=== PATIENT | female | born 2000 | race Caucasian/White ===

== ENCOUNTER 2021-09-18 10:30 | Outpatient (RCR) | payer OTHER, SELFPAY ==
--- NOTE | 2021-08-15 11:05 | HP.OTEVAL_ITS ---
Patient's Visit Information ROHAN MILLARD is a 21 year old F, referred to Occupational Therapy by ROBERT Cramer, with a diagnosis of left tendonitis ECRB. Date of Evaluation: 08/15/21 Occupational Therapist: Myrna Jimenes, JACOB/Ethan, CHT - Subjective This 21 year old female was seen for OT with dx of left wrist tendonitis (ECRB). 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 pt is right handed. pt would like to decrease pain and use left UE without limitations. - Objective pt demo with rolled shoulder posture - ROM Elbow: right +5/135 left +15/ 135 Forearm: right/left WNL Wrist: right 65/75 left 65/65 ROM Comments: right RD 10* UD 30*. left RD 20* UD 30* - Strength Customer Service And Sales Consultant: right 70# left 40# Lateral Pinch: right 8# left 4# Tripod Pinch: right 4# left 2# - Sensation Sensation Comments: denies - Goals Goal:: pt will demo a increase in left price clerk strength by 15# to increase pts ind. with ADls and IADls by d.c. pt will demo a incrase in left lateral and tripod pinch by 4# to increase pts ind. with ADls and IADLs by d/c Goal:: pt will demo a increase in left wrist flex/ext ROM by 10* to increase pts ind.with ADLs and IADls by d.c Goal:: pt will self report pain no greater than 1/10 with use of left hand with ADLS and IADLs by d.c Goal:: pt will demo understanding wrist ergo to limit stress on tendons by dc. pt will demo increase in seated posture to good to limit stress on muscle/ ligament structures due to poor posture by d/c - Rehabilitation General Assessment: pt demo with left forearm pain and left price clerk/pinch weakness limiting pt with IADLs. Pt demo fair posture . Pt would benefit from skilled OT services 2-3x week for 6 weeks to return pt to PLOF. Today therapist ed. pt on dx. and posture how this can affect use of left UE- Therapist ed. pt on erg. with use of left hand with ADls. pt dmeo understanding of POC and agrees. Rehabilitation Potential: Good - Anticipated Interventions A/AAROM/PROM, Strengthening, Scar Care, Triggerpoint Release, Modalities, Joint Protection/Energy Conservation, Education re Diagnosis - Visit Plan Frequency: 2-3x /Week Duration: 6 Weeks General Plan: will work with tendonitis of ECRB. posture. and strength pt TEXT: Thank you for the opportunity to evaluate your patient. For Medicare and Medicare HMO plans, please review the plan of care and approve it. It will need to be FAXED BACK to us at [phone] for Medicare purposes. Please let me know if there are questions or concerns regarding this plan of care. Physician Signature: Date:
--- NOTE | 2021-08-15 11:06 | HP.OTEVAL_ITS ---
Patient's Visit Information ROHAN MILLARD is a 21 year old F, referred to Occupational Therapy by ROBERT Cramer, with a diagnosis of left tendonitis ECRB. Date of Evaluation: 08/15/21 Occupational Therapist: Myrna Jimenes, JACOB/Ethan, CHT - Subjective This 21 year old female was seen for OT with dx of left wrist tendonitis (ECRB). 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 pt is right handed. pt would like to decrease pain and use left UE without limitations. - Objective pt demo with rolled shoulder posture - ROM Elbow: right +5/135 left +15/ 135 Forearm: right/left WNL Wrist: right 65/75 left 65/65 ROM Comments: right RD 10* UD 30*. left RD 20* UD 30* - Strength Machine Striper: right 70# left 40# Lateral Pinch: right 8# left 4# Tripod Pinch: right 4# left 2# - Sensation Sensation Comments: denies - Quick DASH-Disab of Arm,Shoulder& Hand Quick DASH Score: 25.0000 - Goals Goal:: pt will demo a increase in left locomotive repairer diesel strength by 15# to increase pts ind. with ADls and IADls by d.c. pt will demo a incrase in left lateral and tripod pinch by 4# to increase pts ind. with ADls and IADLs by d/c Goal:: pt will demo a increase in left wrist flex/ext ROM by 10* to increase pts ind.with ADLs and IADls by d.c Goal:: pt will self report pain no greater than 1/10 with use of left hand with ADLS and IADLs by d.c Goal:: pt will demo understanding wrist ergo to limit stress on tendons by dc. pt will demo increase in seated posture to good to limit stress on muscle/ligament structures due to poor posture by d/c - Rehabilitation General Assessment: pt demo with left forearm pain and left locomotive repairer diesel/pinch weakness limiting pt with IADLs. Pt demo fair posture . Pt would benefit from skilled OT services 2-3x week for 6 weeks to return pt to PLOF. Today therapist ed. pt on dx. and posture how this can affect use of left UE- Therapist ed. pt on erg. with use of left hand with ADls. pt dmeo understanding of POC and agrees. Rehabilitation Potential: Good - Anticipated Interventions A/AAROM/PROM, Strengthening, Scar Care, Triggerpoint Release, Modalities, Joint Protection/Energy Conservation, Education re Diagnosis - Visit Plan Frequency: 2-3x /Week Duration: 6 Weeks General Plan: will work with tendonitis of ECRB. posture. and strength pt TEXT: Thank you for the opportunity to evaluate your patient. For Medicare and Medicare HMO plans, please review the plan of care and approve it. It will need to be FAXED BACK to us at [phone] for Medicare purposes. Please let me know if there are questions or concerns regarding this plan of care. Physician Signature: Date:
--- NOTE | 2021-09-18 10:46 | HP.OTDCSUM ---
It has been my pleasure to treat ROHAN MILLARD under orders from ROBERT Cramer, for the diagnosis of left tendonitis ECRB for a total of 10 visit(s). Please see the following information for a summary of their discharge status. % Improvement: 70 Objective/Function: left wrist ROM 70/75 this is increase from 65/65. left lean process deployment consultant strength 70# increase from 40#. left lateral pinch 14# increase from 4#. left tripod pinch 10# increase from 2# Patient Goals: Decrease Pain, Use Hand/Wrist/Arm Normally Again Goal:: pt will demo a increase in left lean process deployment consultant strength by 15# to increase pts ind. with ADls and IADls by d.c. pt will demo a incrase in left lateral and tripod pinch by 4# to increase pts ind. with ADls and IADLs by d/c Goal:: pt will demo a increase in left wrist flex/ext ROM by 10* to increase pts ind.with ADLs and IADls by d.c Goal:: pt will self report pain no greater than 1/10 with use of left hand with ADLS and IADLs by d.c Goal:: pt will demo understanding wrist ergo to limit stress on tendons by dc. pt will demo increase in seated posture to good to limit stress on muscle/ligament structures due to poor posture by d/c Plan: D/C Discharge Comments: Pt was seen for 10 OT visits due to pain /strain ECRB- pt has made great gains in therapy and have met OT goals. pt to cont. to watch her daily movements to ensure proper wrist/elbow ergonomics. pt agree with d/c. If there are questions or concerns regarding this patient's occupational therapy, please fell free to call me at [phone]. Thank you for the referral of this patient. Sincerely, Myrna Jimenes, OTR/L, CHT
== END 2021-09-18 12:32 | disposition home or self-care (01) ==
LOC: OT 10:30
PROVIDERS: PCP Pediatrics; Referring Provider Physician Assistant; Visit Provider Physician Assistant
DX: M77.8 Other enthesopathies, not elsewhere classified (principal)
CPT/HCPCS: 97035; 97110; 97140; 97166; 97530

== ENCOUNTER → 2022-03-13 | Outpatient (CLI) | payer OTHER, SELFPAY ==
--- NOTE | 2022-03-13 07:29 | MRI_ITS ---
STUDY: MRI RIGHT WRIST WITHOUT CONTRAST REASON FOR EXAM: Palpable abnormality at the skin marker at the palmar aspect of the wrist for 5 months, evaluate for ganglion cyst. TECHNIQUE: Standardized fat and water weighted pulse sequences were obtained in all 3 orthogonal planes. COMPARISON: Radiographs 02/25/2022. FINDINGS: Normal visualized distal radius and ulna. Normal distal radioulnar articulation (DRUJ). Normal triangular fibrocartilaginous complex (TFCC). Normal carpal bones. Normal radiocarpal, intercarpal and midcarpal articulations. Normal pisotriquetral articulation. Normal visualized interosseous scapholunate ligament. Normal extensor tendons. Normal flexor tendons. Normal carpal tunnel with a normal median nerve. Normal carpometacarpal articulation of the thumb. Normal second through fifth carpometacarpal articulations. Normal visualized metacarpal bones. There is no demonstrated soft tissue abnormality. There specifically is no ganglion cyst or discrete soft tissue mass corresponding to the palmar skin marker (inversion recovery axial images 15-20). MRI/Upper Ext Joint Only(Routine) IMPRESSION: Unremarkable MRI of the right wrist without demonstrated ganglion cyst or soft tissue mass corresponding to the palmar skin marker. Electronically Signed: Drew Gonsalez MD at 9:19 EDT ,
== END | disposition home or self-care (01) ==
PROVIDERS: PCP Pediatrics; Referring Provider Physician Assistant; Visit Provider Physician Assistant
DX: M67.431 Ganglion, right wrist (principal)
CPT/HCPCS: 73221

== ENCOUNTER → 2022-11-06 | Outpatient (CLI) | payer OTHER, SELFPAY ==
[2022-11-06 12:19] LABS: Erythrocyte Sedimentation Rate 13 mm/hr (0-30)
[2022-11-06 12:23] LABS: Absolute Lymphocyte Count 2.76 X10^3/uL (0.83-4.51); Basophil# 0.05 X10^3/uL; Basophil% 0.6 % (0-1); Eosinophil# 0.15 X10^3/uL; Eosinophils% 1.8 % (0-5); Hematocrit 38.9 % (37-47); Lymphocyte # 2.76 X10^3/ul (0.83-4.51); Lymphocyte % 32.2 % (19-41); Mean Corp Hgb Conc 30.8 g/dL (32-36); Mean Corpuscular Hgb 25.4 pg (27.0-32.0); Mean Corpuscular Volume 82.4 fL (81-99); Mean Platelet Vol. 9.3 fl (6.2-12.0); Monocyte# 0.56 X10^3/uL; Monocyte% 6.5 % (0-10); NRBC Flagged by Analyzer 0 % (0-5); Neutrophil # 5.01 X10^3/uL (2.7-7.7); Neutrophil % 58.5 % (47-70); Platelet Count 469 K/mm3 (150-450); RBC Distribution Width CV 14.6 % (11.6-14.6); RBC Distribution Width SD 43.5 fl (35.1-43.9); Red Blood Count 4.72 M/mm3 (4.2-5.4); White Blood Count 8.6 K/mm3 (4.4-11.0)
[2022-11-06 13:13] LABS: AST(SGOT) 15 U/L (15-37); Alanine Aminotransfer ALT/SGPT 23 U/L (13-56); Albumin, Serum 3.8 g/dL (3.2-5.0); Alkaline Phosphatase 79 U/L (45-117); Anion Gap 5 (5-15); BUN 19 mg/dL (7-18); BUN/Creat Ratio 26.5 RATIO (10-20); Calcium,Total 9.2 mg/dL (8.5-10.1); Chloride 105 mmol/L (98-107); Creatinine, Serum 0.72 mg/dL (0.55-1.02); EST Glomerular Filtration Rate 107 mL/min (>60); Est Glom Filt Rate - Afr Amer 129 mL/min (>60); Globulin 3.7 g/dL (2.2-4.2); Glucose 96 mg/dL (74-106); Protein, Total 7.5 g/dL (6.4-8.2); Rheumatoid Factor < 10.0 IU/mL (<15); Sodium Level 135 mmol/L (136-145); Thyroid Stim Hormone (TSH) 5.09 uIU/mL (0.358-3.74)
[2022-11-07 15:25] LABS: CCP IgG Antibodies 6 units (0-19)
[2022-11-07 15:25] LABS: ANTINUCLEAR ANTIBODIES DIRECT Negative (Negative)
== END | disposition home or self-care (01) ==
LOC: MTLAB 10:07
PROVIDERS: PCP Family Medicine; Referring Provider Family Medicine; Visit Provider Family Medicine
DX: M25.50 Pain in unspecified joint (principal)
CPT/HCPCS: 36415; 80053; 84443; 85025; 85652; 86038; 86140; 86200; 86431

== ENCOUNTER → 2022-11-10 | Outpatient (CLI) | payer OTHER, SELFPAY ==
[2022-11-10 17:42] LABS: Free T3 2.4 pg/mL (2.18-3.98); T4 Free Direct 0.96 ng/dL (0.76-1.46); Thyroid Stim Hormone (TSH) 4.17 uIU/mL (0.358-3.74)
[2022-11-12 15:08] LABS: Thyroglobulin Antibody < 1.0 IU/mL (0.0-0.9); Thyroid Peroxidase AB 105 IU/mL (0-34)
== END | disposition home or self-care (01) ==
LOC: BIMLAB 12:17
PROVIDERS: PCP Family Medicine; Visit Provider Family Medicine
DX: R79.89 Other specified abnormal findings of blood chemistry (principal)
CPT/HCPCS: 36415; 84439; 84443; 84481; 86376; 86800

== ENCOUNTER → 2022-12-03 | Outpatient (CLI) | payer OTHER, SELFPAY ==
[2022-12-03 18:32] LABS: Thyroid Stim Hormone (TSH) 1.93 uIU/mL (0.358-3.74)
== END | disposition home or self-care (01) ==
LOC: MFPLAB 15:17
PROVIDERS: PCP Family Medicine; Visit Provider Family Medicine
DX: R79.89 Other specified abnormal findings of blood chemistry (principal)
CPT/HCPCS: 36415; 84443

== ENCOUNTER → 2022-12-06 | Outpatient (CLI) | payer OTHER, SELFPAY ==
--- NOTE | 2022-12-06 11:22 | US_ITS ---
INDICATION: new diagnosis hypothyroidism EXAMINATION: Ultrasound US Thyroid (eg thyroid, parathyroid, parotid) TECHNIQUE: Rodriges scale and color doppler imaging was performed of the thyroid gland. COMPARISON: None. FINDINGS: RIGHT THYROID LOBE: 4.5 x 1.8 x 1.0 cm. Heterogeneous echotexture with normal vascularity. [There is a lower pole solid relatively isoechoic 6 x 7 x 5 mm nodule. LEFT THYROID LOBE: 3.9 x 1.5 x 1.3 cm. Heterogeneous echotexture with normal vascularity. [There is a heterogeneous mixed mid thyroid nodule measuring 7 x 5 x 4 mm. ISTHMUS: 2.6 mm. No thyroid nodules are present. There is a 1.1 x 2.8 x 2.7 cm right-sided node. A 7 x 7 x 6 mm nodule adjacent to the right thyroid lobe inferiorly possibly representing the parathyroid gland. US/Thyroid IMPRESSION: Heterogeneity of the thyroid lobes with nodules as noted. Follow-up is recommended to determine stability. Slightly prominent right parathyroid gland. Electronically Signed: Garrett Torres DO at 18:25 EDT ,
== END | disposition home or self-care (01) ==
PROVIDERS: PCP Family Medicine; Referring Provider Family Medicine; Visit Provider Family Medicine
DX: E03.9 Hypothyroidism, unspecified (principal)
CPT/HCPCS: 76536

== ENCOUNTER → 2022-12-17 | Outpatient (CLI) | payer OTHER, SELFPAY ==
[2022-12-17 18:03] LABS: Vitamin D,25 Hydroxy 14.4 ng/mL
[2022-12-17 18:08] LABS: Thyroid Stim Hormone (TSH) 2.79 uIU/mL (0.358-3.74)
[2022-12-18 08:55] LABS: PTHIN 30.1 pg/mL (18.4-80.1)
== END | disposition home or self-care (01) ==
LOC: MFPLAB 14:42
PROVIDERS: PCP Family Medicine; Visit Provider Family Medicine
DX: E21.5 Disorder of parathyroid gland, unspecified (principal); E03.9 Hypothyroidism, unspecified
CPT/HCPCS: 36415; 82306; 82330; 83970; 84439; 84443

== ENCOUNTER → 2022-12-24 | Outpatient (CLI) | payer OTHER, SELFPAY ==
[2022-12-24 15:21] LABS: Vitamin B12 392 pg/mL (211-911)
== END | disposition home or self-care (01) ==
LOC: BIMLAB 11:52
PROVIDERS: PCP Family Medicine; Visit Provider Family Medicine
DX: R53.83 Other fatigue (principal)
CPT/HCPCS: 36415; 82607

== ENCOUNTER → 2023-02-02 | Outpatient (CLI) | payer OTHER, SELFPAY ==
[2023-02-02 17:59] LABS: Thyroid Stim Hormone (TSH) 1.89 uIU/mL (0.358-3.74)
[2023-02-02 18:45] LABS: Vitamin B12 488 pg/mL (211-911)
[2023-02-03 11:38] LABS: ALB/GLOB Ratio 1.1 RATIO (0.9-2.4); AST(SGOT) 17 U/L (15-37); Alanine Aminotransfer ALT/SGPT 22 U/L (13-56); Alkaline Phosphatase 72 U/L (45-117); Anion Gap 6 (5-15); BUN 13 mg/dL (7-18); BUN/Creat Ratio 16.2 RATIO (10-20); Calcium,Total 9.5 mg/dL (8.5-10.1); Chloride 111 mmol/L (98-107); EST Glomerular Filtration Rate 94 mL/min (>60); Est Glom Filt Rate - Afr Amer 113 mL/min (>60); Ferritin 7 ng/mL (8-252); Globulin 3.8 g/dL (2.2-4.2); Glucose 93 mg/dL (74-106); Potassium 3.9 mmol/L (3.5-5.1); Protein, Total 7.8 g/dL (6.4-8.2); Sodium Level 139 mmol/L (136-145)
[2023-02-03 11:54] LABS: Absolute Lymphocyte Count 2.07 X10^3/uL (0.83-4.51); Absolute Neutrophil Count 5.1 X10^3/uL (2.0-7.7); Basophil# 0.07 X10^3/uL; Basophil% 0.9 % (0-1); Eosinophil# 0.09 X10^3/uL; Eosinophils% 1.2 % (0-5); Hematocrit 38.5 % (37-47); Hemoglobin 11.8 g/dL (12.0-15.0); Lymphocyte # 2.07 X10^3/ul (0.83-4.51); Lymphocyte % 26.6 % (19-41); Mean Corp Hgb Conc 30.6 g/dL (32-36); Mean Corpuscular Hgb 25.2 pg (27.0-32.0); Mean Corpuscular Volume 82.3 fL (81-99); Mean Platelet Vol. 10.1 fl (6.2-12.0); Monocyte# 0.41 X10^3/uL; Monocyte% 5.3 % (0-10); NRBC Flagged by Analyzer 0 % (0-5); Neutrophil % 65.6 % (47-70); Platelet Count 436 K/mm3 (150-450); RBC Distribution Width CV 14.4 % (11.6-14.6); RBC Distribution Width SD 42.3 fl (35.1-43.9); Red Blood Count 4.68 M/mm3 (4.2-5.4); White Blood Count 7.8 K/mm3 (4.4-11.0)
== END | disposition home or self-care (01) ==
LOC: BIMLAB 15:58
PROVIDERS: Family Medicine; PCP Family Medicine; Referring Provider Family Medicine; Visit Provider Family Medicine
DX: R53.83 Other fatigue (principal); R79.89 Other specified abnormal findings of blood chemistry
CPT/HCPCS: 36415; 80053; 82607; 82728; 84443; 85025

== ENCOUNTER → 2023-03-09 | Outpatient (CLI) | payer OTHER, SELFPAY ==
[2023-03-09 15:00] LABS: Absolute Lymphocyte Count 2.47 X10^3/uL (0.83-4.51); Absolute Neutrophil Count 2.9 X10^3/uL (2.0-7.7); Basophil# 0.05 X10^3/uL; Basophil% 0.8 % (0-1); Eosinophil# 0.15 X10^3/uL; Eosinophils% 2.5 % (0-5); Hematocrit 37.1 % (37-47); Hemoglobin 11.9 g/dL (12.0-15.0); Lymphocyte # 2.47 X10^3/ul (0.83-4.51); Mean Corp Hgb Conc 32.1 g/dL (32-36); Mean Corpuscular Hgb 26.6 pg (27.0-32.0); Mean Corpuscular Volume 82.8 fL (81-99); Mean Platelet Vol. 9.6 fl (6.2-12.0); Monocyte# 0.51 X10^3/uL; Monocyte% 8.5 % (0-10); NRBC Flagged by Analyzer 0 % (0-5); Neutrophil # 2.85 X10^3/uL (2.7-7.7); Neutrophil % 47.2 % (47-70); Platelet Count 377 K/mm3 (150-450); RBC Distribution Width CV 15.8 % (11.6-14.6); RBC Distribution Width SD 47.4 fl (35.1-43.9); Red Blood Count 4.48 M/mm3 (4.2-5.4)
[2023-03-09 16:38] LABS: ALB/GLOB Ratio 1.1 RATIO (0.9-2.4); AST(SGOT) 15 U/L (15-37); Alanine Aminotransfer ALT/SGPT 19 U/L (13-56); Albumin, Serum 3.7 g/dL (3.2-5.0); Alkaline Phosphatase 63 U/L (45-117); Anion Gap 4 (5-15); BUN 12 mg/dL (7-18); BUN/Creat Ratio 16.5 RATIO (10-20); Calcium,Total 8.8 mg/dL (8.5-10.1); Chloride 111 mmol/L (98-107); Creatinine, Serum 0.73 mg/dL (0.55-1.02); EST Glomerular Filtration Rate 105 mL/min (>60); Est Glom Filt Rate - Afr Amer 127 mL/min (>60); Ferritin 8 ng/mL (8-252); Globulin 3.4 g/dL (2.2-4.2); Glucose 98 mg/dL (74-106); Potassium 3.9 mmol/L (3.5-5.1); Protein, Total 7.1 g/dL (6.4-8.2); Sodium Level 140 mmol/L (136-145); T4 Free Direct 1.16 ng/dL (0.76-1.46)
[2023-03-09 17:29] LABS: Vitamin B12 1868 pg/mL (211-911); Vitamin D,25 Hydroxy 60.2 ng/mL
== END | disposition home or self-care (01) ==
LOC: MFPLAB 13:36
PROVIDERS: PCP Family Medicine; Visit Provider Family Medicine
DX: R53.83 Other fatigue (principal); E03.9 Hypothyroidism, unspecified; E55.9 Vitamin D deficiency, unspecified
CPT/HCPCS: 36415; 80053; 82306; 82607; 82728; 84439; 84443; 85025

== ENCOUNTER 2023-04-02 11:30 | Outpatient (RCR) | payer OTHER, SELFPAY ==
--- NOTE | 2023-03-05 16:38 | HP.PTEVAL ---
Patient's Visit Information Visit Information Visit Information: ROHAN MILLARD is a 22 year old F referred to Physical Therapy by LIANNA DRISCOLL with a diagnosis of Achilles Tendonitis. Date of Evaluation: 03/05/23 Physical Therapist: Lily Santana DPT Visit Plan Frequency: 2x /Week Duration: 4 Weeks Plan: Hold 4 weeks- will do below HEP and get good shoes- encouraged to call if issues arise prior to the 4 week follow up HEP Given IE: Stretching, Shoes, Arch Supports, HR/TR, SLS Subjective Subjective: She has been having right Achilles issues for 3 moths- PCP for 3 months- stretches- saw ortho- night splint and PT- saw ortho on the - she has been averaging 3-4 nights in the night splint. She is wearing the night splint more in the beginning of the night more than the end of the night. Pain is located in the back of the Achilles in the mid calf- the pain is there all the time. They did an x-ray- no bone spurs. She does not wear arch supports and wears HOKA's- and she wears Avias on her shorter days. Worst: 8/10 Agg: going up/down the stairs, moving quick fast, sharp turns. Eases: heat Best: 5/10. Describes the pain as sharp and achy- stabbing. Aurora like the achilles was displaced. She was doing the step stretch, counter stretch, towel pull back- doing them 2-3x a day holding 20 sec. 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 When she is not working she likes to craft so she is sitting for the majority of that. Worse when she gets up in the morning. Sleep: side sleeper. PMHx: thyroid Meds: synthroid, leothyrain, vivance, lexipro Objective Objective: Posture: FH, RS- can correct with verbal cues but does not maintain Gait: no deviation noted but does report pain- pes planus bilaterally Observation: pes planus bilateral HR/TR: able but does require UE A SLS: 2-3 sec then LOB- increased sway- and increased muscle activation Palpation: tender along Achilles and into the gastroc ROM: DF: 15 degrees with OP, PF: 60 degrees, Inver: 30 deg, Ever: 30 deg, Strength: 5/5 throughout Flex: Gastroc: mod, Soleus: mod Balance/Special Test Scores Lower Extremity Functional Score: 65 Goals Goal 1:: Patient will be I with HEP and progression Goal Time Frame: 4-6 Weeks Goal 2:: Patient will SLS for 15 sec without LOB Goal Time Frame: 4-6 Weeks Goal 3:: Patient will report 80% improvement Goal Time Frame: 4-6 Weeks Rehabilitation Potential Physical Therapy Diagnosis: Patient presents with hypomobility- she has decreased proprioception, flex and muscular endurance with pes planus and increased pain with ADL's. Rehabilitation Potential: Good Anticipated Interventions Patient/Client Instruction: Educate patient on: Benefits of Fitness Program Therapeutic Exercise to Include: Strength training, Endurance training, Balance training, Coordination, Agility training, Body mechanics, Postural training, Flexibilty training, Gait and locomotor training, Neuromotor development, Dynamic Lumbar Stabilization and Scapular Strength/Stabilization For the Purpose of:: To improve muscle performance and motor function TENS: Yes Cryotherapy (ice pack, ice massage): Yes Thermo therapy (hot pack): Yes Ultrasound (thermal/non thermal): Yes Text: Thank you for the opportunity to evaluate your patient. For Medicare and Medicare HMO plans, please review the plan of care and approve it. It will need to be FAXED BACK to us at [phone] for Medicare purposes. For Medicare only, by signing this I certify the plan of care. Please let me know if there are questions or concerns regarding this plan of care. Physician Signature: Date:
--- NOTE | 2023-04-02 11:48 | HP.PTDCSUM ---
Discharge Summary D/C summary: It has been my pleasure to treat ROHAN MILLARD referred by LIANNA DRISCOLL, with the diagnosis of Achilles Tendonitis for a total of 2 visit(s). Discharge Date: Please see the following information for a summary of their discharge status. Subjective Subjective: She tried a pair of [employer] Ghost- she had more heel pain with them- the calf pain has subsided but the achilles pain has more localized. There is too much pain with all the exercises. She feels that she can do shorter amounts of the exercises. She is now in [employer] Glycerine and she likes them much better. The heel pain starts at about 3 hours standing at work. She is not wearing the inserts at work. Last couple of days heel pain has been a 4/10. She has been doing some cupping to the back of her leg and that has been helping. Overall Improvement % Improvement: 60 Objective Objective/Function: Posture: FH, RS- can correct with verbal cues but does not maintain Gait: no deviation noted no pain Observation: no pes planus noted in shoes - [employer] Glycerine HR/TR: able but does require UE A SLS: 15 seconds sec Palpation: tender along Achilles- no pain along gastroc ROM: DF: 15 degrees, PF: 60 degrees, Inver: 30 deg, Ever: 30 deg, Strength: 5/5 throughout Flex: Gastroc: mod, Soleus: mod Goals Goal 1:: Patient will be I with HEP and progression Goal Progress: Goal Met Goal 2:: Patient will SLS for 15 sec without LOB Goal Progress: Goal Met Goal 3:: Patient will report 80% improvement Goal Progress: Progressing Plan Plan: 04/02/23: Discharge to I HEP Hold 4 weeks- will do below HEP and get good shoes- encouraged to call if issues arise prior to the 4 week follow up HEP Given IE: Stretching, Shoes, Arch Supports, HR/TR, SLS D/C Information d/c sentence: If there are questions or concerns regarding this patient's physical therapy, please feel free to call me at [phone]. Thank you for the referral of this patient. Sincerely, Lily Santana, DPT Balance/Gait/Functional tests Balance/Special Test Scores Lower Extremity Functional Score: 69 Improvement % Improvement: 60
== END 2023-04-02 19:00 | disposition home or self-care (01) ==
LOC: PT 11:30
PROVIDERS: PCP Family Medicine
DX: M24.571 Contracture, right ankle (principal); M76.61 Achilles tendinitis, right leg
CPT/HCPCS: 97110; 97162; 97164

== ENCOUNTER → 2023-04-02 | Outpatient (CLI) | payer OTHER, SELFPAY ==
--- NOTE | 2023-04-02 14:14 | US_ITS ---
EXAM: US SOFT TISSUES HEAD AND NECK, THYROID CLINICAL INDICATION: thyroid nodules TECHNIQUE: Greyscale and color doppler imaging was performed of the thyroid gland. COMPARISON: 12/06/2022. FINDINGS: LEFT THYROID LOBE: The left lobe of the thyroid measures 4.1 x 1.6 x 1.7 cm. The left lobe of the thyroid is diffusely heterogeneous without discrete nodule. Homogeneous echotexture with normal vascularity. RIGHT THYROID LOBE: The right lobe of the thyroid measures 4.9 x 1.4 x 1.4 cm. The right lobe is diffusely heterogeneous without discrete nodule. There is a hypoechoic nodule measuring 8 x 6 x 7 mm posterior to the right lobe of the thyroid unchanged since previous exam. ISTHMUS: Thyroid isthmus measures 3 mm. No thyroid nodules are present. US/Thyroid IMPRESSION: 1. Diffusely heterogeneous right and left lobes of the thyroid without discrete nodules. 2. There is a hypoechoic nodule measuring 8 x 6 x 7 mm posterior to the right lobe of the thyroid unchanged since previous exam. This may be a prominent parathyroid gland or a lymph node. No change since previous exam. Electronically Signed: Gio Tolbert MD at 23:42 EDT ,
== END | disposition home or self-care (01) ==
LOC: US 14:10
PROVIDERS: PCP Family Medicine; Referring Provider Family Medicine; Visit Provider Family Medicine
DX: E04.1 Nontoxic single thyroid nodule (principal)
CPT/HCPCS: 76536

== ENCOUNTER → 2023-04-28 | Outpatient (CLI) | payer OTHER, SELFPAY ==
[2023-04-28 15:54] LABS: T4 Free Direct 0.83 ng/dL (0.76-1.46)
== END | disposition home or self-care (01) ==
LOC: MFPLAB 11:53
PROVIDERS: PCP Family Medicine; Visit Provider Family Medicine
DX: E03.9 Hypothyroidism, unspecified (principal)
CPT/HCPCS: 36415; 84439; 84443

== ENCOUNTER → 2023-05-21 | Outpatient (CLI) | payer OTHER, SELFPAY ==
[2023-05-21 18:19] LABS: T4 Free Direct 0.91 ng/dL (0.76-1.46); Thyroid Stim Hormone (TSH) 4.54 uIU/mL (0.358-3.74)
== END | disposition home or self-care (01) ==
LOC: MFPLAB 14:47
PROVIDERS: PCP Family Medicine; Visit Provider Family Medicine
DX: E03.9 Hypothyroidism, unspecified (principal)
CPT/HCPCS: 36415; 84439; 84443

== ENCOUNTER → 2023-07-14 | Outpatient (CLI) | payer OTHER, SELFPAY ==
[2023-07-14 15:55] LABS: T4 Free Direct 1.19 ng/dL (0.76-1.46); Thyroid Stim Hormone (TSH) 3.59 uIU/mL (0.358-3.74)
== END | disposition home or self-care (01) ==
LOC: MFPLAB 11:23
PROVIDERS: PCP Family Medicine; Visit Provider Family Medicine
DX: E03.9 Hypothyroidism, unspecified (principal)
CPT/HCPCS: 36415; 84439; 84443

== ENCOUNTER → 2023-08-26 | Outpatient (CLI) | payer OTHER, SELFPAY ==
[2023-08-26 17:39] LABS: Absolute Lymphocyte Count 2.96 X10^3/uL (0.83-4.51); Basophil# 0.06 X10^3/uL; Basophil% 0.6 % (0-1); Eosinophil# 0.04 X10^3/uL; Eosinophils% 0.4 % (0-5); Hematocrit 39.6 % (37-47); Hemoglobin 12.2 g/dL (12.0-15.0); Lymphocyte # 2.96 X10^3/ul (0.83-4.51); Lymphocyte % 30.7 % (19-41); Mean Corp Hgb Conc 30.8 g/dL (32-36); Mean Corpuscular Hgb 26.8 pg (27.0-32.0); Mean Corpuscular Volume 86.8 fL (81-99); Mean Platelet Vol. 9.7 fl (6.2-12.0); Monocyte# 0.54 X10^3/uL; Monocyte% 5.6 % (0-10); NRBC Flagged by Analyzer 0 % (0-5); Neutrophil % 62.4 % (47-70); Platelet Count 451 K/mm3 (150-450); RBC Distribution Width CV 13.6 % (11.6-14.6); RBC Distribution Width SD 42.6 fl (35.1-43.9); Red Blood Count 4.56 M/mm3 (4.2-5.4); White Blood Count 9.6 K/mm3 (4.4-11.0)
[2023-08-26 18:09] LABS: ALB/GLOB Ratio 1.1 RATIO (0.9-2.4); AST(SGOT) 15 U/L (15-37); Alanine Aminotransfer ALT/SGPT 26 U/L (13-56); Albumin, Serum 4.1 g/dL (3.2-5.0); Alkaline Phosphatase 74 U/L (45-117); Anion Gap 5 (5-15); BUN 14 mg/dL (7-18); Calcium,Total 9.5 mg/dL (8.5-10.1); Chloride 110 mmol/L (98-107); Creatinine, Serum 0.87 mg/dL (0.55-1.02); EST Glomerular Filtration Rate 85 mL/min (>60); Est Glom Filt Rate - Afr Amer 102 mL/min (>60); Ferritin 8 ng/mL (8-252); Globulin 3.7 g/dL (2.2-4.2); Glucose 103 mg/dL (74-106); Potassium 3.8 mmol/L (3.5-5.1); Protein, Total 7.8 g/dL (6.4-8.2); Sodium Level 138 mmol/L (136-145); T4 Free Direct 1.28 ng/dL (0.76-1.46); Thyroid Stim Hormone (TSH) 3.11 uIU/mL (0.358-3.74)
== END | disposition home or self-care (01) ==
LOC: MFPLAB 15:40
PROVIDERS: PCP Family Medicine; Visit Provider Family Medicine
DX: E03.9 Hypothyroidism, unspecified (principal); F32.A Depression, unspecified
CPT/HCPCS: 36415; 80053; 82728; 84439; 84443; 85025

== ENCOUNTER → 2023-11-03 | Outpatient (CLI) | payer OTHER, SELFPAY ==
[2023-11-03 16:35] LABS: T4 Free Direct 1.35 ng/dL (0.76-1.46); Thyroid Stim Hormone (TSH) 2.15 uIU/mL (0.358-3.74)
== END | disposition home or self-care (01) ==
LOC: MFPLAB 12:28
PROVIDERS: PCP Family Medicine; Visit Provider Family Medicine
DX: E03.9 Hypothyroidism, unspecified (principal)
CPT/HCPCS: 36415; 84439; 84443

== ENCOUNTER → 2024-02-02 | Outpatient (CLI) | payer OTHER, SELFPAY ==
[2024-02-02 16:06] LABS: T4 Free Direct 1.11 ng/dL (0.76-1.46); Thyroid Stim Hormone (TSH) 2.14 uIU/mL (0.358-3.74)
== END | disposition home or self-care (01) ==
LOC: MFPLAB 11:52
PROVIDERS: PCP Family Medicine; Visit Provider Family Medicine
DX: E03.9 Hypothyroidism, unspecified (principal)
CPT/HCPCS: 36415; 84439; 84443

== ENCOUNTER → 2024-02-15 | Outpatient (CLI) | payer OTHER, SELFPAY ==
--- NOTE | 2024-02-15 12:24 | US_ITS ---
INDICATION: HYPOTHYROIDISM EXAMINATION: Ultrasound US Thyroid (eg thyroid, parathyroid, parotid) TECHNIQUE: Rodriges scale and color doppler imaging was performed of the thyroid gland. COMPARISON: December 06 and April 02, 2023 FINDINGS: RIGHT THYROID LOBE: 1.2 x 4.2 x 1.0 cm. The gland is mildly heterogenous with normal vascularity. [No thyroid nodules are present. LEFT THYROID LOBE: 1.3 x 3.3 x 1.3 cm.. There is heterogenous echotexture with normal vascularity. [No thyroid nodules are present. ISTHMUS: 0.4 cm. No thyroid nodules are present. There is a within normal limits appearing lymph node with a short axis of 0.5 cm lateral to the right lobe of the gland. US/Thyroid IMPRESSION: Heterogenous thyroid gland which may be secondary to a history of thyroiditis. No discrete thyroid nodules. Electronically Signed: Faye London MD at 8:40 EDT ,
== END | disposition home or self-care (01) ==
LOC: US 12:22
PROVIDERS: PCP Family Medicine; Referring Provider Family Medicine; Visit Provider Family Medicine
DX: E03.9 Hypothyroidism, unspecified (principal)
CPT/HCPCS: 76536

== ENCOUNTER → 2024-08-04 | Outpatient (CLI) | payer OTHER, SELFPAY | END | disposition home or self-care (01) | LOC: MFPLAB 09:39 | PROVIDERS: PCP Family Medicine; Referring Provider Family Medicine; Visit Provider Family Medicine | DX: E03.9 Hypothyroidism, unspecified (principal) | CPT/HCPCS: 36415; 84443 ==

== ENCOUNTER → 2025-03-16 | Outpatient (CLI) | payer OTHER, SELFPAY ==
[2025-03-16 10:06] LABS: Hematocrit 35.1 % (37-47); Hemoglobin 11.1 g/dL (12.0-15.0); Immature Granulocytes Count 0.030 X10^3/uL (0.0-0.0); Mean Corp Hgb Conc 31.6 g/dL (32-36); Mean Corpuscular Volume 81.4 fL (81-99); Mean Platelet Vol. 9.4 fl (6.2-12.0); NRBC Flagged by Analyzer 0 % (0-5); Platelet Count 449 K/mm3 (150-450); RBC Distribution Width CV 15.2 % (11.6-14.6); RBC Distribution Width SD 44.9 fl (35.1-43.9); Red Blood Count 4.31 M/mm3 (4.2-5.4); White Blood Count 8.7 K/mm3 (4.4-11.0)
[2025-03-16 10:44] LABS: PTHIN 31 pg/mL (11-61)
[2025-03-16 11:05] LABS: AST(SGOT) 19 U/L (<=31); Alanine Aminotransfer ALT/SGPT 19 U/L (<=34); Albumin, Serum 4.1 g/dL (3.5-5.0); Alkaline Phosphatase 71 U/L (35-104); Anion Gap 13 (5-15); BUN 14 mg/dL (4-19); BUN/Creat Ratio 17.4 RATIO (10-20); Calcium,Total 9.1 mg/dL (7.6-11.0); Carbon Dioxide 19.7 mmol/L (21.0-32.0); Chloride 106 mmol/L (98-108); Cholesterol 136 mg/dL (<=200); Globulin 2.8 g/dL (2.2-4.2); Glucose 97 mg/dL (70-99); Low Density Lipoprotein Calc. 76 mg/dL; Potassium 4.1 mmol/L (3.3-5.1); Triglycerides 71 mg/dL; Very Low Density Lipoprotein 14 mg/dL (5-40); Vitamin D,25 Hydroxy 27.7 ng/mL (30-100); cholesterol:hdl ratio screen 2.96
== END | disposition home or self-care (01) ==
LOC: MFPLAB 08:12
PROVIDERS: PCP Family Medicine; Referring Provider Family Medicine; Visit Provider Family Medicine
DX: E21.5 Disorder of parathyroid gland, unspecified (principal); F90.9 Attention-deficit hyperactivity disorder, unspecified type; G43.909 Migraine, unspecified, not intractable, without status migrainosus
CPT/HCPCS: 36415; 80053; 80061; 82306; 83970; 84443; 85025

== ENCOUNTER 2025-04-15 16:15 | Emergency (ER) | payer OTHER, SELFPAY ==
[2025-04-15 16:16] VITALS: BP 166/112; PULSE 113; RESP 20; TEMP 36.9; O2SAT 99
--- NOTE | 2025-04-15 16:25 | RAD_ITS ---
PROCEDURE: KNEE 3 VIEWS 04/15/2025 REASON FOR EXAM: PAIN TECHNIQUE: Procedure Code: RADPAT Modality: DX Procedure: KNEE 3 VIEWS Laterality: Left COMPARISON: None FINDINGS: Osseous: Femorotibial spacing and alignment is maintained. Proximal tibiofibular congruency is preserved. Patellar height is within normal range. Patellofemoral joint spacing and alignment can not be assessed on the views obtained. If there are symptoms consider sunrise view. No acute displaced fracture is seen. Trace amount of fluid noted within the suprapatellar bursa. Soft tissue: Soft tissue injury can not be assessed by this technique. RAD/Knee 3 Views IMPRESSION: No radiographic evidence of an acute osseous abnormality at the left knee. - Other findings discussed above. Reading Location: [id number]
--- NOTE | 2025-04-15 16:49 | EX.ED.GENINJ ---
HPI History of Present Illness Chief Complaint: Lower Extremity Injury Detail of Chief Complaint: Left knee injury due to blunt trauma secondary to fall Informant: patient Onset/Context/Timing Onset: Hours Mechanism/Context: Blunt Injury and Fall Location of pain/injuries: Left knee Location: Left knee Current Severity: Mild Maximum Severity: Severe Worsened by: Weightbearing and movement Relieved by: Nothing Associated Symptoms Associated Symptoms: Positive for Inability to ambulate and Amnesia; Negative for Parasthesias, Weakness, Loss of function or Loss of consciousness Narrative Narrative: Patient was using her knee scooter. The front wheels of the scooter fell off. She fell onto her left knee. Minor knee pain. When she attempted to stand up to bear weight she states her knee crumbled and had a valgus deformity. She denied head trauma. She denies neck pain. She denies paresthesia, anesthesia motors. She is presently in a walking boot for a stress fracture of metatarsal right foot. She is seen at [facility]. Prior similar symptoms: No Recent Illness/Hospitalization: [facility] Medical History Stress reaction of bone Right foot pain Migraine Home Medications ?Medication ?Instructions ?Recorded ?Last Taken ?Type bupropion HCl 300 mg 24 hr tablet, 300 mg PO DAILY Depression 10/05/24 Unknown History extended release (Wellbutrin XL) ipratropium bromide 42 mcg (0.06 2 spray intranasal TID PRN 10/05/24 Unknown History %) nasal spray levothyroxine 88 mcg tablet 88 mcg PO DAILY Hypothyroidism 10/05/24 Unknown History (Synthroid) liothyronine 5 mcg tablet 5 mcg PO DAILY Hypothyroidism 10/05/24 Unknown History ropinirole 1 mg tablet 1 mg PO DAILY Restless leg syndrome 10/05/24 Unknown History dextroamphetamine-amphetamine ER 1 cap PO QAM 02/01/25 Unknown History 10 mg 24hr capsule,extend release rizatriptan 5 mg tablet 5 mg PO BID PRN migraine headache 02/01/25 Unknown Rx #4 tabs naproxen 500 mg tablet 500 mg PO BID #14 tabs 04/15/25 Unknown Rx Allergy/AdvReac Type Severity Reaction Status Date / Time amoxicillin Allergy hives Verified 04/15/25 16:17 Penicillins Allergy Rash Verified 04/15/25 16:17 Surgical History [place] teeth extracted H/O removal of cyst H/O wrist surgery Social History household members: family Smoking Status: Never smoker alcohol intake: never ROS ROS ED Constitutional Constitutional ED: Denies chills or fever(s) Cardiovascular Cardiovascular: Denies chest pain or palpitations Respiratory/Chest Respiratory/Chest: Denies dyspnea Gastrointestinal Gastrointestinal: Denies nausea or vomiting Musculoskeletal Musculoskeletal: Reports other Details: Left knee pain otherwise negative Neurologic Neurologic: Denies paresthesias or weakness Hematologic/Lymphatic Hematologic/Lymphatic: Denies easy bleeding or easy bruising EXAM Physical Exam Const Vital Signs: 04/15/25 16:16 Temperature 98.4 F Temperature Source Oral Pulse Rate 113 H Respiratory Rate 20 H Blood Pressure 166/112 H Blood Pressure Mean 130 Pulse Ox 99 Oxygen Delivery Method Room Air Positive well nourished and well developed General Appearance ED: well developed HEENT atraumatic Eyes PERRL and EOMs intact bilaterally Resp normal respiratory effort Cardio regular rhythm Rate: regular rate Extremity Negative for normal to inspection or full ROM Extremity Narrative: Patient has swelling to left knee. There is bogginess over the patella bursa. There are some slight redness. The patella is not ballotable. There is no obvious effusion. She has minimal joint line tenderness medially. Dara's test was negative. Difficult to perform modified Dejah's test because she complained of pain. With varus and valgus stress testing she is noted to have laxity MCL on the left and this is not noted on the right. DP PT pulse are palpable. Patient able to extend 280 degrees. She is able to flex to about 110 degrees. There is no fullness or mass noted in the popliteal fossa. Neuro CN's II-XII intact bilaterally and moves all extremities Sensorium / Orientation: alert Psych mental status grossly normal and thought process normal Skin no rashes or lesions noted, no wounds, skin turgor normal and no jaundice MDM MDM MDM Narrative Medical decision making narrative: X-ray was obtained. On x-ray there is no Insa fracture, subluxation dislocation. There is soft tissue swelling noted. There is no effusion noted. Radiography Diagnostic Testing: Clinical Impression(s) from Imaging Studies Knee X-Ray 04/15/25 16:25 IMPRESSION: No radiographic evidence of an acute osseous abnormality at the left knee. - Other findings discussed above. Reading Location: [facility] Suspect patient may have a traumatic bursitis based on the description of the x-ray by radiologist. Will treat with NSAIDs and knee immobilizer. Discharge Plan Triage Chief Complaint: Lower Extremity Injury ED Provider: Ismael Ruano Dx/Rx/DC Orders Clinical Impression: Grade 2 sprain of medial collateral ligament of left knee, Suprapatellar bursitis of left knee, Injury due to fall Instructions: ED Bursitis, ED Knee Sprain Ligaments Prescriptions: New naproxen 500 mg tablet 500 mg PO BID Qty: 14 0RF No Action levothyroxine [Synthroid] 88 mcg tablet 88 mcg PO DAILY bupropion HCl [Wellbutrin XL] 300 mg tablet extended release 24 hr 300 mg PO DAILY liothyronine 5 mcg tablet 5 mcg PO DAILY ropinirole 1 mg tablet 1 mg PO DAILY ipratropium bromide 42 mcg (0.06 %) spray,non-aerosol 2 spray intranasal TID PRN dextroamphetamine-amphetamine 10 mg capsule,extended release 24hr 1 cap PO QAM rizatriptan 5 mg tablet 5 mg PO BID PRN (Reason: migraine headache) Qty: 4 0RF Primary Care Provider: Francine Rodriguez Referrals: Francine Rodriguez MD [Primary Care Provider, Family Practice] David Holt DO [Med Staff - Active Staff, Orthopedics] - 5-7 Days Activity Restrictions/Additional Instructions: 1. Apply ice to your left knee 6-8 times a day. 2. Take medication as prescribed 3. Weight-bear as tolerated Print Language: Estonian Disposition Disposition: Home, Self Care
--- OUTSIDE RECORDS SUMMARY | 2025-04-15 17:11 | XMS RPT_ITS | CCD ---
Author Organization [facility]iniSynm Care Team Providers Care Financial Systems Analyst Name Role Phone Kenia Noble Unavailable Unavailable Ladan Mcdonald Unavailable Unavailab le Ana Rosa Unavailable Unavailabl Ana Espinoza E Unavailable [phone] Unavailable Unavailable Unavailable Unavailable Dr. Ana Rosa Primary Care Provider Dr. Ana Rosa Referring Provider ROBERT Jensen Attending Provider Dr. Shemar Mcconnell Attending Provider Moe, Dr. Ana Mckenzie Primary Care Unavailable Kenia Noble Attending UnavailKenia Stearns Referring UnavailDr. Ana Matthews Primary Care Unavailable Kenia Noble Attending UnavailKenia Stearns Referring UnavailKenia Stearns Attending UnavailKenia Stearns Referring Unavailtaylor Rosa, Dr. Ana Mckenzie Primary Care Unavailable DO Rosa García Primary Care Provider DO Rosa García Referring Provider [phone] ROBERT Mccall Attending Provider Ana Chavez Primary Care Provider [phone] Ana Chavez Primary Care Provider Francine Rodriguez MD Primary Care Provider Francine Rodriguez MD Referring Provider Sae Panda Attending Provider Michael AYALA, Francine Primary Care Provider Michael AYALA, Francine Referring Provider [phone] Sae Panda Attending Provider Francine Rodriguez MD Attending Provider EMMETT LUCIANO Referring Unavailable MORALESANA GILBERT Primary Care UnavailEMMETT Medina Attending Unavailable MORALES WANG, ANA E Primary Care UnavailHussain Pollard MD Attending Provider Enedina AYALA, Dr. Staton Attending Provider Michael, Chalon Primary Care Unavailable Michael, Chalon Attending Unavailable Michael, Chalon Referring Unavailable Michael, Chalon Primary Care Unavailable Sae Panda Attending Unavailable Michael, Chalsteve Referring Unavailable Sae Panda Attending Unavailable Michael, Chalon Referring Unavailable Michael, Chalon Primary Care Unavailable Michael, Chalon Primary Care Unavailable Shemar Mcconnell Attending Unavailable Michael, Chalon Primary Care Unavailable Hussain Duval Attending Unavailable Michael, Chalon Referring Unavailable Michael, Chalon Primary Care Unavailable Michael, Chalon Attending Unavailable Michael, Chalon Referring Unavailable Allergies Allergy Classification Reported Allergen(s) Allergy Type Date of Onset Reaction(s) Facility Penicillins (antibiotic) (3 sources) Penicillins; Translations: [Penicillins] Drug Allergy 09-13-2015 [facility] Work Phone: (13 sources) Penicillins; Translations: [Penicillins] drug [facility]: (16 sources) Other allergy to substance [id number] Work Phone: (20 sources) Amoxicillin; Translations: [AMOXICILLIN] Drug Allergy 08-07-2016 [facility] (12 sources) Penicillins Allergy to substance 01-10-2023 [facility] (1 source) Amoxicillin Drug Allergy 04-11-2025 [facility] (1 source) Penicillins Drug allergy (disorder) 04-11-2025 [facility] Repository Medications Current Medications Medication Drug Class(es) Dates Sig (Normalized) Sig (Original) [id number] 200 actuat albuterol 0.09 mg/actuat metered dose inhaler (5 sources) beta2-Adrenergic Agonist Start: 3 take 1-2 puff(s) by inhalation every four hours as needed for cough albuterol HFA (PROVENTIL HFA, VENTOLIN HFA) 90 mcg/actuation inhaler Inhale 1-2 Puffs as instructed every 4 hours. As needed for wheezing/cough. 04/17/2023 Active Comment on above: Inhale 1-2 Puffs as instructed every 4 hours. As needed for wheezing/cough. 24 hr amphetamine aspartate 2.5 mg / amphetamine sulfate 2.5 mg / dextroamphetamine saccharate 2.5 mg / dextroamphetamine sulfate 2.5 mg extended release oral capsule (2 sources) Central Nervous System Stimulant Start: 5 take 1 capsule by mouth once daily amphetamine-dextro amphetamine XR (ADDERALL XR) 10 mg capsule Take 1 capsule by mouth once daily. 03/10/2025 Active benzonatate 100 mg oral capsule (1 source) Non-narcotic Antitussive Start: 3 End: 3 take 2 capsules by mouth three times daily as needed benzonatate (TESSALON PERLE) 100 mg capsule Indications: Viral bronchitis Take 2 capsules by mouth three times daily as needed for up to 10 days. 60 capsule 0 04/11/2023 04/21/2023 Active Comment on above: Take 2 capsules by m outh three times daily as needed for up to 10 days. 24 hr buPROPion hydrochloride 300 mg extended release oral tablet (4 sources) Aminoketone Start: 5 take 1 tablet by mouth once daily Bupropion Hcl (Wellbutrin Xl) 300 mg tablet extended release 24 hr Active 300 mg PO DAILY October 05, 2024 12:00am Depression Dextroamphetamine-Amph etamine 10 mg capsule,extended release 24hr (4 sources) Start: 5 Dextroamphetamine- Amphetamine 10 mg capsule,extended release 24hr Active 1 NMA PO EVERY MORNING 0 February 01, 2025 12:00am ergocalciferol 1.25 mg oral capsule (2 sources) Provitamin D2 Compound Start: take 1 capsule by mouth every week ergocalciferol 50,000 unit capsule (VITAMIN D2, DRISDOL) Take 1 capsule by mouth one time a week. 03/23/2025 Active 60 actuat fluticasone propionate 0.25 mg/actuat / salmeterol 0.05 mg/actuat dry powder inhaler (2 sources) Corticosteroid, beta2-Adrenergic Agonist Start: take 1 puff(s) by mouth every twelve hours WIXELA INHUB 250-50 mcg/dose inhaler inhale 1 puff by mouth every 12 hours 03/02/2025 Active ipratropium bromide 0.042 mg/actuat metered dose nasal spray (4 sources) Anticholinergic Start: Ipratropium [place] 42 mcg (0.06 %) spray,non-aerosol Active 2 NMA INTRANASAL THREE TIMES A DAY as needed October 05, 2024 12:00am levothyroxine sodium 0.088 mg oral tablet (20 sources) l-Thyroxine Start: take 1 tablet by mouth once daily Levothyroxine (Synthroid) 88 mcg tablet Active 88 ug PO DAILY October 05, 2024 12:00am Hypothyroidism Start: 03-17-2023 take 1 tablet by mouth once SY NTHROID 50 mcg tablet Take 1 tablet by mouth every afternoon. 03/17/2023 Active Start: 01-10-2023 End: 10-05-2024 take 1 tablet by mouth once daily Levothyroxine (Synthroid) 75 mcg tablet Discontinued 75 ug PO DAILY January 10, 2023 12:00am October 05, 2024 1:57pm Comment on above: Take 1 tablet by elizabeth th every afternoon. liothyronine sodium 0.005 mg oral tablet (10 sources) l-Triiodothyronine Start: 02-04-20 take 1 tablet by mouth once daily Liothyronine 5 mcg tablet Active 5 ug PO DAILY October 05, 2024 12:00am Hypothyroidism Comment on above: Take 1 tablet by elizabeth th every afternoon. polymyxin [id number] unt/ml / trimethoprim 1 mg/ml ophthalmic solution (1 source) Dihydrofolate Reductase Inhibitor Antibacterial, Polymyxin-class Antibacterial Start: 11-21-19 End: 11-28-19 take 1 drop(s) into the eye(s) every four hours trimethoprim-polymyxi n (POLYTRIM) 10,000 unit- 1 mg/mL ophthalmic solution Indications: [place] eye disease of both eyes Use 1 Drop in both eyes every 4 hours for 7 days. 10 mL 0 11/21/2023 11/28/2023 Active predniSONE 20 mg oral tablet (13 sources) Start: 04-11-20 End: 04-15-20 take 2 tablets by mouth once daily at mealtime predniSONE (DELTASONE) 20 mg tablet Indications: Viral bronchitis Take 2 tablets by mouth once daily for 4 days. Take daily with food. 8 tablet 0 04/11/2023 04/15/2023 Active Start: 01-10-2023 End: 10-05-2024 Prednisone 10 mg tablet Disc ontinued 10 mg PO As Directed January 10, 2023 12:00am October 05, 2024 1:57pm Contact dermatitis due to poison rosita Allergic contact dermatitis due to plants, except food see taper instructions 40 mg x 3 days 20 mg x 3 days 10 mg x 3 days Start: 01-10-2023 Prednisone Act loretta 10 MG PO As Directed January 10, 2023 12:00am see taper instructions 40 mg x 3 days 20 mg x 3 days 10 mg x 3 days Comment on above: Take 2 tablets by mo uth once daily for 4 days. Take daily with food. rizatriptan 5 mg oral tablet (10 sources) Serotonin-1b and Serotonin-1d Receptor Agonist Start: 5 End: 5 take 1 tablet by mouth twice daily as needed for headache Rizatriptan 5 mg tablet Active 5 mg PO TWICE A DAY as needed for migraine headache 4 0 February 01, 2025 3:39pm rOPINIRole 1 mg oral tablet (6 sources) Nonergot Dopamine Agonist Start: 5 take 1 tablet by mouth once daily Ropinirole 1 mg tablet Active 1 mg PO DAILY October 05, 2024 12:00am Restless leg syndrome sertraline 50 mg oral tablet (2 sources) Serotonin Reuptake Inhibitor Start: 5 take 1 tablet by mouth once daily sertraline (ZOLOFT) 50 mg tablet Take 1 tablet by mouth once daily. 03/23/2025 Active Completed/Discontinued Medications Medication Drug Class(es) Dates Sig (Normalized) Sig (Original) azithromycin 250 mg oral tablet (4 sources) Macrolide Antimicrobial Start: 10-05-2024 End: 02-01-2025 Azithromycin 250 mg tablet Discontinued 250 mg PO .COMPLEX 12 0 October 05, 2024 12:00am February 01, 2025 3:24pm 2 tablets (500 mg) on day 1, then 1 tablet daily on days 2 through 11 cephalexin 500 mg oral capsule (18 sources) Cephalosporin Antibacterial Start: 12-26-2021 End: 03-03-2022 take 1 capsule by mouth every eight hours Cephalexin 500 mg capsule Discontinued 500 mg PO Q8H 15 0 December 26, 2021 12:00am March 03, 2022 10:56am Start: 12-18-2021 End: 12-28-2021 take 1 tablet by mouth twice daily Cephalexin 500 MG Oral Tablet Take one tablet twice daily till gone Quantity: 20 Refills: 0 Ordered: 18-Dec-2021 Kenia Jamil Start : 18-Dec-2021 End : 28-Dec-2021 Active cholecalciferol 0.125 mg oral capsule (4 sources) Vitamin D End: 04-03-2025 take 1 capsule by mouth once daily Cholecalciferol, Vitamin D3, 125 mcg (5,000 unit) cap Take 1 capsule by mouth once daily. 04/03/2025 Discontinued Comment on above: Take 1 capsule by [facility] once daily. doxycycline hyclate 100 mg oral capsule (17 sources) Tetracycline- class Drug Start: 12-27-2021 Doxycycline Hyclate 100 MG Oral Capsule Quantity: 14 Refills: 0 Ordered: 27-Dec-2021 DO Start : 27-Dec-2021 Complete Start: 12-26-2021 End: 03-03-2022 take 1 capsule by mouth twice daily Doxycycline Hyclate 100 mg capsule Discontinued 100 mg PO TWICE A DAY 14 December 26, 2021 12:00am March 03, 2022 10:56am escitalopram 20 mg oral tablet (20 sources) Serotonin Reuptake Inhibitor Start: 08-14-2021 End: 01-10-2023 Escitalopram Oxalate 20 mg tablet Discontinued NMA PO August 14, 2021 1:00am January 10, 2023 8:29am Start: 05-30-2021 End: 04-03-2025 take 1 tablet by mouth once daily Escitalopram Oxalate (Lexapro) 20 mg tablet Discontinued 20 mg PO DAILY January 10, 2023 12:00am October 05, 2024 1:57pm Start: 06-08-2019 End: 04-25-2023 take 1 tablet by mouth once daily escitalopram oxalate (LEXAPRO) 10 mg tablet Take 10 mg by mouth once daily. 0 05/08/2020 04/25/2023 Discontinued Start: 05-18-2019 Escitalopram O xalate 5 MG Oral Tablet Take 1/2 tablet for one week then increase to full tab Quantity: 30 Refills: 0 Kenia Jamil Start : 18-May-2019 Active Comment on above: Take 10 mg by mouth once daily. Take 1 tablet by elizabeth th every afternoon. hydrOXYzine hydrochloride 25 mg oral tablet (1 source) Antihistamine Start: take 1 tablet by mouth once daily as needed for anxiety hydrOXYzine HCl - 25 MG Oral Tablet Take one tablet daily as needed for anxiety Quantity: 6 Refills: 0 Kenia Jamil Start : 27-Apr-2018 Active lisdexamfetamine dimesylate 50 mg oral capsule (20 sources) Central Nervous System Stimulant Start: End: Lisdexamfetamine (Vyvanse) 50 mg capsule Discontinued NMA PO 0 August 14, 2021 1:00am February 01, 2025 3:24pm Comment on above: Take 50 mg by mouth once daily. loratadine 10 mg oral tablet (16 sources) take 1 tablet by mouth at bedtime Claritin 10 MG Oral Tablet TAKE 1 TABLET AT BEDTIME. Quantity: 30 Refills: 11 Ordered: 12-Sep-2015 Ladan Orozco Active meloxicam 15 mg oral tablet (20 sources) Nonsteroidal Anti-inflammatory Drug Start: 022 End: take 1 tablet by mouth once daily Meloxicam 15 mg tablet Discontinued 15 mg PO DAILY 30 0 August 14, 2021 1:00am March 03, 2022 10:56am Start: 04-02-2021 Meloxicam 15 M G Oral Tablet Quantity: 30 Refills: 0 Ordered: 01-May-2021 DO Start : 02-Apr-2021 Active Comment on above: TAKE 1 TABLET BY ELIZABETH TH EVERY DAY triamcinolone acetonide 0.001 mg/mg topical ointment (12 sources) Corticosteroid Start: 01-10-2023 End: 10-05-2024 Triamcinolone Acetonide 0.1 % ointment Discontinued 1 NMA TOPICAL TWICE A DAY 30 0 January 10, 2023 12:00am October 05, 2024 1:57pm Contact dermatitis due to poison rosita Allergic contact dermatitis due to plants, except food stop application to face after five days avoid eyes Problems Active Problems Problem Classification Problem Date Documented Date Episodic/Chronic Acute bronchitis (1 source) Viral bronchitis; Translations: [Acute bronchitis due to other specified organisms] 04-11-2023 Episodic Allergic reactions (20 sources) Allergic contact dermatitis due to drug in contact with skin; Translations: [Contact dermatitis] 01-10-2023 Episodic Anxiety disorders (20 sources) Anxiety; Translations: [Other anxiety states] Chronic Attention-deficit conduct and disruptive behavior disorders (16 sources) Attention deficit hyperactivity disorder; Translations: [Attention deficit disorder with hyperactivity] Chronic Attention-deficit conduct and disruptive behavior disorders (16 sources) Attention deficit hyperactivity disorder, combined type; Translations: [Attention deficit disorder with hyperactivity] Chronic Fracture of lower limb (1 source) Closed fracture of fifth metatarsal bone; Translations: [Displaced fracture of fifth metatarsal bone, right foot, initial encounter for closed fracture] 04-25-2023 Episodic Headache; including migraine (9 sources) Migraine; Translations: [Migraine, unspecified, not intractable, without status migrainosus] Onset: 02-01-2025 02-01-2025 Chronic Immunizations and screening for infectious disease (10 sources) Patient encounter status; Translations: [Other specified vaccination] Episodic Inflammation; infection of eye (except that caused by tuberculosis or sexually transmitteddisease) (1 source) Conjunctivitis; Translations: [Other mucopurulent conjunctivitis, bilateral] 11-21-2023 Episodic Open wounds of extremities (20 sources) Dog bite of finger; Translations: [Open wound of finger(s), without mention of complication] Episodic Other aftercare (15 sources) Drug therapy finding; Translations: [Long-term (current) use of other medications] Episodic Other complications of (16 sources) Twin ; Translations: [Outcome of delivery, unspecified outcome of delivery] Episodic Other connective tissue disease (16 sources) Lateral epicondylitis; Translations: [Lateral epicondylitis, unspecified elbow] 09-25-2021 Episodic Other connective tissue disease (12 sources) Ganglion of wrist; Translations: [Ganglion, right wrist] 03-03-2022 Episodic Other connective tissue disease (11 sources) Tendinitis of wrist; Translations: [Other enthesopathies, not elsewhere classified] 08-15-2021 Episodic Other connective tissue disease (2 sources) Ganglion, right wrist; Translations: [Ganglion of joint] Episodic Other connective tissue disease (2 sources) Pain in right foot; Translations: [Pain in right foot] 04-25-2023 Episodic Other connective tissue disease (5 sources) Tendonitis of left wrist; Translations: [Other enthesopathies, not elsewhere classified] 08-15-2021 Episodic Other connective tissue disease (4 sources) Ganglion cyst of the right volar wrist; Translations: [Ganglion, right wrist] 03-03-2022 Episodic Other connective tissue disease (4 sources) Foot pain; Translations: [Pain in right foot] 04-11-2025 Episodic Other connective tissue disease (1 source) Pain in right foot; Translations: [Pain in right foot] Onset: 04-11-2025 Episodic Other endocrine disorders (1 source) Disorder of parathyroid gland, unspecified; Translations: [Disorder of parathyroid gland, unspecified] Onset: 03-23-2025 Chronic Other fractures (2 sources) Disorder of bone; Translations: [Stress fracture, unspecified site, initial encounter for fracture] 04-11-2025 Episodic Other fractures (1 source) Stress fracture, unspecified site, initial encounter for fracture; Translations: [Stress fracture, unspecified site, initial encounter for fracture] Onset: 04-11-2025 Episodic Other infections; including parasitic (16 sources) H/O: chickenpox; Translations: [Personal history of other infectious and parasitic diseases] Episodic Other infections; including parasitic (16 sources) H/O: viral illness; Translations: [Personal history of other infectious and parasitic diseases] Episodic Other injuries and conditions due to external causes (9 sources) Injury of finger; Translations: [Unspecified injury of left wrist, hand and finger(s), initial encounter] 12-26-2021 Episodic Other injuries and conditions due to external causes (2 sources) Unspecified injury of left wrist, hand and finger(s), initial encounter; Translations: [Finger injury] Episodic Other injuries and conditions due to external causes (7 sources) Injury of finger of left hand; Translations: [Unspecified injury of left wrist, hand and finger(s), initial encounter] 12-26-2021 Episodic Other non-traumatic joint disorders (4 sources) Arthralgia of the ankle and/or foot; Translations: [Pain in right ankle and joints of right foot] 04-03-2025 Episodic Other non-traumatic joint disorders (1 source) Pain in right ankle and joints of right foot; Translations: [Pain in joint involving right ankle and foot] Onset: 04-03-2025 Episodic Other nutritional; endocrine; and metabolic disorders (16 sources) Body mass index 30+ - obesity; Translations: [Body Mass Index 36.0-36.9, adult] Chronic Other nutritional; endocrine; and metabolic disorders (1 source) Childhood obesity; Translations: [BMI (body mass index), pediatric, greater than or equal to 95% for age] Chronic Other nutritional; endocrine; and metabolic disorders (20 sources) Body mass index 40+ - severely obese; Translations: [Body Mass Index 40.0-44.9, adult] 05-23-2020 Chronic Other nutritional; endocrine; and metabolic disorders (15 sources) Childhood obesity; Translations: [Body Mass Index, pediatric, greater than or equal to 95th percentile for age] Episodic Other upper respiratory disease (16 sources) Seasonal allergic rhinitis; Translations: [Allergic rhinitis, cause unspecified] Chronic Other upper respiratory infections (3 sources) Acute bacterial sinusitis; Translations: [Acute pharyngitis] Resolved: 06-07-2022 04-11-2023 Episodic Residual codes; unclassified (4 sources) Other specified postprocedural states; Translations: [Other postprocedural status] 01-10-2023 Episodic Thyroid disorders (1 source) Hypothyroidism, unspecified; Translations: [Hypothyroidism, unspecified] Onset: 08-26-2024 Chronic Past or Other Problems Problem Classification Problem Date Documented Date Episodic/Chronic Other connective tissue disease (16 sources) H/O: musculoskeletal disease; Translations: [Personal history of other musculoskeletal disorders] Resolved: 04-07-2017 Episodic Other lower respiratory disease (15 sources) H/O: respiratory disease; Translations: [Personal history of other diseases of respiratory system] Resolved: 01-11-2020 Episodic Otitis media and related conditions (16 sources) Acute suppurative otitis media without spontaneous rupture of ear drum; Translations: [Acute suppurative otitis media without spontaneous rupture of eardrum] Resolved: 01-10-2016 Episodic Residual codes; unclassified (15 sources) History of clinical finding in subject; Translations: [Personal history of other specified diseases] Resolved: 01-11-2020 Episodic Unclassified (3 sources) Patient encounter status; Translations: [Encounter for routine child health examination without abnormal findings] NEGATED: Highlighted row has not occurred!Residual codes; unclassified (5 sources) Disease Episodic Results Test Name Value Interpretation Reference Range Facility Ankle min 3 Viewson 04-11-20 25 Ankle min 3 Views [facility] [address], [place] [address] Ankle min 3 Views MR#: [id number] Acct: [id number] Name: TORRES MILLARD Rep #: [id number] : 2000 F 24 From: Yumiko Jimenez MD PCP: Dr. Francine Rodriguez MD Status: DEP AMB Study: Ankle min 3 Views Date of Exam: 04/11/25 Exam# [id number] Ordering Dr: Hussain Duval MD PROCEDURE: FOOT MIN 3 VIEWS; ANKLE MIN 3 VIEWS 04/11/2025 REASON FOR EXAM: PAIN, SWELLING, HX OF FX A FEW YEARS AGO TECHNIQUE: Procedure Code: RADFO; RADANK Modality: DX Procedure: FOOT MIN 3 VIEWS; ANKLE MIN 3 VIEWS Laterality: Right COMPARISON: None. FINDINGS: BONES: No acute fracture or focal osseous lesion. JOINTS: No dislocation. The joint spaces are normal. SOFT TISSUES: The soft tissues are unremarkable. RAD/Ankle min 3 Views IMPRESSION: NEGATIVE ANKLE AND FOOT SERIES. Reading Location: [facility] CC: Dr. Francine Rodriguez MD; Dr. Hussain Duval MD Housekeeping/Laundry: Signed Normal [facility] Foot min 3 Viewson Foot min 3 Views [facility] [address] [place], [place] [id number] Foot min 3 Views MR#: [id number] Acct: [id number] Name: TORRES MILLARD Rep #: [id number] : 2000 F 24 From: Yumiko Jimenez MD PCP: Dr. Francine Rodriguez MD Status: DEP AMB Study: Foot min 3 Views Date of Exam: 04/11/25 Exam# [id number] Ordering Dr: Hussain Duval MD PROCEDURE: FOOT MIN 3 VIEWS; ANKLE MIN 3 VIEWS 04/11/2025 REASON FOR EXAM: PAIN, SWELLING, HX OF FX A FEW YEARS AGO TECHNIQUE: Procedure Code: RADFO; RADANK Modality: DX Procedure: FOOT MIN 3 VIEWS; ANKLE MIN 3 VIEWS Laterality: Right COMPARISON: None. FINDINGS: BONES: No acute fracture or focal osseous lesion. JOINTS: No dislocation. The joint spaces are normal. SOFT TISSUES: The soft tissues are unremarkable. RAD/Foot min 3 Views IMPRESSION: NEGATIVE ANKLE AND FOOT SERIES. Reading Location: [facility] CC: Dr. Francine Rodriguez MD; Dr. Hussain Duval MD Housekeeping/Laundry: Signed Normal [facility] Orthopedic Visit Reporton Orthopedic Visit Report [facility] [address] [place] [address] [address] [place], [place] [address] OFFICE VISIT Date of Service: 04/11/25 MR#: [id number] Acct: [id number] Name: TORRES MILLARD Rep #: [id number] : 2000 Provider: Dr. Hussain wilson MD Age/Sex: 24/F [place] [facility] [place] Status: Signed Intake Vital Signs 10/05/24 14:01 04/11/25 08:41 Height 5 ft 2 in 5 ft 2 in Weight: 248 lb BMI 45.3 Intake Visit Reasons: RIGHT FOOT Chief Complaint: Right foot pain Accompanied by: Self Is patient in pain?: Yes Pain scale (1-10): 7 Allergies amoxicillin Allergy (Verified 04/11/25 08:43) hives Penicillins Allergy (Verified 04/11/25 08:43) Rash Medications ???Medication ???Instructions ???Recorded ???Confirmed ???Type bupropion HCl 300 mg 24 hr tablet, 300 mg PO DAILY Depression 10/0504/11/25 History extended release (Wellbutrin XL) ipratropium bromide 42 mcg (0.06 2 spray intranasal TID PRN 5 04/11/25 History %) nasal spray levothyroxine 88 mcg tablet 88 mcg PO DAILY Hypothyroidism 07/2004/11/25 History (Synthroid) liothyronine 5 mcg tablet 5 mcg PO DAILY Hypothyroidism 09/2404/11/25 History ropinirole 1 mg tablet 1 mg PO DAILY Restless leg syndrom e 10/05/24 04/11/25 History dextroamphetamine-ampheta mine ER 1 cap PO QAM 02/01/25 04/11/25 His tory 10 mg 24hr capsule,extend release rizatriptan 5 mg tablet 5 mg PO BID PRN migraine headache 02/01/25 04/11/25 Rx #4 tabs Have you fallen in the past year?: No PFSH Medical History (Updated 04/11/25 @ 09:07 by Hussain Duval MD) Stress reaction of bone Right foot pain Migraine Surgical History [place] teeth extracted H/O removal of cyst H/O wrist surgery Social History household members: family Smoking Status: Never smoker alcohol intake: never HPI RIGHT FOOT Details: This documentation accurately reflects the service provided and the decisions made by me, Dr. Hussain Duval MD 04/11/25 0841. Part of today???s visit was documented by [ ], acting as scribe. TORRES MILLARD is a 24 year old F here today for right foot pain. Been going on about 2 weeks. It is in the dorsal middle aspect of the forefoot. Patient had a prior fifth metatarsal fracture 2 years ago that was treated nonoperatively. No pain or problems until this most recent time. The original injury was just going down 1 step. It feels like the toes are pulling apart. 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 Ortho Exam General General: Yes no acute distress Neurologic: Yes alert and Yes oriented x3 Psychologic: Yes reasonable and appropriate Right Foot/Ankle Skin/Wound: Yes CDI; No Ecchymosis, Soft Tissue Swelling or Erythema Exam: present eversion normal and inversion normal; absent TTP Lateral Malleolus, TTP ATFL, TTP Medial Malleolus, TTP Deltoid Ligament, TTP Lisfranc Joint, TTP distal 5th metatarsal, tender to palpate calcaneofibular ligament, TTP Retrocalcaneal bursa, TTP Peroneal or peroneal snapping Dorsiflexion 0-20: 20 degrees Plantar Flexion 0-40: 40 degrees Compartments: Compartments: soft ROM: none pain with range of motion and none crepitus with range of motion Tests: Elder Test: 1 and Squeeze Test: 1 Anterior Drawer: 0 Motor: Ankle Dorsiflextion: 5, Ankle Plantar Flexion: 5, Ankle Eversion: 5, Ankle Inversion: 5 and EHL: 5 Sensation: Deep Peroneal Nerve: I, Superficial Peroneal Nerve: I, Tibial Nerve: I, Sural Nerve: I and Saphenous Nerve: I Pulses: Dorsalis Pedis: 2 and Posterior Tibial: 2 ANKLE: mild pain at the 1st and 2nd MT, no pain at the interspace, no click there, no obvious goodwin neuroma, though does have sometimes numbness there for 30 mins. Supplemental Info xr 3 view foot / ankle R side - cortical thickening / stress reaction likely 2nd MT Coding Level of Care Code Off vis,new,level 4 Diagnoses Right foot pain M79.671 Stress reaction of bone M84.30XA Assessment and Plan Assessment and Plan (1) Right foot pain: Status: Acute Plan: 24-year-old female with likely a stress reaction second metatarsal or even a developing stress fracture there. 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 I would recommend a period of orthosis boot crutches strict nonweightbearing for at least 2 weeks and even up to 4 to 6 weeks depending on the patient's response and pain levels. I would like the patient to follow-up in 4 weeks time to reassess if this is no better at that time the next I would be ordering an MRI to confirm the diagnosis and rule out an actual fracture there. Still should be getting around to minimiz (more content not included)... [facility] Office Visit ([facility]) ----- TORRES MILLARD ([id number]) 2000 F Date Time Provider Department 04/03/25 10:30 AM EMMETT LUCIANO During your visit today, we recorded the following information about you: Temperature Pulse Respiration Blood pressure 98.8 degrees 100/minute 18/minute 126/80 Weight 114.7 kg Emmett Luciano APRN.FAGOTER 04/03/2025 11:21 AM Signed URGENT CARE [facility] Torres Gomezrosana Millard is a 24 year old female. Patient presents with: Minor Injuries (Sprains, Strains, Minor Joint Pain): Right foot - Entered by patient Pain (foot): right x 4 days, denies injury but previous fracture HPI Nontoxic-appearing 24-year-old female presents urgent care chief complaint right foot pain. Duration of symptoms 4 days. Associated symptoms foot pain and swelling after walking extended distance. Risk factors previous fracture of base of fifth metatarsal. OTC medications none. Has been using a walking boot this has helped some. Following up with orthopedics beginning of next week. Denies any fevers. No numbness no tingling. No injury. Past medical history prescription medications allergies reviewed Review of Systems Constitutional: Negative for activity change, diaphoresis, fatigue and fever. Musculoskeletal: Positive for joint swelling. Negative for arthralgias, back pain, gait problem, myalgias, neck pain and neck stiffness. Skin: Negative for pallor, rash and wound. Neurological: Negative for dizziness, seizures, syncope, weakness, light-headedness, numbness and headaches. Psychiatric/Behavioral: Negative for confusion. Objective BP 126/80 Pulse 100 Temp 37.1 ?C (98.8 ?F) Resp 18 Wt 114.7 kg (252 lb 13.9 oz) LMP 03/14/2023 (Approximate) SpO2 98% BMI 46.25 kg/m? Physical Exam Constitutional: Appearance: Normal appearance. She is normal weight. HENT: Head: Normocephalic. Eyes: Conjunctiva/sclera: Conjunctivae normal. Cardiovascular: Rate and Rhythm: Normal rate. Pulmonary: Effort: Pulmonary effort is normal. Musculoskeletal: Cervical back: Normal range of motion. Feet: Feet: Comments: Mild discomfort with palpation highlighted area. No erythema edema. Neurovascular intact. No significant tenderness to palpation over Achilles. No pain with palpation over ankle. Skin: Findings: No rash. Neurological: General: No focal deficit present. Mental Status: She is alert and oriented to person, place, and time. Mental status is at baseline. {ASSESSMENT/PLAN: 1. Pain in joint involving right ankle and foot - ICD9: 719.47, ICD10: M25.571 - XR FOOT GENERAL 3V AP/LAT/OBL RIGHT IMPRESSION: No radiographic evidence of acute osseous injury No acute fractures. Tendinitis versus stress fracture. Referred to orthopedics. Patient was educated on supportive therapies. Patient will follow up with primary care provider as needed. Patient was instructed to immediately proceed to emergency room for any new, worsening, or symptoms lasting longer than anticipated. The patient's clinical presentation is otherwise unremarkable at this time. Based on exam and clinical finding, the patient is stable for discharge. Plan of care was discussed with patient. Patient verbalizes understanding and agrees to plan of care. This note was generated using [employer] software. It may contain errors in wording, punctuation, or spelling. Emmett Luciano APRN.FAGOTER History and Record Review Clinical information obtained from an independent historian. History obtained from or confirmed by: parent. External record(s) reviewed: prior outpatient record. Disposition The patient was discharged. OTC Medications were advised: Procedures Allergies As of Date: 04/03/2025 Noted Allergy Reaction AMOXICILLIN 08/07/2016 2 - Rash Date Reviewed: 04/03/2025 Reviewed by: Shayy Rogel MA - Fully Assessed Reason for Visit: Minor Injuries (Sprains, Strains, Minor Joint Pain) [4230] Cmt: Right foot - Entered by patient Pain (foot) [760] Cmt: right x 4 days, denies injury but previous fracture Primary Visit Diagnosis:Pain in joint involving right ankle and foot [M25.571] Order(s):XR FOOT GENERAL 3V AP/LAT/OBL RIGHT [[id number]] Order #: [id number] FUTURE Prescriptions as of 04/03/2025 - amphetamine-dextroampheta mine XR (ADDERALL XR) 10 mg capsule Take 1 capsule by mouth once daily. - ergocalciferol 50,000 unit capsule (VITAMIN D2, DRISDOL) Take 1 capsule by mouth one time a week. - WIXELA INHUB 250-50 mcg/dose inhaler inhale 1 puff by mouth every 12 hours - rOPINIRole (REQUIP) 1 mg tablet Take 1 mg by mouth daily at bedtime. - rizatriptan (MAXALT) 5 mg tablet take 1 tablet by mouth twice daily as needed for migraine headaches - sertraline (ZOLOFT) 50 mg tablet Take 1 tablet by mouth once daily. - albuterol HFA (PROVENTIL HFA, VENTOLIN HFA) 90 mcg/actu (more content not included)... Normal [facility] XR FOOT 3V AP/LAT/OBL RTon 0 04-03-2025 XR FOOT 3V AP/LAT/OBL RT * * *Final Repo rt* * * DATE OF EXAM: Apr 03 2025 10:49AM WOX 5337 - XR FOOT 3V AP/LAT/OBL RT / PROCEDURE REASON: Pain in joint involving right ankle and foot * * * * Physician Interpretation * * * * TITLE: XR FOOT 3V AP/LAT/OBL RT CLINICAL INDICATION: Pain TECHNIQUE: 3 view radiographic study of the right foot COMPARISON: Radiograph dated 04/25/2023 FINDINGS: No acute fracture or dislocation identified. Interval healing of previously noted fracture at the base of the fifth metatarsal. IMPRESSION: No radiographic evidence of acute osseous injury Housekeeping/Laundry: VICKY Transcribe Date/Time: Apr 03 2025 10:53A Dictated by : PAMELA PURCELL MD This examination was interpreted and the report reviewed and electronically signed by: PAMELA PURCELL MD on Apr 03 2025 11:02AM EST [id number] Normal [facility] XR Foot - right AP and Later al and obliqueon 04-03-2025 IMPRESSION: No radiographic evidence of acute osseous injury Housekeeping/Laundry: [facility] Transcribe Date/Time: Apr 03 2025 10:53A Dictated by : PAMELA PURCELL MD This examination was interpreted and the report reviewed and electronically signed by: PAMELA PURCELL MD on Apr 03 2025 11:02AM EST DIVISION OF RADIOLOGY * * *Final Report* * * DATE OF EXAM: Apr 03 2025 10:49AM WOX 5337 - XR FOOT 3V AP/LAT/OBL RT / PROCEDURE REASON: Pain in joint involving right ankle and foot * * * * Physician Interpretation * * * * TITLE: XR FOOT 3V AP/LAT/OBL RT CLINICAL INDICATION: Pain TECHNIQUE: 3 view radiographic study of the right foot COMPARISON: Radiograph dated 04/25/2023 FINDINGS: No acute fracture or dislocation identified. Interval healing of previously noted fracture at the base of the fifth metatarsal. DIVISION OF RADIOLOGY Provider, [facility] - 04/03/2025 * * *Final Report* * * DATE OF EXAM: Apr 03 2025 10:49AM WOX 5337 - XR FOOT 3V AP/LAT/OBL RT / PROCEDURE REASON: Pain in joint involving right ankle and foot * * * * Physician Interpretation * * * * TITLE: XR FOOT 3V AP/LAT/OBL RT CLINICAL INDICATION: Pain TECHNIQUE: 3 view radiographic study of the right foot COMPARISON: Radiograph dated 04/25/2023 FINDINGS: No acute fracture or dislocation identified. Interval healing of previously noted fracture at the base of the fifth metatarsal. IMPRESSION IMPRESSION: No radiographic evidence of acute osseous injury Housekeeping/Laundry: [facility] Transcribe Date/Time: Apr 03 2025 10:53A Dictated by : PAMELA PURCELL MD This examination was interpreted and the report reviewed and electronically signed by: PAMELA PURCELL MD on Apr 03 2025 11:02AM EST [facility] Radiology Study observation (narrative) [facility] XR Foot - right AP and Later al and obliqueOrdered By: [facility] Provider on 04-03-2025 [facility] Absolute lymphocyte countOrd ered By: Francine Michael on 03-16-2025 Lymphocytes Auto (Unsp spec) [#/Vol] 3.52 10*3/uL 0.83-4.51 [facility] Absolute neutrophil countOrd ered By: Francine Hollandke on 03-16-2025 Neutrophils (Bld) [#/Vol] 4.0 10*3/uL 2.0-7.7 [facility] Anion gap in Serum or Plasma Ordered By: Linosteve Michael on 03-16-2025 Anion gap [Moles/Vol] 13 mmol/L 5- [facility] Automated lymphocyte count a s percentage of total leukocytesOrdered By: Linosteve Michael on 03-16-2025 Lymphocytes/100 WBC Auto (Unsp spec) 40.5 % [facility] BUN/creatinine ratioOrdered By: Francine Rodriguez on 03-16-2025 Urea nitrogen/Creatinine [Mass ratio] 17.4 mg/mg - [facility] Basophil percentageOrdered B y: Francine Rodriguez on 03-16-2025 Basophils/100 WBC (Bld) 0.6 % 0- [facility] Bilirubin, totalOrdered By: Francine Michael on 03-16-2025 Bilirubin [Mass/Vol] 0.29 mg/dL 0.00-1.[address] [facility] CBC W/Diff, Automatedon 02-25 Absolute Lymph 3.52 X10 3/uL Normal 0.83-4.51 [facility] Comment on above: Order Comment: Order Date: 11/22/24 Order Info: 0184-1 - CBCD Performed By: #### L 100.0100, L509.1000, L500.4050, L500.4100, L501.9520 #### [facility], [address] Absolute Neut 4.0 X10 3/uL Normal 2.0-7.7 [facility] Comment on above: Order Comment: Order Date: 11/22/24 Order Info: 0184-1 - CBCD Performed By: #### L 100.0100, L509.1000, L500.4050, L500.4100, L501.9520 #### [facility] [address] [place], [address] Basophils/100 WBC (Bld) 0.6 % Normal 0-1 [facility] Comment on above: Order Comment: Order Date: 11/22/24 Order Info: 0184-1 - CBCD Performed By: #### L 100.0100, L509.1000, L500.4050, L500.4100, L501.9520 #### [facility] [address] [place], [address] Eosinophils/100 WBC (Bld) 4.0 % Normal 0-5 [facility] Comment on above: Order Comment: Order Date: 11/22/24 Order Info: 0184- - CBCD Performed By: #### L 100.0100, L509.1000, L500.4050, L500.4100, L501.9520 #### [facility] [address] [place], [address] Erythrocyte distribution width (RBC) [Ratio] 15.2 % High 11.6-14.6 [facility] Comment on above: Order Comment: Order Date: 11/22/24 Order Info: 0184- - CBCD Performed By: #### L 100.0100, L509.1000, L500.4050, L500.4100, L501.9520 #### [facility] [address] [place], [address] Hematocrit (Bld) [Volume fraction] 35.1 % Low 37-47 [facility] Comment on above: Order Comment: Order Date: 11/22/24 Order Info: 0184- - CBCD Performed By: #### L 100.0100, L509.1000, L500.4050, L500.4100, L501.9520 #### [facility] [address] [place], [address] Hemoglobin (Bld) [Mass/Vol] 11.1 g/dL Low 12.0-15.0 [facility] Comment on above: Order Comment: Order Date: 11/22/24 Order Info: 0184- - CBCD Performed By: #### L 100.0100, L509.1000, L500.4050, L500.4100, L501.9520 #### [facility] [address] [place], [address] IG% 0.300 Normal 0.0-0.9 [facility] Comment on above: Order Comment: Order Date: 11/22/24 Order Info: [id number] - CBCD Result Comment: IG% - Immature Granulocytes (promyelocytes, myelocytes and metamyelocytes) > 1% indicates that a LEFT SHIFT is Present. Performed By: #### L 100.0100, L509.1000, L500.4050, L500.4100, L501.9520 #### [facility] [address] [place], [address] Lymphocytes/100 WBC (Bld) 40.5 % Normal 19-41 [facility] Comment on above: Order Comment: Order Date: 11/22/24 Order Info: 0184- - CBCD Performed By: #### L 100.0100, L509.1000, L500.4050, L500.4100, L501.9520 #### [facility] [address] [place], [address] MCH (RBC) [Entitic mass] 25.8 pg Low 27.0-32.0 [facility] Comment on above: Order Comment: Order Date: 11/22/24 Order Info: 0184- - CBCD Performed By: #### L 100.0100, L509.1000, L500.4050, L500.4100, L501.9520 #### [facility] [address] [place], [address] MCHC (RBC) [Mass/Vol] 31.6 g/dL Low 32-36 [facility] Comment on above: Order Comment: Order Date: 11/22/24 Order Info: 0184-1 - CBCD Performed By: #### L 100.0100, L509.1000, L500.4050, L500.4100, L501.9520 #### [facility] [address] [place], [address] MCV (RBC) [Entitic vol] 81.4 fL Normal 81-99 [facility] Comment on above: Order Comment: Order Date: 11/22/24 Order Info: 0184-1 - CBCD Performed By: #### L 100.0100, L509.1000, L500.4050, L500.4100, L501.9520 #### [facility] [address] [place], [address] Monocytes/100 WBC (Bld) 8.7 % Normal 0-10 [facility] Comment on above: Order Comment: Order Date: 11/22/24 Order Info: 0184-1 - CBCD Performed By: #### L 100.0100, L509.1000, L500.4050, L500.4100, L501.9520 #### [facility] [address] [place], [address] Neutrophils/100 WBC (Bld) 45.9 % Low 47-70 [facility] Comment on above: Order Comment: Order Date: 11/22/24 Order Info: 0184-1 - CBCD Performed By: #### L 100.0100, L509.1000, L500.4050, L500.4100, L501.9520 #### [facility] [address] [place], [address] Nucleated RBC (Bld) [#/Vol] 0 10*3/uL Normal 0-5 [facility] Comment on above: Order Comment: Order Date: 11/22/24 Order Info: 0184-1 - CBCD Performed By: #### L 100.0100, L509.1000, L500.4050, L500.4100, L501.9520 #### [facility] [address] [place], [address] Platelet mean volume (Bld) [Entitic vol] 9.4 fL Normal 6.2-12.0 [facility] Comment on above: Order Comment: Order Date: 11/22/24 Order Info: 0184- - CBCD Performed By: #### L 100.0100, L509.1000, L500.4050, L500.4100, L501.9520 #### [facility] [address] [place], [address] Platelets (Bld) [#/Vol] 449 10*3/uL Normal 150-450 [facility] Comment on above: Order Comment: Order Date: 11/22/24 Order Info: 0184- - CBCD Performed By: #### L 100.0100, L509.1000, L500.4050, L500.4100, L501.9520 #### [facility] [address] [place], [address] RBC (Bld) [#/Vol] 4.31 10*6/uL Normal 4.2-5.4 [facility] Comment on above: Order Comment: Order Date: 11/22/24 Order Info: 0184- - CBCD Performed By: #### L 100.0100, L509.1000, L500.4050, L500.4100, L501.9520 #### [facility] [address] [place], [address] RDW SD 44.9 fl High 35.1-43.9 [facility] Comment on above: Order Comment: Order Date: 11/22/24 Order Info: 0184- - CBCD Performed By: #### L 100.0100, L509.1000, L500.4050, L500.4100, L501.9520 #### [facility] [address] [place], [address] WBC (Bld) [#/Vol] 8.7 10*3/uL Normal 4.4-11.0 [facility] Comment on above: Order Comment: Order Date: 11/22/24 Order Info: 0184-1 - CBCD Performed By: #### L 100.0100, L509.1000, L500.4050, L500.4100, L501.9520 #### [facility] [address] [place], [place], [address] Calculated very low density lipoprotein (VLDL) cholesterol measurementOrdered By: Francine Rodriguez on 03-16-2025 Calculated very low density lipoprotein (VLDL) cholesterol measurement 14 mg/dL 5-40 [facility] Carbon dioxide, total [Moles /volume] in Central venous bloodOrdered By: Francine Rodriguez on 03-16-2025 CO2 [Moles/Vol] 19.7 mmol/L Low 21.0-32.0 [facility] Chloride assayOrdered By: Brant Rodriguez on 03-16-2025 Chloride [Moles/Vol] 106 mmol/L 98-[address] [facility] Comprehensive Metabolic Prof ilon 03-16-2025 Albumin [Mass/Vol] 4.1 g/dL Normal 3.5-5.0 [facility] Comment on above: Order Comment: Order Date: 11/22/24 Order Info: 0786-1 - CMP Order Info: [id number] - LIPID Order Info: 3016-3 - TSH Performed By: #### L 100.0100, L509.1000, L500.4050, L500.4100, L501.9520 #### [facility] [address] [place], [place], [address] Albumin/Globulin [Mass ratio] 1.5 {ratio} Normal 0.9-2.4 [facility] Comment on above: Order Comment: Order Date: 11/22/24 Order Info: 0786-1 - CMP Order Info: [id number] - LIPID Order Info: 3016-3 - TSH Performed By: #### L 100.0100, L509.1000, L500.4050, L500.4100, L501.9520 #### [facility] [address] [place], [address] ALK PHOS 71 U/L Normal 35-104 [facility] Comment on above: Order Comment: Order Date: 11/22/24 Order Info: 07- - CMP Order Info: - LIPID Order Info: 3 - TSH Performed By: #### L 100.0100, L509.1000, L500.4050, L500.4100, L501.9520 #### [facility] [address] [place], [address] ALT [Catalytic activity/Vol] 19 U/L Normal <=34 [facility] Comment on above: Order Comment: Order Date: 11/22/24 Order Info: [id number] - CMP Order Info: - LIPID Order Info: [id number] - TSH Performed By: #### L 100.0100, L509.1000, L500.4050, L500.4100, L501.9520 #### [facility] [address] [place], [address] AST [Catalytic activity/Vol] 19 U/L Normal <=31 [facility] Comment on above: Order Comment: Order Date: 11/22/24 Order Info: 0786 - CMP Order Info: [id number] - LIPID Order Info: 3013 - TSH Performed By: #### L 100.0100, L509.1000, L500.4050, L500.4100, L501.9520 #### [facility] [address] [place], [address] Bilirubin [Mass/Vol] 0.29 mg/dL Normal 0.00-1.[address] [facility] Comment on above: Order Comment: Order Date: 11/22/24 Order Info: 0786-1 - CMP Order Info: [id number] - LIPID Order Info: 3016 - TSH Performed By: #### L 100.0100, L509.1000, L500.4050, L500.4100, L501.9520 #### [facility] [address] [place], [address] BUN/CRE 17.4 RATIO Normal 10-20 [facility] Comment on above: Order Comment: Order Date: 11/22/24 Order Info: 0786-1 - CMP Order Info: [id number] - LIPID Order Info: 3016-3 - TSH Performed By: #### L 100.0100, L509.1000, L500.4050, L500.4100, L501.9520 #### [facility] [address] [place], [address] Calcium [Mass/Vol] 9.1 mg/dL Normal 7.6-11.0 [facility] Comment on above: Order Comment: Order Date: 11/22/24 Order Info: 0786- - CMP Order Info: [id number] - LIPID Order Info: [id number] - TSH Performed By: #### L 100.0100, L509.1000, L500.4050, L500.4100, L501.9520 #### [facility] [address] [place], [address] Chloride [Moles/Vol] 106 mmol/L Normal 98-[address] [facility] Comment on above: Order Comment: Order Date: 11/22/24 Order Info: 0786- - CMP Order Info: [id number] - LIPID Order Info: 3016-3 - TSH Performed By: #### L 100.0100, L509.1000, L500.4050, L500.4100, L501.9520 #### [facility] [address] [place], [address] CO2 [Moles/Vol] 19.7 mmol/L Low 21.0-32.0 [facility] Comment on above: Order Comment: Order Date: 11/22/24 Order Info: 0786-1 - CMP Order Info: [id number] - LIPID Order Info: [id number] - TSH Performed By: #### L 100.0100, L509.1000, L500.4050, L500.4100, L501.9520 #### [facility] [address] [place], [address] Creatinine [Mass/Vol] 0.78 mg/dL Normal 0.70-1.20 [facility] Comment on above: Order Comment: Order Date: 11/22/24 Order Info: 07 - CMP Order Info: - LIPID Order Info: [id number] - TSH Performed By: #### L 100.0100, L509.1000, L500.4050, L500.4100, L501.9520 #### [facility] [address] [place], [address] GAP 13 Normal 5-15 [facility] Comment on above: Order Comment: Order Date: 11/22/24 Order Info: 0786 - CMP Order Info: - LIPID Order Info: [id number] - TSH Performed By: #### L 100.0100, L509.1000, L500.4050, L500.4100, L501.9520 #### [facility] [address] [place], [address] GFR/1.73 sq M.predicted among non-blacks MDRD (S/P/Bld) [Vol rate/Area] 108 mL/min/{1.73_m2} Normal >60 [facility] Comment on above: Order Comment: Order Date: 11/22/24 Order Info: 0786 - CMP Order Info: - LIPID Order Info: [id number] - TSH Result Comment: mL/m in/1.73m2 CKD-EPI Creatinine Equation (2020) Performed By: #### L 100.0100, L509.1000, L500.4050, L500.4100, L501.9520 #### [facility] [address] [place], [address] Globulin (S) [Mass/Vol] 2.8 g/dL Normal 2.2-4.2 [facility] Comment on above: Order Comment: Order Date: 11/22/24 Order Info: 07- - CMP Order Info: - LIPID Order Info: [id number] - TSH Performed By: #### L 100.0100, L509.1000, L500.4050, L500.4100, L501.9520 #### [facility] [address] [place], [address] Glucose [Mass/Vol] 97 mg/dL Normal 70-99 [facility] Comment on above: Order Comment: Order Date: 11/22/24 Order Info: [id number] - CMP Order Info: - LIPID Order Info: [id number] - TSH Performed By: #### L 100.0100, L509.1000, L500.4050, L500.4100, L501.9520 #### [facility] [address] [place], [address] Potassium [Moles/Vol] 4.1 mmol/L Normal 3.3-5.1 [facility] Comment on above: Order Comment: Order Date: 11/22/24 Order Info: 07 - CMP Order Info: - LIPID Order Info: [id number] - TSH Performed By: #### L 100.0100, L509.1000, L500.4050, L500.4100, L501.9520 #### [facility] [address] [place], [address] Sodium [Moles/Vol] 138 mmol/L Normal 133-145 [facility] Comment on above: Order Comment: Order Date: 11/22/24 Order Info: 07 - CMP Order Info: - LIPID Order Info: [id number] - TSH Performed By: #### L 100.0100, L509.1000, L500.4050, L500.4100, L501.9520 #### [facility] [address] [place], [address] T PROT 6.9 g/dL Normal 5.9-8.4 [facility] Comment on above: Order Comment: Order Date: 11/22/24 Order Info: [id number] - CMP Order Info: [id number] - LIPID Order Info: [id number] - TSH Performed By: #### L 100.0100, L509.1000, L500.4050, L500.4100, L501.9520 #### [facility] [address] [place], [address] Urea nitrogen [Mass/Vol] 14 mg/dL Normal 4-19 [facility] Comment on above: Order Comment: Order Date: 11/22/24 Order Info: [id number] - CMP Order Info: [id number] - LIPID Order Info: [id number] - TSH Performed By: #### L 100.0100, L509.1000, L500.4050, L500.4100, L501.9520 #### [facility] [address] [place], [place], [id number] Eosinophil percentageOrdered By: Francine Rodriguez on 03-16-2025 Eosinophils/100 WBC (Bld) 4.0 % 0-5 [facility] Erythrocyte distribution wid th ratioOrdered By: Francine Rodriguez on 03-16-2025 Erythrocyte distribution width (RBC) [Ratio] 15.2 % High 11.6-14.6 [facility] Erythrocyte distribution wid th standard deviationOrdered By: Francine Rodriguez on 03-16-2025 Erythrocyte distribution width (RBC) [Ratio] 44.9 fl High 35.1-43.9 [facility] Glomerular filtration rate ( GFR) estimation/1.73 sq m using serum, plasma, or whole bOrdered By: Francine Rodriguez on 03-16-2025 GFR/1.73 sq M.predicted among non-blacks MDRD (S/P/Bld) [Vol rate/Area] 108 mL/min/{1.73_m2} >60 [facility] Comment on above: mL/min/1.73m2 CKD-EP I Creatinine Equation (2020) Hematocrit Auto (Bld) [Volum e fraction]Ordered By: Francine Rodriguez on 03-16-2025 Hematocrit (Bld) [Volume fraction] 35.1 % Low 37-47 [facility] Hemoglobin measurementOrdere d By: Francine Rodriguez on 03-16-2025 Hemoglobin (Bld) [Mass/Vol] 11.1 g/dL Low 12.0-15.0 [facility] Immature granulocytes/100 WB C Auto (Bld)Ordered By: Francine Rodriguez on 03-16-2025 Immature granulocytes/100 WBC (Bld) 0.300 % 0.0-0.9 [facility] Comment on above: IG% - Immature Granu locytes (promyelocytes, myelocytes and metamyelocytes) > 1% indicates that a LEFT SHIFT is Present. LDL calc ser/plasOrdered By: Francine Rodriguez on 03-16-2025 Cholesterol in LDL [Mass/Vol] 76 mg/dL [facility] Comment on above: Fxsktppmqy=745-054 m g/dL & Higher Hzcb=780 mg/dL or greaterFriedwald Equation for LDL-C Laboratory - Chemistry and C hemistry - challengeOrdered By: Francine Rodriguez on 03-16-2025 AST [Catalytic activity/Vol] 19 U/L <32 [facility] Lipid Profileon 03-16-2025 CHOL:HDL 2.96 Normal [facility] Comment on above: Order Comment: Order Date: 11/22/24 Order Info: [id number] - CMP Order Info: [id number] - LIPID Order Info: [id number] - TSH Performed By: #### L 100.0100, L509.1000, L500.4050, L500.4100, L501.9520 #### [facility] [address] [place], [place], [id number] Cholesterol [Mass/Vol] 136 mg/dL Normal <=200 [facility] Comment on above: Order Comment: Order Date: 11/22/24 Order Info: [id number] - CMP Order Info: [id number] - LIPID Order Info: [id number] - TSH Result Comment: Chol esterol level, Desirable <200 mg/dL Borderline high cholesterol 200-239 mg/dL High cholesterol >=240 mg/dL Recommendations of the NCEP Adult Treatment Panel for the following risk-cutoff thresholds for the [place] population. Performed By: #### L 100.0100, L509.1000, L500.4050, L500.4100, L501.9520 #### [facility] [address] [place], [address] Cholesterol in HDL [Mass/Vol] 46 mg/dL Normal [facility] Comment on above: Order Comment: Order Date: 11/22/24 Order Info: [id number] - CMP Order Info: [id number] - LIPID Order Info: [id number] - TSH Result Comment: Shellie onal Cholesterol Education Program (NCEP) guidelines: <40 mg/dL: Low HDL-cholesterol (major risk factor for CHD) >= 60 mg/dL: High HDL-cholesterol (negative risk factor for CHD) HDL-cholesterol is affected by a number of factors, e.g. smoking, exercise, hormones, sex and age. Performed By: #### L 100.0100, L509.1000, L500.4050, L500.4100, L501.9520 #### [facility] [address] [place], [address] Cholesterol in LDL [Mass/Vol] 76 mg/dL Normal [facility] Comment on above: Order Comment: Order Date: 11/22/24 Order Info: [id number] - CMP Order Info: [id number] - LIPID Order Info: [id number] - TSH Result Comment: Bord bdfbif=543-815 mg/dL Higher Fcde=350 mg/dL or greater Friedwald Equation for LDL-C Performed By: #### L 100.0100, L509.1000, L500.4050, L500.4100, L501.9520 #### [facility] [address] [place], [address] Cholesterol in VLDL [Mass/Vol] 14 mg/dL Normal 5-40 [facility] Comment on above: Order Comment: Order Date: 11/22/24 Order Info: [id number] - CMP Order Info: [id number] - LIPID Order Info: [id number] - TSH Performed By: #### L 100.0100, L509.1000, L500.4050, L500.4100, L501.9520 #### [facility] [address] [place], [place], [address] Triglyceride [Mass/Vol] 71 mg/dL Normal [facility] Comment on above: Order Comment: Order Date: 11/22/24 Order Info: [id number] - CMP Order Info: [id number] - LIPID Order Info: [id number] - TSH Result Comment: The drugs N-Acetylcysteine and Metamizole may falsely depress this assay. Normal range: <150 mg/dL Borderline High: 150-199 mg/dL High: 200-499 mg/dL Very High: >500 mg/dL Performed By: #### L 100.0100, L509.1000, L500.4050, L500.4100, L501.9520 #### [facility] [address] [place], [place], [id number] MCV (mean corpuscular volume ) determinationOrdered By: Francine Rodriguez on 03-16-2025 MCV (RBC) [Entitic vol] 81.4 fL 81-99 [facility] Mean corpuscular hemoglobin (MCH) determinationOrdered By: Francine Rodriguez on 03-16-2025 MCH (RBC) [Entitic mass] 25.8 pg Low 27.0-32.0 [facility] Mean corpuscular hemoglobin concentration (MCHC) determinationOrdered By: Francine Rodriguez on 03-16-2025 MCHC (RBC) [Mass/Vol] 31.6 g/dL Low 32-36 [facility] Mean platelet volume determi nationOrdered By: Francine Rodriguez on 03-16-2025 Platelet mean volume (Bld) [Entitic vol] 9.4 fL 6.2-12.0 [facility] Monocyte percentageOrdered B y: Francine Rodriguez on 03-16-2025 Monocytes/100 WBC (Bld) 8.7 % 0-10 [facility] Neutrophil percentageOrdered By: Francine Rodriguez on 03-16-2025 Neutrophils/100 WBC (Bld) 45.9 % Low 47-70 [facility] Nucleated red blood cell per centageOrdered By: Francine Rodriguez on 03-16-2025 Nucleated RBC/100 WBC (Bld) [Ratio] 0 % 0-5 [facility] PTHINon 03-16-2025 PTH 31 pg/mL Normal 11-61 [facility] Comment on above: Order Comment: Order Date: 11/22/24 Order Info: [id number] - PTHIN Performed By: #### L 100.0100, L509.1000, L500.4050, L500.4100, L501.9520 #### [facility] [address] [place], [address] Platelet countOrdered By: Brant Rodriguez on 03-16-2025 Platelets (Bld) [#/Vol] 449 10*3/uL 150-450 [facility] Potassium measurement (mass/ volume)Ordered By: Francine Rodriguez on 03-16-2025 Potassium (Unsp spec) [Mass/Vol] 4.1 mmol/L 3.3-5.1 [facility] RBC Auto (Bld) [#/Vol]Ordere d By: Francine Rodriguez on 03-16-2025 RBC (Bld) [#/Vol] 4.31 10*6/uL 4.2-5.4 [facility] Screening total cholesterol/ high density lipoprotein (HDL) cholesterol ratioOrdered By: Francine Rodriguez on 03-16-2025 Cholesterol.total/Choles terol in HDL [Mass ratio] 2.96 {ratio} [facility] Serum creatinine measurement (mass/volume)Ordered By: Francine Rodriguez on 03-16-2025 Creatinine [Mass/Vol] 0.78 mg/dL 0.70-1.20 [facility] Serum globulin measurementOr dered By: Francine Rodriguez on 03-16-2025 Globulin (S) [Mass/Vol] 2.8 g/dL 2.2-4.2 [facility] Serum glucose measurement (m ass/volume)Ordered By: Francine Rodriguez on 03-16-2025 Glucose [Mass/Vol] 97 mg/dL 70-99 [facility] Serum or plasma alanine mathew otransferase (ALT) measurementOrdered By: Francine Rodriguez on 03-16-2025 ALT [Catalytic activity/Vol] 19 U/L <35 [facility] Serum or plasma albumin julio césar urement (mass/volume)Ordered By: Francine Rodriguez on 03-16-2025 Albumin [Mass/Vol] 4.1 g/dL 3.5-5.0 [facility] Serum or plasma albumin/glob ulin mass ratioOrdered By: Francine Michael on 03-16-2025 Albumin/Globulin [Mass ratio] 1.5 {ratio} 0.9-2.4 [facility] Serum or plasma alkaline malcolm sphatase measurementOrdered By: Francine Rodriguez on 03-16-2025 ALP [Catalytic activity/Vol] 71 U/L 35-104 [facility] Serum or plasma calcium julio césar urement (mass/volume)Ordered By: Francine Rodriguez on 03-16-2025 Calcium [Mass/Vol] 9.1 mg/dL 7.6-11.0 [facility] Serum or plasma cholesterol in HDL measurement (mass/volume)Ordered By: Francine Rodriguez on 03-16-2025 Cholesterol in HDL [Mass/Vol] 46 mg/dL >40 [facility] Comment on above: National Cholesterol Education Program (NCEP) guidelines:<40 mg/dL: Low HDL-cholesterol (major risk factor for CHD)>= 60 mg/dL: High HDL-cholesterol (negative risk factor for CHD)HDL-cholesterol is affected by a number of factors, e.g. smoking, exercise, hormones, sex and age. Serum or plasma cholesterol measurement (mass/volume)Ordered By: Francine Rodriguez on 03-16-2025 Cholesterol [Mass/Vol] 136 mg/dL <201 [facility] Comment on above: Cholesterol level, D esirable <200 mg/dLBorderline high cholesterol 200-239 mg/dLHigh cholesterol >=240 mg/dLRecommendations of the NCEP Adult Treatment Panel for the following risk-cutoff thresholds for the [place] population. Serum or plasma urea nitroge n measurement (mass/volume)Ordered By: Francine Rodriguez on 03-16-2025 Urea nitrogen [Mass/Vol] 14 mg/dL 4-19 [facility] Sodium levelOrdered By: Lino Rodriguez on 03-16-2025 Sodium [Moles/Vol] 138 mmol/L 133-145 [facility] TSH DL <= 0.005 mIU/L QnOrde red By: Francine Hollandke on 03-16-2025 TSH Qn 3.970 uIU/mL 0.300-4.20 0 [facility] Thyroid Stim Hormone (TSH)on 03-16-2025 TSH 3.970 uIU/mL Normal 0.300-4.20 0 [facility] Comment on above: Order Comment: Order Date: 11/22/24 Order Info: [id number] - CMP Order Info: [id number] - LIPID Order Info: [id number] - TSH Performed By: #### L 100.0100, L509.1000, L500.4050, L500.4100, L501.9520 #### [facility] [address] [place], [place] [address] [place], [address] Total proteinOrdered By: Nancy Rodriguez on 03-16-2025 Protein [Mass/Vol] 6.9 g/dL 5.9-8.4 [facility] Triglycerides measurementOrd ered By: Francine Rodriguez on 03-16-2025 Triglyceride [Mass/Vol] 71 mg/dL <199 [facility] Comment on above: The drugs N-Acetylcy steine and Metamizole may falsely depress this assay. Normal range: <150 mg/dLBorderline High: 150-199 mg/dLHigh: 200-499 mg/dLVery High: >500 mg/dL Vitamin D,25 Hydroxyon 03-16 Vitamin D 25-OH 27.7 ng/mL Low 30-100 [facility] Comment on above: Order Comment: Order Date: 11/22/24Order Info: [id number] - CMPOrder Info: [id number] - LIPIDOrder Info: [id number] - TSH Result Comment: Maria C min D Status Deficiency: <20 ng/mL (50nmol/L) Insufficiency: 20-30 ng/mL (50-75 nmol/L) Sufficiency: 30-100 ng/mL (75-250 nmol/L) Toxicity: >100 ng/mL (>250 nmol/L) Performed By: #### L 506.1001 ####[facility] [id number] [place], [address] White blood cell (WBC) count Ordered By: Francine Rodriguez on 03-16-2025 WBC (Bld) [#/Vol] 8.7 10*3/uL 4.4-11.0 [facility] Urgent Care Visit Reporton 0 02-01-2025 Urgent Care Visit Report [facility] [address], [address] [place], [place] [address] OFFICE VISIT Date of Service: 02/01/25 MR#: [id number] Acct: [id number] Name: TORRES MILLARD Rep #: [id number] : 2000 Provider: ROBERT Hooper Age/Sex: 24/F [place] [facility] [place] Status: Signed Intake Vital Signs 10/05/24 14:01 02/01/25 15:27 Height 5 ft 2 in Weight: 249 lb 2 oz BMI 45.6 BP 120/80 120/80 Position Sitting Respiration 18 Pulse 98 101 H Temp 97.8 F 98.3 F Temp Source Oral Oral Pulse Oximetry (%) 98 98 Oxygen Delivery Method room air room air Oxygen Flow Rate (L/min) 0 Intake Visit Reasons: Chief Complaint: Migraine Accompanied by: Self Allergies amoxicillin Allergy (Verified 02/01/25 15:24) hives Penicillins Allergy (Verified 02/01/25 15:24) Rash Medications ???Medication ???Instructions ???Recorded ???Confirmed ???Type bupropion HCl 300 mg 24 hr tablet, 300 mg PO DAILY Depression 10/0510/05/24 History extended release (Wellbutrin XL) ipratropium bromide 42 mcg (0.06 2 spray intranasal TID PRN 5 10/05/24 History %) nasal spray levothyroxine 88 mcg tablet 88 mcg PO DAILY Hypothyroidism 07/2010/05/24 History (Synthroid) liothyronine 5 mcg tablet 5 mcg PO DAILY Hypothyroidism 09/2410/05/24 History ropinirole 1 mg tablet 1 mg PO DAILY Restless leg syndrom e 10/05/24 10/05/24 History dextroamphetamine-ampheta mine ER 1 cap PO QAM 02/01/25 02/01/25 His tory 10 mg 24hr capsule,extend release rizatriptan 5 mg tablet 5 mg PO BID PRN migraine headache 02/01/25 02/01/25 Rx #4 tabs Nurse's Note: Patient has a migraine that has been going on for 1 week. Patient has migraine medication that she gets from her PCP and they haven't refilled it. Patient has gone 2 days with out her antidepressant. Patient has tried caffeine and excedrin. Patient has been under some stress. [facility] Medical History (Updated 02/01/25 @ 15:41 by Sae JONES, PA) Migraine Surgical History [place] teeth extracted H/O removal of cyst H/O wrist surgery Social History household members: family Smoking Status: Never smoker alcohol intake: never HPI HPI Chief Complaint: Migraine Details: TORRES MILLARD, is a 24 F who presents to the office today for approximately 1 week history of migraine exacerbation of the left side of her head described as moderate aching and having run out of her rizatriptan prescription. She states she has tried to contact her PCPs office several time though Dr. Rodriguez is not available and therefore is here for evaluation hoping to get her rizatriptan refilled today. She otherwise notes no other complaints at this time. ROS Const Constitutional: No other (As above) Exam Const General: cooperative, healthy appearing and no acute distress Orientation: alert and awake [facility] Head: normal to inspection Ears: hearing grossly normal bilaterally, external ears normal, TM's normal bilaterally and EAC's normal Nose: external nose normal, nares normal, septum normal and no nasal discharge Face and sinus: normal facial exam, sinuses nontender and face symmetric Mouth: oral mucosae normal, lip normal, tongue normal, oropharynx normal and moist mucous membranes Throat: posterior oropharynx normal, tonsils normal, uvula midline and no postnasal drainage Eyes General: appearance normal, both eyes and all related structures Neck Neck: normal visual inspection, full ROM, no lymphadenopathy, no meningeal signs and supple Neck mass: No Thyroid: thyroid normal Lymphatic: no lymphadenopathy noted Chest Chest palpation inspection: normal inspection of the chest Resp Effort Inspection: normal respiratory effort and able to speak in complete sentences Auscultation: Bilateral: Clear to Auscultation Cardio Palpation: normal PMI Rate: tachycardic Rhythm: regular rhythm Heart Sounds: S1 normal, S2 normal, no gallops, no murmurs and no rubs Pulses: radial pulses present Skin General: no rashes or lesions noted Neuro General: patient alert, patient awake and patient oriented x3 Cognition: normal cognition Speech: speech normal Psych Appearance: grossly normal Mental Status: mental status grossly normal Mood: congruent mood Affect: normal affect Speech and Movement: speech and movement normal Attitude: cooperative Coding Level of Care Code Off vis,est,level 3 Diagnoses Migraine G43.909 Assessment and Plan Assessment and Plan (1) Migraine: Status: Acute Plan: Rizatriptan as refilled today. Supportive measures as instructed today. Follow-up with PCP in 2 to 3 days should symptoms not improve, ED sooner s (more content not included)... Normal [facility] Urgent Care Visit Reporton 0 10-05-2024 Urgent Care Visit Report [facility] [address], [address] [place] [address] OFFICE VISIT Date of Service: 10/05/24 MR#: [id number] Acct: [id number] Name: TORRES MILLARD Rep #: [id number] : 2000 Provider: ROBERT Hooper Age/Sex: 24/F Location[place] [facility] [place] Status: Signed Intake Vital Signs 08/14/21 11:06 10/05/24 14:01 Height 5 ft 2 in 5 ft 2 in Weight: 249 lb 2 oz BMI 45.6 BP 120/80 Pulse 98 Temp 97.8 F Temp Source Oral Pulse Oximetry (%) 98 Oxygen Delivery Method room air Oxygen Flow Rate (L/min) 0 Intake Visit Reasons: R EAR PAIN Accompanied by: Self Allergies amoxicillin Allergy (Verified 01/10/23 08:28) hives Penicillins Allergy (Verified 01/10/23 08:28) Rash Medications ???Medication ???Instructions ???Recorded ???Confirmed ???Type lisdexamfetamine 50 mg capsule ea PO 08/14/21 10/05/24 History azithromycin 250 mg tablet 250 mg PO .COMPLEX #12 tabs 10/05/24 Rx bupropion HCl 300 mg 24 hr tablet, 300 mg PO DAILY Depression 10/0510/05/24 History extended release (Wellbutrin XL) ipratropium bromide 42 mcg (0.06 2 spray intranasal TID PRN 5 10/05/24 History %) nasal spray levothyroxine 88 mcg tablet 88 mcg PO DAILY Hypothyroidism 07/2010/05/24 History (Synthroid) liothyronine 5 mcg tablet 5 mcg PO DAILY Hypothyroidism 09/2410/05/24 History ropinirole 1 mg tablet 1 mg PO DAILY Restless leg syndrom e 10/05/24 10/05/24 History Nurse's Note: Patient has Right ear pain and dizziness. Patient state the dizziness started last night. Patient saw here PCP in Aug for a ear infection. Patient is having the pain go into the middle of her jaw. Patient had tubes in her ears as a child. [facility] Surgical History H/O removal of cyst H/O wrist surgery [place] teeth extracted Social History household members: family Smoking Status: Never smoker alcohol intake: never HPI HPI Details: TORRES MILLARD, is a 24 F who presents to the office today [facility] for approximately 2-week history of progressively worsening RAD pain w/ R facial pressure/congestion with purulent postnasal drip/cough. History of chronic recurring otitis media bilateral as a child with T-tube placements then. No complaints of fever, chills, myalgias, fatigue, runny nose, or nausea/vomiting/diarrhea. No complaints of chest pain/shortness of breath/dyspnea on exertion. No close contacts with similar complaints. No other associated symptoms and no other alleviating/aggravating factors. ROS Const Constitutional: No other (as above) Exam Const General: cooperative, healthy appearing and no acute distress Nutritional Appearance: average body habitus Orientation: alert, awake and oriented x3 [facility] Head: normal to inspection Ears: hearing grossly normal bilaterally, external ears normal, TM's normal bilaterally and EAC's normal Nose: external nose normal, nares normal, septum normal and no nasal discharge Face and sinus: normal facial exam, right maxillary sinus palpable tender (with right maxillary fullness to palpation) and face symmetric Mouth: oral mucosae normal, lip normal, tongue normal and oropharynx normal Throat: posterior oropharynx normal, tonsils normal, uvula midline and postnasal drainage (scant amount purulent) Eyes General: appearance normal, both eyes and all related structures Neck Neck: normal visual inspection, full ROM, no meningeal signs, supple and lymphadenopathy (Bilateral anterior cervical lymph node swelling/tender to palpation) Neck mass: No Thyroid: thyroid normal Chest Chest palpation inspection: normal inspection of the chest Resp Effort Inspection: normal respiratory effort and able to speak in complete sentences Auscultation: Bilateral: Clear to Auscultation Cardio Palpation: normal PMI Rate: regular rate Rhythm: regular rhythm Heart Sounds: S1 normal, S2 normal, no gallops, no murmurs and no rubs Pulses: radial pulses present GI Inspection: normal to inspection Skin General: no rashes or lesions noted Neuro General: patient alert, patient awake and patient oriented x3 Cognition: normal cognition Speech: speech normal Psych Appearance: grossly normal Mental Status: mental status grossly normal Mood: congruent mood Affect: normal affect Speech and Movement: speech and movement normal Attitude: cooperative Diagnoses Acute maxillary sinusitis, unspecified J01.00 Assessment and Plan Assessment and Plan (1) Acute maxillary sinusitis, unspecified: Status: Acute Plan: 11-day course of azithromycin as prescribed today. Supportive measures as instructed today. Fo (more content not included)... Normal [facility] Thyroid Stim Hormone (TSH)on 08-04-2024 TSH 2.590 uIU/mL Normal 0.358-3.74 0 [facility] Comment on above: Order Comment: Order Date: 05/09/24Order Info: [id number] - TSH Performed By: #### L 501.9520 ####[facility] [id number] [place], [address] Serum or plasma thyroid stim ulating hormone (TSH) measurement (units/volume)Ordered By: Rosa García on 11-03-2023 TSH Qn 2.15 uIU/mL 0.358-3.74 [facility] Thin prep Papanicolaou smear with manual screeningOrdered By: Rosasidney Hendricksnger on 11-03-2023 Thin prep Papanicolaou smear with manual screening 1.35 ng/dL 0.76-1.46 [facility] Absolute lymphocyte countOrd ered By: Rosa Hendricksnger on 08-26-2023 Lymphocytes Auto (Unsp spec) [#/Vol] 2.96 10*3/uL 0.83-4.51 [facility] Automated lymphocyte count a s percentage of total leukocytesOrdered By: Rosasidney Hendricksnger on 08-26-2023 Lymphocytes/100 WBC Auto (Unsp spec) 30.7 % 19-41 [facility] Basophil percentageOrdered B y: Rosa Hendricksnger on 08-26-2023 Basophils/100 WBC (Bld) 0.6 % 0-1 [facility] Bilirubin [Mass/Vol] 0.30 mg/dL 0.20-1.[address] [facility] Comment on above: For patients on eltr ombopag therapy, use of Dimension Aquilla TBIL is not recommended. Chloride [Moles/Vol] 110 mmol/L 98-[address] [facility] Eosinophils/100 WBC (Bld) 0.4 % 0-5 [facility] Glucose [Mass/Vol] 103 mg/dL 74-106 [facility] Comment on above: Fasting Glucose resu lt from 100 to 125 mg/dL suggests IMPAIRED HOMEOSTASIS per A.D.A. criteria. Hemoglobin (Bld) [Mass/Vol] 12.2 g/dL 12.0-15.0 [facility] Monocytes/100 WBC (Bld) 5.6 % 0-10 [facility] Neutrophils (Bld) [#/Vol] 6.0 10*3/uL 2.0-7.7 [facility] Neutrophils/100 WBC (Bld) 62.4 % 47-70 [facility] Potassium [Moles/Vol] 3.8 mmol/L 3.5-5.1 [facility] Protein [Mass/Vol] 7.8 g/dL 6.4-8.2 [facility] Sodium [Moles/Vol] 138 mmol/L 136-145 [facility] WBC (Bld) [#/Vol] 9.6 10*3/uL 4.4-11.0 [facility] Determination of erythrocyte mean corpuscular volume (MCV)Ordered By: Rosa García on 08-26-2023 MCV (RBC) [Entitic vol] 86.8 fL 81-99 [facility] Erythrocyte distribution wid th ratioOrdered By: Rosasidney García on 08-26-2023 Erythrocyte distribution width (RBC) [Ratio] 13.6 % 11.6-14.6 [facility] Erythrocyte distribution wid th standard deviationOrdered By: Rosa García on 08-26-2023 Erythrocyte distribution width (RBC) [Entitic vol] 42.6 fL 35.1-43.9 [facility] Hematocrit Auto (Bld) [Volum e fraction]Ordered By: Rosa García on 08-26-2023 Hematocrit (Bld) [Volume fraction] 39.6 % 37-47 [facility] Immature granulocytes/100 WB C Auto (Bld)Ordered By: Rosa García on 08-26-2023 Immature granulocytes/100 WBC (Bld) 0.300 % 0.0-0.9 [facility] Comment on above: IG% - Immature Granu locytes (promyelocytes, myelocytes and metamyelocytes) > 1% indicates that a LEFT SHIFT is Present. Laboratory - Chemistry and C hemistry - challengeOrdered By: Rosa García on 08-26-2023 Albumin/Globulin [Mass ratio] 1.1 {ratio} 0.9-2.4 [facility] ALP [Catalytic activity/Vol] 74 U/L 45-117 [facility] ALT [Catalytic activity/Vol] 26 U/L 13-56 [facility] CO2 [Moles/Vol] 23.0 mmol/L 21.0-32.0 [facility] Ferritin [Mass/Vol] 8 ng/mL 8-252 [facility] Globulin (S) [Mass/Vol] 3.7 g/dL 2.2-4.2 [facility] Urea nitrogen/Creatinine [Mass ratio] 16.0 mg/mg 10-20 [facility] Laboratory - Hematology and Cell countsOrdered By: Rosa García on 08-26-2023 MCH (RBC) [Entitic mass] 26.8 pg 27.0-32.0 [facility] MCHC (RBC) [Mass/Vol] 30.8 g/dL 32-36 [facility] Nucleated RBC/100 WBC (Bld) [Ratio] 0 % 0-5 [facility] Platelets (Bld) [#/Vol] 451 10*3/uL 150-450 [facility] No Panel InformationOrdered By: Rosa García on 08-26-2023 Estimated GFR (MDRD) Amer 102 mL/min >60 [facility] Comment on above: GFR Calc Estimated GFR (MDRD) Non-Af Amer 85 mL/min >60 [facility] Comment on above: Non- GFR Calc Platelet mean volume Marcelo-Ec ker (Bld) [Entitic vol]Ordered By: Rosa García on 08-26-2023 Platelet mean volume (Bld) [Entitic vol] 9.7 fL 6.2-12.0 [facility] RBC Auto (Bld) [#/Vol]Ordere d By: Rosa García on 08-26-2023 RBC (Bld) [#/Vol] 4.56 10*6/uL 4.2-5.4 [facility] Serum or plasma calcium julio césar urement (mass/volume)Ordered By: Rosa García on 08-26-2023 Calcium [Mass/Vol] 9.5 mg/dL 8.5-10.1 [facility] Serum or plasma creatinine m easurement (mass/volume)Ordered By: Rosa García on 08-26-2023 Creatinine [Mass/Vol] 0.87 mg/dL 0.55-1.02 [facility] Comment on above: The validity of the calculated GFR & GFRAA in patients over 70 years has not been determined. Clinical correlation is essential. Serum or plasma thyroid stim ulating hormone (TSH) measurement (units/volume)Ordered By: Rosa García on 08-26-2023 TSH Qn 3.11 uIU/mL 0.358-3.74 [facility] Serum or plasma urea nitroge n measurement (mass/volume)Ordered By: Rosa García on 08-26-2023 Urea nitrogen [Mass/Vol] 14 mg/dL 7-18 [facility] Thin prep Papanicolaou smear with manual screeningOrdered By: Rosa García on 08-26-2023 Thin prep Papanicolaou smear with manual screening 4.1 g/dL 3.2-5.0 [facility] Thin prep Papanicolaou smear with manual screening 15 U/L 15-37 [facility] Thin prep Papanicolaou smear with manual screening 5 5-15 [facility] Thin prep Papanicolaou smear with manual screening 1.28 ng/dL 0.76-1.46 [facility] Laboratory - Chemistry and C hemistry - challengeOrdered By: Rosa García on 07-14-2023 Free T4 [Mass/Vol] 1.19 ng/dL 0.76-1.46 [facility] No Panel InformationOrdered By: Rosa García on 07-14-2023 Thyroid Stimulating Hormone (TSH) 3.59 uIU/mL 0.358-3.74 [facility] Laboratory - Chemistry and C hemistry - challengeOrdered By: Rosa García on 05-21-2023 Free T4 [Mass/Vol] 0.91 ng/dL 0.76-1.46 [facility] No Panel InformationOrdered By: Rosa García on 05-21-2023 Thyroid Stimulating Hormone (TSH) 4.54 uIU/mL 0.358-3.74 [facility] Laboratory - Chemistry and C hemistry - challengeOrdered By: Rosa García on 04-28-2023 Free T4 [Mass/Vol] 0.83 ng/dL 0.76-1.46 [facility] No Panel InformationOrdered By: Rosa García on 04-28-2023 Thyroid Stimulating Hormone (TSH) 15.20 uIU/mL 0.358-3.74 [facility] XR FOOT GENERAL 3V AP/LAT/OB L RIGHTon 04-25-2023 [facility] XR Foot - right AP and Later al and obliqueon 04-25-2023 IMPRESSION: Fracture base of fifth metatarsal. Housekeeping/Laundry: VICKY Transcribe Date/Time: Apr 25 2023 10:37A Dictated by : MIREYA DAVIES MD This examination was interpreted and the report reviewed and electronically signed by: MIREYA DAVIES MD on Apr 25 2023 10:41AM [facility] DIVISION OF RADIOLOGY * * *Final Report* * * DATE OF EXAM: Apr 25 2023 9:44AM WOX [id number] - XR FOOT 3V AP/LAT/OBL RT / PROCEDURE REASON: Foot pain, right * * * * Physician Interpretation * * * * Right foot HISTORY: 22 years old Clinical information: Foot pain, right Pt. states she fell off step last night. Pain lateral aspect of Rt foot. TECHNIQUE: Images: XR FOOT 3V AP/LAT/OBL RT Comparison: None. RESULT: Findings: Slightly distracted intra-articular oblique fracture base of fifth metatarsal RIGHT foot. No subluxation. DIVISION OF RADIOLOGY Provider, [facility] - 04/25/2023 * * *Final Report* * * DATE OF EXAM: Apr 25 2023 9:44AM WOX [id number] - XR FOOT 3V AP/LAT/OBL RT / PROCEDURE REASON: Foot pain, right * * * * Physician Interpretation * * * * Right foot HISTORY: 22 years old Clinical information: Foot pain, right Pt. states she fell off step last night. Pain lateral aspect of Rt foot. TECHNIQUE: Images: XR FOOT 3V AP/LAT/OBL RT Comparison: None. RESULT: Findings: Slightly distracted intra-articular oblique fracture base of fifth metatarsal RIGHT foot. No subluxation. IMPRESSION IMPRESSION: Fracture base of fifth metatarsal. Housekeeping/Laundry: PSCB Transcribe Date/Time: Apr 25 2023 10:37A Dictated by : MIREYA DAVIES MD This examination was interpreted and the report reviewed and electronically signed by: MIREYA DAVIES MD on Apr 25 2023 10:41AM EST [facility] Radiology Study observation (narrative) Claudio valenzuela [facility] XR Foot - right AP and Later al and obliqueOrdered By: [facility] Provider on 04-25-2023 [facility] STREP A MOLECULAR (POC)on Procedural Control Valid [facility] Strep A (POCT) Negative Negative [facility] Absolute lymphocyte countOrd ered By: Rosa García on 03-09-2023 Lymphocytes Auto (Unsp spec) [#/Vol] 2.47 10*3/uL 0.83-4.51 [facility] Basophil percentageOrdered B y: Rosa García on 03-09-2023 Basophils/100 WBC (Bld) 0.8 % 0-1 [facility] Bilirubin [Mass/Vol] 0.30 mg/dL 0.20-1.[address] [facility] Comment on above: For patients on eltr ombopag therapy, use of Dimension Aquilla TBIL is not recommended. Chloride [Moles/Vol] 111 mmol/L 98-[address] [facility] Eosinophils/100 WBC (Bld) 2.5 % 0-5 [facility] Glucose [Mass/Vol] 98 mg/dL 74-106 [facility] Neutrophils (Bld) [#/Vol] 2.9 10*3/uL 2.0-7.7 [facility] Neutrophils/100 WBC (Bld) 47.2 % 47-70 [facility] Potassium [Moles/Vol] 3.9 mmol/L 3.5-5.1 [facility] Protein [Mass/Vol] 7.1 g/dL 6.4-8.2 [facility] Sodium [Moles/Vol] 140 mmol/L 136-145 [facility] WBC (Bld) [#/Vol] 6.0 10*3/uL 4.4-11.0 [facility] Blood erythrocytes count (nu mber/volume)Ordered By: Rosa García on 03-09-2023 RBC (Bld) [#/Vol] 4.48 10*6/uL 4.2-5.4 [facility] Blood hemoglobin measurement (mass/volume)Ordered By: Rosa García on 03-09-2023 Hemoglobin (Bld) [Mass/Vol] 11.9 g/dL 12.0-15.0 [facility] Blood lymphocytes/100 leukoc ytesOrdered By: Rosa García on 03-09-2023 Lymphocytes/100 WBC (Bld) 41.0 % 19-41 [facility] Blood monocytes/100 leukocyt esOrdered By: Rosa García on 03-09-2023 Monocytes/100 WBC (Bld) 8.5 % 0-10 [facility] Blood platelet mean volumeOr dered By: Rosa García on 03-09-2023 Platelet mean volume (Bld) [Entitic vol] 9.6 fL 6.2-12.0 [facility] Determination of erythrocyte mean corpuscular volume (MCV)Ordered By: Rosa García on 03-09-2023 MCV (RBC) [Entitic vol] 82.8 fL 81-99 [facility] Hematocrit Auto (Bld) [Volum e fraction]Ordered By: Rosa García on 03-09-2023 Hematocrit (Bld) [Volume fraction] 37.1 % 37-47 [facility] Laboratory - Chemistry and C hemistry - challengeOrdered By: Rosa García on 03-09-2023 ALP [Catalytic activity/Vol] 63 U/L 45-117 [facility] ALT [Catalytic activity/Vol] 19 U/L 13-56 [facility] CO2 [Moles/Vol] 25.0 mmol/L 21.0-32.0 [facility] Cobalamin (Vitamin B12) [Mass/Vol] 1868 pg/mL 211-911 [facility] Free T4 [Mass/Vol] 1.16 ng/dL 0.76-1.46 [facility] Globulin (S) [Mass/Vol] 3.4 g/dL 2.2-4.2 [facility] Urea nitrogen/Creatinine [Mass ratio] 16.5 mg/mg 10-20 [facility] Laboratory - Hematology and Cell countsOrdered By: Rosa García on 03-09-2023 Erythrocyte distribution width (RBC) [Entitic vol] 47.4 fL 35.1-43.9 [facility] Erythrocyte distribution width (RBC) [Ratio] 15.8 % 11.6-14.6 [facility] Immature granulocytes/100 WBC (Bld) 0.000 % 0.0-0.9 [facility] Comment on above: IG% - Immature Granu locytes (promyelocytes, myelocytes and metamyelocytes) > 1% indicates that a LEFT SHIFT is Present. MCH (RBC) [Entitic mass] 26.6 pg 27.0-32.0 [facility] Nucleated RBC/100 W[facility] (Bld) [Ratio] 0 % 0-5 [facility] [Mass/Vol]Or dered By: Rosa García on 03-09-2023 MCHC (RBC) [Mass/Vol] 32.1 g/dL 32-36 [facility] No Panel InformationOrdered By: Rosa García on 03-09-2023 Estimated GFR (MDRD) Amer 127 mL/min >60 [facility] Comment on above: GFR Calc Estimated GFR (MDRD) Non-Af Amer 105 mL/min >60 [facility] Comment on above: Non- GFR Calc Thyroid Stimulating Hormone (TSH) 0.30 uIU/mL 0.358-3.74 [facility] Vitamin D 25-Hydroxy 60.2 ng/mL [facility] Comment on above: Vitamin D 25(OH) Sta tus Range Deficiency <20 ng/mL (50nmol/L) Insufficiency 20 - 30 ng/mL (50 - 75 nmol/L) Sufficiency 30 - 100 ng/mL (75 - 250 nmol/L) Toxicity >100 ng/mL (>250 nmol/L) Platelets bldOrdered By: Nuria García on 03-09-2023 Platelets (Bld) [#/Vol] 377 10*3/uL 150-450 [facility] Serum or plasma albumin julio césar urement (mass/volume)Ordered By: Rosa García on 03-09-2023 Albumin [Mass/Vol] 3.7 g/dL 3.2-5.0 [facility] Serum or plasma albumin/glob ulin mass ratioOrdered By: Rosa García on 03-09-2023 Albumin/Globulin [Mass ratio] 1.1 {ratio} 0.9-2.4 [facility] Serum or plasma calcium julio césar urement (mass/volume)Ordered By: Rosa García on 03-09-2023 Calcium [Mass/Vol] 8.8 mg/dL 8.5-10.1 [facility] Serum or plasma creatinine m easurement (mass/volume)Ordered By: Rosa García on 03-09-2023 Creatinine [Mass/Vol] 0.73 mg/dL 0.55-1.02 [facility] Comment on above: The validity of the calculated GFR & GFRAA in patients over 70 years has not been determined. Clinical correlation is essential. Serum or plasma ferritin samaria surement (mass/volume)Ordered By: Rosa García on 03-09-2023 Ferritin [Mass/Vol] 8 ng/mL 8-252 [facility] Serum or plasma urea nitroge n measurement (mass/volume)Ordered By: Rosa García on 03-09-2023 Urea nitrogen [Mass/Vol] 12 mg/dL 7-18 [facility] Thin prep Papanicolaou smear with manual screeningOrdered By: Rosa García on 03-09-2023 Thin prep Papanicolaou smear with manual screening 15 U/L 15-37 [facility] Thin prep Papanicolaou smear with manual screening 4 5-15 [facility] Absolute lymphocyte countOrd ered By: Rosa García on 02-03-2023 Lymphocytes Auto (Unsp spec) [#/Vol] 2.07 10*3/uL 0.83-4.51 [facility] Basophil percentageOrdered B y: Rosa García on 02-03-2023 Basophils/100 WBC (Bld) 0.9 % 0-1 [facility] Eosinophils/100 WBC (Bld) 1.2 % 0-5 [facility] Neutrophils (Bld) [#/Vol] 5.1 10*3/uL 2.0-7.7 [facility] Neutrophils/100 WBC (Bld) 65.6 % 47-70 [facility] WBC (Bld) [#/Vol] 7.8 10*3/uL 4.4-11.0 [facility] Blood erythrocytes count (nu mber/volume)Ordered By: Rosa García on 02-03-2023 RBC (Bld) [#/Vol] 4.68 10*6/uL 4.2-5.4 [facility] Blood hemoglobin measurement (mass/volume)Ordered By: Rosa García on 02-03-2023 Hemoglobin (Bld) [Mass/Vol] 11.8 g/dL 12.0-15.0 [facility] Blood lymphocytes/100 leukoc ytesOrdered By: Rosa García on 02-03-2023 Lymphocytes/100 WBC (Bld) 26.6 % 19-41 [facility] Blood monocytes/100 leukocyt esOrdered By: Rosa García on 02-03-2023 Monocytes/100 WBC (Bld) 5.3 % 0-10 [facility] Blood platelet mean volumeOr dered By: Rosa García on 02-03-2023 Platelet mean volume (Bld) [Entitic vol] 10.1 fL 6.2-12.0 [facility] Determination of erythrocyte mean corpuscular volume (MCV)Ordered By: Rosa García on 02-03-2023 MCV (RBC) [Entitic vol] 82.3 fL 81-99 [facility] Hematocrit Auto (Bld) [Volum e fraction]Ordered By: Rosa García on 02-03-2023 Hematocrit (Bld) [Volume fraction] 38.5 % 37-47 [facility] Laboratory - Hematology and Cell countsOrdered By: Rosa García on 02-03-2023 Erythrocyte distribution width (RBC) [Entitic vol] 42.3 fL 35.1-43.9 [facility] Erythrocyte distribution width (RBC) [Ratio] 14.4 % 11.6-14.6 [facility] Immature granulocytes/100 WBC (Bld) 0.400 % 0.0-0.9 [facility] Comment on above: IG% - Immature Granu locytes (promyelocytes, myelocytes and metamyelocytes) > 1% indicates that a LEFT SHIFT is Present. MCH (RBC) [Entitic mass] 25.2 pg 27.0-32.0 [facility] Nucleated RBC/100 WBC (Bld) [Ratio] 0 % 0-5 [facility] MCHC Auto (RBC) [Mass/Vol]Or dered By: Rosa García on 02-03-2023 MCHC (RBC) [Mass/Vol] 30.6 g/dL 32-36 [facility] Platelets bldOrdered By: Nuria García on 02-03-2023 Platelets (Bld) [#/Vol] 436 10*3/uL 150-450 [facility] Basophil percentageOrdered B y: Rosa García on 02-02-2023 Bilirubin [Mass/Vol] 0.30 mg/dL 0.20-1.[address] [facility] Comment on above: For patients on eltr ombopag therapy, use of Dimension Aquilla TBIL is not recommended. Chloride [Moles/Vol] 111 mmol/L 98-[address] [facility] Glucose [Mass/Vol] 93 mg/dL 74-106 [facility] Potassium [Moles/Vol] 3.9 mmol/L 3.5-5.1 [facility] Protein [Mass/Vol] 7.8 g/dL 6.4-8.2 [facility] Sodium [Moles/Vol] 139 mmol/L 136-145 [facility] Laboratory - Chemistry and C hemistry - challengeOrdered By: Rosa García on 02-02-2023 ALP [Catalytic activity/Vol] 72 U/L 45-117 [facility] ALT [Catalytic activity/Vol] 22 U/L 13-56 [facility] CO2 [Moles/Vol] 22.0 mmol/L 21.0-32.0 [facility] Cobalamin (Vitamin B12) [Mass/Vol] 488 pg/mL 211-911 [facility] Globulin (S) [Mass/Vol] 3.8 g/dL 2.2-4.2 [facility] Urea nitrogen/Creatinine [Mass ratio] 16.2 mg/mg 10-20 [facility] No Panel InformationOrdered By: Rosa García on 02-02-2023 Estimated GFR (MDRD) Amer 113 mL/min >60 [facility] Comment on above: GFR Calc Estimated GFR (MDRD) Non-Af Amer 94 mL/min >60 [facility] Comment on above: Non- GFR Calc No Panel InformationOrdered By: Tonia Farooq on 02-02-2023 Thyroid Stimulating Hormone (TSH) 1.89 uIU/mL 0.358-3.74 [facility] Serum or plasma albumin julio césar urement (mass/volume)Ordered By: Rosa García on 02-02-2023 Albumin [Mass/Vol] 4.0 g/dL 3.2-5.0 [facility] Serum or plasma albumin/glob ulin mass ratioOrdered By: Rosa García on 02-02-2023 Albumin/Globulin [Mass ratio] 1.1 {ratio} 0.9-2.4 [facility] Serum or plasma calcium julio césar urement (mass/volume)Ordered By: Rsoa García on 02-02-2023 Calcium [Mass/Vol] 9.5 mg/dL 8.5-10.1 [facility] Serum or plasma creatinine m easurement (mass/volume)Ordered By: Rosa García on 02-02-2023 Creatinine [Mass/Vol] 0.80 mg/dL 0.55-1.02 [facility] Comment on above: The validity of the calculated GFR & GFRAA in patients over 70 years has not been determined. Clinical correlation is essential. Serum or plasma ferritin samaria surement (mass/volume)Ordered By: Rosa García on 02-02-2023 Ferritin [Mass/Vol] 7 ng/mL 8-252 [facility] Serum or plasma urea nitroge n measurement (mass/volume)Ordered By: Rosa García on 02-02-2023 Urea nitrogen [Mass/Vol] 13 mg/dL 7-18 [facility] Thin prep Papanicolaou smear with manual screeningOrdered By: Rosa García on 02-02-2023 Thin prep Papanicolaou smear with manual screening 17 U/L 15-37 [facility] Thin prep Papanicolaou smear with manual screening 6 5-15 [facility] Laboratory - Chemistry and C hemistry - challengeOrdered By: Rosa García on 12-24-2022 Cobalamin (Vitamin B12) [Mass/Vol] 392 pg/mL 211-911 [facility] Laboratory - Chemistry and C hemistry - challengeOrdered By: Rosa García on 12-17-2022 Free T4 [Mass/Vol] 1.20 ng/dL 0.76-1.46 [facility] No Panel InformationOrdered By: Rosa García on 12-17-2022 Ionized Calcium 5.0 mg/dL 4.5-5.6 [facility] Comment on above: Performed at: [address] [id number] Director: Eder Lamar PhD, Phone: [phone] Parathyroid Hormone (Intact) 30.1 pg/mL 18.4-80.1 [facility] Thyroid Stimulating Hormone (TSH) 2.79 uIU/mL 0.358-3.74 [facility] Vitamin D 25-Hydroxy 14.4 ng/mL [facility] Comment on above: Vitamin D 25(OH) Sta tus Range Deficiency <20 ng/mL (50nmol/L) Insufficiency 20 - 30 ng/mL (50 - 75 nmol/L) Sufficiency 30 - 100 ng/mL (75 - 250 nmol/L) Toxicity >100 ng/mL (>250 nmol/L) No Panel InformationOrdered By: Rosa García on 12-03-2022 Thyroid Stimulating Hormone (TSH) 1.93 uIU/mL 0.358-3.74 [facility] Laboratory - Chemistry and C hemistry - challengeOrdered By: Rosa García on 11-10-2022 Free T4 [Mass/Vol] 0.96 ng/dL 0.76-1.46 [facility] No Panel InformationOrdered By: Rosa García on 11-10-2022 Free Triiodothyronine (T3) pg/dL 2.4 pg/mL 2.18-3.98 [facility] Thyroglobulin Antibody < 1.0 IU/mL 0.0-0.9 [facility] Comment on above: Thyroglobulin Antibo dy measured by Pilar CoulterMethodologyPerformed at: - [facility] [address] [id number] Director: Eder Lamar PhD, Phone: [phone] Thyroid Stimulating Hormone (TSH) 4.17 uIU/mL 0.358-3.74 [facility] Serum or plasma thyroperoxid ase antibody assay (units/volume)Ordered By: Rosa García on 11-10-2022 TPO Ab Qn 105 [IU]/mL 0-34 [facility] Absolute lymphocyte countOrd ered By: Rosa García on 11-06-2022 Lymphocytes Auto (Unsp spec) [#/Vol] 2.76 10*3/uL 0.83-4.51 [facility] Basophil percentageOrdered B y: Rosa García on 11-06-2022 Basophils/100 WBC (Bld) 0.6 % 0-1 [facility] Bilirubin [Mass/Vol] 0.50 mg/dL 0.20-1.[address] [facility] Comment on above: For patients on eltr ombopag therapy, use of Dimension Aquilla TBIL is not recommended. Chloride [Moles/Vol] 105 mmol/L 98-[address] [facility] Eosinophils/100 WBC (Bld) 1.8 % 0-5 [facility] Glucose [Mass/Vol] 96 mg/dL 74-106 [facility] Neutrophils (Bld) [#/Vol] 5.0 10*3/uL 2.0-7.7 [facility] Neutrophils/100 WBC (Bld) 58.5 % 47-70 [facility] Potassium [Moles/Vol] 4.0 mmol/L 3.5-5.1 [facility] Protein [Mass/Vol] 7.5 g/dL 6.4-8.2 [facility] Sodium [Moles/Vol] 135 mmol/L 136-145 [facility] WBC (Bld) [#/Vol] 8.6 10*3/uL 4.4-11.0 [facility] Blood erythrocytes count (nu mber/volume)Ordered By: Rosa García on 11-06-2022 RBC (Bld) [#/Vol] 4.72 10*6/uL 4.2-5.4 [facility] Blood hemoglobin measurement (mass/volume)Ordered By: Rosa García on 11-06-2022 Hemoglobin (Bld) [Mass/Vol] 12.0 g/dL 12.0-15.0 [facility] Blood lymphocytes/100 leukoc ytesOrdered By: Rosa García on 11-06-2022 Lymphocytes/100 WBC (Bld) 32.2 % 19-41 [facility] Blood monocytes/100 leukocyt esOrdered By: Rosa García on 11-06-2022 Monocytes/100 WBC (Bld) 6.5 % 0-10 [facility] Blood platelet mean volumeOr dered By: Rosa García on 11-06-2022 Platelet mean volume (Bld) [Entitic vol] 9.3 fL 6.2-12.0 [facility] Determination of erythrocyte mean corpuscular volume (MCV)Ordered By: Rosa García on 11-06-2022 MCV (RBC) [Entitic vol] 82.4 fL 81-99 [facility] Erythrocyte sedimentation ra teOrdered By: Rosa García on 11-06-2022 ESR (Bld) [Velocity] 13 mm[facility]h 0-30 [facility] Hemat[facility]rit Auto (Bld) [Volum e fraction]Ordered By: Rosa García on 11-06-2022 Hematocrit (Bld) [Volume fraction] 38.9 % 37-47 [facility] Laboratory - Chemistry and C hemistry - challengeOrdered By: Rosa García on 11-06-2022 ALP [Catalytic activity/Vol] 79 U/L 45-117 [facility] ALT [Catalytic activity/Vol] 23 U/L 13-56 [facility] CO2 [Moles/Vol] 25.0 mmol/L 21.0-32.0 [facility] Globulin (S) [Mass/Vol] 3.7 g/dL 2.2-4.2 [facility] Urea nitrogen/Creatinine [Mass ratio] 26.5 mg/mg 10-20 [facility] Laboratory - Hematology and Cell countsOrdered By: Rosa García on 11-06-2022 Erythrocyte distribution width (RBC) [Entitic vol] 43.5 fL 35.1-43.9 [facility] Erythrocyte distribution width (RBC) [Ratio] 14.6 % 11.6-14.6 [facility] Immature granulocytes/100 WBC (Bld) 0.400 % 0.0-0.9 [facility] Comment on above: IG% - Immature Granu locytes (promyelocytes, myelocytes and metamyelocytes) > 1% indicates that a LEFT SHIFT is Present. MCH (RBC) [Entitic mass] 25.4 pg 27.0-32.0 [facility] Nucleated RBC/100 WBC (Bld) [Ratio] 0 % 0-5 [facility] MCHC Auto (RBC) [Mass/Vol]Or dered By: Rosa García on 11-06-2022 MCHC (RBC) [Mass/Vol] 30.8 g/dL 32-36 [facility] No Panel InformationOrdered By: Rosa García on 11-06-2022 Anti-Nuclear Antibody Screen Negative Negative [facility] Comment on above: Performed at: [facility] - [facility] [address] [id number] Director: Eder Lamar PhD, Phone: [phone] Estimated GFR (MDRD) Amer 129 mL/min >60 [facility] Comment on above: GFR Calc Estimated GFR (MDRD) Non-Af Amer 107 mL/min >60 [facility] Comment on above: Non- GFR Calc Thyroid Stimulating Hormone (TSH) 5.09 uIU/mL 0.358-3.74 [facility] Platelets bldOrdered By: Nuria García on 11-06-2022 Platelets (Bld) [#/Vol] 469 10*3/uL 150-450 [facility] Serum cyclic citrullinated p eptide IgG antibody assay (units/volume)Ordered By: Rosa García on 11-06-2022 Cyclic citrullinated peptide IgG Qn 6 units 0-19 [facility] Comment on above: Negative <20 Weak po sitive 20 - 39 Moderate positive 40 - 59 Strong positive >59Performed at: [facility] - [facility] [id number] [address] [id number] Director: Eder Lamar PhD, Phone: [phone] Serum or plasma C reactive p rotein measurement (mass/volume)Ordered By: Rosa García on 11-06-2022 CRP [Mass/Vol] 11.20 mg/L 0.0-3.0 [facility] Comment on above: C-Reactive Protein ( CRP) provides useful information for thediagnosis, therapy and monitoring of inflammatory processesand associated diseases. For the evaluation of Relative Riskfor Cardiovascular Disease, a High Sensitivity CRP (HSCRP)should be ordered. Serum or plasma albumin julio césar urement (mass/volume)Ordered By: Rosa García on 11-06-2022 Albumin [Mass/Vol] 3.8 g/dL 3.2-5.0 [facility] Serum or plasma albumin/glob ulin mass ratioOrdered By: Rosa García on 11-06-2022 Albumin/Globulin [Mass ratio] 1.0 {ratio} 0.9-2.4 [facility] Serum or plasma calcium julio césar urement (mass/volume)Ordered By: Rosa García on 11-06-2022 Calcium [Mass/Vol] 9.2 mg/dL 8.5-10.1 [facility] Serum or plasma creatinine m easurement (mass/volume)Ordered By: Rosa García on 11-06-2022 Creatinine [Mass/Vol] 0.72 mg/dL 0.55-1.02 [facility] Comment on above: The validity of the calculated GFR & GFRAA in patients over 70 years has not been determined. Clinical correlation is essential. Serum or plasma urea nitroge n measurement (mass/volume)Ordered By: Rosa García on 11-06-2022 Urea nitrogen [Mass/Vol] 19 mg/dL 7-18 [facility] Serum rheumatoid factor dete ctionOrdered By: Rosa García on 11-06-2022 Rheumatoid factor Ql (S) < 10.0 IU/mL <15 [facility] Thin prep Papanicolaou smear with manual screeningOrdered By: Rosa García on 11-06-2022 Thin prep Papanicolaou smear with manual screening 15 U/L 15-37 [facility] Thin prep Papanicolaou smear with manual screening 5 5-15 [facility] IO Rapid Strepon 05-28-2022 S. pyogenes Ag Ql (Throat) Negative [facility] Work Phone: Pediatric Medicine 18+on Pediatric Medicine 18+ Diagnoses/Problem s Assessed Acute pharyngitis (462) (J02.9) Orders Acute pharyngitis IO Rapid Strep; Status:Resulted - Requires Verification,Retrospectiv e Authorization; Done: 28May2022 02:25PM Performed:In Office; Due:26Aug2022; Last Updated By:Radha Hayes; 05/28/2022 2:26:06 PM;Ordered; For:Acute pharyngitis; Ordered By:Kenia Noble; Attention deficit hyperactivity disorder (ADHD) Renew: Vyvanse 50 MG Oral Capsule; TAKE 1 CAPSULE DAILY IN THE MORNING Rx By: Kenia Noble; Dispense: 30 Days ; #:30 Capsule; Refill: 0;For: Attention deficit hyperactivity disorder (ADHD); YARELI = N; Verified Transmission to [id number]; Last Updated By: Luis Eduardo Harkins; 05/28/2022 2:47:18 PM Patient Discussion/Summary Rapid strep is negative You have a viral illness and treat the symptoms, - increase fluids and saline to your nose if needed. Another month of vyvanse will be sent Provider Impressions Pharyngitis Viral illness Rapid strep is negative Discussed symptomatic treatment Chief Complaint sore throat, fever, and chills History of Present Illness TORRES is here today alone. Associated Symptoms: Started 3 days ago with body aches, chills, sore throat, headaches, now feels that something is stuck in her throat Occasional cough, no runny nose, no fever that she is aware of She is taking her vyvanse and escitalopram and will need another refill of vyvanse before she switches providers in [facility] Active Problems Problems Allergic contact dermatitis due to drugs in contact with skin (692.3) (L23.3) Anxiety (300.00) (F41.9) Attention deficit hyperactivity disorder (ADHD) (314.01) (F90.9) BMI (body mass index), pediatric, greater than or equal to 95% for age (V85.54) (Z68.54) Body mass index (BMI) of 36.0 to 36.9 in adult (V85.36) (Z68.36) Body mass index (BMI) of 40.0 to 44.9 in adult (V85.41) (Z68.41) Contact dermatitis (692.9) (L25.9) Dog bite of finger, initial encounter (883.0,E906.0) (S61.259A,W54.0XXA) Encounter for immunization (V03.89) (Z23) Encounter for routine child health examination without abnormal findings (V20.2) (Z00.129) Examination, routine, over 18 years of age (V70.0) (Z00.00) On stimulant medication (V58.69) (Z79.899) Seasonal allergic rhinitis (477.9) (J30.2) Test anxiety (300.09) (F41.8) Well adolescent visit (V20.2) (Z00.129) Past Medical History Problems History of Acute suppurative otitis media of right ear without spontaneous rupture of tympanic membrane (382.00) (H66.001) Resolved Date: 10 Jan 2016 History of ADHD (attention deficit hyperactivity disorder), combined type (314.01) (F90.2) History of acute sinusitis (V12.69) (Z87.09) Resolved Date: 11 Jan 2020 History of fever (V13.89) (Z87.898) Resolved Date: 11 Jan 2020 History of RSV infection (V12.09) (Z86.19) History of scoliosis (V13.59) (Z87.39) Resolved Date: 07 Apr 2017 History of varicella (V12.09) (Z86.19) History of Twin (V27.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.9) Surgical History Problems History of Dental Surgery May 2017 - [place] teeth History of Ear Pressure Equalization Tube, Insertion, Bilaterally History of Eye Surgery x4 History of Tonsillectomy With Adenoidectomy History of Wrist surgery 06-06-2020 - left wrist ganglion wrist surgery - Dr Dontae Garnica Family History Mother Family history of anemia (V18.2) (Z83.2) Family history of asthma (V17.5) (Z82.5) Family history of hypertension (V17.49) (Z82.49) Family history of Seasonal allergies Father Family history of asthma (V17.5) (Z82.5) Family history of hypertension (V17.49) (Z82.49) Family history of Seasonal allergies Brother Family history of Autism spectrum disorder Family history of attention deficit hyperactivity disorder (V17.0) (Z81.8) Social History Problems Lives with parents () 2 brothers 3 dogs, 1 cat, 1 guinea pig Never Drank Alcohol Never smoker Allergies Medication Penicillins Allergy; Hives;; 13 Sep 2015; Recorded By: Kaci Warren; 09/13/2015 1:41:08 PM Mom recalls hive reaction to Augmentin last year. NonMedication Other Recorded By: Kenia Noble; 04/18/2014 4:24:52 PM spring Current Meds Medication NameInstruction Claritin 10 MG Oral TabletTAKE 1 TABLET AT BEDTIME. Escitalopram Oxalate 20 MG Oral TabletTAKE 1 TABLET EVERY DAY Vyvanse 50 MG Oral CapsuleTAKE 1 CAPSULE DAILY IN THE MORNING. Vyvanse 50 MG Oral CapsuleTAKE 1 CAPSULE DAILY IN THE MORNING. Vyvanse 50 MG Oral CapsuleTAKE 1 CAPSULE DAILY IN THE MORNING. Vyvanse 50 MG Oral CapsuleTAKE 1 CAPSULE DAILY IN THE MORNING. Vyvanse 50 MG Oral CapsuleTAKE 1 CAPSULE DAILY IN THE MORNING. Vitals Vital Signs Recorded: 28May2022 02:24PM Vunyljqokus76.4 F Heart Prrd631 Stttdizkagb14 Emwkcg323 lb O2 Enytczcrvy98 Physical Exam Constitutional General appearance: Alert and in no acute distress. Well developed; well nourished. Ears, Nose, Mouth, and Throat External inspe (more content not included)... Normal clypd Pediatric Medicine 18+on Pediatric Medicine 18+ Diagnoses/Problem s Assessed Attention deficit hyperactivity disorder (ADHD) (314.01) (F90.9) Dog bite of finger, initial encounter (883.0,E906.0) (S61.259A,W54.0XXA) Anxiety (300.00) (F41.9) Orders Anxiety, Attention deficit hyperactivity disorder (ADHD), Encounter for immunization Renew: Escitalopram Oxalate 20 MG Oral Tablet; TAKE 1 TABLET EVERY DAY Rx By: Kenia Noble; Dispense: 30 Days ; #:30 Tablet; Refill: 5;For: Anxiety, Attention deficit hyperactivity disorder (ADHD), Encounter for immunization; YARELI = N; Verified Transmission to [id number]; Last Updated By: [employer]; 12/18/2021 10:09:23 AM Attention deficit hyperactivity disorder (ADHD) Start: Vyvanse 50 MG Oral Capsule; TAKE 1 CAPSULE DAILY IN THE MORNING Rx By: Kenia Noble; Dispense: 30 Days ; #:30 Capsule; Refill: 0;For: Attention deficit hyperactivity disorder (ADHD); YARELI = N; Verified Transmission to [id number]; Last Updated By: [employer]; 12/18/2021 10:12:52 AM Start: Vyvanse 50 MG Oral Capsule; TAKE 1 CAPSULE DAILY IN THE MORNING Rx By: Kenia Noble; Dispense: 30 Days ; #:30 Capsule; Refill: 0;For: Attention deficit hyperactivity disorder (ADHD); YARELI = N; Verified Transmission to [id number]; Last Updated By: [employer]; 12/18/2021 10:12:52 AM Start: Vyvanse 50 MG Oral Capsule; TAKE 1 CAPSULE DAILY IN THE MORNING Rx By: Kenia Noble; Dispense: 30 Days ; #:30 Capsule; Refill: 0;For: Attention deficit hyperactivity disorder (ADHD); YARELI = N; Verified Transmission to [facility] #3[facility]; Last Updated By: [employer]; 12/18/2021 10:12:53 AM Dog bite of finger, initial encounter Start: Cephalexin 500 MG Oral Tablet (Cephalexin Monohydrate); Take one tablet twice daily till gone Rx By: Kenia Noble; Dispense: 10 Days ; #:20 Tablet; Refill: 0;For: Dog bite of finger, initial encounter; YARELI = N; Verified Transmission to [facility]; Last Updated By: [employer]; 12/18/2021 10:14:45 AM Patient Discussion/Summary Refills will be sent. You will take an antibiotic for your dog bite for 10 days Discussed transition to adult care - we will provide meds till then Provider Impressions ADHD - stable refills sent Anxiety - stable and refills sent Dog bite - initial encounter - will start cephalexin twice daily for 10 days Discussed cleaning twice daily, open to air. Splint given for when out and about If no improvement in next couple of days may need an xray Discussed next well visit needs to be transitioned to adult doctor but we will send meds until that time Chief Complaint medication F/U History of Present Illness TORRES is accompanied today by her mother. Associated Symptoms: I have personally reviewed the [place] report for TORRES MILLARD. I have considered the risks of abuse, dependence, addiction and diversion. Controlled Substance Agreement: I have printed this form and reviewed each line item with the patient and the patient has verbalized understanding. Date of the last Controlled Substance Agreement: 12-18-2021 Accompanied by mom who is also historian Here for medication follow up On vyvanse 50 mg and escitalopram 20 mg She feels focused and feels that her anxiety is under control She continues to work 25 hrs per week Mom stated she and her brother argue sometimes but overall going well. She finished up OT for her left hand from ganglion surgery Yesterday she got bit by her dog on her left index finger at second digit when she was trying to separate it from their new dog and they were fighting. It was unintentional. The dog is up to date with vaccines and Macdonald is too. They cleaned it well with hibiclens and antibiotic ointment. Still has some swelling and it is hard to move her finger Active Problems Problems Allergic contact dermatitis due to drugs in contact with skin (692.3) (L23.3) Anxiety (300.00) (F41.9) Attention deficit hyperactivity disorder (ADHD) (314.01) (F90.9) BMI (body mass index), pediatric, greater than or equal to 95% for age (V85.54) (Z68.54) Body mass index (BMI) of 36.0 to 36.9 in adult (V85.36) (Z68.36) Body mass index (BMI) of 40.0 to 44.9 in adult (V85.41) (Z68.41) Contact dermatitis (692.9) (L25.9) Encounter for immunization (V03.89) (Z23) Encounter for routine child health examination without abnormal findings (V20.2) (Z00.129) Examination, routine, over 18 years of age (V70.0) (Z00.00) On stimulant medication (V58.69) (Z79.899) Seasonal allergic rhinitis (477.9) (J30.2) Test anxiety (300.09) (F41.8) Well adolescent visit (V20.2) (Z00.129) Past Medical History Problems History of Acute suppurative otitis media of right ear without spontaneous rupture of tympanic membrane (382.00) (H66.001) Resolved Date: 10 Jan 2016 History of ADHD (attention deficit hyperactivity disorder), combined type (314.01) (F90.2) History of acute sinusitis (V12.69) (Z87.09) Resolved Date: 11 Jan 2020 His (more content not included)... Normal clypd Laboratory - Chemistry and C hemistry - challengeon 06-01-2021 Creatinine (Body fld) [Mass/Vol] 136.5 mg/dL -[facility] Work Phone: Comment on above: A urine creatinine r esult >= 20 mg/dL is considered valid without suspicion of dilution. Samples with results below this range will automatically reflex to specific gravity testing to verify specimen integrity. Laboratory - Drug toxicology on 12-25-2020 1-Hydroxymidazolam Confirm (U) [Mass/Vol] <25 Cutoff <25 -[facility] Work Phone: 2-Ybknvpldyx-6,5-Dimethy l-3,3-Diphenylpyrrolidin e (EDDP) Confirm (U) [Mass/Vol] <25 Cutoff <25 -[facility] Work Phone: Comment on above: The performance dayna acteristics of the Methadone Confirmation, Urine has been validated by the individual laboratory site where testing is performed. It has not been cleared or approved by the FDA. However the FDA has determined that such clearance or approval is not necessary. Our Laboratory is certified under the Clinical Laboratory Improvement Amendments of 1988 (CLIA) as qualified to perform high complexity clinical laboratory testing. 6-Monoacetylmorphine (6-DIANNA) Confirm (U) [Mass/Vol] <25 Cutoff <25 -[facility] Work Phone: 7-Aminoclonazepam Confirm (U) [Mass/Vol] <25 Cutoff <25 -[facility] Work Phone: Alpha hydroxyalprazolam Confirm (U) [Mass/Vol] <25 Cutoff <25 -[facility] Work Phone: ALPRAZolam Confirm (U) [Mass/Vol] <25 Cutoff <25 -[facility] Work Phone: Amphetamine (U) [Mass/Vol] 4326 ng/mL -[facility] Work Phone: Comment on above: Consistent with use of a drug containing amphetamine. May also reflect metabolism of methamphetamine, when methamphetamine is present. Amphetamine and methamphetamine exist in d- and l-isomeric forms. These forms are not distinguished by this test. Isomeric separation is available separately for an additional charge.INTERPRETIVE INFORMATION: Amphetamines, Urine, QuantitativeMethodology: Quantitative Liquid Chromatography-Tandem Mass SpectrometryPositive cutoff: 200 ng/mL unless specified below:Amphetamine 50 ng/mLFor medical purposes only; not valid for forensic use. The absence of expected drug(s) and/or drug metabolite(s) may indicate non-compliance, inappropriate timing of specimen collection relative to drug administration, poor drug absorption, diluted/adulterated urine, or limitations of testing. The concentration value must be greater than or equal to the cutoff to be reported as positive. Interpretive questions should be directed to the laboratory.This test was developed and its performance characteristics determined by [employer]. It has not been cleared or approved by the [place] Food and Drug Administration. This test was performed in a CLIA certified laboratory and is intended for clinical purposes. Amphetamines Screen Ql (U) Positive Abnormal NEGATIVE [facility] Work Phone: Comment on above: CUTOFF LEVEL: 500 NG /ML Cross-reactivity has been reported with high concentrations of the following drugs: buproprion, chloroquine, chlorpromazine, ephedrine, mephentermine, fenfluramine, phentermine, phenylpropanolamine, pseudoephedrine, and propranolol. Barbiturates Screen Ql (U) Negative NEGATIVE [facility] Work Phone: Comment on above: CUTOFF LEVEL: 200 NG /ML Benzoylecgonine Screen Ql (U) Negative NEGATIVE [facility] Work Phone: Comment on above: CUTOFF LEVEL: 150 NG /ML Cannabinoids Screen Ql (U) Negative NEGATIVE [facility] Work Phone: Comment on above: CUTOFF LEVEL: 50 NG/ ML chlordiazePOXIDE Confirm (U) [Mass/Vol] <25 Cutoff <25 [facility] Work Phone: clonazePAM Confirm (U) [Mass/Vol] <25 Cutoff <25 [facility] Work Phone: Codeine Confirm (U) [Mass/Vol] <50 Cutoff <50 [facility] Work Phone: diazePAM Confirm (U) [Mass/Vol] <25 Cutoff <25 [facility] Work Phone: fentaNYL Confirm (U) [Mass/Vol] <2.5 Cutoff<2.5 [facility] Work Phone: HYDROcodone Confirm (U) [Mass/Vol] <25 Cutoff <25 [facility] Work Phone: HYDROmorphone Confirm (U) [Mass/Vol] <25 Cutoff <25 [facility] Work Phone: LORazepam Confirm (U) [Mass/Vol] <25 Cutoff <25 [facility] Work Phone: Methadone Confirm (U) [Mass/Vol] <25 Cutoff <25 [facility] Work Phone: Methamphetamine (U) [Mass/Vol] ug/mL [facility] Work Phone: Methylenedioxyamphetamin e (U) [Mass/Vol] <200 [facility] Work Phone: Methylenedioxyethylamphe tamine (U) [Mass/Vol] <200 [facility] Work Phone: Methylenedioxymethamphet amine (U) [Mass/Vol] <200 [facility] Work Phone: Midazolam Confirm (U) [Mass/Vol] <25 Cutoff <25 [facility] Work Phone: Morphine Confirm (U) [Mass/Vol] <50 Cutoff <50 [facility] Work Phone: Nordiazepam Confirm (U) [Mass/Vol] <25 Cutoff <25 [facility] Work Phone: Norfentanyl Confirm (U) [Mass/Vol] <2.5 Cutoff<2.5 [facility] Work Phone: Comment on above: The performance dayna acteristics of the Fentanyl Confirmation, Urine has been validated by the individual laboratory site where testing is performed. It has not been cleared or approved by the FDA. However the FDA has determined that such clearance or approval is not necessary. Our Laboratory is certified under the Clinical Laboratory Improvement Amendments of 1988 (CLIA) as qualified to perform high complexity clinical laboratory testing. Norhydrocodone Confirm (U) [Mass/Vol] <25 Cutoff <25 [facility] Work Phone: Noroxycodone Confirm (U) [Mass/Vol] <25 Cutoff <25 [facility] Work Phone: Nortramadol (U) [Mass/Vol] <50 Cutoff <50 [facility] Work Phone: Comment on above: The performance dayna acteristics of the Tramadol Confirmation, Urine has been validated by the individual laboratory site where testing is performed. It has not been cleared or approved by the FDA. However the FDA has determined that such clearance or approval is not necessary. Our Laboratory is certified under the Clinical Laboratory Improvement Amendments of 1988 (CLIA) as qualified to perform high complexity clinical laboratory testing. Oxazepam Confirm (U) [Mass/Vol] <25 Cutoff <25 [facility] Work Phone: oxyCODONE Confirm (U) [Mass/Vol] <25 Cutoff <25 [facility] Work Phone: oxyMORphone Confirm (U) [Mass/Vol] <25 Cutoff <25 [facility] Work Phone: Comment on above: The performance dayna acteristics of the Opiate Confirmation, Urine has been validated by the individual laboratory site where testing is performed. It has not been cleared or approved by the FDA. However the FDA has determined that such clearance or approval is not necessary. Our Laboratory is certified under the Clinical Laboratory Improvement Amendments of 1988 (CLIA) as qualified to perform high complexity clinical laboratory testing. Phencyclidine Ql (U) Negative NEGATIVE [facility] Work Phone: Comment on above: CUTOFF LEVEL: 25 NG/ ML Cross-reactivity has been reported with dextromethorphan. Phentermine Confirm (U) [Mass/Vol] <200 [facility] Work Phone: Comment on above: Performed By: [id number] [place], [place] [id number] Director: Amelie Armando MD Temazepam Confirm (U) [Mass/Vol] <25 Cutoff <25 [facility] Work Phone: Comment on above: The performance dayna acteristics of the Benzodiazepine Confirmation, Urine has been validated by the individual laboratory site where testing is performed. It has not been cleared or approved by the FDA. However the FDA has determined that such clearance or approval is not necessary. Our Laboratory is certified under the Clinical Laboratory Improvement Amendments of 1988 (CLIA) as qualified to perform high complexity clinical laboratory testing. traMADol Confirm (U) [Mass/Vol] <50 Cutoff <50 [facility] Work Phone: Zolpidem (U) [Mass/Vol] <25 Cutoff <25 [facility] Work Phone: No Panel Informationon 12-25 <25 Cutoff <25 [facility] Work Phone: Comment on above: The performance dayna acteristics of the Zolpidem Confirmation, Urine has been validated by the individual laboratory site where testing is performed. It has not been cleared or approved by the FDA. However the FDA has determined that such clearance or approval is not necessary. Our Laboratory is certified under the Clinical Laboratory Improvement Amendments of 1988 (CLIA) as qualified to perform high complexity clinical laboratory testing. SEE BELOW -[facility] Work Phone: Comment on above: Drug screen results are presumptive and should not be used to assess compliance with prescribed medication. Definitive confirmatory drug testing has been added to this sample for any positive screen result and will be reported separately. .Toxicology screening results are reported qualitatively. The concentration must be greater than or equal to the cutoff to be reported as positive. The concentration at which the screening test can detect an individual drug or metabolite varies. The absence of expected drug(s) and/or drug metabolite(s) may indicate non-compliance, inappropriate timing of specimen collection relative to drug administration, poor drug absorption, diluted/adulterated urine, or limitations of testing. For medical purposes only; not valid for forensic use. .Interpretive questions should be directed to the laboratory medical directors. ANES POSTPROC EVALon 020 ANES POSTPROC EVAL HNO ID: [id number] Author: Nilay Medina Service: ? Author Type: Anesthesiologist Type: Anesthesia Postprocedure Evaluation Filed: 06/06/2020 2:46 PM Note Text: POST ANESTHESIA EVALUATION NOTE : 2000 Procedure Summary Date: 06/06/20 Room / Location: CT OR / CT OR Anesthesia Start: 1229 Anesthesia Stop: 1311 Procedure: EXCISION GANGLION WRIST (Left Wrist) Diagnosis: Ganglion of left wrist Surgeons: Candelario Diggs Responsible Provider: Nilay Medina Anesthesia Type: MAC ASA Status: 2 Anesthesia Type: MAC Last vitals Vitals Value Taken Time BP 162/68 06/06/20 1415 Temp 36.7 ?C (98.1 ?F) 06/06/20 1312 Pulse 83 06/06/20 1417 Resp 19 06/06/20 1417 SpO2 94 % 06/06/20 1418 Vitals shown include unvalidated device data. Post Anesthesia Patient Status Patient Evaluation: PACU. PACU/ICU Patient Condition: stable. Anticipated Disposition: phase 2 then home. Neurological Status: sleepy but arousable. Pulmonary Status: breathing comfortably on room air Airway Control: returned to baseline unsupported. Cardiovascular Status: stable. Pain Management: clinically adequate - multimodal analgesia pain management approach Postoperative Hydration: acceptable. Intraoperative Events: no significant anesthesia events Post Operative Nausea/Vomiting Status: Anesthetic Observations: no significant anesthetic observations Recommendation: continue current plan of care. SIGNATURE: Nilay Medina MD PATIENT NAME: Torres Millard DATE: June 06, 2020 TIME: 2:46 PM CSN: [id number] [facility] ANES PRE-OPon 06-06-2020 ANES PRE-OP HNO ID: [id number] Author: Nilay Medina Service: ? Author Type: Anesthesiologist Type: Anesthesia Preprocedure Evaluation Filed: 06/06/2020 12:02 PM Note Text: ANESTHESIOLOGY DAY OF SURGERY NOTE : 2000 Procedure(s) (LRB): EXCISION GANGLION WRIST (Left) Surgeon(s): Candelario Diggs Estimated body mass index is 42.07 kg/m? as calculated from the following: Height as of 05/23/20: 157.5 cm (5' 2). Weight as of 05/23/20: 104.3 kg (230 lb). Most recent hematocrit and potassium results: No results found for this basename: HCT,HEMATOCRIT,K,POTASSIU M Relevant Problems No relevant active problems I - PHYSICAL EVALUATION AIRWAY Patient intubated: No. Tracheostomy tube not present Mallampati: II. TM distance: >3 FB. Neck ROM: full ROM without neurological symptoms. Mouth opening: adequate. Additional exam findings: no II - ANESTHESIA PLAN ASA Score: 2 Anesthetic Plan: MAC NPO Status: adequate Monitoring plan: standard ASA. Postoperative analgesic plan: parenteral or oral opioids and multimodal analgesia. Anesthetic Risks, Benefits, Alternatives, Personnel Discussed. Consent obtained from: patient. Patient / Surrogate agrees to blood products: blood products not planned Significant changes in the patient condition since the History and Physical, not otherwise documented in primary service progress note: no. Vitals Value Taken Time BP 146/86 06/06/20 1134 Pulse 100 06/06/20 1134 Resp 16 06/06/20 1134 Temp 36.1 ?C (97 ?F) 06/06/20 1134 SpO2 Facility-Administered Medications as of 06/06/2020 Medication Dose Route Frequency - lidocaine 10 mg/mL (1 %) 1-2 mg injection (XYLOCAINE) 0.1-0.2 mL INTRADERMAL PRN - lactated ringers infusion 5-30 mL/hr INTRAVENOUS CONTINUOUS - clindamycin iv piggyback 600 mg in D5W 50 mL (CLEOCIN) 600 mg INTRAVENOUS Pre-Op Once Outpatient Medications as of 06/06/2020 Medication Sig - escitalopram oxalate (LEXAPRO) 10 mg tablet Take 10 mg by mouth once daily. - lisdexamfetamine (VYVANSE) 50 mg capsule Take 50 mg by mouth once daily. I have interviewed and examined the patient. I have reviewed the medical record and/or the pre-anesthesia evaluation, pertinent labs, and test results. This contains updated information obtained within 48 hours of Surgery/Procedure. SIGNATURE: Nilay Medina MD PATIENT NAME: Torres Millard DATE: June 06, 2020 TIME: 12:01 PM CSN: [id number] [facility] NURSING PROGon 06-06-2020 NURSING PROG HNO ID: [id number] Author: Autumn (Rn) RAMONA Newman Service: ? Author Type: Registered Nurse Type: Nursing Progress Note Filed: 06/06/2020 12:28 PM Note Text: Dr. Diggs at bedside. Surgery to proceed. [facility] NURSING PROG HNO ID: [id number] Author: Autumn WhittenRn) RAMONA Newman Service: ? Author Type: Registered Nurse Type: Nursing Progress Note Filed: 06/06/2020 11:47 AM Note Text: Patient with small open abrasion to left inner thumb. Call to Dr. Diggs to notify. Patient ready for OR at this time. Father at bedside. [facility] OPERATIVE NOon 06-06-2020 OPERATIVE NO HNO ID: [id number] Author: Candelario Diggs Service: Orthopaedic Surgery Author Type: Physician Type: Operative Report Filed: 06/11/2020 7:48 AM Note Text: OPERATIVE/PROCEDURE REPORT LOG ID: [id number] SURGERY/PROCEDURE DATE: 06/06/2020 INCISION/PROCEDURE START TIME: 12:40 PM INCISION CLOSE/PROCEDURE END TIME: 1:04 PM SURGEON(S)/PROCEDURALIST( S) AND OFFICE ADMINISTRATION(S): Surgeon(s) and Role: * Candelario Diggs - Primary Physician [employer]: [place] SURGERY/PROCEDURE(S): Left, dorsal wrist, ganglion excision ANESTHESIA: Monitored Anesthesia Care with local SURGERY/PROCEDURE DETAILS: This is a pleasant, 19-year-old female who had a large soft tissue mass on the dorsum of her left wrist near the thumb extensor tendon. We reviewed different treatment options in the office including the risks, benefits, alternatives and potential complications involving both operative and nonoperative care. Patient wished to pursue surgical intervention for excision. Thus on 06/06/2020, the patient was clearly identified in the preoperative area marked accordingly on the wrist by myself. She received perioperative antibiotics within 1 hour of incision or tourniquet. She was taken the operative suite and placed in a supine position with an armboard on the left. Anesthesia assumed care of the head and neck for the remainder the case and began a MAC anesthetic. All other bony landmarks were properly padded in standard fashion. A well-padded upper brachium tourniquet was applied with stockinette padding and set at 250 mmHg but not yet inflated. The upper extremity was then sterilely prepped and draped in standard fashion. An appropriate timeout was conducted and all in the room were in agreement, signed consent form was on the chart. The upper extremity was exsanguinated with an Esmarch bandage and the tourniquet was applied at 250 mmHg. Prior to this, 1% lidocaine with 1 100,000 epinephrine was provided with a total of 3 cc directly over the mass. A horizontal incision over one of the wrist creases was marked out with a pen and then 15 blade was used to come down through the dermis. Superficial bleeders were taken care of with bipolar electrocautery. The radial sensory nerve branches were easily identified and protected throughout the case. I bluntly dissected down to what was very apparent to be a ganglion cyst coming just ulnarly near the EPL tendon but emanating from the joint below. I was able to bluntly dissect down through some of the synovium surrounding the second and third compartments and found to the base of the cyst which was decompressed, excised and electrocautery was used with bipolar at its base. The mass was approximately 2 cm in circumference in all directions a slight synovectomy was performed in the second compartment as there was quite a bit there. At this time the tourniquet was taken down and hemostasis was observed. The wound was copiously irrigated. Closely approximated to the dermal layer with 3?0 Monocryl sutures and final skin closure was completed with a 4?0 in a subcuticular weave with skin glue and Steri-Strips on the tails. Xeroform gauze, sterile 4 x 4's cotton padding and a Osvaldo bandage was used for final bandage. There are no complications during the procedure. Patient was safely awoken and transferred to the postanesthetic care unit in stable condition. PRE-OP/PRE-PROCEDURE DIAGNOSIS: Left dorsal wrist ganglion cyst. POST-OP/POST-PROCEDURE DIAGNOSIS: Same as Preop ESTIMATED BLOOD LOSS: 0 ml SPECIMENS: None sent IMPLANTABLE DEVICES: None DRAINS: None COMPLICATIONS: None PARTICIPATION IN SURGERY/PROCEDURE: I/primary surgeon/proceduralist performed the procedure with assistance. No qualified resident/fellow was available. SIGNATURE: Candelario Diggs MD PATIENT NAME: Torres Millard DATE: June 11, 2020 TIME: 7:43 AM PAGER/CONTACT #: [facility] HOSPon 05-15-2020 HOSP Patient:Reed Millard MRN: Height:5' 2[patient reported[(1.575 m) Weight:230 lb (104.327 kg) Outpatient Medications as of 06/06/20: escitalopram oxalate (LEXAPRO) 10 mg tablet lisdexamfetamine (VYVANSE) 50 mg capsule Admission/Clinic Administered Medications as of 06/06/20: lidocaine 10 mg/mL (1 %) 1-2 mg injection (XYLOCAINE) lactated ringers infusion clindamycin iv piggyback 600 mg in D5W 50 mL (CLEOCIN) Problem List: BMI 40.0-44.9, adult (HCC) [Z68.41] Allergies: Amoxicillin Date Verified: 06/06/20 Lab Values No results within the last 30 days for the following basenames: K,HCT Progress Notes ([facility]): Dori Roa RN 05/14/2020 4:22 PM Signed Please schedule left wrist, excision of dorsal ganglion cyst 06-06-20 under MAC. Pt. would like COVID testing on 06-04-2020 in afternoon in [place] and post-ops in [place]. Lida Walker [facility] 05/15/2020 11:49 AM Signed Surgical request, post ops and covid test scheduled. Please place order. Emilie Frazier PA-C 05/15/2020 12:22 PM Signed COVID test ordered. Tonia Whyte Ma 05/16/2020 10:11 AM Signed Surgery has been scheduled as requested. Progress Notes ([facility]): Candelario Diggs MD 06/05/2020 4:54 PM Signed Candelario Diggs MD Department of Orthopaedics Orthopaedics [address] [facility] [address] Dept: [phone] Dept May 14, 2020 CHIEF COMPLAINT: New and Ganglion Cyst of the Left Wrist HPI Patient here today with complaints of ganglion cyst on the left wrist since August 2019. 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 ASSESSMENT: M25.532 Left wrist pain (primary encounter diagnosis) M67.432 Ganglion of left wrist PLAN: Patient appears to have a ganglion cyst. This is quite bothersome for her. We discussed the risks, benefits, alternatives and potential complications involving both operative and nonoperative treatment. She would like to pursue surgery for excision. FOLLOW UP INSTRUCTIONS: We will get her scheduled accordingly Ms. Torres Millard was advised as to contrast therapies and/or to take analgesics/anti-inflammat ories as needed and all contraindications were reviewed. OBJECTIVE: Ms. Torres Millard is a pleasant 19 year old in no apparent distress. Gen:LMP 08/06/2016 nl development, obese, no deformities ENT: Normocephalic, normal hearing, moist mucosa CV: Pulses:Radial= 2+ and symmetric, capillary refill < 2 secs, no peripheral edema/varicosities HEART: RRR, Nml S1, S2 LUNGS: CTA B/L Skin: no rash, bruising or lesions. Good turgor. Psych: cooperative and appropriate, alert and oriented x 3, good mood and affect. Musculoskeletal: Rubbery soft tissue mass that is palpable, mildly tender, mobile. Positive transillumination. Negative Tinel's over the mass. Neurovascular exams intact. IMAGING: Deferred today Supporting Subjective Information Below: Past Medical History: No past medical history on file. Past Surgical History: PAST SURGICAL HISTORY Procedure Laterality Date - PAST SURGICAL HISTORY OF 05/2017 [place] teeth extraction - REMOVAL OF TONSILS,<11 Y/O 2010 Tonsillectomy Family History: No family history on file. Social History: Social History Tobacco Use - Smoking status: Never Smoker - Smokeless tobacco: Never Used Substance Use Topics - Alcohol use: Never Frequency: Never - Drug use: Never Medications: Current Outpatient Medications Medication Sig - escitalopram oxalate (LEXAPRO) 10 mg tablet Take 10 mg by mouth once daily. - lisdexamfetamine (VYVANSE) 50 mg capsule Take 50 mg by mouth once daily. No current facility-administered medications for this visit. Allergies: Amoxicillin ROS: General (negative for fatigue, malaise, weight loss/gain) HEENT (negative for headache, earache, recent vision changes, sinus pain, sore throat) Respiratory (no recent shortness of breath, hemoptysis) CV (negative for chest tightness, palpitations) Musculoskeletal (see HPI) Psych (no depression, anxiety) REFERRING PHYSICIAN: Ms. Torres Millard was referred to me for consultation by the following physician. This consultation note will be sent to the following physician by either mail or electronic medical record. Ana Colin MD ([facility]) [address] [facility] [id number] Ana Colin MD [address] [facility] [address] This note was partially generated using [employer] voice recognition system, and there may be some incorrect words, spellings, and punctuation that were not noted in checking the note before saving. Candelario Diggs MD Previous Version Normal [facility] Vital Signs Date Time Vital Sign Value Performing Clinician Facility 04-11-2025 08:41-0400 Body height 157.48 cm Francine Rodriguez MD Work Phone: [facility] 04-11-2025 08:41-0400 Body mass index (BMI) [Ratio] 45.3 kg/m2 Francine Rodriguez MD Work Phone: [facility] 04-11-2025 08:41-0400 Body weight 112.49 kg Francine Rodriguez MD Work Phone: [facility] 04-03-2025 10:31-0400 Body mass index (BMI) [Ratio] 46.25 kg/m2 Emmett Luciano APRN.FAGOTER Work Phone: [facility] 04-03-2025 10:31-0400 Body temperature 98.8 [degF] Emmett Luciano CRIME SCENE SPECIALIST.FAGOTER Work Phone: [facility] 04-03-2025 10:31-0400 Body weight 114.7 kg Emmett Luciano CRIME SCENE SPECIALIST.FAGOTER Work Phone: [facility] 04-03-2025 10:31-0400 Diastolic blood pressure 80 mm[Hg] Emmett Luciano CRIME SCENE SPECIALIST.FAGOTER Work Phone: [facility] 04-03-2025 10:31-0400 Heart rate 100 /min Emmett Luciano CRIME SCENE SPECIALIST.FAGOTER Work Phone: [facility] 04-03-2025 10:31-0400 Respiratory rate 18 /min Emmett Luciano CRIME SCENE SPECIALIST.FAGOTER Work Phone: [facility] 04-03-2025 10:31-0400 SaO2% (BldA) [Mass fraction] 98 % Emmett Mckeondereck CRIME SCENE SPECIALIST.FAGOTER Work Phone: [facility] 04-03-2025 10:31-0400 Systolic blood pressure 126 mm[Hg] Emmett Garnervinicius CRIME SCENE SPECIALIST.FAGOTER Work Phone: [facility] 02-01-2025 15:27-0400 Body temperature 98.3 [degF] Francine Rodriguez MD Work Phone: [facility] 02-01-2025 15:27-0400 Diastolic blood pressure 80 mm[Hg] Francine Rodriguez MD Work Phone: [facility] 02-01-2025 15:27-0400 Heart rate 101 /min Francine Rodriguez MD Work Phone: [facility] 02-01-2025 15:27-0400 Respiratory rate 18 /min Francine Rodriguez MD Work Phone: [facility] 02-01-2025 15:27-0400 SaO2% (BldA) [Mass fraction] 98 % Francine Rodriguez MD Work Phone: [facility] 02-01-2025 15:27-0400 Systolic blood pressure 120 mm[Hg] Francine Rodriguez MD Work Phone: [facility] 10-05-2024 14:01-0400 Body height 157.48 cm Francine Rodriguez MD Work Phone: [facility] 10-05-2024 14:01-0400 Body mass index (BMI) [Ratio] 45.6 kg/m2 Francine Rodriguez MD Work Phone: [facility] 10-05-2024 14:01-0400 Body temperature 97.8 [degF] Francine Rodriguez MD Work Phone: [facility] 10-05-2024 14:01-0400 Body weight 113 kg Francine Rodriguez MD Work Phone: [facility] 10-05-2024 14:01-0400 Diastolic blood pressure 80 mm[Hg] Francine Rodriguez MD Work Phone: [facility] 10-05-2024 14:01-0400 Heart rate 98 /min Francine Rodriguez MD Work Phone: [facility] 10-05-2024 14:01-0400 Inhaled oxygen flow rate 0 L/min Francine Rodriguez MD Work Phone: [facility] 10-05-2024 14:01-0400 SaO2% (BldA) [Mass fraction] 98 % Francine Rodriguez MD Work Phone: [facility] 10-05-2024 14:01-0400 Systolic blood pressure 120 mm[Hg] Francine Rodriguez MD Work Phone: [facility] 11-21-2023 09:25-0400 Body mass index (BMI) [Ratio] 45.69 kg/m2 Angelica Voss APRN.FAGOTER Work Phone: [facility] 11-21-2023 09:25-0400 Body temperature 98.71 [degF] Angelica Voss APRN.FAGOTER Work Phone: [facility] 11-21-2023 09:25-0400 Body weight 113.3 kg Angelica oVss APRN.FAGOTER Work Phone: [facility] 11-21-2023 09:25-0400 Diastolic blood pressure 74 mm[Hg] Angelica Voss APRN.FAGOTER Work Phone: [facility] 11-21-2023 09:25-0400 Heart rate 66 /min Angelica Voss APRN.FAGOTER Work Phone: [facility] 11-21-2023 09:25-0400 Respiratory rate 16 /min Angelica Voss APRN.FAGOTER Work Phone: [facility] 11-21-2023 09:25-0400 SaO2% (BldA) [Mass fraction] 98 % Angelica Voss APRN.FAGOTER Work Phone: [facility] 11-21-2023 09:25-0400 Systolic blood pressure 114 mm[Hg] Angelica Voss CRIME SCENE SPECIALIST.FAGOTER Work Phone: [facility] 04-25-2023 09:00-0400 Body temperature 98.29 [degF] Alexander Olea MD Work Phone: [facility] 04-25-2023 09:00-0400 Body weight 113.67 kg Alexander Olea MD Work Phone: [facility] 04-25-2023 09:00-0400 Diastolic blood pressure 86 mm[Hg] Alexander Olea MD Work Phone: [facility] 04-25-2023 09:00-0400 Heart rate 85 /min Alexander Olea MD Work Phone: [facility] 04-25-2023 09:00-0400 Respiratory rate 16 /min Alexander Olea MD Work Phone: [facility] 04-25-2023 09:00-0400 SaO2% (BldA) [Mass fraction] 98 % Alexander Olea MD Work Phone: [facility] 04-25-2023 09:00-0400 Systolic blood pressure 124 mm[Hg] Alexander Olea MD Work Phone: [facility] 04-11-2023 13:25-0400 Body temperature 98.71 [degF] Nancy Jules CRIME SCENE SPECIALIST.FAGOTER Work Phone: [facility] 04-11-2023 13:25-0400 Body weight 112.49 kg Nancy Brennan-Hung CRIME SCENE SPECIALIST.FAGOTER Work Phone: [facility] 04-11-2023 13:25-0400 Diastolic blood pressure 80 mm[Hg] Nancy Brennan-Hung CRIME SCENE SPECIALIST.FAGOTER Work Phone: [facility] 04-11-2023 13:25-0400 Heart rate 100 /min Nancy Brennan-Hung CRIME SCENE SPECIALIST.FAGOTER Work Phone: [facility] 04-11-2023 13:25-0400 Respiratory rate 18 /min Nancy Brennan-Hung CRIME SCENE SPECIALIST.FAGOTER Work Phone: [facility] 04-11-2023 13:25-0400 SaO2% (BldA) [Mass fraction] 99 % Nancy Brennan-Hung CRIME SCENE SPECIALIST.FAGOTER Work Phone: [facility] 04-11-2023 13:25-0400 Systolic blood pressure 118 mm[Hg] Nancy Brennan-Hung CRIME SCENE SPECIALIST.FAGOTER Work Phone: [facility] 05-28-2022 14:24-0400 Body temperature 98.4 [degF] Ana Polanco Morales-Armao Work Phone: [facility] Work Phone: 05-28-2022 14:24-0400 Body weight 109.32 kg Ana Polanco Morales-Armao Work Phone: [facility] Work Phone: 05-28-2022 14:24-0400 Heart rate 104 /min Ana Polanco Morlaes-Armao Work Phone: [facility] Work Phone: 05-28-2022 14:24-0400 Respiratory rate 20 /min Ana Polanco Morales-Armao Work Phone: [facility] Work Phone: 05-28-2022 14:24-0400 SaO2% (BldA) [Mass fraction] 98 % Ana Polanco Morales-Armao Work Phone: [facility] Work Phone: 12-18-2021 09:01-0400 Body height 158.75 cm Ana Polanco Morales-Armao Work Phone: [facility] Work Phone: 12-18-2021 09:01-0400 Body mass index (BMI) [Ratio] 42.16 kg/m2 Ana Morales-Armao Work Phone: [facility] Work Phone: 12-18-2021 09:01-0400 Body surface area Derived from formula 2.06 m2 Ana Morales-Armao Work Phone: [facility] Work Phone: 12-18-2021 09:01-0400 Body weight 106.26 kg Ana Morales-Armao Work Phone: [facility] Work Phone: 12-18-2021 09:01-0400 Diastolic blood pressure 70 mm[Hg] Ana Morales-Armao Work Phone: [facility] Work Phone: 12-18-2021 09:01-0400 Heart rate 80 /min Ana Morales-Armao Work Phone: [facility] Work Phone: 12-18-2021 09:01-0400 Systolic blood pressure 118 mm[Hg] Ana Morales-Armao Work Phone: [facility] Work Phone: 05-30-2021 13:04-0400 Body height 158.75 cm Ana Morales-Armao Work Phone: [facility] Work Phone: 05-30-2021 13:04-0400 Body mass index (BMI) [Ratio] 42.12 kg/m2 Ana Morales-Armao Work Phone: [facility] Work Phone: 05-30-2021 13:04-0400 Body surface area Derived from formula 2.06 m2 Ana Morales-Armao Work Phone: [facility] Work Phone: 05-30-2021 13:04-0400 Body weight 106.14 kg Ana Morales-Armao Work Phone: [facility] Work Phone: 05-30-2021 13:04-0400 Diastolic blood pressure 70 mm[Hg] Ana Morales-Armao Work Phone: [facility] Work Phone: 05-30-2021 13:04-0400 Heart rate 82 /min Ana Morales-Armao Work Phone: [facility] Work Phone: 05-30-2021 13:04-0400 Systolic blood pressure 108 mm[Hg] Ana Morales-Armao Work Phone: [facility] Work Phone: 12-25-2020 13:06-0400 Body height 157.48 cm Ana Morales-Armao Work Phone: [facility] Work Phone: 12-25-2020 13:06-0400 Body mass index (BMI) [Ratio] 42.26 kg/m2 Ana Morales-Armao Work Phone: [facility] Work Phone: 12-25-2020 13:06-0400 Body surface area Derived from formula 2.03 m2 Ana Jamesach-Armao Work Phone: [facility] Work Phone: 12-25-2020 13:06-0400 Body temperature 98.1 [degF] Ana Jamesach-Armao Work Phone: [facility] Work Phone: 12-25-2020 13:06-0400 Body weight 104.81 kg Ana Morales-Armao Work Phone: [facility] Work Phone: 12-25-2020 13:06-0400 Diastolic blood pressure 70 mm[Hg] Ana Polanco Morales-Armao Work Phone: -[facility] Work Phone: 12-25-2020 13:06-0400 Heart rate 82 /min Ana Polanco Morales-Armao Work Phone: -[facility] Work Phone: 12-25-2020 13:06-0400 Systolic blood pressure 110 mm[Hg] Ana Polanco Morales-Armao Work Phone: -[facility] Work Phone: 05-18-2019 17:52-0400 BMI (Body Mass Index) 36.39 kg/m2 Kenia CancholaP-Ahu[place] Work Phone: 05-18-2019 17:52-0400 Body weight 91.71 kg Kenia CancholaP[facility] Work Phone: 05-18-2019 17:52-0400 BP Diastolic 70 mm[Hg] Kenia [facility]ola[facility] Work Phone: 05-18-2019 17:52-0400 BP Systolic 118 mm[Hg] Kenia [facility] Work Phone: 05-18-2019 17:52-0400 BSA (Body Surface Area) 1.93 m2 Kenia [facility]ola[facility] Work Phone: 05-18-2019 17:52-0400 Height 158.75 cm Kenia Can[facility]olaP[facility] Work Phone: 05-18-2019 17:52-0400 Pulse (Heart Rate) 82 /min Kenia Can[facility]olaP-[facility] Work Phone: 05-18-2019 17:52-0400 24 1 Kenia Can[facility]olaP-[place] Work Phone: Comment on above: 2-20 Stature Percentile 05-18-2019 17:52-0400 98 1 Kenia Noble [facility]XY-[facility] Work Phone: Comment on above: 2-20 Weight Percentile 05-18-2019 17:52-0400 97 1 Kenia Noble xFF[facility] Work Phone: Comment on above: BMI Percentile Encounters Encounter Date Encounter Type Care Provider Facility Start: 04-11-2025 End: 04-11-[address] Shemar Mcconnell MD -[facility] Start: 04-11-2025 End: 04-11-2025 ambulatory Francine Rodriguez MD Work Phone: -[facility] Start: 04-03-2025 End: 04-03-2025 Subsequent hospital visit by physician [facility] Work Phone: Radiology Comment on above: Pain in joint involv ing right ankle and foot [M25.571] Start: 04-03-2025 End: 04-03-2025 Office outpatient visit 15 minutes Emmett Luciano APRN.[facility] Work Phone: [facility] [place] Comment on above: Pain in joint involv ing right ankle and foot (Primary Dx) Start: 04-03-2025 End: 04-03-2025 ambulatory EMMETT LUCIANO Facility:[facility] Start: 03-16-2025 End: 03-16-2025 ambulatory Francine Rodriguez MD Work Phone: -[facility] Start: 03-16-2025 End: 03-16-[address] Francine Rodriguez MD -[facility] Start: 03-16-2025 End: 03-16-2025 ambulatory Francine Rodriguez Facility:[facility] Start: 02-01-2025 End: 02-01-2025 Patient encounter procedure Sae Suarez NM -[facility] Work Phone: Start: 02-01-2025 End: 02-01-2025 ambulatory Francine Rodriguez MD Work Phone: -[facility] Start: 10-05-2024 End: 10-05-2024 Patient encounter procedure Sae Suarez PA -[facility] Work Phone: Start: 10-05-2024 End: 10-05-2024 ambulatory Francine Michael [place] [place] Start: 08-04-2024 End: 08-04-2024 ambulatory [facility] Facility:[facility] Start: 11-21-2023 End: 11-21-2023 Patient encounter procedure Angelica Voss APRN.[facility] Work Phone: [facility] Comment on above: [place] eye disease of both eyes (Primary Dx) Start: 11-03-2023 End: 11-03-2023 ambulatory [facility] Work Phone: Start: 11-03-2023 End: 11-03-2023 Patient encounter procedure [facility] Start: 08-26-2023 End: 08-26-2023 ambulatory [facility] Work Phone: Start: 08-26-2023 End: 08-26-2023 Patient encounter procedure [facility] Start: 07-14-2023 End: 07-14-2023 ambulatory [facility] Work Phone: Start: 07-14-2023 End: 07-14-2023 Patient encounter procedure [facility] Start: 05-21-2023 End: 05-21-2023 ambulatory [facility] Work Phone: Start: 05-21-2023 End: 05-21-2023 Patient encounter procedure [facility] Start: 04-28-2023 End: 04-28-2023 Patient encounter procedure [facility] Start: 04-25-2023 End: 04-25-2023 Subsequent hospital visit by physician [facility] Work Phone: Radiology Comment on above: Foot pain, right [M7 9.671] Start: 04-25-2023 End: 04-25-2023 Patient encounter procedure Alexander Olea MD Work Phone: [facility] Comment on above: Closed displaced fra cture of fifth metatarsal bone of right foot, initial encounter (Primary Dx); Foot pain, right Start: 04-11-2023 End: 04-11-2023 Patient encounter procedure Nancy Jules APRN.CNP Work Phone: [place] [facility] Comment on above: Sore throat (Primary Dx); Viral bronchitis Start: 04-02-2023 End: 04-02-2023 Patient encounter procedure DO Rosa García Work Phone: [facility] [place], [facility] Work Phone: Start: 04-02-2023 End: 04-02-2023 ambulatory DO Rosa García Work Phone: [facility] Work Phone: Start: 04-02-2023 End: 04-02-2023 Discharged Recurring DO Rosa García Work Phone: [facility] Work Phone: Start: 03-09-2023 End: 03-09-2023 ambulatory DO Rosa García Work Phone: [facility] Work Phone: Start: 03-09-2023 End: 03-09-2023 Patient encounter procedure DO Rosa García Work Phone: [facility] Start: 03-05-2023 Registered Recurring DO Lorna García Work Phone: [facility] Work Phone: Start: 02-02-2023 End: 02-02-2023 ambulatory DO Rosa García Work Phone: [facility] Work Phone: Start: 02-02-2023 End: 02-02-2023 Patient encounter procedure DO Rosa García Work Phone: [facility] Start: 01-10-2023 End: 01-10-2023 Patient encounter procedure DO Rosa García Work Phone: [facility] Work Phone: Start: 12-24-2022 End: 12-24-2022 ambulatory DO Rosa García Work Phone: [facility] Work Phone: Start: 12-24-2022 End: 12-24-2022 [facility] Start: 12-17-2022 End: 12-17-2022 ambulatory [facility] Work Phone: Start: 12-17-2022 End: 12-17-2022 Patient encounter [facility] Start: 12-06-2022 End: 12-06-2022 Patient encounter procedure [facility], [facility] Start: 12-03-2022 End: 12-03-2022 ambulatory [facility] Work Phone: Start: 12-03-2022 End: 12-03-2022 [facility] Start: 11-10-2022 End: 11-10-2022 ambulatory [facility] Work Phone: Start: 11-10-2022 End: 11-10-2022 [facility] Start: 11-06-2022 End: 11-06-2022 [facility] Start: 05-28-2022 Office outpatient visit 15 minutes Ana Rosa Work Phone: [facility] Work Phone: Start: 05-28-2022 ambulatory Kenia Noble Fa cility:[id number] Start: 04-21-2022 AUDIT Ana Arreola Work Phone: [facility] Work Phone: Start: 04-07-2022 AUDIT Ana Arreola Work Phone: [facility] Work Phone: Start: 03-17-2022 End: 03-17-[address] Ana Rosa Work Phone: [facility] Start: 03-13-2022 End: 03-13-[address] Ana Rosa Work Phone: [facility] Work Phone: Start: 03-13-2022 End: 03-13-[address] Ana Rosa Work Phone: [facility] Start: 03-03-2022 End: 03-03-[address] Ana Rosa Work Phone: [facility] Start: 01-01-2022 End: 01-01-[address] Ana Rosa Work Phone: [facility] Start: 12-26-2021 End: 12-26-[address] Ana Rosa Work Phone: [facility] Start: 12-18-2021 Office outpatient visit 15 minutes Ana Rosa Work Phone: [facility] Work Phone: Start: 12-18-[address] Ana Rosa Facility:[id number] Start: 12-06-2021 AUDIT Ana Arreola Work Phone: [facility] Work Phone: Start: 10-02-2021 AUDIT Ana PortilloArmhammad Work Phone: [facility] Work Phone: Start: 09-16-2021 AUDIT Ana Polanco Morales -Armao Work Phone: [facility] Work Phone: Start: 07-30-2021 AUDIT Ana Polanco Morales -Armao Work Phone: [facility] Work Phone: Start: 05-30-2021 Patient encounter procedure Ana OsullivanArmhammad Work Phone: [facility] Work Phone: Start: 05-30-2021 Periodic preventive med est patient 18-39 yrs Ana Morales-Armhammad Work Phone: [facility] Work Phone: Start: 05-30-[address] Ana Rosa Facility:[id number] Start: 05-14-2021 AUDIT Ana PortilloArmhammad Work Phone: [facility] Work Phone: Start: 04-15-2021 AUDIT Ana Polanco Morales -Armao Work Phone: [facility] Work Phone: Start: 01-01-2021 AUDIT Ana Polanco Morales -Armao Work Phone: [facility] Work Phone: Start: 12-31-2020 AUDIT Ana Morales -Armao Work Phone: [facility] Work Phone: Start: 12-25-2020 Office outpatient visit 15 minutes Ana Rosa Work Phone: [facility] Work Phone: Start: 05-18-2019 Patient encounter procedure Kenia Fernandes-Ahuja-Geauga Work Phone: Start: 08-30-2018 Patient encounter procedure Kenia Fernandes-Ahuja-Geauga Work Phone: Start: 04-27-2018 Patient encounter procedure Kenia Fernandes-Ahuja-Geauga Work Phone: Start: 12-29-2017 Patient encounter procedure Kenia Fernandes-Ahuja-Geauga Work Phone: Start: 11-03-2017 Patient encounter procedure Kenia CancholaP-Ahuja-Geauga Work Phone: Patient encounter status Ana Polanco Moe Work Phone: [facility] Work Phone: Procedures Date Procedure Procedure Detail Performing Clinician Start: 04-03-2025 Radex foot complete minimum 3 views Emmett Luciano APRN.FAGOTER Work Phone: Start: 03-16-2025 Parathyroid hormone measurement Francine Rodriguez MD Work Phone: Start: 03-16-2025 Vitamin D, 25-hydrox y measurement Francine Rodriguez MD Work Phone: Comment on above: Vitamin D StatusDefi ciency: <20 ng/mL (50nmol/L)Insufficiency: 20-30 ng/mL (50-75 nmol/L)Sufficiency: 30-100 ng/mL (75-250 nmol/L)Toxicity: >100 ng/mL (>250 nmol/L) Start: 04-25-2023 Radex foot complete minimum 3 views Alexander Olea MD Work Phone: Start: 04-11-2023 STREP A MOLECULAR (POC) Alexander Olea MD Work Phone: Start: 04-02-2023 US scan of thyroid DO Jamshid García Work Phone: Start: 12-06-2022 US scan of thyroid Start: 03-13-2022 MRI of joint of lowe r extremity Dr. Ana Rosa Work Phone: Start: 03-03-2022 Plain x-ray of wrist Dr Cyn Rosa Work Phone: Start: 12-26-2021 Diagnostic radiograp hy of finger Dr. Ana Rosa Work Phone: H/O: surgery H/O wrist surgery Dr. Ana Rosa Work Phone: History of Dental Surgery Omkar Noble Comment on above: May 2017 - [place] [facility]; History of Ear Press ure Equalization Tube, Insertion, Bilaterally Kenia Noble History of Eye Surgery Souleymane Noble Operative procedure on wrist Ana Rosa Work Phone: Comment on above: 06-06-2020 - left wr ist ganglion wrist surgery - Dr Dontae Garnica; Tonsillectomy and adenoidectomy Kenia Noble Plan of Treatment Date Care Activity Detail Author Start: 05-30-2031 Urine microalbumin profile DTaP,Tdap,Td Vaccine (8 - Td or Tdap) [facility] Start: 04-11-2025 X-ray of ankle, three or more views Ankle min 3 Views [facility] Start: 04-11-2025 X-ray of foot, three or more views Foot min 3 Views [facility] Start: 04-11-2025 XR Ankle GE 3 Views [facility] Start: 04-11-2025 XR Foot GE 3 Views [facility] Start: 03-27-2025 Influenza vaccination Influenza Vaccine (#1) [facility] Start: 03-27-2024 Covid-19 Vaccine () Covid-19 Vaccine () [facility] Start: 03-27-2024 Influenza vaccination Influenza Vaccine (#1) [facility] Start: 07-27-2023 Behavioral Health Screening Behavioral Health Screening [facility] Start: 03-27-2023 Covid-19 Vaccine () Covid-19 Vaccine () [facility] Start: 03-27-2023 Influenza vaccination Influenza Vaccine (#1) [facility] Start: 07-27-2022 Depression Assessment Depression Assessment [facility] Start: 12-18-2021 FUV, Provider: Kenia Noble, Status: Pen, Time: 9:00 AM FUV, Provider: Kenia Noble, Status: Pen, Time: 9:00 AM [facility] Work Phone: Start: 08-22-2021 Covid-19 Vaccine (4 - Moderna series) Covid-19 Vaccine (4 - Moderna series) [facility] Start: 05-30-2021 EPVWELLCLD, Provider: Kenia Noble, Status: Pen, Time: 1:00 PM EPVWELLCLD, Provider: Kenia Nolbe, Status: Pen, Time: 1:00 PM [facility] Work Phone: Start: 05-28-2021 EPVWELLCLD, Provider: Kenia Noble, Status: Pen, Time: 1:00 PM EPVWELLCLD, Provider: Kenia Noble, Status: Pen, Time: 1:00 PM [facility] Work Phone: Start: 2020 Pap Testing Pap Testing [facility] Start: 2020 Screening for malignant neoplasm of cervix [facility] Start: 2018 Urine microalbumin profile DTaP,Tdap,Td Vaccine (1 - Tdap) [facility] Start: 2017 Anxiety Screening Anxiety Screening [facility] Start: 2017 Chlamydia Screening (18-24) Chlamydia Screening (18-24) [facility] Start: 2017 Depression Screening Depression Screening [facility] Start: 2017 GC (Gonorrhea) Screening (18-) GC (Gonorrhea) Screening (18-) [facility] Start: 2017 Hepatitis C Screening Hepatitis C Screening [facility] Start: 2017 Hepatitis C screening Hepatitis C Screening [facility] Start: 2017 HIV Screening HIV Screening [facility] Start: 2017 HIV screening HIV Screening [facility] Start: 2015 Meningococcal B Vaccine: Consider Based On Risk (1 of 2 - Patient Seeks Protection) Meningococcal B Vaccine: Consider Based On Risk (1 of 2 - Patient Seeks Protection) [facility] Start: 2013 Peds To Adult Transition Annual Assessment Peds To Adult Transition Annual Assessment [facility] Start: 2011 Peds To Adult Transition Initial Discussion Peds To Adult Transition Initial Discussion [facility] Start: 2008 HPV Vaccine (1 - 2-dose series) HPV Vaccine (1 - 2-dose series) [facility] Start: 1999 Hepatitis B Vaccine (1 of 3 - 3-dose series) Hepatitis B Vaccine (1 of 3 - 3-dose series) [facility] Patient Education Triamcinolone Topical Cream 0.1% ED Poison Rositamichael Butler [facility] Work Phone: [facility] Immunizations Immunization Date Immunization Notes Care Provider Mahin oliveira 04-24-2023 influenza virus vacc ine, unspecified formulation [facility] Work Phone: [facility] 06-27-2021 Moderna COVID-19 Vac cine 100 MCG/0.5ML Intramuscular Suspension Ana Rosa Work Phone: [facility] 05-30-2021 influenza, injectabl e, quadrivalent, preservative free; Translations: [Flulaval Quadrivalent 0.5 ML Intramuscular Suspension Prefilled Syringe] Ana Rosa Work Phone: [facility] Work Phone: Comment on above: Series: 05-30-2021 tetanus toxoid, redu yanci diphtheria toxoid, and acellular pertussis vaccine, adsorbed; Translations: [Tdap] Ana Rosa Work Phone: [facility] Work Phone: Comment on above: Series: 05-30-2021 influenza virus vacc ine, unspecified formulation Nancy Jules APRN.CNP Work Phone: [facility] 11-22-2020 Moderna COVID-19 Vac cine 100 MCG/0.5ML Intramuscular Suspension Ana Rosa Work Phone: [facility] Comment on above: Series: 10-25-2020 Moderna COVID-19 Vac cine 100 MCG/0.5ML Intramuscular Suspension Ana Rosa Work Phone: [facility] Comment on above: Series: 05-23-2020 influenza, injectabl e, quadrivalent, contains preservative; Translations: [Flulaval Quadrivalent Intramuscular Suspension] Ana Rosa Work Phone: [facility] Work Phone: Comment on above: Series: 04-08-2019 influenza virus vacc ine, unspecified formulation; Translations: [Influenza] [facility]: [facility] Work Phone: Comment on above: Series: 04-08-2019 influenza, seasonal, injectable; Translations: [Influenza] Kenia Aide tGE-Kiamc-Eaynqm Work Phone: 04-27-2018 influenza, injectabl e, quadrivalent, preservative free; Translations: [Flulaval Quadrivalent 0.5 ML Intramuscular Suspension Prefilled Syringe] Kenialindsey Vazquezer zTA-Zuiur-Qahwuu Work Phone: Comment on above: Series: 04-14-2017 influenza, injectabl e, quadrivalent, preservative free Ana Rosa Work Phone: [facility] Work Phone: 03-06-2017 meningococcal polysaccharide (groups A, C, Y and W-135) diphtheria toxoid conjugate vaccine (MCV4P) Kenia Noble xIV-Jrfke-Luvinw Work Phone: Comment on above: Series: 04-15-2016 influenza virus vacc ine, unspecified formulation Ana Rosa Work Phone: [facility] Work Phone: Comment on above: Series: 04-15-2016 influenza, seasonal, injectable Kenia Noble qKM-Enwgu-Vserzx Work Phone: 05-11-2015 influenza virus vacc ine, live, attenuated, for intranasal use Ana E Morales-Armao Work Phone: [facility] Work Phone: 04-18-2014 influenza virus vacc ine, live, attenuated, for intranasal use Ana E Morales-Armao Work Phone: [facility] Work Phone: 04-19-2013 influenza virus vacc ine, live, attenuated, for intranasal use Ana E Morales-Armao Work Phone: [facility] Work Phone: 05-28-2012 influenza virus vacc ine, live, attenuated, for intranasal use Ana E Morales-Armao Work Phone: [facility] Work Phone: 07-23-2011 hepatitis A vaccine, pediatric/adolescent dosage, 2 dose schedule Kenia Noble sTM-Lmbxv-Pgakwt Work Phone: Comment on above: Series: 07-23-2011 human papilloma viru s vaccine, quadrivalent Kenia Noble rNW-Nyspp-Sbivjv Work Phone: Comment on above: Series: 04-04-2011 human papilloma viru s vaccine, quadrivalent Ana E Morales-Armao Work Phone: [facility] Work Phone: Comment on above: Series: 04-04-2011 influenza, seasonal, injectable, preservative free Ana E Morales-Armao Work Phone: [facility] Work Phone: 03-27-2011 human papilloma viru s vaccine, quadrivalent Kenia Noble vNM-Mwkfu-Uzmpzs Work Phone: 01-21-2011 hepatitis A vaccine, unspecified formulation Kenia Noble [facility] Work Phone: Comment on above: Series: 01-21-2011 human papilloma viru s vaccine, quadrivalent Kenia Noble oKE-Oadsq-Lyfxgo Work Phone: Comment on above: Series: 01-21-2011 meningococcal polysaccharide (groups A, C, Y and W-135) diphtheria toxoid conjugate vaccine (MCV4P) Kenia Noble [facility] Work Phone: Comment on above: Series: 01-21-2011 tetanus toxoid, redu yanci diphtheria toxoid, and acellular pertussis vaccine, adsorbed Kenia Noble [facility] Work Phone: Comment on above: Series: 05-27-2010 influenza, seasonal, injectable, preservative free Formerly Named [facility] Morales-Arm Work Phone: [facility] Work Phone: 05-09-2009 influenza, seasonal, injectable Ana E Morales-Armao Work Phone: [facility] Work Phone: 05-20-2008 influenza virus vacc ine, whole virus Formerly Named [facility] Morales-Armao Work Phone: [facility] Work Phone: 06-14-2007 influenza virus vacc ine, whole virus Formerly Named [facility] Morales-Armao Work Phone: [facility] Work Phone: 08-19-2004 diphtheria, tetanus toxoids and acellular pertussis vaccine, unspecified formulation Formerly Named [facility] Morales-Armao Work Phone: [facility] Work Phone: 08-19-2004 diphtheria, tetanus toxoids and pertussis vaccine Kenia Noble [facility] Work Phone: Comment on above: Series: 08-19-2004 measles, mumps and rubella virus vaccine Kenia Noble sLE-Kozbf-Cywzxq Work Phone: Comment on above: Series: 08-19-2004 poliovirus vaccine, inactivated Kenia Noble rIJ-Hibje-Npinvk Work Phone: Comment on above: Series: 05-14-2004 influenza virus vacc ine, unspecified formulation [facility] Work [facility]: [facility] Work Phone: Comment on above: Series: 05-14-2004 influenza, seasonal, injectable Kenia Noble xPG-Cwnce-Fyjipx Work Phone: 01-25-2001 diphtheria, tetanus toxoids and acellular pertussis vaccine, unspecified formulation Ana Polanco Cswitch Work Phone: [facility] Work Phone: 01-25-2001 diphtheria, tetanus toxoids and pertussis vaccine Kenia Noble tFC-Gqmth-Wuupeq Work Phone: Comment on above: Series: 10-19-2000 haemophilus influenz ae type b vaccine, PRP-OMP conjugate Kenia Noble lVQ-Pdsau-Tnpddm Work Phone: Comment on above: Series: 10-19-2000 measles, mumps and rubella virus vaccine Kenia Noble iEJ-Aqpto-Gxqmoe Work Phone: Comment on above: Series: 10-19-2000 pneumococcal conjuga te vaccine, 7 valent Kenia Noble dKR-Piiue-Qpczjs Work Phone: Comment on above: Series: 07-23-2000 varicella virus vaccine Kenia Brooks greg uUZ-Addag-Cqtgwz Work Phone: Comment on above: Series: 04-16-2000 hepatitis B vaccine, pediatric or pediatric/adolescent dosage Kenia Noble cXG-Wnsdr-Jprpam Work Phone: Comment on above: Series: 04-16-2000 pneumococcal conjuga te vaccine, 7 valent Kenia Noble dML-Enjcq-Caybth Work Phone: Comment on above: Series: 01-13-2000 diphtheria, tetanus toxoids and acellular pertussis vaccine, unspecified formulation Ana Polanco Morales-ArmOpbeat Work Phone: [facility] Work Phone: 01-13-2000 diphtheria, tetanus toxoids and pertussis vaccine Kenia Noble gCO-Coxqp-Nfojlm Work Phone: Comment on above: Series: 01-13-2000 haemophilus influenz ae type b vaccine, PRP-OMP conjugate Kenia Noble fID-Hubuw-Mdunlb Work Phone: Comment on above: Series: 01-13-2000 pneumococcal conjuga te vaccine, 7 valent Kenia Noble vPM-Nhwpq-Cjhxrb Work Phone: Comment on above: Series: 01-13-2000 poliovirus vaccine, inactivated Kenia Noble kYD-Kngzs-Rfkcan Work Phone: Comment on above: Series: 1999 diphtheria, tetanus toxoids and acellular pertussis vaccine, unspecified formulation Ana E [facility] Work Phone: [facility] Work Phone: 1999 diphtheria, tetanus toxoids and pertussis vaccine Kenia CancholaP-Ahuja-Geauga Work Phone: Comment on above: Series: 1999 haemophilus influenz ae type b vaccine, PRP-OMP conjugate Kenia Noble lAS-Gcofq-Hqjdvx Work Phone: Comment on above: Series: 1999 pneumococcal conjuga te vaccine, 7 valent Kenia Noble hXK-Gufrq-Jxnpvh Work Phone: Comment on above: Series: 1999 poliovirus vaccine, inactivated Kenia Noble vCZ-Dqogt-Eiehia Work Phone: Comment on above: Series: 1999 diphtheria, tetanus toxoids and acellular pertussis vaccine, unspecified formulation Ana Morales-Wang [facility] Work Phone: 1999 diphtheria, tetanus toxoids and pertussis vaccine Kenia Noble nKJ-Bgwqv-Benjsm Work Phone: Comment on above: Series: 1999 haemophilus influenz ae type b vaccine, PRP-OMP conjugate Kenia Noble wYC-Eaxwa-Wjlnzs Work Phone: Comment on above: Series: 1999 poliovirus vaccine, inactivated Kenia Noble oAH-Vpdjd-Cysmwp Work Phone: Comment on above: Series: 1999 hepatitis B vaccine, pediatric or pediatric/adolescent dosage Kenia Noble tXZ-Cniof-Csrpne Work Phone: Comment on above: Series: 1999 hepatitis B vaccine, pediatric or pediatric/adolescent dosage Kenia Noble zYS-Jvjeq-Axicou Work Phone: Comment on above: Series: varicella virus vaccine Kenia garza zKO-Xmmat-Rwzlzj Work Phone: Comment on above: had disease 2003 had disease 2003 Ser ies: Payers Date Payer Category Payer Unknown [id number] 2024 Self-pay [id number] 2012 Private Health Insurance [id number] 2012 Unknown [id number] 1999 Unknown [id number] 1999 Unknown [id number] 1999 Unknown [id number] Unknown [facility] Unknown [id number] Unknown [id number] Unknown [id number] Unknown [id number] Unknown [id number] Unknown [id number] Unknown [id number] Social History Date Type Detail Facility Start: 05-23-2020 End: 07-01-2020 Never Drank Alcohol Never Drank Alcohol [facility] Work Phone: Comment on above: 2 brothers3 dogs, 1 cat, 1 guinea pig; Start: 03-17-2022 End: 01-10-2023 Tobacco smoking status [facility] Unknown if ever smoked [facility] Start: 2000 Sex Assigned At Female W [facility] Start: 01-10-2023 End: 04-11-2023 Tobacco smoking status AKIS Never smoked tobacco [facility] Start: 04-11-2023 Tobacco use and exposure Smoke less tobacco non-user [facility] Start: 04-11-2023 End: 11-21-2023 Alcohol intake Lifetime non-drinker (finding) [facility] Start: 05-23-2020 End: 07-01-2020 Alcohol Use Disorder Identification Test - Consumption [AUDIT-C] [facility] Work Phone: How often to you hav e a drink containing alcohol? Never [facility] Work Phone: Start: 06-27-2012 Average Number of Drinks Not on file [facility] Start: 05-31-2020 Gender identity Identifies as female gender (finding) [facility] NEGATED: Highlighted row - - [facility] Work Phone: Functional Status Date Assessment Result Facility 2014 Are you deaf, or do you have serious difficulty hearing No 2014 2:30 PM Meghana Smith RN No [facility] 2014 Are you blind, or do you have serious difficulty seeing, even when wearing glasses No 2014 2:30 PM Meghana mSith RN No [facility] 2014 Do you have serious difficulty walking or climbing stairs No 2014 2:30 PM Meghana Smith RN No [facility] 2014 Do you have difficul ty dressing or bathing No 2014 2:30 PM Meghana Smith RN No [facility] 2014 Because of a physica l, mental, or emotional condition, do you have difficulty doing errands alone such as visiting a physician's office or shopping No 2014 2:30 PM Meghana Smith RN No [facility] NEGATED: Highlighted row Functional performance Functional status health issues are not documented Disease lZM-Jmenb-Unettu Work Phone: Mental Status Date Assessment Result Facility 2014 Because of a physical, mental, or emotional condition, do you have serious difficulty concentrating, remembering, or making decisions No 2014 2:30 PM Meghana Smith RN No [facility] NEGATED: Highlighted row Cognitive function [Interpretation] Cognitive status health issues are not documented Disease gHR-Vapuz-Gzttuz Work Phone: Clinical Notes 12-25-2020 to 04-11-2025 Note Date & Type Note Facility 04-11-2025 Progress note [facility] 04-11-2025 Progress note Note Date/Time April 11, 2025 9:08am [facility] [address] [place] [address] [address] [place] [address] OFFICE VISIT Date of Service: 04/11/25 MR#: [id number] Acct: [id number] Name: TORRES MILLARD Rep #: [id number] : 2000 Provider: Dr. Johnson Duval MD Age/Sex: 24/F Location: [facility] Status: Signed Intake Vital Signs 10/05/24 14:01 04/11/25 08:41 Height 5 ft 2 in 5 ft 2 in Weight: 248 lb BMI 45.3 Intake Visit Reasons: RIGHT FOOT Chief Complaint: Right foot pain Accompanied by: Self Is patient in pain?: Yes Pain scale (1-10): 7 Allergies amoxicillin Allergy (Verified 04/11/25 08:43) hives Penicillins Allergy (Verified 04/11/25 08:43) Rash Medications ?Medication ?Instructions ?Recorded ?Confirmed ?Type bupropion HCl 300 mg 24 hr tablet, 300 mg PO DAILY Dep ression 10/05/24 04/11/25 History extended release (Wellbutrin XL) ipratropium bromide 42 mcg (0.06 2 spray intranasal TI D PRN 10/05/24 04/11/25 History %) nasal spray levothyroxine 88 mcg tablet 88 mcg PO DAILY Hypothyroi dism 10/05/24 04/11/25 History (Synthroid) liothyronine 5 mcg tablet 5 mcg PO DAILY Hypothyroidis m 10/05/24 04/11/25 History ropinirole 1 mg tablet 1 mg PO DAILY Restless leg s yndrome 10/05/24 04/11/25 History dextroamphetamine-amphetamine ER 1 cap PO QAM 02/01/25 04/11/25 History 10 mg 24hr capsule,extend release rizatriptan 5 mg tablet 5 mg PO BID PRN migraine hea dache 02/01/25 04/11/25 Rx #4 tabs Have you fallen in the past year?: No PFSH Medical History (Updated 04/11/25 @ 09:07 by Hussain Duval MD) Stress reaction of bone Right foot pain Migraine Surgical History [place] teeth extracted H/O removal of cyst H/O wrist surgery Social History household members: family Smoking Status: Never smoker alcohol intake: never HPI RIGHT FOOT Details: This documentation accurately reflects the service provided and the decisions made by me, Dr. Hussain Duval MD 04/11/25 1346. Part of today?s visit was documented by [ ], acting as scribe. TORRES MILLARD is a 24 year old F here today for right foot pain. Been going on about 2 weeks. It is in the dorsal middle aspect of the forefoot. Patient had a prior fifth metatarsal fracture 2 years ago that was treated nonoperatively. No pain or problems until this most recent time. The original injury was just going down 1 step. It feels like the toes are pulling apart. 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 Ortho Exam General General: Yes no acute distress Neurologic: Yes alert and Yes oriented x3 Psychologic: Yes reasonable and appropriate Right Foot/Ankle Skin/Wound: Yes CDI; No Ecchymosis, Soft Tissue Swelling or Erythema Exam: present eversion normal and inversion normal; absent TTP Lateral Malleolus, TTP ATFL, TTP Medial Malleolus, TTP Deltoid Ligament, TTP Lisfranc Joint, TTP distal 5th metatarsal, tender to palpate calcaneofibular ligament, TTP Retrocalcaneal bursa, TTP Peroneal or peroneal snapping Dorsiflexion 0-20: 20 degrees Plantar Flexion 0-40: 40 degrees Compartments: Compartments: soft ROM: none pain with range of motion and none crepitus with range of motion Tests: Elder Test: 1 and Squeeze Test: 1 Anterior Drawer: 0 Motor: Ankle Dorsiflextion: 5, Ankle Plantar Flexion: 5, Ankle Eversion: 5, Ankle Inversion: 5 and EHL: 5 Sensation: Deep Peroneal Nerve: I, Superficial Peroneal Nerve: I, Tibial Nerve: I, Sural Nerve: I and Saphenous Nerve: I Pulses: Dorsalis Pedis: 2 and Posterior Tibial: 2 ANKLE: mild pain at the 1st and 2nd MT, no pain at the interspace, no click there, no obvious goodwin neuroma, though does have sometimes numbness there for 30 mins. Supplemental Info xr 3 view foot / ankle R side - cortical thickening / stress reaction likely 2ndMT Coding Level of Care Code Off vis,new,level 4 Diagnoses Right foot pain M79.671 Stress reaction of bone M84.30XA Assessment and Plan Assessment and Plan (1) Right foot pain: Status: Acute Plan: 24-year-old female with likely a stress reaction second metatarsal or even a developing stress fracture there. 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 I would recommend a period of orthosis boot crutches strict nonweightbearing for at least 2 weeks and even up to 4 to 6 weeks depending on the patient's response and pain levels. I would like the patient to follow-up in 4 weeks time to reassess if this is no better at that time the next I would be ordering an MRI to confirm the diagnosis and rule out an actual fracture there. Still should be getting around to minimize risk of VTE though. They understood no further questions or concerns. (2) Stress reaction of bone: Status: Acute Orders: Orders Ankle min 3 Views Today M79.671 - Pain in right foot Foot min 3 Views Today M79.671 - Pain in right foot Clinical Quality Measures Falls Risk Screening/Assistive Devices Have you fallen in the past year?: No 04/11/25 0908 <Electronically signed by Hussain jackson MD> Date _ Hussain Duval MD Cosigner Signature: Date (if applicable) CC: ~ [facility] [employer] Work Phone: 1(638) 669-319109-08-2025 NoteHNO ID: [id number] Author: EMMETT LUCIANO APRN.FAGOTER Service: ? Author Type: Nurse Practitioner Type: Progress Notes Filed: 04/03/2025 11:21 Note Text: URGENT CARE NAHUN Millard is a 24 year old female. Patient presents with: Minor Injuries (Sprains, Strains, Minor Joint Pain): Right foot - Entered by patient Pain (foot): right x 4 days, denies injury but previous fracture HPI Nontoxic-appearing 24-year-old female presents urgent care chief complaint right foot pain. Duration of symptoms 4 days. Associated symptoms foot pain and swelling after walking extended distance. Risk factors previous fracture of base of fifth metatarsal. OTC medications none. Has been using a walking boot this has helped some. Following up with orthopedics beginning of next week. Denies any fevers. No numbness no tingling. No injury. Past medical history prescription medications allergies reviewed Review of Systems Constitutional: Negative for activity change, diaphoresis, fatigue and fever. Musculoskeletal: Positive for joint swelling. Negative for arthralgias, back pain, gait problem, myalgias, neck pain and neck stiffness. Skin: Negative for pallor, rash and wound. Neurological: Negative for dizziness, seizures, syncope, weakness, light-headedness, numbness and headaches. Psychiatric/Behavioral: Negative for confusion. Objective BP 126/80 Pulse 100 Temp 37.1 ?C (98.8 ?F) Resp 18 Wt 114.7 kg (252 lb 13.9 oz) LMP 03/14/2023 (Approximate) SpO2 98% BMI 46.25 kg/m? Physical Exam Constitutional: Appearance: Normal appearance. She is normal weight. HENT: Head: Normocephalic. Eyes: Conjunctiva/sclera: Conjunctivae normal. Cardiovascular: Rate and Rhythm: Normal rate. Pulmonary: Effort: Pulmonary effort is normal. Musculoskeletal: Cervical back: Normal range of motion. Feet: Feet: Comments: Mild discomfort with palpation highlighted area. No erythema edema. Neurovascular intact. No significant tenderness to palpation over Achilles. No pain with palpation over ankle. Skin: Findings: No rash. Neurological: General: No focal deficit present. Mental Status: She is alert and oriented to person, place, and time. Mental status is at baseline. {ASSESSMENT/PLAN: 1. Pain in joint involving right ankle and foot - ICD9: 719.47, ICD10: M25.571 - XR FOOT GENERAL 3V AP/LAT/OBL RIGHT IMPRESSION: No radiographic evidence of acute osseous injury No acute fractures. Tendinitis versus stress fracture. Referred to orthopedics. Patient was educated on supportive therapies. Patient will follow up with primary care provider as needed. Patient was instructed to immediately proceed to emergency room for any new, worsening, or symptoms lasting longer than anticipated. The patient's clinical presentation is otherwise unremarkable at this time. Based on exam and clinical finding, the patient is stable for discharge. Plan of care was discussed with patient. Patient verbalizes understanding and agrees to plan of care. This note was generated using Cloud[employer] software. It may contain errors in wording, punctuation, or spelling. Emmett Luciano APRN.MIRANDA History and Record Review Clinical information obtained from an independent historian. History obtained from or confirmed by: parent. External record(s) reviewed: prior outpatient record. Disposition The patient was discharged. OTC Medications were advised: [facility] History of Present illness Narrative* Emmett Luciano APRN.MIRANDA - 04/03/2025 11:16 AM EDT Images from the original note were not included. [facility] NAHUN Guzman Torres Millard is a 24 year old female. Patient presents with: Minor Injuries (Sprains, Strains, Minor Joint Pain): Right foot - Entered by patient Pain (foot): right x 4 days, denies injury but previous fracture HPI Nontoxic-appearing 24-year-old female presents urgent care chief complaint right foot pain. Duration of symptoms 4 days. Associated symptoms foot pain and swelling after walking extended distance. Risk factors previous fracture of base of fifth metatarsal. OTC medications none. Has been using a walking boot this has helped some. Following up with orthopedics beginning of next week. Denies any fevers. No numbness no tingling. No injury. Past medical history prescription medications allergies reviewed Review of Systems Constitutional: Negative for activity change, diaphoresis, fatigue and fever. Musculoskeletal: Positive for joint swelling. Negative for arthralgias, back pain, gait problem, myalgias, neck pain and neck stiffness. Skin: Negative for pallor, rash and wound. Neurological: Negative for dizziness, seizures, syncope, weakness, light- headedness, numbness and headaches. Psychiatric/Behavioral: Negative for confusion. Objective BP 126/80 Pulse 100 Temp 37.1 C (98.8 F) Resp 18 Wt 114.7 kg (252 lb 13.9 oz) LMP 03/14/2023 (Approximate) SpO2 98% BMI 46.25 kg/m Physical Exam Constitutional: Appearance: Normal appearance. She is normal weight. HENT: Head: Normocephalic. Eyes: Conjunctiva/sclera: Conjunctivae normal. Cardiovascular: Rate and Rhythm: Normal rate. Pulmonary: Effort: Pulmonary effort is normal. Musculoskeletal: Cervical back: Normal range of motion. Feet: Feet: Comments: Mild discomfort with palpation highlighted area. No erythema edema. Neurovascular intact.No significant tenderness to palpation over Achilles. No pain with palpation over ankle. Skin: Findings: No rash. Neurological: General: No focal deficit present. Mental Status: She is alert and oriented to person, place, and time. Mental status is at baseline. {ASSESSMENT/PLAN: 1. Pain in joint involving right ankle and foot - ICD9: 719.47, ICD10: M25.571 - XR FOOT GENERAL 3V AP/LAT/OBL RIGHT IMPRESSION: No radiographic evidence of acute osseous injury No acute fractures. Tendinitis versus stress fracture. Referred to orthopedics. Patient was educated on supportive therapies. Patient will follow up with primary care provider as needed. Patient was instructed to immediately proceed to emergency room for any new, worsening, or symptoms lasting longer than anticipated. The patient's clinical presentation is otherwise unremarkable at this time. Based on exam and clinical finding, the patient is stable for discharge. Plan of care was discussed with patient. Patient verbalizes understanding and agrees to plan of care. This note was generated using Cloud[employer] software. It may contain errors in wording, punctuation, or spelling. Emmett Luciano APRN.MIRANDA History and Record Review Clinical information obtained from an independent historian. History obtained from or confirmed by:parent. External record(s) reviewed: prior outpatient record. Disposition The patient was discharged. OTC Medications were advised: [facility] History of Present illness Narrative* Deborah Reddy RT(R) - 04/03/2025 10:50 AM EDT Radiology Service Progress Note PATIENT NAME: Torres Millard DATE OF SERVICE: April 03, 2025 TIME: 10:41 AM PATIENT IDENTITY VERIFICATION COMPLETED USING TWO (2) IDENTIFIERS: Name and Date of confirmedby patient verbally. FALL SCREENING: Has the patient had 2 falls in the last year or 1 fall with injury or currently using an Ambulatory Assistive Device (Walker, Cane, Wheelchair, Crutches, etc.)? No PATIENT GENDER DATA: Assigned female at . status: : No status:NO. PATIENT RELEVANT IMPLANT DATA REVIEWED: Yes PATIENT PRESENTS WITH AN IMPLANTABLE OR ATTACHED NUTRITION AIDE: No RADIOLOGY DEPARTMENT: General X-ray: Exam(s) Completed: Lower Extremity X- Ray(s): Foot, Right PERIPHERAL IV DATA: Not applicable SIGNED BY: RT Omar(R) April 03, 2025 10:41 AM documented in [facility]25 NoteHNO ID: [id number] Author: DEBORAH REDDY RT(R) Service: ? Author Type: Technologist Type: Progress Notes Filed: 04/03/2025 10:48 Note Text: Radiology Service Progress Note PATIENT NAME: Torres Millard DATE OF SERVICE: April 03, 2025 TIME: 10:41 AM PATIENT IDENTITY VERIFICATION COMPLETED USING TWO (2) IDENTIFIERS: Name and Date of confirmed by patient verbally. FALL SCREENING: Has the patient had 2 falls in the last year or 1 fall with injury or currently using an Ambulatory Assistive Device (Walker, Cane, Wheelchair, Crutches, etc.)? No PATIENT GENDER DATA: Assigned female at . status: : No status: NO. PATIENT RELEVANT IMPLANT DATA REVIEWED: Yes PATIENT PRESENTS WITH AN IMPLANTABLE OR ATTACHED NUTRITION AIDE: No RADIOLOGY DEPARTMENT: General X-ray: Exam(s) Completed: Lower Extremity X-Ray(s): Foot, Right PERIPHERAL IV DATA: Not applicable SIGNED BY: RT Omar(Leonor) April 03, 2025 10:41 [facility]07-09-2025 Evaluation note* Diagnosis Onset Date Resolution Status Admit Date Migraine acute February 01, 2025 3:21pm [facility] Work Phone: 1(444) 264-129507-09-2025 Evaluation note* Diagnosis Onset Date Resolution Status Admit Date Migraine acute February 01, 2025 3:21pm Right foot pain acute April 11, 2025 8:36am [facility] Work Phone: 1(916) 145-228607-09-2025 Evaluation note* Diagnosis Onset Date Resolution Status Admit Date Migraine acute February 01, 2025 3:21pm Right foot pain acute April 11, 2025 8:36am Stress reaction of bone acute S eptember 2024 8:36am [facility] Work Phone: 1(341) 555-547007-09-[address] [facility] [address], [address] [place] [id number] OFFICE VISIT Date of Service: 02/01/25 MR#: [id number] Acct: [id number] Name: TORRES MILLARD Rep #: [id number] : 2000 Provider: ROBERT Hooper Age/Sex: 24/F [place] [facility] [place]: Signed Intake Vital Signs 10/05/24 14:01 02/01/25 15:27 Height 5 ft 2 in Weight: 249 lb 2 oz BMI 45.6 BP 120/80 120/80 Position Sitting Respiration 18 Pulse 98 101 H Temp 97.8 F 98.3 F Temp Source Oral Oral Pulse Oximetry (%) 98 98 Oxygen Delivery Method room air room air Oxygen Flow Rate (L/min) 0 Intake Visit Reasons: ~~ Chief Complaint: Migraine Accompanied by: Self Allergies amoxicillin Allergy (Verified 02/01/25 15:24) hives Penicillins Allergy (Verified 02/01/25 15:24) Rash Medications ?Medication ?Instructions ?Recorded ?Confirmed ?Type bupropion HCl 300 mg 24 hr tablet, 300 mg PO DAILY Dep ression 10/05/24 10/05/24 History extended release (Wellbutrin XL) ipratropium bromide 42 mcg (0.06 2 spray intranasal TI D PRN 10/05/24 10/05/24 History %) nasal spray levothyroxine 88 mcg tablet 88 mcg PO DAILY Hypothyroi dism 10/05/24 10/05/24 History (Synthroid) liothyronine 5 mcg tablet 5 mcg PO DAILY Hypothyroidis m 10/05/24 10/05/24 History ropinirole 1 mg tablet 1 mg PO DAILY Restless leg s yndrome 10/05/24 10/05/24 History dextroamphetamine-amphetamine ER 1 cap PO QAM 02/01/25 02/01/25 History 10 mg 24hr capsule,extend release rizatriptan 5 mg tablet 5 mg PO BID PRN migraine hea dache 02/01/25 02/01/25 Rx #4 tabs Nurse's Note: Patient has a migraine that has been going on for 1 week. Patient has migraine medication that she gets from her PCP and they haven't refilled it. Patient hasgone 2 days with out her antidepressant. Patient has tried caffeine and excedrin. Patient has been under some stress. [facility] Medical History (Updated 02/01/25 @ 15:41 by Sae JONES, PA) Migraine Surgical History [place] teeth extracted H/O removal of cyst H/O wrist surgery Social History household members: family Smoking Status: Never smoker alcohol intake: never HPI HPI Chief Complaint: Migraine Details: TORRES MILLARD, is a 24 F who presents to the office today for approximately 1 week history of migraine exacerbation of the left side of her head described as moderate aching and having run out of her rizatriptan prescription. She states she has tried to contact her PCPs office several time thoughDr. Michael is not available and therefore is here for evaluation hoping to get her rizatriptan refilled today. She otherwise notes no other complaints at this time. ROS Const Constitutional: No other (As above) Exam Const General: cooperative, healthy appearing and no acute distress Orientation: alert and awake [facility] Head: normal to inspection Ears: hearing grossly normal bilaterally, external ears normal, TM's normal bilaterally and EAC's normal Nose: external nose normal, nares normal, septum normal and no nasal discharge Face and sinus: normal facial exam, sinuses nontender and face symmetric Mouth: oral mucosae normal, lip normal, tongue normal, oropharynx normal and moist mucous membranes Throat: posterior oropharynx normal, tonsils normal, uvula midline and no postnasal drainage Eyes General: appearance normal, both eyes and all related structures Neck Neck: normal visual inspection, full ROM, no lymphadenopathy, no meningeal signsand supple Neck mass: No Thyroid: thyroid normal Lymphatic: no lymphadenopathy noted Chest Chest palpation & inspection: normal inspection of the chest Resp Effort & Inspection: normal respiratory effort and able to speak in complete sentences Auscultation: Bilateral: Clear to Auscultation Cardio Palpation: normal PMI Rate: tachycardic Rhythm: regular rhythm Heart Sounds: S1 normal, S2 normal, no gallops, no murmurs and no rubs Pulses: radial pulses present Skin General: no rashes or lesions noted Neuro General: patient alert, patient awake and patient oriented x3 Cognition: normal cognition Speech: speech normal Psych Appearance: grossly normal Mental Status: mental status grossly normal Mood: congruent mood Affect: normal affect Speech and Movement: speech and movement normal Attitude: cooperative Coding Level of Care Code Off vis,est,level 3 Diagnoses Migraine G43.909 Assessment and Plan Assessment and Plan (1) Migraine: Status: Acute Plan: Rizatriptan as refilled today. Supportive measures as instructed today. Follow-up with PCP in 2 to 3 days should symptoms not improve, ED sooner should symptoms only worsen or any other concerns develop. Patient states acknowledging understanding all the above. This note was generated with CloudFX dictation software. It may contain incorrectwords, spelling, and punctuation that were not noted in checking the note beforesigning. Medications: New rizatriptan 5 mg PO BID PRN 4 tabs 0RF migraine headache 02/01/25 1542 s ROBERT JONES> Date _ Sae JONES Cosigner Signature: Date (if applicable) CC: ~ [facility]07-09-2025 Progress note Author Sae Suarez [facility] Note Date/Time February 01, 2025 3:42p m [facility] [address], [address] [place] [address] OFFICE VISIT Date of Service: 02/01/25 MR#: [id number] Acct: [id number] Name: TORRES MILLARD Rep #: [id number] : 2000 Provider: ROBERT Hooper Age/Sex: 24/F [place] [facility] [place] Status: Signed Intake Vital Signs 10/05/24 14:01 02/01/25 15:27 Height 5 ft 2 in Weight: 249 lb 2 oz BMI 45.6 BP 120/80 120/80 Position Sitting Respiration 18 Pulse 98 101 H Temp 97.8 F 98.3 F Temp Source Oral Oral Pulse Oximetry (%) 98 98 Oxygen Delivery Method room air room air Oxygen Flow Rate (L/min) 0 Intake Visit Reasons: ~~ Chief Complaint: Migraine Accompanied by: Self Allergies amoxicillin Allergy (Verified 02/01/25 15:24) hives Penicillins Allergy (Verified 02/01/25 15:24) Rash Medications ?Medication ?Instructions ?Recorded ?Confirmed ?Type bupropion HCl 300 mg 24 hr tablet, 300 mg PO DAILY Dep ression 10/05/24 10/05/24 History extended release (Wellbutrin XL) ipratropium bromide 42 mcg (0.06 2 spray intranasal TI D PRN 10/05/24 10/05/24 History %) nasal spray levothyroxine 88 mcg tablet 88 mcg PO DAILY Hypothyroi dism 10/05/24 10/05/24 History (Synthroid) liothyronine 5 mcg tablet 5 mcg PO DAILY Hypothyroidis m 10/05/24 10/05/24 History ropinirole 1 mg tablet 1 mg PO DAILY Restless leg s yndrome 10/05/24 10/05/24 History dextroamphetamine-amphetamine ER 1 cap PO QAM 02/01/25 02/01/25 History 10 mg 24hr capsule,extend release rizatriptan 5 mg tablet 5 mg PO BID PRN migraine hea dache 02/01/25 02/01/25 Rx #4 tabs Nurse's Note: Patient has a migraine that has been going on for 1 week. Patient has migraine medication that she gets from her PCP and they haven't refilled it. Patient hasgone 2 days with out her antidepressant. Patient has tried caffeine and excedrin. Patient has been under some stress. [facility] Medical History (Updated 02/01/25 @ 15:41 by ROBERT Dobson) Migraine Surgical History [place] teeth extracted H/O removal of cyst H/O wrist surgery Social History household members: family Smoking Status: Never smoker alcohol intake: never HPI HPI Chief Complaint: Migraine Details: TORRES MILLARD, is a 24 F who presents to the office today for approximately 1 week history of migraine exacerbation of the left side of her head described as moderate aching and having run out of her rizatriptan prescription. She states she has tried to contact her PCPs office several time though Dr. Rodriguez is not available and therefore is here for evaluation hoping to get her rizatriptan refilled today. She otherwise notes no other complaints at this time. ROS Const Constitutional: No other (As above) Exam Const General: cooperative, healthy appearing and no acute distress Orientation: alert and awake HENMT Head: normal to inspection Ears: hearing grossly normal bilaterally, external ears normal, TM's normal bilaterally and EAC's normal Nose: external nose normal, nares normal, septum normal and no nasal discharge Face and sinus: normal facial exam, sinuses nontender and face symmetric Mouth: oral mucosae normal, lip normal, tongue normal, oropharynx normal and moist mucous membranes Throat: posterior oropharynx normal, tonsils normal, uvula midline and no postnasal drainage Eyes General: appearance normal, both eyes and all related structures Neck Neck: normal visual inspection, full ROM, no lymphadenopathy, no meningeal signsand supple Neck mass: No Thyroid: thyroid normal Lymphatic: no lymphadenopathy noted Chest Chest palpation & inspection: normal inspection of the chest Resp Effort & Inspection: normal respiratory effort and able to speak in complete sentences Auscultation: Bilateral: Clear to Auscultation Cardio Palpation: normal PMI Rate: tachycardic Rhythm: regular rhythm Heart Sounds: S1 normal, S2 normal, no gallops, no murmurs and no rubs Pulses: radial pulses present Skin General: no rashes or lesions noted Neuro General: patient alert, patient awake and patient oriented x3 Cognition: normal cognition Speech: speech normal Psych Appearance: grossly normal Mental Status: mental status grossly normal Mood: congruent mood Affect: normal affect Speech and Movement: speech and movement normal Attitude: cooperative Coding Level of Care Code Off vis,est,level 3 Diagnoses Migraine G43.909 Assessment and Plan Assessment and Plan (1) Migraine: Status: Acute Plan: Rizatriptan as refilled today. Supportive measures as instructed today. Follow-up with PCP in 2 to 3 days should symptoms not improve, ED sooner should symptoms only worsen or any other concerns develop. Patient states acknowledging understanding all the above. This note was generated with [employer] software. It may contain incorrectwords, spelling, and punctuation that were not noted in checking the note beforesigning. Medications: New rizatriptan 5 mg PO BID PRN 4 tabs 0RF migraine headache 02/01/25 1542 <Electronically signed by Sae JONES> Date _ Sae JONES Cosigner Signature: Date (if applicable) CC: ~ [facility] [employer] Work Phone: 1(130) [phone] History of Present illness Narrative* Angelica Voss APRN.FAGOTER - 11/21/2023 9:35 AM EDT CC: Patient presents with: Eye Problem: GEOFFREY eyes x2 days HPI: Torres Millard is a 23 year old female who presents to the office with complaint of eye redness and drainage for the past day. Symptoms are staying the same. Associated symptoms includes crusting in the morning . Denies vision changes or eyeball pain. Treatments tried include nothing so far. with no relief of symptoms. Sick contacts: unknown. History of asthma, frequent episodes of bronchitis, chronic bronchitis, bronchiectasis or COPD: No Smoker: No Seasonal/environmental allergies: No The ROS is otherwise negative. The patient's pmh, medications, allergies, and past visits are reviewed. PHYSICAL EXAM: BP 114/74 Pulse 66 Temp 37.1 C (98.7 F) Resp 16 Wt 113.3 kg (249 lb 12.5 oz) LMP 03/14/2023 (Approximate) SpO2 98% BMI 45.69 kg/m General appearance: alert, cooperative, pleasant, in no acute distress Head: Normocephalic Eyes: EOM's intact, conjunctiva pink and moist, no icterus, sclera injected marginal eyelid debris noted Ears: Right ear: External ear/canal- Normal, TM - clear with good landmarks. Left ear: External ear/canal- Normal, TM - clear with good landmarks Oropharynx:moist without lesions, No erythema, exudates or tonsillar hypertrophy. Heart: Negative. RRR without obvious murmur, gallop, or rubs. No ectopy. Lungs: clear to auscultation, without rales or wheeze, good air exchange PAST MEDICAL HISTORY Diagnosis Date ADHD Anxiety and depression BMI 40.0-44.9, adult (HCC) Hypothyroidism PAST SURGICAL HISTORY Procedure Laterality Date EXCISION GANGLION WRIST DORSAL/VOLAR PRIMARY Left 06/06/2020 Excision ganglion cyst left wrist PAST SURGICAL HISTORY OF 05/2017 [place] teeth extraction PAST SURGICAL HISTORY OF prior to age 9 eye muscle surgeries TONSILLECTOMY PRIMARY/SECONDARY <AGE 11 2009 Tonsillectomy ALLERGIES Amoxicillin MEDICATIONS escitalopram oxalate (LEXAPRO) 20 mg tablet Take 1 tablet by mouth every afternoon. Cholecalciferol, Vitamin D3, 125 mcg (5,000 unit) cap Take 1 capsule by mouth once daily. albuterol HFA (PROVENTIL HFA, VENTOLIN HFA) 90 mcg/actuation inhaler Inhale 1-2 Puffs as instructedevery 4 hours. As needed for wheezing/cough. SYNTHROID 50 mcg tablet Take 1 tablet by mouth every afternoon. liothyronine (CYTOMEL) 5 mcg tablet Take 1 tablet by mouth every afternoon. lisdexamfetamine (VYVANSE) 50 mg capsule Take 50 mg by mouth once daily. trimethoprim-polymyxin (POLYTRIM) 10,000 unit- 1 mg/mL ophthalmic solution Use 1 Drop in both eyes every 4 hours for 7 days. FAMILY HISTORY Problem Relation Age of Onset No Known Problems Mother No Known Problems Father Social History Tobacco Use Smoking status: Never Smokeless tobacco: Never Vaping Use Vaping Use: Never used Substance Use Topics Alcohol use: Never Drug use: Never ASSESSMENT/PLAN: 1. [place] eye disease of both eyes - ICD9: 372.03, ICD10: H10.023 - POLYMYXIN B SULFATE 10,000 UNIT-TRIMETHOPRIM 1 MG/ML EYE DROPS Prescription instructions reviewed with patient as applicable. Potential red flag symptoms discussed with the patient. Reviewed appropriate action plan to take if red flag symptoms occur. Patient agreeable to treatment plan. Angelica Voss APRN.CNP [facility] History of Present illness Narrative* Everett Graves RT(R) - 04/25/2023 9:20 AM EDT Radiology Service Progress Note PATIENT NAME: Torres Millard DATE OF SERVICE: April 25, 2023 TIME: 9:35 AM PATIENT IDENTITY VERIFICATION COMPLETED USING TWO (2) IDENTIFIERS: Name and Date of confirmedby patient verbally. FALL SCREENING: Has the patient had 2 falls in the last year or 1 fall with injury or currently using an Ambulatory Assistive Device (Walker, Cane, Wheelchair, Crutches, etc.)? Yes, Patient High Riskfor Falls What interventions were put in place to prevent falls during this visit? Increased Observations by Caregivers PATIENT GENDER DATA: Female. status: : No status: NO. PATIENT RELEVANT IMPLANT DATA REVIEWED: Not Applicable RADIOLOGY DEPARTMENT: General X-ray: Exam(s) Completed: Lower Extremity X- Ray(s): Foot, Right and Wt. Bearing PERIPHERAL IV DATA: Not applicable SIGNED BY: RT Manuela(R) April 25, 2023 9:35 AM documented in this [facility]23 History of Present illness Narrative* Alexander Olea MD - 04/25/2023 9:09 AM EDT Patient presents with: Right foot injury: Rolled ankle/foot x 1 day HPI: Right foot pain: Duration: foot inversion yesterday Location: lateral right foot Character: sharp Radiation: No. Aggravating: standing and walking Relieving: walking with weight on the heel Pain relievers: aleve Associated: bruising, is in therapy for achilles and ankle pain Pertinent negatives: Denies numbness MEDICATIONS: escitalopram oxalate (LEXAPRO) 20 mg tablet Take 1 tablet by mouth every afternoon. Cholecalciferol, Vitamin D3, 125 mcg (5,000 unit) cap Take 1 capsule by mouth once daily. albuterol HFA (PROVENTIL HFA, VENTOLIN HFA) 90 mcg/actuation inhaler Inhale 1-2 Puffs as instructedevery 4 hours. As needed for wheezing/cough. SYNTHROID 50 mcg tablet Take 1 tablet by mouth every afternoon. liothyronine (CYTOMEL) 5 mcg tablet Take 1 tablet by mouth every afternoon. lisdexamfetamine (VYVANSE) 50 mg capsule Take 50 mg by mouth once daily. ALLERGIES: ALLERGIES Allergen Reactions Amoxicillin Rash VITALS: BP 124/86 Pulse 85 Temp 36.8 C (98.3 F) (Right Tympanic) Resp 16 Wt 113.7 kg (250 lb 9.6 oz) LMP 03/14/2023 (Approximate) SpO2 98% BMI 45.84 kg/m PE: Pleasant, in no acute distress. FOOT/ANKLE: right . Mild swelling and ecchymosis present on the lateral foot. No deformity. Range of motion: inversion - is uncomfortable in the foot, eversion - non- painful, anterior hxbrmt-kma-[id number]. painful to bear weight. antalgic gait. Palpation: Medial malleolus non-painful, lateral malleolus non-painful, Dorsal lateral foot - painful, proximal 5th metatarsal painful, posterior calcaneus non-painful, Toes non-tender, 1st and 2nd metatarsals non-tender ASSESSMENT/PLAN: 1. Closed displaced fracture of fifth metatarsal bone of right foot, initial encounter - ICD9: 825.25, ICD10: S92.351A (primary diagnosis) 2. Foot pain, right - ICD9: 729.5, ICD10: M79.671 - XR FOOT GENERAL 3V AP/LAT/OBL RIGHT - proximal 5th metatarsal avulsion fracture with a few mm of displacement. Awaiting final radiology reading but possible Stevenson fracture. - CONSULT TO PODIATRY. She is currently seeing a foot and ankle specialist and will call to make anappointment next week. Placed in crutches from [facility] and advised non-weight bearing. Alexander Olea MD documented in this encounter[facility]23 History of Present illness Narrative* Nancy Jules, TAWANNA.FAGOTER - 04/11/2023 1:34 PM EDT Subjective Sore Throat Associated symptoms include congestion, coughing and shortness of breath. Pertinent negatives include no ear pain or headaches. Torres Millard is a 22 year old female who presents with 5 days of cough, congestion, sorethroat. She has not had a fever. She has been taking theraflu and nyquil at home. Review of Systems Constitutional: Negative for chills and fever. HENT: Positive for congestion and sore throat. Negative for ear pain. Respiratory: Positive for cough, sputum production, shortness of breath and wheezing. Cardiovascular: Negative. Neurological: Negative for headaches. BP 118/80 Pulse 100 Temp 37.1 C (98.7 F) Resp 18 Wt 112.5 kg (248 lb) LMP 04/11/2020 SpO2 99% BMI 45.36 kg/m PAST MEDICAL HISTORY Diagnosis Date ADHD Anxiety and depression BMI 40.0-44.9, adult (HCC) PAST SURGICAL HISTORY Procedure Laterality Date EXCISION GANGLION WRIST DORSAL/VOLAR PRIMARY Left 06/06/2020 Excision ganglion cyst left wrist PAST SURGICAL HISTORY OF 05/2017 [place] teeth extraction PAST SURGICAL HISTORY OF prior to age 9 eye muscle surgeries TONSILLECTOMY PRIMARY/SECONDARY <AGE 11 2010 Tonsillectomy ALLERGIES Amoxicillin MEDICATIONS SYNTHROID 50 mcg tablet Take 1 tablet by mouth every afternoon. liothyronine (CYTOMEL) 5 mcg tablet Take 1 tablet by mouth every afternoon. escitalopram oxalate (LEXAPRO) 10 mg tablet Take 10 mg by mouth once daily. lisdexamfetamine (VYVANSE) 50 mg capsule Take 50 mg by mouth once daily. predniSONE (DELTASONE) 20 mg tablet Take 2 tablets by mouth once daily for 4 days. Take daily with food. benzonatate (TESSALON PERLE) 100 mg capsule Take 2 capsules by mouth three times daily as needed for up to 10 days. meloxicam (MOBIC) 15 mg tablet TAKE 1 TABLET BY MOUTH EVERY DAY FAMILY HISTORY Problem Relation Age of Onset No Known Problems Mother No Known Problems Father Social History Tobacco Use Smoking status: Never Smokeless tobacco: Never Vaping Use Vaping Use: Never used Substance Use Topics Alcohol use: Never Drug use: Never Objective Physical Exam Vitals and nursing note reviewed. Constitutional: Appearance: Normal appearance. HENT: Right Ear: Tympanic membrane, ear canal and external ear normal. Left Ear: Tympanic membrane, ear canal and external ear normal. Nose: Nose normal. Mouth/Throat: Mouth: Mucous membranes are moist. Pharynx: Uvula midline. No oropharyngeal exudate or posterior oropharyngeal erythema. Cardiovascular: Rate and Rhythm: Normal rate and regular rhythm. Heart sounds: Normal heart sounds. Pulmonary: Effort: Pulmonary effort is normal. No respiratory distress. Breath sounds: Normal breath sounds. No wheezing or rales. Musculoskeletal: Cervical back: Neck supple. Lymphadenopathy: Cervical: No cervical adenopathy. Skin: General: Skin is warm and dry. Findings: No erythema or rash. Neurological: Mental Status: She is alert. ASSESSMENT/PLAN: 1. Sore throat - ICD9: 462, ICD10: J02.9 (primary diagnosis) - suspect viral - Group A strep molecular testing negative - Discussed supportive care treatment with fluids, rest and analgesia. - STREP A MOLECULAR (POC) 2. Viral bronchitis - ICD9: 466.0, ICD10: J20.8 - PREDNISONE 20 MG TABLET - BENZONATATE 100 MG CAPSULE - Follow-up with your PCP in 3-5 days if symptoms have not improved or sooner if symptoms worsen - Discussed red flags and need for immediate medical evaluation if any occur. - Discussed supportive care treatment with fluids, rest and analgesia. - Discussed expected course of illness Nancy Jules APRN.MIRANDA documented in this encounter[facility]-2023 Instructions* Patient Instructions* Nancy Jules APRN.FAGOTER - 04/11/2023 1:34 PM EDT ASSESSMENT/PLAN: 1. Sore throat - ICD9: 462, ICD10: J02.9 (primary diagnosis) - suspect viral - Group A strep molecular testing negative - Discussed supportive care treatment with fluids, rest and analgesia. - STREP A MOLECULAR (POC) 2. Viral bronchitis - ICD9: 466.0, ICD10: J20.8 - PREDNISONE 20 MG TABLET - BENZONATATE 100 MG CAPSULE - Follow-up with your PCP in 3-5 days if symptoms have not improved or sooner if symptoms worsen - Discussed red flags and need for immediate medical evaluation if any occur. - Discussed supportive care treatment with fluids, rest and analgesia. - Discussed expected course of illness Nancy Jules APRN.CNP ACUTE BRONCHITIS: You have acute bronchitis. This means the airway passages in your lungs are inflamed. Bronchitis may be caused by viruses or bacteria. Inhaling cigarette smoke will always make it worse. Exposure to irritating chemicals or second hand smoke as well as allergies can contribute to bronchitis. Repeat episodes of bronchitis may cause lifelong lung problems. Acute bronchitis is usually treated with rest, fluids, cough medicine, and possibly antibiotics or inhaled medicine to open up the small airways. It is very important that you avoid smoke and drink increased amounts of fluids. A cool air vaporizer can help thin bronchial secretions. This makes it easier to cough and clear your chest. If you are a cigarette smoker, consider using nicotine gum or skin patches to help you withdraw. Recovery from bronchitis is often slow, but you should start feeling better after 2-3 days of treatment. Please call your doctor or return here if you have any of the following symptoms: Increased fever, chills, or chest pain. Severe shortness of breath or bloody sputum. Do not improve after 3 days of proper treatment. documented in this encounter[facility]-07-2023 Discharge summary Author Lily Santana [facility] April 02, 2023 11:48am Note Date/Time April 02, 2023 11:48am [facility] Physical Therapy [facility] [address] [place] [address]. [address] [place] [address] / REHABILITATION SERVICES DISCHARGE SUMMARY MR#: [id number] Acct: [id number] Name: TORRES MILLARD Rep #: [id number] : 2000 22 From: Lily Jenkins Referring DrCyn: Status: REG RCR Insurance: [facility] [id number] SELF PAY INSURANCE Discharge Summary D/C summary: It has been my pleasure to treat TORRES MILLARD referred by LIANNA DRISCOLL, with the diagnosis of Achilles Tendonitis for a total of 2 visit(s). Discharge Date: Please see the following information for a summary of their discharge status. Subjective Subjective: She tried a pair of [place] Ghost- she had more heel pain with them- the calf pain has subsided but the achilles pain has more localized. There is too much pain with all the exercises. She feels that she can do shorter amountsof the exercises. She is now in [place] Glycerine and she likes them much better. The heel pain starts at about 3 hours standing at work. She is not wearing the inserts at work. Last couple of days heel pain has been a 4/10. She has been doing some cupping to the back of her leg and that has been helping. Overall Improvement % Improvement: 60 Objective Objective/Function: Posture: FH, RS- can correct with verbal cues but does not maintain Gait: no deviation noted no pain Observation: no pes planus noted in shoes - [place] Glycerine HR/TR: able but does require UE A SLS: 15 seconds sec Palpation: tender along Achilles- no pain along gastroc ROM: DF: 15 degrees, PF: 60 degrees, Inver: 30 deg, Ever: 30 deg, Strength: 5/5 throughout Flex: Gastroc: mod, Soleus: mod Goals Goal 1:: Patient will be I with HEP and progression Goal Progress: Goal Met Goal 2:: Patient will SLS for 15 sec without LOB Goal Progress: Goal Met Goal 3:: Patient will report 80% improvement Goal Progress: Progressing Plan Plan: 04/02/23: Discharge to HEP Hold 4 weeks- will do below HEP and get good shoes- encouraged to call if issuesarise prior to the 4 week follow up HEP Given IE: Stretching, Shoes, Arch Supports, HR/TR, SLS D/C Information d/c sentence: If there are questions or concerns regarding this patient's physical therapy, please feel free to call me at [phone]. Thank you for the referral of thispatient. Sincerely, Lily Santana, DPT Balance/Gait/Functional tests Balance/Special Test Scores Lower Extremity Functional Score: 69 Improvement % Improvement: 60 <Electronically signed by Lily Santana DPT> 04/02/23 1148 CC: LIANNA DRISCOLL; Rosa García, DO ~ ELR Signed [facility] Work Phone: 1(711) 495-646110-31-2022 History of Present illness Narrative* TORRES is here today alone. * Associated Symptoms: * Started 3 days ago with body aches, chills, sore throat, headaches, now feels that something is stuck in her throat * Occasional cough, no runny nose, no fever that she is aware of * She is taking her vyvanse and escitalopram and will need another refill of vyvanse before she switches providers in [place] [facility] Work Phone: [phone]) 457-851606-01-2021 History of Present illness Narrative* TORRES is here today alone. * Associated Symptoms: * I have personally reviewed the OARRS report for TORRES MILLARD. I have considered the risks of abuse, dependence, addiction and diversion. * Last urine drug screening date/ordered today: 12-25-2020 * Controlled Substance Agreement: * I have printed this form and reviewed each line item with the patient and the patient has verbalized understanding. * Date of the last Controlled Substance Agreement: 12-25-2020 * Here for medication follow up. * She is on vyvanse 50 mg (which she states she took about 2 hours ago) and escitalopram 10 mg. * She usually takes every day - occasionally misses dose * She feels that her focus is fine on it and her mood is fine. She is not feeling anxious * She continues to work at her same job and recently putting in more hours. * She is sleeping and eating fine * She denies drug use, occasional alcohol use but does not take her med that day. * No concerns today. [facility] Work Phone: Evaluation note* Diagnosis Onset Date Resolution Status Dog bite of finger acute Injury of left index finger acute Dog bite of finger acute Injury of left index finger acute Ganglion cyst of volar aspect of right wrist acute Ganglion cyst of volar aspect of right wrist acute [facility] Work Phone: Evaluation noteNo assessment information available [facility] Work Phone: Evaluation note* Diagnosis Onset Date Resolution Status H/O wrist surgery acute Poison rosita dermatitis acute [facility] Work Phone: Evaluation note* Diagnosis Sore throat- Primary Acute pharyngitis Viral bronchitis Acute bronchitis [facility]* Diagnosis Closed displaced fracture of fifth metatarsal bone of right foot, initial encounter- Primary Foot pain, right Pain in limb [facility] Diagnosis [place] eye disease of both eyes- Primary [facility]* Diagnosis Preop examination- Primary Preoperative examination, unspecified Ganglion of left wrist Ganglion of joint BMI 40.0-44.9, adult (HCC) Body Mass Index 40.0-44.9, adult Foot pain, right Pain in limb documented [facility] encounter [facility]* Diagnosis Onset Date Resolution Status Admit Date Migraine acute February 01, 2025 3:21pm [facility] Work Phone: Evaluation note* Diagnosis Preop examination- Primary Preoperative examination, unspecified Ganglion of left wrist Ganglion of joint BMI 40.0-44.9, adult (HCC) Body Mass Index 40.0-44.9, adult Pain in joint involving right ankle and foot- Primary Pain in joint involving right ankle and foot [facility]* Diagnosis Preop examination- Primary Preoperative examination, unspecified Ganglion of left wrist Ganglion of joint BMI 40.0-44.9, adult (HCC) Body Mass Index 40.0-44.9, adult Pain in joint involving right ankle and foot documented in this encounter [facility] illness Narrative* The patient is here today for routine health maintenance with: mother * . mother waited outside of room. * General Health: Child overall is in good health. * Concerns: Concerns were raised today see discussion below. * Nutrition: Diet is balanced. Calcium source is adequate. * Dental Care: Has a dental home. Dental hygiene is regularly performed. * Sleep: Sleep patterns are appropriate. * Behavior/Socialization: Peer relationships are appropriate. Eats meals with family. Ffzssx-zrmse-vflerul interactions are normal. Has a supportive adult relationship. Is permitted to make independentdecisions. Child has responsibilities and/or chores. Lives with parents. 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 * Activities: TORRES engages in regular physical activity. She participates in extracurricular activities, hobbies or interests. Screen time/media use is limited. enjoys crafting, hangs out with friends. * Menstrual Status: Periods are regular. No menstrual abnormalities. LMP - 2 weeks ago. * Sex: Not currently dating. * Drugs (Substance use/abuse): Denies drug use. Denies tobacco use. Drinks alcohol. occasional alcohol. * Mental Health: A screening questionnaire for depression was negative. Displays self confidence. Hasways to cope with stress. Does not have thoughts of hurting self or has considered suicide. Does not express concerning mental health symptoms. * Safety: Uses safety belts or equipment. Drives without distractions. Uses sunscreen. Uses a helmet.Has nonviolent peer relationships. Lives in a nonviolent home. Water safety reviewed and practiced. * I have personally reviewed the OARRS report for TORRES MILLARD. I have considered the risks of abuse, dependence, addiction and diversion. * Date of the last Controlled Substance Agreement: 12-25-2020 * Still occasionally has pain with her left wrist of ganglion cyst surgery. She saw ortho in January andhe gave a cortisone shot and meloxacam. It did help some but still has discomfort. She does not usethe meloxicam very often * Right ear feels like there is fluid. Has not been taking her allergy pill * Had covid vaccine 10-25-2020 and 11-22-2020 * On vyvanse 50 mg and feels that she is focused. She is working a lot more hours now due to holiday season. * She would like to increase the escitalopram because she does feel some anxiety and mild depression.Difficult at home sometimes with her autistic twin brother. She is also considering counselling [facility] Work Phone: History of Present illness Narrative* The patient is here today for routine health maintenance with: mother * . mother waited outside of room. * General Health: Child overall is in good health. * Concerns: Concerns were raised today see discussion below. * Nutrition: Diet is balanced. Calcium source is adequate. * Dental Care: Has a dental home. Dental hygiene is regularly performed. * Sleep: Sleep patterns are appropriate. * Behavior/Socialization: Peer relationships are appropriate. Eats meals with family. Vvpmfl-vnrhw-karskkl interactions are normal. Has a supportive adult relationship. Is permitted to make independentdecisions. Child has responsibilities and/or chores. Lives with parents. 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 * Activities: TORRES engages in regular physical activity. She participates in extracurricular activities, hobbies or interests. Screen time/media use is limited. enjoys crafting, hangs out with friends. * Menstrual Status: Periods are regular. No menstrual abnormalities. LMP - 2 weeks ago. * Sex: Not currently dating. * Drugs (Substance use/abuse): Denies drug use. Denies tobacco use. Drinks alcohol. occasional alcohol. * Mental Health: A screening questionnaire for depression was negative. Displays self confidence. Hasways to cope with stress. Does not have thoughts of hurting self or has considered suicide. Does not express concerning mental health symptoms. * Safety: Uses safety belts or equipment. Drives without distractions. Uses sunscreen. Uses a helmet.Has nonviolent peer relationships. Lives in a nonviolent home. Water safety reviewed and practiced. * I have personally reviewed the OARRS report for TORRES MILLARD. I have considered the risks of abuse, dependence, addiction and diversion. * Last urine drug screening date/ordered today: 12-25-2020 * Date of the last Controlled Substance Agreement: 12-25-2020 * Still occasionally has pain with her left wrist of ganglion cyst surgery. She saw ortho in January andhe gave a cortisone shot and meloxacam. It did help some but still has discomfort. She does not usethe meloxicam very often * Right ear feels like there is fluid. Has not been taking her allergy pill * Had covid vaccine 4-1-2021 and 11-22-2020 * On vyvanse 50 mg and feels that she is focused. She is working a lot more hours now due to holiday season. * She would like to increase the escitalopram because she does feel some anxiety and mild depression.Difficult at home sometimes with her autistic twin brother. She is also considering counselling [facility] Work Phone: History of Present illness Narrative* TORRES is accompanied today by her mother. * Associated Symptoms: * I have personally reviewed the OARRS report for TORRES MILLARD. I have considered the risks of abuse, dependence, addiction and diversion. * Controlled Substance Agreement: * I have printed this form and reviewed each line item with the patient and the patient has verbalized understanding. * Date of the last Controlled Substance Agreement: 12-18-2021 * Accompanied by mom who is also historian * Here for medication follow up * On vyvanse 50 mg and escitalopram 20 mg * She feels focused and feels that her anxiety is under control * She continues to work 25 hrs per week * Mom stated she and her brother argue sometimes but overall going well. * She finished up OT for her left hand from ganglion surgery * Yesterday she got bit by her dog on her left index finger at second digit when she was trying to separate it from their new dog and they were fighting. It was unintentional. The dog is up to date with vaccines and Torres is too. They cleaned it well with hibiclens and antibiotic ointment. Still hassome swelling and it is hard to move her finger -[facility] Work Phone: Reason for referral (narrative)* Diagnostic Procedure Only (Urgent) - Closed Specialty Diagnoses / Procedures Referred By Contac t Referred To Contact XR IMAGING Diagnoses Foot pain, right Procedures XR FOOT GENERAL 3V AP/LAT/OBL RIGHT RADEX FOOT COMPLETE MINIMUM 3 VIEWS Alexander lOea MD [address] [place] [address] [place] [address] Referral ID Status Reason Start Date Expiration Date V isits Requested Visits Authorized [id number] Closed Auto-Generate d Referral 04/25/2023 05/24/2024 1 1 [facility] for referral (narrative)No reason for referral information [facility] Work Phone: Reason for visit Narrative* Diagnostic Procedure Only (Urgent) - Closed Specialty Diagnoses / Procedures Referred By Contac t Referred To Contact XR IMAGING Diagnoses Foot pain, right Procedures XR FOOT GENERAL 3V AP/LAT/OBL RIGHT RADEX FOOT COMPLETE MINIMUM 3 VIEWS Alexander Olea MD [address] [place] [address] [place] [address] Referral ID Status Reason Start Date Expiration Date V isits Requested Visits Authorized [id number] Closed Auto-Generate d Referral 04/25/2023 05/24/2024 1 1 [facility] for visit Narrative* Diagnostic Procedure Only (Urgent) - Closed Specialty Diagnoses / Procedures Referred By Contac t Referred To Contact XR IMAGING Diagnoses Pain in joint involving right ankle and foot Procedures XR FOOT GENERAL 3V AP/LAT/OBL RIGHT RADEX FOOT COMPLETE MINIMUM 3 VIEWS Emmett Luciano APRN.FAGOTER [address] [place] [address] Phone: tel: fax: [place] [address] Referral ID Status Reason Start Date Expiration Date V isits Requested Visits Authorized [id number] Closed Auto-Generate d Referral 04/03/2025 05/03/2026 1 1 [facility] Summary Purpose Family History No Family History Records Found Mother Name Dates Details Family history of hypertensi on(V17.49, Z82.49) Status:Active Family history of anemia(V18 .2, Z83.2) Status:Active Family history of asthma(V17 .5, Z82.5) Status:Active Family history of Seasonal a llergies(477.9, J30.2) Status:Active Father Name Dates Details Family history of hypertensi on(V17.49, Z82.49) Status:Active Family history of asthma(V17 .5, Z82.5) Status:Active Family history of Seasonal a llergies(477.9, J30.2) Status:Active Brother Name Dates Details Family history of Autism spe ctrum disorder(299.00, F84.0) Status:Active Family history of attention deficit hyperactivity disorder(V17.0, Z81.8) Status:Active Unknown Family Member Name Dates Details Family history of hypertensi on: Mother, Father(V17.49, Z82.49) Status:Active Family history of anemia: Mo ther(V18.2, Z83.2) Status:Active Family history of asthma: Mo ther, Father(V17.5, Z82.5) Status:Active Autism spectrum disorder: Br other Status:Active Family history of attention deficit hyperactivity disorder: Brother(V17.0, Z81.8) Status:Active Seasonal allergies: Mother, Father Status:Active Unknown Family Member Name Dates Details Family history of hypertensi on: Mother, Father(V17.49, Z82.49) Status:Active Family history of anemia: Mo ther(V18.2, Z83.2) Status:Active Family history of asthma: Mo ther, Father(V17.5, Z82.5) Status:Active Autism spectrum disorder: Br other Status:Active Family history of attention deficit hyperactivity disorder: Brother(V17.0, Z81.8) Status:Active Seasonal allergies: Mother, Father Status:Active Unknown Family Member Name Dates Details Family history of hypertensi on: Mother, Father(V17.49, Z82.49) Status:Active Family history of anemia: Mo ther(V18.2, Z83.2) Status:Active Family history of asthma: Mo ther, Father(V17.5, Z82.5) Status:Active Autism spectrum disorder: Br other Status:Active Family history of attention deficit hyperactivity disorder: Brother(V17.0, Z81.8) Status:Active Seasonal allergies: Mother, Father Status:Active Unknown Family Member Name Dates Details Family history of hypertensi on: Mother, Father(V17.49, Z82.49) Status:Active Family history of anemia: Mo ther(V18.2, Z83.2) Status:Active Family history of asthma: Mo ther, Father(V17.5, Z82.5) Status:Active Autism spectrum disorder: Br other Status:Active Family history of attention deficit hyperactivity disorder: Brother(V17.0, Z81.8) Status:Active Seasonal allergies: Mother, Father Status:Active Unknown Family Member Name Dates Details Family history of hypertensi on: Mother, Father(V17.49, Z82.49) Status:Active Family history of anemia: Mo ther(V18.2, Z83.2) Status:Active Family history of asthma: Mo ther, Father(V17.5, Z82.5) Status:Active Autism spectrum disorder: Br other Status:Active Family history of attention deficit hyperactivity disorder: Brother(V17.0, Z81.8) Status:Active Seasonal allergies: Mother, Father Status:Active Unknown Family Member Name Dates Details Family history of hypertensi on: Mother, Father(V17.49, Z82.49) Status:Active Family history of anemia: Mo ther(V18.2, Z83.2) Status:Active Family history of asthma: Mo ther, Father(V17.5, Z82.5) Status:Active Autism spectrum disorder: Br other Status:Active Family history of attention deficit hyperactivity disorder: Brother(V17.0, Z81.8) Status:Active Seasonal allergies: Mother, Father Status:Active Unknown Family Member Name Dates Details Family history of hypertensi on: Mother, Father(V17.49, Z82.49) Status:Active Family history of anemia: Mo ther(V18.2, Z83.2) Status:Active Family history of asthma: Mo ther, Father(V17.5, Z82.5) Status:Active Autism spectrum disorder: Br other Status:Active Family history of attention deficit hyperactivity disorder: Brother(V17.0, Z81.8) Status:Active Seasonal allergies: Mother, Father Status:Active Unknown Family Member Name Dates Details Family history of hypertensi on: Mother, Father(V17.49, Z82.49) Status:Active Family history of anemia: Mo ther(V18.2, Z83.2) Status:Active Family history of asthma: Mo ther, Father(V17.5, Z82.5) Status:Active Autism spectrum disorder: Br other Status:Active Seasonal allergies: Mother, Father Status:Active Family history of attention deficit hyperactivity disorder: Brother(V17.0, Z81.8) Status:Active Unknown Family Member Name Dates Details Family history of hypertensi on: Mother, Father(V17.49, Z82.49) Status:Active Family history of anemia: Mo ther(V18.2, Z83.2) Status:Active Family history of asthma: Mo ther, Father(V17.5, Z82.5) Status:Active Autism spectrum disorder: Br other Status:Active Family history of attention deficit hyperactivity disorder: Brother(V17.0, Z81.8) Status:Active Seasonal allergies: Mother, Father Status:Active Unknown Family Member Name Dates Details Family history of hypertensi on: Mother, Father(V17.49, Z82.49) Status:Active Family history of anemia: Mo ther(V18.2, Z83.2) Status:Active Family history of asthma: Mo ther, Father(V17.5, Z82.5) Status:Active Autism spectrum disorder: Br other Status:Active Family history of attention deficit hyperactivity disorder: Brother(V17.0, Z81.8) Status:Active Seasonal allergies: Mother, Father Status:Active Unknown Family Member Name Dates Details Family history of hypertensi on: Mother, Father(V17.49, Z82.49) Status:Active Family history of anemia: Mo ther(V18.2, Z83.2) Status:Active Family history of asthma: Mo ther, Father(V17.5, Z82.5) Status:Active Autism spectrum disorder: Br other Status:Active Family history of attention deficit hyperactivity disorder: Brother(V17.0, Z81.8) Status:Active Seasonal allergies: Mother, Father Status:Active Unknown Family Member Name Dates Details Family history of hypertensi on: Mother, Father(V17.49, Z82.49) Status:Active Family history of anemia: Mo ther(V18.2, Z83.2) Status:Active Family history of asthma: Mo ther, Father(V17.5, Z82.5) Status:Active Autism spectrum disorder: Br other Status:Active Family history of attention deficit hyperactivity disorder: Brother(V17.0, Z81.8) Status:Active Seasonal allergies: Mother, Father Status:Active Unknown Family Member Name Dates Details Family history of hypertensi on: Mother, Father(V17.49, Z82.49) Status:Active Family history of anemia: Mo ther(V18.2, Z83.2) Status:Active Family history of asthma: Mo ther, Father(V17.5, Z82.5) Status:Active Autism spectrum disorder: Br other Status:Active Family history of attention deficit hyperactivity disorder: Brother(V17.0, Z81.8) Status:Active Seasonal allergies: Mother, Father Status:Active Unknown Family Member Name Dates Details Family history of hypertensi on: Mother, Father(V17.49, Z82.49) Status:Active Family history of anemia: Mo ther(V18.2, Z83.2) Status:Active Family history of asthma: Mo ther, Father(V17.5, Z82.5) Status:Active Autism spectrum disorder: Br other Status:Active Family history of attention deficit hyperactivity disorder: Brother(V17.0, Z81.8) Status:Active Seasonal allergies: Mother, Father Status:Active Unknown Family Member Name Dates Details Family history of hypertensi on: Mother, Father(V17.49, Z82.49) Status:Active Family history of anemia: Mo ther(V18.2, Z83.2) Status:Active Family history of asthma: Mo ther, Father(V17.5, Z82.5) Status:Active Autism spectrum disorder: Br other Status:Active Family history of attention deficit hyperactivity disorder: Brother(V17.0, Z81.8) Status:Active Seasonal allergies: Mother, Father Status:Active Advance Directives No Advanced Directives Records FoundNo Advanced Directives Records FoundNo Advanced Directives Records FoundNo Advanced Directives Records FoundNo Advanced Directives Records Found Chief Complaint medication F/U20 yr well medication F/U20 yr well medication F/Umedication F/U sore throat, fever, and chills Chief Complaint and Reason for Visit Chief Complaint Admit Date migraine x 1 wk February 01, 2025 3:21p m Reason for Visit Admit Date Migraine February 01, 2025 3:21p m Chief Complaint Lt Hand xray lt hand RIGHT HAND xray RIGHT WRIST CYST right hand Reason for Visit Dog bite of finger Injury of left index finger Dog bite of finger Injury of left index finger Ganglion cyst of volar aspect of right wrist Ganglion cyst of volar aspect of right wrist Chief Complaint EORDER Chief Complaint EORDER HYPOTHYROIDISM Chief Complaint EORDER HYPOTHYROIDISM ALLERGIC REACTION Reason for Visit H/O wrist surgery Poison rosita dermatitis Chief Complaint HYPOTHYROIDISM ALLERGIC REACTION R ACHILLES TENDONITIS PT HAS RX Reason for Visit H/O wrist surgery Poison rosita dermatitis Chief Complaint HYPOTHYROIDISM ALLERGIC REACTION R ACHILLES TENDONITIS PT HAS RX NODULES Reason for Visit H/O wrist surgery Poison rosita dermatitis Chief Complaint R ACHILLES TENDONITI S PT HAS RX NODULES Chief Complaint Admit Date R EAR PAIN October 05, 2024 1:5 1pm migraine x 1 wk February 01, 2025 3:21p m Chief Complaint Admit Date migraine x 1 wk February 01, 2025 3:21p m RIGHT FOOT April 11, 2025 8:36am Room 1 April 11, 2025 8:49am Reason for Visit Admit Date Migraine February 01, 2025 3:21p m Right foot pain April 11, 2025 8:36am Reason for Visit Admit Date Migraine February 01, 2025 3:21p m Right foot pain April 11, 2025 8:36am Stress reaction of bone April 11, 2025 8:36am Reason for Referral Specialty Diagnoses / Procedures Referred By Adolfo t Referred To Contact Podiatry Diagnoses Closed displaced fracture of fifth metatarsal bone of right foot, initial encounter Procedures CONSULT TO PODIATRY OFFICE/OUTPATIENT [facility] 60-74 MINUTES Alexander Olea MD [address] [place] [id number] Referral ID Status Reason Start Date Expiration Date Visits Requested Visits Authorized [id number] Authorized PCP Requested Referral 04/25/2023 04/24/2024 1 1 Specialty Diagnoses / Procedures Referred By Adolfo t Referred To Contact XR IMAGING Diagnoses Foot pain, right Procedures XR FOOT GENERAL 3V AP/LAT/OBL RIGHT RADEX FOOT COMPLETE MINIMUM 3 VIEWS Alexander Olea MD [facility] [place] [address] [place] [address] Referral ID Status Reason Start Date Expiration Date V isits Requested Visits Authorized [id number] Closed Auto-Generate d Referral 04/25/2023 05/24/2024 1 1 Additional Source Comments INFORMATION SOURCE (unrecogn ized section and content) DATE CREATED AUTHOR 06/11/2020 [facility] DATE CREATED AUTHOR AUTHOR'S ORGANIZ ATION 05/29/2022 [facility] DATE CREATED AUTHOR AUTHOR'S ORGANIZ ATION 05/29/2022 [employer] DATE CREATED AUTHOR AUTHOR'S ORGANIZ ATION 04/09/2025 [facility] DATE CREATED AUTHOR AUTHOR'S ORGANIZ ATION 04/12/2025 [facility] Goals (unrecognized section and content) Goals may be documented in a n alternate sectionGoals may be documented in an alternate sectionGoals may be documented in an alternate sectionGoals may be documented in an alternate sectionGoals may be documented in an alternate sectionGoals may be documented in an alternate sectionGoals may be documented in an alternate sectionGoals may be documented in an alternate sectionGoals may be documented in an alternate sectionGoals may be documented in an alternate sectionGoals may be documented in an alternate sectionGoals may be documented in an alternate sectionGoals may be documented in an alternate sectionGoals may be documented in an alternate sectionGoals may be documented in an alternate sectionGoals may be documented in an alternate section Care Teams (unrecognized sec tion and content) Team Status: Active Member Role Status Dates Dr. Ana Rosa MD Family Provider Active Rosa García DO Primary Care Provider Active Team Status: Inactive Member Role Status Dates Rosa García DO Primary Care Provi mayo, Attending Provider, Referring Provider Active Team Status: Inactive Member Role Status Dates Rosa García DO Primary Care Provider, Attending Provider Active Team Status: Active Member Role Status Dates Rosa García DO Primary Care Provi mayo, Attending Provider, Referring Provider Active Team Status: Active Member Role Status Dates oRsa García DO Primary Care Provider, Attending Provider Active Team Status: Inactive Member Role Status Dates Rosa García DO Primary Care Provider, Referring Provider Active ROBERT Harper Attending Provider Active Team Status: Active Member Role Status Dates Rosa García DO Primary Care Provider Active LIANNA, EXTEN Attending Provider, Referring Provider Ac tive Team Status: Inactive Member Role Status Dates Rosa García DO Primary Care Provider Active LIANNA, EXTEN Attending Provider, Referring Provider Ac tive Financial Systems Analyst Relationship Specialty Start Date End Date Ana Chavez [address] [address] PCP - General Pediatrics 08/07/16 Financial Systems Analyst Relationship Specialty Start Date End Date Ana Chavez [address] [place] [address] PCP - General Pediatrics 08/07/16 Financial Systems Analyst Relationship Specialty Start Date End Date Aan Chavez [address] [place] [address] PCP - General Pediatrics 08/07/16 Team Status: Active Member Role/Relationship Status Dates Dr. Ana Rosa MD Family Provider Active Francine Rodriguez MD Primary Care Provider Active Team Status: Inactive Member Role/Relationship Status Dates Francine Rodriguez MD Primary Care Provider Active St art: October 05, 2024 End: October 05, 2024 Francine Rodriguez MD Referring Provider Active Start : October 05, 2024 End: October 05, 2024 Sae JONES PA Attending Provider Active Start: October 05, 2024 End: October 05, 2024 Team Status: Inactive Member Role/Relationship Status Dates Francine Rodriguez MD Primary Care Provider Active St art: February 01, 2025 End: February 01, 2025 Francine Rodriguez MD Referring Provider Active Start : February 01, 2025 End: February 01, 2025 Sae JONES PA Attending Provider Active Start: February 01, 2025 End: February 01, 2025 Team Status: Inactive Member Role/Relationship Status Dates Francine Rodriguez MD Primary Care Provider Active St art: February 01, 2025 End: February 01, 2025 Francine Rodriguez MD Referring Provider Active Start : February 01, 2025 End: February 01, 2025 Sae JONES PA Attending Provider Active Start: February 01, 2025 End: February 01, 2025 Team Status: Inactive Member Role/Relationship Status Dates Francine Rodriguez MD Primary Care Provider Active St art: March 16, 2025 End: March 16, 2025 Francine Rodriguez MD Attending Provider Active Start : March 16, 2025 End: March 16, 2025 Francine Rodriguez MD Referring Provider Active Start : March 16, 2025 End: March 16, 2025 Financial Systems Analyst Relationship Specialty Start Date End Date Ana Chavez [address] [place] [address] PCP - General Pediatrics 08/07/16 Financial Systems Analyst Relationship Specialty Start Date End Date Ana Chavez [address] [place] [address] PCP - General Pediatrics 08/07/16 Team Status: Active Member Role/Relationship Status Micaela Rodriguez MD Primary Care Provider Active Team Status: Active Member Role/Relationship Status Micaela Rodriguez MD Primary Care Provider Active St art: April 11, 2025 Francine Rodriguez MD Referring Provider Active Start : April 11, 2025 Hussain Duval MD Attending Provider Active St art: April 11, 2025 Team Status: Inactive Member Role/Relationship Status Micaela Rodriguez MD Primary Care Provider Active St art: April 11, 2025 End: April 11, 2025 Dr. Shemar Mcconnell MD Attending Provider Active S tart: April 11, 2025 End: April 11, 2025 Team Status: Inactive Member Role/Relationship Status Micaela Rodriguez MD Primary Care Provider Active St art: April 11, 2025 End: April 11, 2025 Francine Rodriguez MD Referring Provider Active Start : April 11, 2025 End: April 11, 2025 Hussain Duval MD Attending Provider Active St art: April 11, 2025 End: April 11, 2025 Source Comments (unrecognize d section and content) In the event this informatio n is protected by the Federal Confidentiality of Alcohol and Drug Abuse Patient Records regulations: The Federal rules restrict any use of the information to criminally investigate or prosecute any alcohol or drug abuse patient.[facility] Center[facility] the event this information is protected by the Federal Confidentiality of Alcohol and Drug Abuse Patient Records regulations: The Federal rules restrict any use of the information to criminally investigate or prosecute any alcohol or drug abuse patient.[facility] CenterIn the event this information is protected by the Federal Confidentiality of Alcohol and Drug Abuse Patient Records regulations: The Federal rules restrict any use of the information to criminally investigate or prosecute any alcohol or drug abuse patient.[facility] CenterIn the event this information is protected by the Federal Confidentiality of Alcohol and Drug Abuse Patient Records regulations: The Federal rules restrict any use of the information to criminally investigate or prosecute any alcohol or drug abuse patient.[facility] CenterIn the event this information is protected by the Federal Confidentiality of Alcohol and Drug Abuse Patient Records regulations: The Federal rules restrict any use of the information to criminally investigate or prosecute any alcohol or drug abuse patient.[facility] CenterIn the event this information is protected by the Federal Confidentiality of Alcohol and Drug Abuse Patient Records regulations: The Federal rules restrict any use of the information to criminally investigate or prosecute any alcohol or drug abuse patient.[facility] Reason for Visit (unrecogniz ed section and content) Reason Comments Sore Throat With cough Reason Comments Right foot injury Rolled ankle/foot x 1 day Reason Comments Eye Problem GEOFFREY eyes x2 days Reason Comments Minor Injuries (Sprains, Str ains, Minor Joint Pain) Right foot - Entered by patient Pain (foot) right x 4 days, shannon es injury but previous fracture FOR RECORDS PERTAINING TO PATIENTS WHO ARE OR HAVE BEEN ENROLLED IN A CHEMICAL DEPENDENCY/SUBSTANCEABUSE PROGRAM, SOME INFORMATION MAY BE OMITTED. This clinical summary was aggregated from multiple sources. Caution should be exercised in using it in the provision of clinical care. This summary normalizes information from multiple sources, and as a consequence, information in this document may materially change the coding, format and clinical context of patient data. In addition, data may be omitted in some cases. CLINICAL DECISIONS SHOULD BE BASED ON THE PRIMARY CLINICAL RECORDS. [facility]. provides no warranty or guarantee of the accuracy or completeness of information in this document.
[2025-04-15 17:26] VITALS: BP 118/78; PULSE 66; RESP 16; TEMP 36.3; O2SAT 99
== END 2025-04-15 17:45 | disposition home or self-care (01) ==
PROVIDERS: Emergency Provider Emergency Medicine; PCP Family Medicine; Visit Provider Emergency Medicine
DX: S83.412A Sprain of medial collateral ligament of left knee, initial encounter (principal); M70.52 Other bursitis of knee, left knee; V00.141A Fall from scooter (nonmotorized), initial encounter
CPT/HCPCS: 73562; 99283

== ENCOUNTER → 2025-06-05 | Outpatient (CLI) | payer OTHER, SELFPAY ==
--- NOTE | 2025-06-05 06:52 | MRI_ITS ---
PROCEDURE: LOWER EXT JOINT ONLY (ROUTINE) 06/05/2025 REASON FOR EXAM: KNEE INSTABILITY TECHNIQUE: Procedure Code: MRILEJ Modality: MR Procedure: LOWER EXT JOINT ONLY (ROUTINE) Multiplanar and multisequence images were obtained without IV contrast administration. COMPARISON: 15-Apr-2025 CR FINDINGS: The anterior cruciate ligament shows interstitial edema signal with ill definition of its femoral attachment and sagging of its fibers. The medial collateral ligament shows increased signal with surrounding edema and fluid signal. The posterior cruciate ligament appears intact. The lateral collateral ligament is intact. The medial and lateral patellar retinacula are intact. The patellar ligament tendon is unremarkable. The body, anterior and posterior horns of the lateral meniscus show loss of its normal bowtie appearance with complex increased signal intensity interrupting its articular surfaces associated with medially displaced meniscal fragment The posterior horn of the lateral meniscus shows high signal not interrupting its articular surfaces. Moderate knee joint effusion with mild synovial thickening. Subcortical marrow edema of the posterior aspect of the medial tibial condyle with pseudocystic changes. Focal marrow edema of the posterior aspect of the lateral tibial condyle with related low signal line. Medila femoral condyle faint marrow edema noted. Subtle intrasubstance high signal of the patellar cartilage with no related subcortical marrow edema. No marrow infiltrative lesions. Normal appearance of the examined muscles. Subcutaneous soft tissue edema of the anteromedial aspect of the knee. MRI/Lower Ext Joint Only (Routine) IMPRESSION: Torn anterior cruciate ligament. Grade II injury of the medial collateral ligament. Bucket handle tear of the lateral meniscus. Grade I signal of the posterior horn of the medial meniscus. Tibial and medial femoral condyles trabecular injuries with tibial microtrabecu lar fracture. Grade I patellar chondromalacia. Moderate knee joint effusion. Reading [facility]
--- OUTSIDE RECORDS SUMMARY | 2025-06-05 07:07 | XMS RPT_ITS | CCD ---
Author Organization [facility] Care Team Providers Care Retoucher Photoengraving Name Role Phone Kenia Noble Unavailable Unavailable Ladan Mcdonald Unavailable Unavailab Ana Powell Unavailable Ana Garcia Unavailable Unavailable Unavailable Unavailable Unavailable Dr. Ana Rosa Primary Care Provider [phone] Dr. Ana Rosa Referring Provider ROBERT Jensen Attending Provider [phone] Shemar Mcconnell Attending Provider Dr. Ana Rosa Primary Care Unavailable Kenia Noble Attending Kenia Allen Referring UnavailDr. Ana Matthews Primary Care Unavailable Kenia Noble Attending Kenia Allen Referring UnavailKenia Stearns Attending Kenia Allen Referring UnavailDr. Ana Matthews Primary Care Unavailable DO Rosa García Primary Care Provider [phone] DO Rosa García Referring Provider ROBERT Mccall Attending Provider Ana Chavez Primary Care Provider Ana Chavez Primary Care Provider Michael AYALA, Francine Primary Care Provider Michael AYALA, Francine Referring Provider Sae Panda Attending Provider Michael AYALA, Francine Primary Care Provider Michael AYALA, Francine Referring Provider Sae Panda Attending Provider Michael AYALA, Francine Attending Provider EMMETT LUCIANO Referring Unavailable ANA CHAVEZ Primary Care Unavailabl EMMETT Farrar Attending Unavailable ANA CHAVEZ Primary Care UnavailHussain Pollard MD Attending Provider Enedina AYALA, Dr. Staton Attending Provider Francine Rodriguez MD Primary Care Physician Sae Panda Attending Physician Francine Rodriguez MD Attending Physician Hussain Duval MD Attending Physician Enedina AYALA, Dr. Staton Attending Physician Alden AYALA, Dr. Guevara Attending Physician [phone] Ismael Ruano MD Emergency Department Physician Otf INCUBATOR OPERATOR-CKrystyna Attending Physician Otf INCUBATOR OPERATOR-CKrystyna Referring Provider Michael, Chalon Primary Care Unavailable Michael, Chalon Referring Unavailable Krystyna Vanessa Attending Unavailable Michael, Chalon Primary Care Unavailable Krystyna Vanessa Attending Unavailable Krystyna Vanessa Referring Unavailable Michael, Chalon Primary Care Unavailable Michael, Linoon Attending Unavailable Michael, Chalon Referring Unavailable Michael, Chalon Primary Care Unavailable Michael, Chalon Attending Unavailable Michael, Chalon Referring Unavailable Michael, Chalon Primary Care Unavailable Krystyna Vanessa Attending Unavailable Otf, Krystyna Referring Unavailable Ismael Ruano Attending Unavailable Michael, Chalon Primary Care Unavailable Sae Panda Attending Unavailable Michael, Chalon Primary Care Unavailable Michael, Chalon Referring Unavailable Sae Panda Attending Unavailable Michael, Chalon Primary Care Unavailable Michael, Chalon Referring Unavailable Michael, Chalon Primary Care Unavailable Hussain Duval Attending Unavailable Micheal, Chalon Referring Unavailable Shemra Mcconnell Attending Unavailable Michael, Chalon Primary Care Unavailable Michael, Chalon Primary Care Unavailable Krystyna Vanessa Attending Unavailable Michael, Chalon Referring Unavailable Michael, Chalon Primary Care Unavailable Krystyna Vanessa Attending Unavailable Michael, Chalon Referring Unavailable Michael, Chalon Primary Care Unavailable Michael, Chalon Referring Unavailable Hussain Duval Attending Unavailable Allergies Allergy Classification Reported Allergen(s) Allergy Type Date of Onset Reaction(s) Facility Penicillins (antibiotic) (3 sources) Penicillins; Translations: [Penicillins] Drug Allergy 09-13-2015 [facility] Work Phone: (13 sources) Penicillins; Translations: [Penicillins] drug allergy 09-13-2015 [facility] Work Phone: (16 sources) Other allergy to substance [id number] Work Phone: (20 sources) Amoxicillin; Translations: [AMOXICILLIN] Drug Allergy 08-07-2016 [facility] (16 sources) Penicillins Allergy to substance 01-10-2023 [facility] (1 source) Amoxicillin Drug Allergy 05-22-2025 [facility] (1 source) Penicillins Drug allergy (disorder) 05-22-2025 [facility] Medications Current Medications Medication Drug Class(es) Dates Sig (Normalized) Sig (Original) [id number] 200 actuat albuterol 0.09 mg/actuat metered dose inhaler (5 sources) beta2-Adrenergic Agonist Start: 04-17-2023 take 1-2 puff(s) by inhalation every four [...] sulfate 2.5 mg extended release oral capsule (6 sources) Central Nervous System Stimulant Start: 03-10-2025 take 1 capsule by mouth once daily amphetamine-dext roamphetamine XR (ADDERALL XR) 10 mg capsule Take 1 capsule by mouth once daily. 03/10/2025 Active Start: 02-01-2025 Dextroamphetam ine-Amphetamine 10 mg capsule,extended release 24hr Active 1 NMA PO EVERY MORNING February 01, 2025 12:00am Complies with drug therapy benzonatate 100 mg oral capsule (1 source) Non-narcotic Antitussive Start: 04-11-2023 End: 04-21-2023 take 2 capsules by mouth three times [...] hydrochloride 300 mg extended release oral tablet (8 sources) Aminoketone Start: 10-05-2024 take 1 tablet by mouth once daily Bupropion Hcl (Wellbutrin Xl) 300 mg tablet extended release 24 hr Active 300 mg PO DAILY October 05, 2024 12:00am Depression Complies with drug therapy Dextroamphetamine-A mphetamine 10 mg capsule,extended release 24hr (4 sources) Start: 02-01-2025 Dextroamphetamine- Amphetamine 10 mg capsule,extended release 24hr Active 1 NMA PO EVERY MORNING February 01, 2025 12:00am ergocalciferol 1.25 mg oral capsule (2 sources) Provitamin D2 Compound Start: 03-23-2025 take 1 capsule by mouth every week ergocalciferol 50,000 unit capsule (VITAMIN D2, DRISDOL) Take 1 capsule by mouth one time a week. 03/23/2025 Active 60 actuat fluticasone propionate 0.25 mg/actuat / salmeterol 0.05 mg/actuat dry powder inhaler (2 sources) Corticosteroid, beta2-Adrenergic Agonist Start: 03-02-2025 take 1 puff(s) by mouth every twelve hours WIXELA INHUB 250-50 mcg/dose inhaler inhale 1 puff by mouth every 12 hours 03/02/2025 Active ipratropium bromide 0.042 mg/actuat metered dose nasal spray (8 sources) Anticholinergic Start: 10-05-2024 Ipratropium Elkin 42 mcg (0.06 %) spray,non-aerosol Active 2 NMA INTRANASAL THREE TIMES A DAY as needed October 05, 2024 12:00am Complies with drug therapy levothyroxine sodium 0.088 mg oral tablet (20 sources) l-Thyroxine Start: 10-05-2024 take 1 tablet by mouth once daily Levothyroxine (Synthroid) 88 mcg tablet Active 88 ug PO DAILY October 05, 2024 12:00am Hypothyroidism Complies with drug therapy Start: 03-17-2023 take 1 tablet by mouth once SY NTHROID 50 mcg tablet Take 1 tablet by mouth every afternoon. 03/17/2023 Active Start: 01-10-2023 End: 10-05-2024 take 1 tablet by mouth once daily Levothyroxine (Synthroid) 75 mcg tablet Discontinued 75 ug PO DAILY January 10, 2023 12:00am October 05, 2024 1:57pm Comment on above: Take 1 tablet by elizabeth every afternoon. liothyronine sodium 0.005 mg oral tablet (14 sources) l-Triiodothyronine Start: 2022 take 1 tablet by mouth once daily Liothyronine 5 mcg tablet Active 5 ug PO DAILY October 05, 2024 12:00am Hypothyroidism Complies with drug therapy Comment on above: Take 1 tablet by elizabeth every afternoon. methylPREDNISolone 4 mg oral tablet (1 source) Corticosteroid Start: 2024 take 1 tablet by mouth once Methylprednisolone (Medrol (Pierce)) 4 mg tablets,dose pack Active 0 PO per package directions May 22, 2025 12:00am PO PER PKG DIR for 6 days Complies with drug therapy Start: 05-22-2025 take 1 tablet by mouth once Me thylprednisolone (Medrol (Pierce)) 4 mg tablets,dose pack Active 0 PO per package directions May 22, 2025 12:00am PO PER PKG DIR for 6 days Complies with drug therapy naproxen 500 mg oral tablet (4 sources) Nonsteroidal Anti-inflammatory Drug Start: 04-15-2025 take 1 tablet by mouth twice daily Naproxen 500 mg tablet Active 500 mg PO TWICE A DAY 14 0 April 15, 2025 12:00am Complies with drug therapy polymyxin b [id number] unt/ml / trimethoprim 1 mg/ml ophthalmic solution (1 source) Dihydrofolate Reductase Inhibitor Antibacterial, Polymyxin-class Antibacterial Start: 11-21-2023 End: 11-28-2023 take 1 drop(s) into the eye(s) every four hours trimethoprim-po lymyxin (POLYTRIM) 10,000 unit- 1 mg/mL ophthalmic solution Indications: [place] eye disease of both eyes Use 1 Drop in both eyes every 4 hours for 7 days. 10 mL 0 11/21/2023 11/28/2023 Active predniSONE 20 mg oral tablet (17 sources) Start: 04-11-2023 End: 04-15-2023 take 2 tablets by mouth once daily [...] 2024 1:57pm Contact dermatitis due to poison joan Allergic contact dermatitis due to plants, except [...] on above: Take 2 tablets by mo ut once daily for 4 days. Take daily with food. rizatriptan 5 mg oral tablet (18 sources) Serotonin-1b and Serotonin-1d Receptor Agonist Start: End: take 1 tablet by mouth twice daily as needed for headache Rizatriptan 5 mg tablet Active 5 mg PO TWICE A DAY as needed for migraine headache 4 0 February 01, 2025 3:39pm Complies with drug therapy rOPINIRole 1 mg oral tablet (10 sources) Nonergot Dopamine Agonist Start: take 1 tablet by mouth once daily Ropinirole 1 mg tablet Active 1 mg PO DAILY October 05, 2024 12:00am Restless leg syndrome Complies with drug therapy sertraline 50 mg oral tablet (2 sources) Serotonin Reuptake Inhibitor Start: take 1 tablet by mouth once daily sertraline (ZOLOFT) 50 mg tablet Take 1 tablet by mouth once daily. 03/23/2025 Active Completed/Discontinued Medications Medication Drug Class(es) Dates Sig (Normalized) Sig (Original) azithromycin 250 mg oral tablet (8 sources) Macrolide Antimicrobial Start: 10-05-2024 End: 02-01-2025 Azithromycin 250 mg tablet Discontinued 250 mg PO .COMPLEX 12 0 October 05, 2024 12:00am February 01, 2025 3:24pm 2 tablets (500 mg) on day 1, then 1 tablet daily on days 2 through 11 cephalexin 500 mg oral capsule (20 sources) Cephalosporin Antibacterial Start: 12-26-2021 End: 03-03-2022 [...] Comment on above: Take 1 capsule by mo uth once daily. doxycycline hyclate 100 mg oral capsule (20 sources) Tetracycline- class Drug Start: 12-27-2021 Doxycycline Hyclate 100 MG Oral Capsule Quantity: 14 Refills: 0 Ordered: 27-Dec-2021 DO Start : 27-Dec-2021 Complete Start: 12-26-2021 End: 03-03-2022 take 1 capsule by mouth twice daily Doxycycline Hyclate 100 mg capsule Discontinued 100 mg PO TWICE A DAY 14 0 December 26, 2021 12:00am March 03, [...] (20 sources) Central Nervous System Stimulant Start: 019 End: Lisdexamfetamine (Vyvanse) 50 mg capsule Discontinued NMA PO 0 August 14, 2021 1:00am February 01, 2025 3:24pm Comment on above: Take 50 mg by mouth once daily. loratadine 10 mg oral tablet (16 sources) take 1 tablet by mouth at bedtime Claritin 10 MG Oral Tablet TAKE 1 TABLET AT BEDTIME. Quantity: 30 Refills: 11 Ordered: 12-Sep-2015 Magali Ladan RENEE Active meloxicam 15 mg oral tablet (20 sources) Nonsteroidal Anti-inflammatory Drug Start: 022 End: 023 take 1 tablet by mouth once daily Meloxicam 15 mg tablet Discontinued 15 mg PO DAILY 30 0 August 14, 2021 1:00am March 03, 2022 10:56am Start: 04-02-2021 Meloxicam 15 M G Oral Tablet Quantity: 30 Refills: 0 Ordered: 01-May-2021 DO Start : 02-Apr-2021 Active Comment on above: TAKE 1 TABLET BY ELIZABETH TH EVERY DAY triamcinolone acetonide 0.001 mg/mg topical ointment (16 sources) Corticosteroid Start: 01-10-2023 End: 10-05-2024 Triamcinolone Acetonide 0.1 % ointment Discontinued 1 NMA TOPICAL TWICE A DAY 30 0 January 10, 2023 12:00am October 05, 2024 1:57pm Contact dermatitis due to poison joan Allergic contact dermatitis due to plants, except [...] Translations: [Attention deficit disorder with hyperactivity] Chronic E Codes: Fall (4 sources) Falling injury; Translations: [Unspecified fall, initial encounter] 04-23-2025 Episodic Fracture of lower limb (1 source) Closed fracture of fifth metatarsal bone; Translations: [Displaced fracture of fifth metatarsal bone, right foot, initial encounter for closed fracture] 04-25-2023 Episodic Headache; including migraine (17 sources) Migraine; Translations: [Migraine, unspecified, not intractable, [...] of delivery] Episodic Other connective tissue disease (20 sources) Lateral epicondylitis; Translations: [Lateral epicondylitis, unspecified elbow] 09-25-2021 Episodic Other connective tissue disease (12 sources) Ganglion of wrist; Translations: [Ganglion, right wrist] 03-03-2022 Episodic Other connective tissue disease (11 sources) Tendinitis of wrist; Translations: [Other enthesopathies, not elsewhere classified] 08-15-2021 Episodic Other connective tissue disease (2 sources) Ganglion, right wrist; Translations: [Ganglion of joint] Episodic Other connective tissue disease (11 sources) Pain in right foot; Translations: [Pain in right foot] 04-25-2023 Episodic Other connective tissue disease (9 sources) Tendonitis of left wrist; Translations: [Other enthesopathies, not elsewhere classified] 08-15-2021 Episodic Other connective tissue disease (8 sources) Ganglion cyst of the right volar wrist; Translations: [Ganglion, right wrist] 03-03-2022 Episodic Other connective tissue disease (4 sources) Foot pain; Translations: [Pain in right foot] 04-11-2025 Episodic Other connective tissue disease (4 sources) Suprapatellar bursitis of left knee; Translations: [Other bursitis of knee, left knee] 04-23-2025 Episodic Other connective tissue disease (1 source) Pain in right foot; Translations: [Pain in right foot] Onset: 04-11-2025 Episodic Other endocrine disorders (1 source) Disorder of parathyroid gland, unspecified; Translations: [Disorder of parathyroid gland, unspecified] Onset: 05-30-2025 Chronic Other fractures (11 sources) Disorder of bone; Translations: [Stress fracture, [...] injuries and conditions due to external causes (11 sources) Injury of finger of left hand; [...] ankle and foot] Onset: 04-03-2025 Episodic Other non-traumatic joint disorders (2 sources) Instability of joint of left knee; Translations: [Other instability, left knee] 05-22-2025 Episodic Other non-traumatic joint disorders (2 sources) Other instability, left knee; Translations: [Other instability, left knee] Onset: 05-22-2025 Episodic Other nutritional; endocrine; and metabolic disorders [...] states; Translations: [Other postprocedural status] 01-10-2023 Episodic Sprains and strains (19 sources) Sprain of medial collateral ligament of left knee, initial encounter; Translations: [Grade 2 sprain of medial collateral ligament of left knee] Onset: 04-18-2025 04-23-2025 Episodic Thyroid disorders (1 source) Hypothyroidism, unspecified; Translations: [Hypothyroidism, unspecified] Onset: 08-26-2024 Chronic Unclassified (1 source) Sprain of left knee Unclassified (1 source) S83.412A - Sprain of medial collateral ligament of left knee, initial encounter Past or Other Problems Problem Classification Problem [...] Test Name Value Interpretation Reference Range Facility Orthopedic Visit Reporton Orthopedic Visit Report [facility] [address] [place] [address] [address] [place] [address] OFFICE VISIT Date of Service: 05/22/25 MR#: [id number] Acct: [id number] Name: TORRES MILLARD Rep #: [id number] : 2000 Provider: SHREE redd Age/Sex: 24/F Location: [facility] Status: Signed Intake Vital Signs 05/03/25 12:57 05/09/25 09:43 Height 5 ft 2 in 5 ft 2 in Intake Visit Reasons: LEFT KNEE Chief Complaint: left knee f/u Allergies amoxicillin Allergy (Verified 05/22/25 15:01) hives Penicillins Allergy (Verified 05/22/25 15:01) Rash Medications ???Medication ???Instructions ???Recorded ???Confirmed ???Type bupropion HCl 300 mg 24 hr tablet, 300 mg PO DAILY Depression 10/0505/22/25 History extended release (Wellbutrin XL) ipratropium bromide 42 mcg (0.06 2 spray intranasal TID PRN 5 05/22/25 History %) nasal spray levothyroxine 88 mcg tablet 88 mcg PO DAILY Hypothyroidism 07/2005/22/25 History (Synthroid) liothyronine 5 mcg tablet 5 mcg PO DAILY Hypothyroidism 09/2405/22/25 History ropinirole 1 mg tablet 1 mg PO DAILY Restless leg syndrom e 10/05/24 05/22/25 History dextroamphetamine-ampheta mine ER 1 cap PO QAM 02/01/25 05/22/25 His tory 10 mg 24hr capsule,extend release rizatriptan 5 mg tablet 5 mg PO BID PRN migraine headache 02/01/25 05/22/25 Rx #4 tabs naproxen 500 mg tablet 500 mg PO BID #14 tabs 04/15/25 Rx methylprednisolone 4 mg tablets in See Rx Instructions PO PER PKG D IR 05/22/25 05/22/25 Rx a dose pack (Medrol (Pierce)) #21 tabs PFSH Medical History Stress reaction of bone Right foot pain Migraine Surgical History [place] teeth extracted H/O removal of cyst H/O wrist surgery Social History household members: family Smoking Status: Never smoker alcohol intake: never HPI LEFT KNEE Details: This documentation accurately reflects the service provided and the decisions made by me, Krysytna Vanessa, INCUBATOR OPERATOR-C 05/22/25 1500. Part of today???s visit was documented by Becky MATOS, acting as scribe. TORRES MILLARD is a 24 year old F here today for left knee f/u. She states that the knee had been doing good until about 2 days ago when the knee gave out on her which was painful and feels like it locked up and got stuck. She has continued to wear her knee brace and is still in PT. PT is helping her leg feel stronger but does not know that it is actually helping the knee. She has been waking up during the night due to pain. The majority of her pain is over the medial side of the knee. She has been taking Naproxen and Tylenol intermittently for the pain. She states that she does have some swelling in the knee today. She has also been using ice and elevating the knee. 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 Increased nighttime symptoms. Taking Naprosyn and Tylenol with occasional sensation of, kneecap moving". Naproxen 440mg twice daily, Tylenol as needed. Ice helps. PT ROS Const All systems reviewed are unremarkable except as noted in H and other (A O x 3, no apparent distress. No recent illness.) ENT Denies dizziness Card Denies chest pain, Denies dyspnea and Denies edema Resp Denies cough, Denies dyspnea and Reports other (No recent URI) GI Reports system reviewed and no additional complaints, except as documented, Denies nausea and Denies vomiting Musc Reports as per HPI, Reports abnormal gait, Reports arthralgias and Reports joint swelling Neuro Yes abnormal gait, No dizziness and Yes other Psych Reports system reviewed and no additional complaints, except as documented Gutierrez/Lymph Denies easy bleeding and Denies easy bruising Ortho Exam General General: Yes no acute distress Neurologic: Yes alert and Yes oriented x3 Psychologic: Yes reasonable and appropriate Left Knee Date of injury: 04/15/25 KNEE: Skin is pink, warm, dry and intact. There is mild visible swelling remaining to the medial aspect of the knee, moderate palpable to medial and posterior aspects. No ecchymosis or skin discoloration noted. Range of motion: 0-110 degrees, stiff greater than 90 degrees Palpation: Tender with palpation over the medial joint line, negative at lateral joint line, patellar tendon or popliteal region Special tests: Dejah positive; anterior drawer negative; posterior drawer negative; medial joint opening negative; lateral joint opening negative Symptoms aggravated with attempts of single-leg stand on left, positive symptom aggravation with Thessaly's test Lower leg is soft, nontender, easily compressible, Homans (more content not included)... Normal [facility] Orthopedic Visit Reporton Orthopedic Visit Report [facility] [address] [place] [address] [place] [address] OFFICE VISIT Date of Service: 05/09/25 MR#: [id number] Acct: [id number] Name: TORRES MILLARD Rep #: [id number] : 2000 Provider: Dr. Hussain wilson MD Age/Sex: 24/F Location: [facility] Status: Signed Intake Vital Signs 04/11/25 08:41 05/03/25 12:57 05/09/25 09:43 Height 5 ft 2 in 5 ft 2 in 5 ft 2 in Weight: 248 lb BMI 45.3 Intake Visit Reasons: RIGHT FOOT Chief Complaint: Right foot 1 month follow up Accompanied by: Self Is patient in pain?: No Allergies amoxicillin Allergy (Verified 05/09/25 09:46) hives Penicillins Allergy (Verified 05/09/25 09:46) Rash Medications ???Medication ???Instructions ???Recorded ???Confirmed ???Type bupropion HCl 300 mg 24 hr tablet, 300 mg PO DAILY Depression 10/0505/09/25 History extended release (Wellbutrin XL) ipratropium bromide 42 mcg (0.06 2 spray intranasal TID PRN 5 05/09/25 History %) nasal spray levothyroxine 88 mcg tablet 88 mcg PO DAILY Hypothyroidism 07/2005/09/25 History (Synthroid) liothyronine 5 mcg tablet 5 mcg PO DAILY Hypothyroidism 09/2405/09/25 History ropinirole 1 mg tablet 1 mg PO DAILY Restless leg syndrom e 10/05/24 05/09/25 History dextroamphetamine-ampheta mine ER 1 cap PO QAM 02/01/25 05/09/25 His tory 10 mg 24hr capsule,extend release rizatriptan 5 mg tablet 5 mg PO BID PRN migraine headache 02/01/25 05/09/25 Rx #4 tabs naproxen 500 mg tablet 500 mg PO BID #14 tabs 04/15/25 Rx Have you fallen in the past year?: Yes [facility] Medical History Stress reaction of bone Right foot pain Migraine Surgical History [place] teeth extracted H/O removal of cyst H/O wrist surgery Social History household members: family Smoking Status: Never smoker alcohol intake: never HPI RIGHT FOOT Details: This documentation accurately reflects the service provided and the decisions made by me, Dr. Hussain Duval MD 05/09/25 0905. Part of today???s visit was documented by [ ], acting as scribe. TORRES MILLARD is a 24 year old F here today for 6 weeks FU Right foot stress reaction second metatarsal or even a developing stress fracture there. Patient stayed off the foot for few weeks was using a knee scooter then twisted the left knee actually is in therapy wearing a brace for that now. Regardless of that injury the patient has no pain now on the foot and they have been having to use that over the last 2 weeks no pain or other difficulties with regards to the right foot. Coding Level of Care Code Off vis,est,level 3 Diagnoses Stress reaction of bone M84.30XA Right foot pain M79.671 Assessment and Plan Assessment and Plan (1) Stress reaction of bone: Status: Acute Plan: TORRES MILLARD is a 24 year old F here today for 6 weeks FU Right foot stress reaction second metatarsal or even a developing stress fracture there. Overall the patient is doing well with no pain therefore we will continue to treat this nonoperatively and declined the MRI for now but if the pain returns then I have asked the patient to let me know otherwise weightbearing as tolerated and activities as tolerated follow-up as needed. (2) Right foot pain: Status: Acute Clinical Quality Measures Falls Risk Screening/Assistive Devices Have you fallen in the past year?: Yes Ortho Exam General General: Yes no acute [...] Pedis: 2 and Posterior Tibial: 2 ANKLE: no pain to midfoot upon strong palpation. 05/09/25 1014 Date Hussain Duval MD (more content not included)... [facility] Evaluation (1) - PTon 05-08-2025 Inital Evaluation (1) - PT [facility] Physical [facility] [address] [place] [address] / REHABILITATION SERVICES INITIAL EVALUATION MR#: [id number] Acct: [id number] Name: TORRES MILLARD Rep #: [id number] : 2000 24 From: Bipin Ratliff PT, Renee. MD Jain, OCS Referring Dr.: SHREE Dia Status: REG RCR Insurance: R MICHAEL [id number] SELF PAY INSURANCE Patient's Visit Information Visit Information Visit Information: TORRES MILLARD is a 24 year old F referred to Physical Therapy by SHREE Dia with a diagnosis of SPRAIN OF MEDIAL COLLATERAL LIGAMENT LEFT KNEE. Date of Evaluation: 05/08/25 Physical Therapist: Bipin Ratliff PT, Cert T, OCS Visit Plan Frequency: 2x /Week Duration: 4 Weeks Plan: PT INTERVENTIONS STRENGTHENING QUADS/HAMS/HIP ,FUNCTIONAL STRENGTHENING .PROPRIOCEPTION AND MOALTIES PRN Subjective Subjective: This 24 y/o female presents to physical therapy with left MCL sprain. Patient injury knee Apr 18 2 weeks ago kneeling scooter due to NWB RLE but stress reaction currently d/c crutches. Patient went ER x-rays - Placed on knee immobilizer. Recommended to see ortho .Seen Deepika Vanessa NP. Recommended PT for ROM and strengthening and wean crutches. Patient located medial knee. Provided brace. Medication Naproxen. Aggravating factors squatting/kneeling ,. Alleviating factors rest. Patient pain affects sleeping. Denies paresthesia/tingling .If doesnt do better may do MRI. Patient condition affects QOL and function/gait. Goals to decrease pain SOCIAL: single VOCATION: [place] Pain Left Knee: Pain Intensity (Out of 10): 5 Pain Intensity Range: 8 Objective Objective: POSTURE: bilateral hyperextension knees , pes planus ,lateral tilt patella GAIT: ambulates with knee brace with slight antalgic gait PALPATION: mild tender medial/lateral patellofemoral ligaments ,MCL NEURO: denies paresthesia/tingling AROM: left 3-115 degrees ,right 120 degrees MMT:( peak force) left quads 22.9 ,hamstrings 24.2 ,hip flexion 20.1 ,hip abduction 18.9 STAIRS: alternating with rail Special Tests L Knee Dejah - Meniscus: Negative L Knee Dara - ACL: Negative L Knee Anterior Drawer - ACL: Negative L Knee Posterior Drawer - PCL: Negative L Knee Posterior Sag - PCL: Negative L Knee Valgus - MCL: Positive L Knee Varus - LCL: Negative L Knee Patellar Apprehension - PFS: Positive Balance/Special Test Scores Lower Extremity Functional Score: 40 Goals Goal 1:: Patient to be I with HEP for knee Goal Time Frame: 4-6 Weeks Goal 2:: Patient to improve AROM supine knee flexion by 5 degrees to improve stairs Goal Time Frame: 4-6 Weeks Goal 3:: Patient to improve peak force quads/hams/hip by 5 -10# to improve gait and function Goal Time Frame: 4-6 Weeks Goal 4:: Patient to improve LFES score by 5 points to improve gait and QOL Goal Time Frame: 4-6 Weeks Goal 5:: Patient to normalize gait Goal Time Frame: 4-6 Weeks Rehabilitation Potential Physical Therapy Diagnosis: This patient has left knee pain MCL and patellofemoral with pain ,weakness impairs ADLS walking kneeling/squatting thus benefit from skilled PT Rehabilitation Potential: Good Anticipated Interventions Patient/Client Instruction: Educate patient on: Condition and Plan of Care For the Purpose of:: To decrease pain, To increase ROM, To improve muscle performance and motor function, To improve ability to perform ADL's, To increase tolerance to activity/condition/positi on, To improve performance and independence with ADL's, To improve ability of physical actions for home/community/work/leisu re, To improve health of tissue, To decrease soft tissue restriction and To increase flexibility/ROM Therapeutic Exercise to Include: Strength training, Endurance training, Balance training, Postural training and Active ROM Comment: QUADS/HAMS/HIP For the Purpose of:: To decrease pain, To increase ROM, To improve muscle performance and motor function, To improve ability to perform ADL's, To increase tolerance to activity/condition/positi on, To improve ability of physical actions for home/community/work/leisu re, To improve health of tissue, To decrease soft tissue restriction and To increase flexibility/ROM TENS: Yes IF ES: Yes Cryotherapy (ice pack, ice massage): Yes Thermo therapy (hot pack): Yes Ultrasound (thermal/non thermal): Yes For the Purpose of:: To decrease pain, To increase ROM, To improve nutrient delivery to tissue, To increase oxygenation perfusion, To improve health of tissue and To decrease soft tissue restriction Text: Thank you for the opportunity to evaluate your patient. For Medicare and Medicare HMO plans, please review the plan of care and approve it. It will need to be FAXED BACK to us at [phone] for Medicare purposes. For Medicare only, by signing this I ce (more content not included)... Normal [facility] Orthopedic Visit Reporton Orthopedic Visit Report [facility] [address] [place] [id number] OFFICE VISIT Date of Service: 05/03/25 MR#: [id number] Acct: [id number] Name: TORRES MILLARD Rep #: [id number] : 2000 Provider: SHREE redd Age/Sex: 24/F Location: [facility] Status: Signed Intake Vital Signs 04/15/25 16:16 05/03/25 12:57 Height 5 ft 2 in 5 ft 2 in Weight: 248 lb BMI 45.3 Intake Visit Reasons: LEFT KNEE Chief Complaint: Left knee follow up Accompanied by: Self Is patient in pain?: Yes Pain scale (1-10): 5 Allergies amoxicillin Allergy (Verified 05/03/25 13:01) hives Penicillins Allergy (Verified 05/03/25 13:01) Rash Medications ???Medication ???Instructions ???Recorded ???Confirmed ???Type bupropion HCl 300 mg 24 hr tablet, 300 mg PO DAILY Depression 10/0505/03/25 History extended release (Wellbutrin XL) ipratropium bromide 42 mcg (0.06 2 spray intranasal TID PRN 5 05/03/25 History %) nasal spray levothyroxine 88 mcg tablet 88 mcg PO DAILY Hypothyroidism 07/2005/03/25 History (Synthroid) liothyronine 5 mcg tablet 5 mcg PO DAILY Hypothyroidism 09/2405/03/25 History ropinirole 1 mg tablet 1 mg PO DAILY Restless leg syndrom e 10/05/24 05/03/25 History dextroamphetamine-ampheta mine ER 1 cap PO QAM 02/01/25 05/03/25 His tory 10 mg 24hr capsule,extend release rizatriptan 5 mg tablet 5 mg PO BID PRN migraine headache 02/01/25 05/03/25 Rx #4 tabs naproxen 500 mg tablet 500 mg PO BID #14 tabs 04/15/25 Rx Have you fallen in the past year?: Yes PFSH Medical History Stress reaction of bone Right foot pain Migraine Surgical History [place] teeth extracted H/O removal of cyst H/O wrist surgery Social History household members: family Smoking Status: Never smoker alcohol intake: never HPI LEFT KNEE Details: This documentation accurately reflects the service provided and the decisions made by me, Krystyna Vanessa, JM-C 05/03/25 1257. Part of today???s visit was documented by Juan R Jensen MA, acting as scribe. TORRES MILLARD is a 24 year old F here today for left knee sprain follow up. She states that her pain is a 5 today. She states that her left knee is having a dull and achy pain. Overall 70% improved since injury. Feels swelling and pain are improving partial to full wt bearing with crutches, reports concern for instability if she were to not be using the crutches. [place] a catching episode today to medial region, none prior or since. 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 Reports increased swelling as day progresses. No new injuries. Concerned if the brace is too big for her ROS Const All systems reviewed are unremarkable except as noted in H and other (A O x 3, no apparent distress. No recent illness.) ENT Denies dizziness Card Denies chest pain, Denies dyspnea and Denies edema Resp Denies cough, Denies dyspnea and Reports other (No recent URI) GI Reports system reviewed and no additional complaints, except as documented, Denies nausea and Denies vomiting Musc Reports as per HPI, Reports abnormal gait, Reports arthralgias and Reports joint swelling (worse as day progresses ) Neuro Yes abnormal gait, No dizziness and Yes other Psych Reports system reviewed and no additional complaints, except as documented Gutierrez/Lymph Denies easy bleeding and Denies easy bruising Ortho Exam General General: Yes no acute distress and Yes well groomed Neurologic: Yes alert and Yes oriented x3 Psychologic: Yes reasonable and appropriate Left Knee Date of injury: 04/15/25 KNEE: Skin is pink, warm, dry and intact. There is mild visible swelling remaining to the medial aspect of the knee, mild palpable to the posterior. Ecchymosis resolved. Range of motion: 0-100 degrees, stiff greater than 80 degrees Palpation: Tender with palpation especially over the medial joint line, negative at lateral joint line and patellar tendon with minimal tenderness remaining Special tests: Dejah modified positive; anterior drawer negative; posterior drawer negative; medial joint opening less than 5 degrees; lateral joint opening negative Symptoms aggravated with attempts of single-leg stand on left, positive symptom aggravation with Thessaly's test Lower leg is soft, nontender, easily compressible, Homans negative Gait: Able to bear near full weight, using crutches for support. Patient able to ambulate full weightbearing with same gait and stance but reports sensation of instability (more content not included)... Normal [facility] Orthopedic Visit Reporton Orthopedic Visit Report [facility] [address] [place] [address] OFFICE VISIT Date of Service: 04/18/25 MR#: [id number] Acct: [id number] Name: TORRES MILLARD Rep #: [id number] : 2000 Provider: SHREE redd Age/Sex: 24/F Location: [facility] Status: Signed Intake Vital Signs 04/15/25 16:16 Height 5 ft 2 in Intake Visit Reasons: LEFT KNEE Allergies amoxicillin Allergy (Verified 04/18/25 13:06) hives Penicillins Allergy (Verified 04/18/25 13:06) Rash Medications ???Medication ???Instructions ???Recorded ???Confirmed ???Type bupropion HCl 300 mg 24 hr tablet, 300 mg PO DAILY Depression 10/0504/18/25 History extended release (Wellbutrin XL) ipratropium bromide 42 mcg (0.06 2 spray intranasal TID PRN 5 04/18/25 History %) nasal spray levothyroxine 88 mcg tablet 88 mcg PO DAILY Hypothyroidism 07/2004/18/25 History (Synthroid) liothyronine 5 mcg tablet 5 mcg PO DAILY Hypothyroidism 09/2404/18/25 History ropinirole 1 mg tablet 1 mg PO DAILY Restless leg syndrom e 10/05/24 04/18/25 History dextroamphetamine-ampheta mine ER 1 cap PO QAM 02/01/25 04/18/25 His tory 10 mg 24hr capsule,extend release rizatriptan 5 mg tablet 5 mg PO BID PRN migraine headache 02/01/25 04/18/25 Rx #4 tabs naproxen 500 mg tablet 500 mg PO BID #14 tabs 04/15/25 Rx PFSH Medical History Stress reaction of bone Right foot pain Migraine Surgical History [place] teeth extracted H/O removal of cyst H/O wrist surgery Social History household members: family Smoking Status: Never smoker alcohol intake: never HPI LEFT KNEE Details: This documentation accurately reflects the service provided and the decisions made by me, SHREE Dia 04/18/25 1304. Part of today???s visit was documented by Becky MATOS, acting as scribe. TORRES MILLARD is a 24 year old F here today for ER follow-up on the left knee. She states that she was on a knee scooter for her left foot injury and the knee scooter was not put together correctly and the front wheels fell off and she fell with it. She did feel something in the knee and started having pain. She then went to the ED over the weekend because the pain wasn't getting better and their is a concern for a grade 2 MCL tear. She does present with a knee immobilizer and crutches. She can toe touch weight bear. She feels that her knee keeps buckling and has instability in the knee. Her pain is underneath her knee cap and over the anterior medial compartment. She denies mechanical symptoms. She does have some bruising over the medial side of the knee. She states that her knee did hyperextend last night while wearing the brace. She is taking Naproxen 500mg that was prescribed to her by the ed and Tylenol arthritis. Agree with above. Stress fx R foot and being followed by Dr. Duval. Fell off knee scooter 04/15/2025 and injured L knee. Ice, Naproxen and Tylenol help with sx control. Sx mildly improved since date of injury. No prior injuries or surgeries to the L knee. 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 Reports currently unable to drive and challenging with ambulatory activity. ROS Const All systems reviewed are unremarkable except as noted in H and other (A O x 3, no apparent distress. No recent illness.) ENT Denies dizziness Card Denies chest pain, Denies dyspnea and Denies edema Resp Denies cough, Denies dyspnea and Reports other (No recent URI) GI Reports system reviewed and no additional complaints, except as documented, Denies nausea and Denies vomiting Musc Reports as per HPI, Reports abnormal gait, Reports arthralgias, Reports joint swelling and Reports limited range of motion Neuro Yes abnormal gait, No dizziness and Yes other Psych Reports system reviewed and no additional complaints, except as documented Gutierrez/Lymph Denies easy bleeding and Denies easy bruising Ortho Exam General General: Yes no acute distress and Yes well groomed Neurologic: Yes alert and Yes oriented x3 Psychologic: Yes reasonable and appropriate Left Knee Date of injury: 04/15/25 KNEE: Skin is pink, warm, dry and intact. There is positive visible swelling and ecchymosis to the medial aspect of the knee, mild to the posterior and mild to posterior lateral regions. Range of motion: Guarded and limited 0 to 80 degrees Palpation: Tender with palpation especially over the medial joint line and bruised area, mild to lateral joint line and patellar tendon Special tests: Dejah modified positive; anterior drawer negative; posterior drawer negative; medial j (more content not included)... Normal [facility] Emergency Department Summary on 04-15-2025 Emergency Department Summary [facility] Medical Records Department [address] [place] [address] Emergency Department Summary 04/15/25 MR#: [id number] Acct: [id number] Name: TORRES MILLARD Rep #: [id number] : 2000 24 From: Ismael Ruano MD PCP: Dr. Francine Rodriguez MD Status:REG ER Location: ED HPI History of Present Illness Chief Complaint: Lower Extremity Injury Detail of Chief Complaint: Left knee injury due to blunt trauma secondary to fall Informant: patient Onset/Context/Timing Onset: Hours Mechanism/Context: Blunt Injury and Fall Location of pain/injuries: Left knee Location: Left knee Current Severity: Mild Maximum Severity: Severe Worsened by: Weightbearing and movement Relieved by: Nothing Associated Symptoms Associated Symptoms: Positive for Inability to ambulate and Amnesia; Negative for Parasthesias, Weakness, Loss of function or Loss of consciousness Narrative Narrative: Patient was using her knee scooter. The front wheels of the scooter fell off. She fell onto her left knee. Minor knee pain. When she attempted to stand up to bear weight she states her knee crumbled and had a valgus deformity. She denied head trauma. She denies neck pain. She denies paresthesia, anesthesia motors. She is presently in a walking boot for a stress fracture of metatarsal right foot. She is seen at [facility]. Prior similar symptoms: No Recent Illness/Hospitalization: Yes [facility] Medical History Stress reaction of bone Right foot pain Migraine Home Medications ???Medication ???Instructions ???Recorded ???Last Taken ???Type bupropion HCl 300 mg 24 hr tablet, 300 mg PO DAILY Depression 10/05 Unknown History extended release (Wellbutrin XL) ipratropium bromide 42 mcg (0.06 2 spray intranasal TID PRN 5 Unknown History %) nasal spray levothyroxine 88 mcg tablet 88 mcg PO DAILY Hypothyroidism 07/20 Unknown History (Synthroid) liothyronine 5 mcg tablet 5 mcg PO DAILY Hypothyroidism 09/24 09/20 Unknown History ropinirole 1 mg tablet 1 mg PO DAILY Restless leg syndrom e 10/05/24 Unknown History dextroamphetamine-ampheta mine ER 1 cap PO QAM 02/01/25 Unknown Hist ory 10 mg 24hr capsule,extend release rizatriptan 5 mg tablet 5 mg PO BID PRN migraine headache 02/01/25 Unknown Rx #4 tabs naproxen 500 mg tablet 500 mg PO BID #14 tabs 04/15/25 Un known Rx Allergy/AdvReac Type Severity Reaction Status Date / Time amoxicillin Allergy hives Verified 04/15/25 16:17 Penicillins Allergy Rash Verified 04/15/25 16:17 Surgical History [place] teeth extracted H/O removal of cyst H/O wrist surgery Social History household members: family Smoking Status: Never smoker alcohol intake: never ROS ROS ED Constitutional Constitutional ED: Denies chills or fever(s) Cardiovascular Cardiovascular: Denies chest pain or palpitations Respiratory/Chest Respiratory/Chest: Denies dyspnea Gastrointestinal Gastrointestinal: Denies nausea or vomiting Musculoskeletal Musculoskeletal: Reports other Details: Left knee pain otherwise negative Neurologic Neurologic: Denies paresthesias or weakness Hematologic/Lymphatic Hematologic/Lymphatic: Denies easy bleeding or easy bruising EXAM Physical Exam Const Vital Signs: 04/15/25 16:16 Temperature 98.4 F Temperature Source Oral Pulse Rate 113 H Respiratory Rate 20 H Blood Pressure 166/112 H Blood Pressure Mean 130 Pulse Ox 99 Oxygen Delivery Method Room Air Positive well nourished and well developed General Appearance ED: well developed HEENT atraumatic Eyes PERRL and EOMs intact bilaterally Resp normal respiratory effort Cardio regular rhythm Rate: regular rate Extremity Negative for normal to inspection or full ROM Extremity Narrative: Patient has swelling to left knee. There is bogginess over the patella bursa. There are some slight redness. The patella is not ballotable. There is no obvious effusion. She has minimal joint line tenderness medially. Dara's test was negative. Difficult to perform modified Dejah's test because she complained of pain. With varus and valgus stress testing she is noted to have laxity MCL on the left and this is not noted on the right. DP PT pulse are palpable. Patient able to extend 280 degrees. She is able to flex to about 110 degrees. There is no fullness or mass noted in the popliteal fossa. Neuro CN's II-XII intact bilaterally and moves all extremities Sensorium / Orientation: alert Psych mental status grossly normal and thought process normal Skin no rashes or lesions noted, no wounds, skin turgor normal an (more content not included)... Normal [facility] Knee 3 Viewson 04-15-2025 Knee 3 Views [facility] Imaging Services [address] [place], [place] [id number] Knee 3 Views MR#: [id number] Acct: [id number] Name: TORRES MILLARD Rep #: [id number] : 2000 F 24 From: Tin Wesley MD PCP: Dr. Francine Rodriguez MD Status: PRE ER Study: Knee 3 Views Date of Exam: 04/15/25 Exam# [id number] Ordering Dr: Ismael Ruano MD PROCEDURE: KNEE 3 VIEWS 04/15/2025 REASON FOR EXAM: PAIN TECHNIQUE: Procedure Code: RADPAT Modality: DX Procedure: KNEE 3 VIEWS Laterality: Left COMPARISON: None FINDINGS: Osseous: Femorotibial spacing and alignment is maintained. Proximal tibiofibular congruency is preserved. Patellar height is within normal range. Patellofemoral joint spacing and alignment can not be assessed on the views obtained. If there are symptoms consider sunrise view. No acute displaced fracture is seen. Trace amount of fluid noted within the suprapatellar bursa. Soft tissue: Soft tissue injury can not be assessed by this technique. RAD/Knee 3 Views IMPRESSION: No radiographic evidence of an acute osseous abnormality at the left knee. - Other findings discussed above. Reading Location: [id number] CC: Dr. Francine Rodriguez MD; Dr. Ismael Ruano MD Java Application Engineer: Signed Normal [facility] Ankle min 3 Viewson 04-11-20 25 Ankle min 3 Views [facility] [address] [place] [address] Ankle min 3 Views MR#: [id number] Acct: [id number] Name: TORRES MILLARD Rep #: [id number] : 2000 F 24 From: Yumiko Jimenez MD PCP: Dr. Francine Rodriguez MD Status: DEP AMB Study: Ankle min 3 Views Date of Exam: 04/11/25 Exam# [id number] Ordering Dr: Hussain Duval MD PROCEDURE: FOOT [...] NEGATIVE ANKLE AND FOOT SERIES. Reading Location: [facility] CC: Dr. Francine Rodriguez MD; Dr. Hussain Duval MD Java Application Engineer: Signed Normal [facility] Foot min 3 Viewson 5 Foot min 3 Views [facility] [address] [place] [address] Foot min 3 Views MR#: [id number] Acct: [id number] Name: TORRES MILLARD Rep #: [id number] : 2000 F 24 From: Yumiko Jimenez MD PCP: Dr. Francine Rodriguez MD Status: DEP AMB Study: Foot min 3 Views Date of Exam: 04/11/25 Exam# [id number] Ordering Dr: Hussain Duval MD PROCEDURE: FOOT [...] NEGATIVE ANKLE AND FOOT SERIES. Reading Location: [id number] CC: Dr. Francine Rodriguez MD; Dr. Hussain Duval MD Java Application Engineer: Signed Normal [facility] Orthopedic Visit Reporton Orthopedic Visit Report [facility] [address] [place] [address] [address] [place] [address] OFFICE VISIT Date of Service: 04/11/25 MR#: [id number] Acct: [id number] Name: TORRES MILLARD Rep #: [id number] : 2000 Provider: Dr. Hussain wilson MD Age/Sex: 24/F Location: [facility] Status: Signed Intake Vital Signs 10/05/24 14:01 [...] bone Right foot pain Migraine Surgical History [place] teeth extracted H/O removal of cyst H/O [...] to minimiz (more content not included)... [facility] ----- TORRES MILLARD ([id number]) 2000 F Date Time Provider Department 04/03/25 10:30 AM EMMETT LUCIANO During your visit today, we recorded the following information about you: Temperature Pulse Respiration Blood pressure 98.8 degrees 100/minute 18/minute 126/80 Weight 114.7 kg Emmett Luciano APRN.BODY DESIGNER 04/03/2025 11:21 AM Signed [facility] Gu[facility]man Macdonald Yuli Millard is a 24 year old female. [...] of care. This note was generated using [employer] software. It may contain errors in wording, punctuation, or spelling. Emmett Luciano APRN.BODY DESIGNER History and Record Review Clinical information obtained [...] [M25.571] Order(s):XR FOOT GENERAL 3V AP/LAT/OBL RIGHT [2949083] Order #: [id number] FUTURE Prescriptions as of 04/03/2025 - amphetamine-dextroampheta [...] 90 mcg/actu (more content not included)... Normal [facility] XR FOOT 3V AP/LAT/OBL RTon 0 04-03-2025 [...] No radiographic evidence of acute osseous injury Java Application Engineer: VICKY Transcribe Date/Time: Apr 03 2025 10:53A Dictated by : PAEMLA PURCELL MD This examination was interpreted and the report reviewed and electronically signed by: PAMELA PURCELL MD on Apr 03 2025 11:02AM EST [id number] Normal [facility] XR Foot - right AP and Later al and obliqueon 04-03-2025 IMPRESSION: No radiographic evidence of acute osseous injury Java Application Engineer: [facility] Transcribe Date/Time: Apr 03 2025 10:53A Dictated [...] the fifth metatarsal. DIVISION OF RADIOLOGY Provider, Nicho Dumont - 04/03/2025 * * *Final Report* * [...] No radiographic evidence of acute osseous injury Java Application Engineer: [facility] Transcribe Date/Time: Apr 03 2025 10:53A Dictated by : PAMELA PURCELL MD This examination was interpreted and the report reviewed and electronically signed by: PAMELA PURCELL MD on Apr 03 2025 11:02AM EST [facility] Radiology Study observation (narrative) [facility] XR Foot - right AP and Later al and obliqueOrdered By: [facility] Provider on 04-03-2025 [facility] Absolute lymphocyte countOrd ered By: Francine Rodriguez on 03-16-2025 Lymphocytes Auto (Unsp spec) [#/Vol] 3.52 10*3/uL 0.83-4.51 [facility] Absolute neutrophil countOrd ered By: Francine Rodriguez on 03-16-2025 Neutrophils (Bld) [#/Vol] 4.0 10*3/uL 2.0-7.7 [facility] Anion gap in Serum or Plasma Ordered By: Francine Rodriguez on 03-16-2025 Anion gap [Moles/Vol] 13 mmol/L 5-15 [facility] Automated lymphocyte count a s percentage of total leukocytesOrdered By: Francine Rodriguez on 03-16-2025 Lymphocytes/100 WBC Auto (Unsp spec) 40.5 % - [facility] BUN/creatinine ratioOrdered By: Francine Rodriguez on 03-16-2025 Urea nitrogen/Creatinine [Mass ratio] 17.4 mg/mg 10-20 [facility] Basophil percentageOrdered B y: Francine Rodriguez on 03-16-2025 Basophils/100 WBC (Bld) 0.6 % 0-1 [facility] Bilirubin, totalOrdered By: Francine Rodriguez on 03-16-2025 Bilirubin [Mass/Vol] 0.29 mg/dL 0.00-1.30 [facility] CBC W/Diff, Automatedon 02-25 Absolute Lymph 3.52 X10 3/uL Normal 0.83-4.51 [facility] Comment on above: Order Comment: Order Date: 11/22/24 Order Info: 0184-1 - CBCD Performed By: #### L 509.1000, L501.9520, L100.0100, L500.4050, L500.4100 #### [facility] [address] [place], [address] Absolute Neut 4.0 X10 3/uL Normal 2.0-7.7 [facility] Comment on above: Order Comment: Order Date: 11/22/24 Order Info: 0184-1 - CBCD Performed By: #### L 509.1000, L501.9520, L100.0100, L500.4050, L500.4100 #### [facility] [address] [place], [address] Basophils/100 WBC (Bld) 0.6 % Normal 0-1 [facility] Comment on above: Order Comment: Order Date: 11/22/24 Order Info: 0184-1 - CBCD Performed By: #### L 509.1000, L501.9520, L100.0100, L500.4050, L500.4100 #### [facility] [address] [place], [address] Eosinophils/100 WBC (Bld) 4.0 % Normal 0-5 [facility] Comment on above: Order Comment: Order Date: 11/22/24 Order Info: 0184 - CBCD Performed By: #### L 509.1000, L501.9520, L100.0100, L500.4050, L500.4100 #### [facility] [address] [place], [address] Erythrocyte distribution width (RBC) [Ratio] 15.2 % High 11.6-14.6 [facility] Comment on above: Order Comment: Order Date: 11/22/24 Order Info: 01810-25 - CBCD Performed By: #### L 509.1000, L501.9520, L100.0100, L500.4050, L500.4100 #### [facility] [address] [place], [address] Hematocrit (Bld) [Volume fraction] 35.1 % Low 37-47 [facility] Comment on above: Order Comment: Order Date: 11/22/24 Order Info: [id number] - CBCD Performed By: #### L 509.1000, L501.9520, L100.0100, L500.4050, L500.4100 #### [facility] [address] [place], [address] Hemoglobin (Bld) [Mass/Vol] 11.1 g/dL Low 12.0-15.0 [facility] Comment on above: Order Comment: Order Date: 11/22/24 Order Info: 01810-25 - CBCD Performed By: #### L 509.1000, L501.9520, L100.0100, L500.4050, L500.4100 #### [facility] [address] [place], [address] IG% 0.300 Normal 0.0-0.9 [facility] Comment on above: Order Comment: Order Date: 11/22/24 Order Info: 018- - CBCD Result Comment: IG% - Immature Granulocytes (promyelocytes, myelocytes and metamyelocytes) > 1% indicates that a LEFT SHIFT is Present. Performed By: #### L 509.1000, L501.9520, L100.0100, L500.4050, L500.4100 #### [facility] [address] [place], [address] Lymphocytes/100 WBC (Bld) 40.5 % Normal 19-41 [facility] Comment on above: Order Comment: Order Date: 11/22/24 Order Info: 018- - CBCD Performed By: #### L 509.1000, L501.9520, L100.0100, L500.4050, L500.4100 #### [facility] [address] [place], [address] MCH (RBC) [Entitic mass] 25.8 pg Low 27.0-32.0 [facility] Comment on above: Order Comment: Order Date: 11/22/24 Order Info: 01810-25 - CBCD Performed By: #### L 509.1000, L501.9520, L100.0100, L500.4050, L500.4100 #### [facility] [address] [place], [address] MCHC (RBC) [Mass/Vol] 31.6 g/dL Low 32-36 [facility] Comment on above: Order Comment: Order Date: 11/22/24 Order Info: 018- - CBCD Performed By: #### L 509.1000, L501.9520, L100.0100, L500.4050, L500.4100 #### [facility] [address] [place], [address] MCV (RBC) [Entitic vol] 81.4 fL Normal 81-99 [facility] Comment on above: Order Comment: Order Date: 11/22/24 Order Info: 018- - CBCD Performed By: #### L 509.1000, L501.9520, L100.0100, L500.4050, L500.4100 #### [facility] [address] [place], [address] Monocytes/100 WBC (Bld) 8.7 % Normal 0-10 [facility] Comment on above: Order Comment: Order Date: 11/22/24 Order Info: 0184-1 - CBCD Performed By: #### L 509.1000, L501.9520, L100.0100, L500.4050, L500.4100 #### [facility] [address] [place], [address] Neutrophils/100 WBC (Bld) 45.9 % Low 47-70 [facility] Comment on above: Order Comment: Order Date: 11/22/24 Order Info: 0184- - CBCD Performed By: #### L 509.1000, L501.9520, L100.0100, L500.4050, L500.4100 #### [facility] [address] [place], [address] Nucleated RBC (Bld) [#/Vol] 0 10*3/uL Normal 0-5 [facility] Comment on above: Order Comment: Order Date: 11/22/24 Order Info: 0184- - CBCD Performed By: #### L 509.1000, L501.9520, L100.0100, L500.4050, L500.4100 #### [facility] [address] [place], [address] Platelet mean volume (Bld) [Entitic vol] 9.4 fL Normal 6.2-12.0 [facility] Comment on above: Order Comment: Order Date: 11/22/24 Order Info: 0184-1 - CBCD Performed By: #### L 509.1000, L501.9520, L100.0100, L500.4050, L500.4100 #### [facility] [address] [place], [address] Platelets (Bld) [#/Vol] 449 10*3/uL Normal 150-450 [facility] Comment on above: Order Comment: Order Date: 11/22/24 Order Info: 0184-1 - CBCD Performed By: #### L 509.1000, L501.9520, L100.0100, L500.4050, L500.4100 #### [facility] [address] [place], [address] RBC (Bld) [#/Vol] 4.31 10*6/uL Normal 4.2-5.4 [facility] Comment on above: Order Comment: Order Date: 11/22/24 Order Info: 0184-1 - CBCD Performed By: #### L 509.1000, L501.9520, L100.0100, L500.4050, L500.4100 #### [facility] [address] [place], [address] RDW SD 44.9 fl High 35.1-43.9 [facility] Comment on above: Order Comment: Order Date: 11/22/24 Order Info: 0184-1 - CBCD Performed By: #### L 509.1000, L501.9520, L100.0100, L500.4050, L500.4100 #### [facility] [address] [place], [address] WBC (Bld) [#/Vol] 8.7 10*3/uL Normal 4.4-11.0 [facility] Comment on above: Order Comment: Order Date: 11/22/24 Order Info: 0184-1 - CBCD Performed By: #### L 509.1000, L501.9520, L100.0100, L500.4050, L500.4100 #### [facility] [address] [place], [address] Calculated very low density lipoprotein (VLDL) cholesterol measurementOrdered By: Francine Rodriguez on 03-16-2025 Calculated very low density lipoprotein (VLDL) cholesterol measurement 14 mg/dL 5-40 [facility] Carbon dioxide, total [Moles /volume] in Central venous bloodOrdered By: Francine Rodriguez on 03-16-2025 CO2 [Moles/Vol] 19.7 mmol/L Low 21.0-32.0 [facility] Chloride assayOrdered By: Brant Rodriguez on 03-16-2025 Chloride [Moles/Vol] 106 mmol/L 98-108 [facility] Comprehensive Metabolic Prof ilon 03-16-2025 Albumin [Mass/Vol] 4.1 g/dL Normal 3.5-5.0 [facility] Comment on above: Order Comment: Order Date: 11/22/24 Order Info: 0786-1 - CMP Order Info: - LIPID Order Info: [id number] - TSH Performed By: #### L 509.1000, L501.9520, L100.0100, L500.4050, L500.4100 #### [facility] [address] [place], [place], [address] Albumin/Globulin [Mass ratio] 1.5 {ratio} Normal 0.9-2.4 [facility] Comment on above: Order Comment: Order Date: 11/22/24 Order Info: 07 - CMP Order Info: - LIPID Order Info: [id number] - TSH Performed By: #### L 509.1000, L501.9520, L100.0100, L500.4050, L500.4100 #### [facility] [address] [place], [address] ALK PHOS 71 U/L Normal 35-104 [facility] Comment on above: Order Comment: Order Date: 11/22/24 Order Info: [id number] - CMP Order Info: [id number] - LIPID Order Info: 3 - TSH Performed By: #### L 509.1000, L501.9520, L100.0100, L500.4050, L500.4100 #### [facility] [address] [place], [address] ALT [Catalytic activity/Vol] 19 U/L Normal <=34 [facility] Comment on above: Order Comment: Order Date: 11/22/24 Order Info: 785-07 - CMP Order Info: - LIPID Order Info: [id number] - TSH Performed By: #### L 509.1000, L501.9520, L100.0100, L500.4050, L500.4100 #### [facility] [address] [place], [address] AST [Catalytic activity/Vol] 19 U/L Normal <=31 [facility] Comment on above: Order Comment: Order Date: 11/22/24 Order Info: 785-07 - CMP Order Info: - LIPID Order Info: [id number] - TSH Performed By: #### L 509.1000, L501.9520, L100.0100, L500.4050, L500.4100 #### [facility] [address] [place], [address] Bilirubin [Mass/Vol] 0.29 mg/dL Normal 0.00-1.30 [facility] Comment on above: Order Comment: Order Date: 11/22/24 Order Info: 785-07 - CMP Order Info: - LIPID Order Info: [id number] - TSH Performed By: #### L 509.1000, L501.9520, L100.0100, L500.4050, L500.4100 #### [facility] [address] [place], [address] BUN/CRE 17.4 RATIO Normal 10-20 [facility] Comment on above: Order Comment: Order Date: 11/22/24 Order Info: [id number] - CMP Order Info: - LIPID Order Info: [id number] - TSH Performed By: #### L 509.1000, L501.9520, L100.0100, L500.4050, L500.4100 #### [facility] [address] [place], [address] Calcium [Mass/Vol] 9.1 mg/dL Normal 7.6-11.0 [facility] Comment on above: Order Comment: Order Date: 11/22/24 Order Info: [id number] - CMP Order Info: - LIPID Order Info: [id number] - TSH Performed By: #### L 509.1000, L501.9520, L100.0100, L500.4050, L500.4100 #### [facility] [address] [place], [address] Chloride [Moles/Vol] 106 mmol/L Normal 98-108 [facility] Comment on above: Order Comment: Order Date: 11/22/24 Order Info: [id number] - CMP Order Info: - LIPID Order Info: [id number] - TSH Performed By: #### L 509.1000, L501.9520, L100.0100, L500.4050, L500.4100 #### [facility] [address] [place], [address] CO2 [Moles/Vol] 19.7 mmol/L Low 21.0-32.0 [facility] Comment on above: Order Comment: Order Date: 11/22/24 Order Info: [id number] - CMP Order Info: - LIPID Order Info: [id number] - TSH Performed By: #### L 509.1000, L501.9520, L100.0100, L500.4050, L500.4100 #### [facility] [address] [place], [address] Creatinine [Mass/Vol] 0.78 mg/dL Normal 0.70-1.20 [facility] Comment on above: Order Comment: Order Date: 11/22/24 Order Info: [id number] - CMP Order Info: - LIPID Order Info: [id number] - TSH Performed By: #### L 509.1000, L501.9520, L100.0100, L500.4050, L500.4100 #### [facility] [address] [place], [address] GAP 13 Normal 5-15 [facility] Comment on above: Order Comment: Order Date: 11/22/24 Order Info: 07-1 - CMP Order Info: [id number] - LIPID Order Info: [id number] - TSH Performed By: #### L 509.1000, L501.9520, L100.0100, L500.4050, L500.4100 #### [facility] [address] [place], [place], [id number] GFR/1.73 sq M.predicted among non-blacks MDRD (S/P/Bld) [Vol rate/Area] 108 mL/min/{1.73_m2} Normal >60 [facility] Comment on above: Order Comment: Order Date: 11/22/24 Order Info: [id number] - CMP Order Info: - LIPID Order Info: [id number] - TSH Result Comment: mL/m in/1.73m2 CKD-EPI Creatinine Equation (2020) Performed By: #### L 509.1000, L501.9520, L100.0100, L500.4050, L500.4100 #### [facility] [address] [place], [address] Globulin (S) [Mass/Vol] 2.8 g/dL Normal 2.2-4.2 [facility] Comment on above: Order Comment: Order Date: 11/22/24 Order Info: 07- - CMP Order Info: [id number] - LIPID Order Info: [id number] - TSH Performed By: #### L 509.1000, L501.9520, L100.0100, L500.4050, L500.4100 #### [facility] [address] [place], [place], [id number] Glucose [Mass/Vol] 97 mg/dL Normal 70-99 [facility] Comment on above: Order Comment: Order Date: 11/22/24 Order Info: 07- - CMP Order Info: [id number] - LIPID Order Info: [id number] - TSH Performed By: #### L 509.1000, L501.9520, L100.0100, L500.4050, L500.4100 #### [facility] [address] [place], [address] Potassium [Moles/Vol] 4.1 mmol/L Normal 3.3-5.1 [facility] Comment on above: Order Comment: Order Date: 11/22/24 Order Info: 0786- - CMP Order Info: [id number] - LIPID Order Info: [id number] - TSH Performed By: #### L 509.1000, L501.9520, L100.0100, L500.4050, L500.4100 #### [facility] [address] [place], [address] Sodium [Moles/Vol] 138 mmol/L Normal 133-145 [facility] Comment on above: Order Comment: Order Date: 11/22/24 Order Info: [id number] - CMP Order Info: [id number] - LIPID Order Info: [id number] - TSH Performed By: #### L 509.1000, L501.9520, L100.0100, L500.4050, L500.4100 #### [facility] [address] [place], [address] T PROT 6.9 g/dL Normal 5.9-8.4 [facility] Comment on above: Order Comment: Order Date: 11/22/24 Order Info: [id number] - CMP Order Info: [id number] - LIPID Order Info: [id number] - TSH Performed By: #### L 509.1000, L501.9520, L100.0100, L500.4050, L500.4100 #### [facility] [address] [place], [address] Urea nitrogen [Mass/Vol] 14 mg/dL Normal 4-19 [facility] Comment on above: Order Comment: Order Date: 11/22/24 Order Info: [id number] - CMP Order Info: [id number] - LIPID Order Info: [id number] - TSH Performed By: #### L 509.1000, L501.9520, L100.0100, L500.4050, L500.4100 #### [facility] [address] [place], [address] Eosinophil percentageOrdered By: Francine Rodriguez on 03-16-2025 Eosinophils/100 WBC (Bld) 4.0 % 0-5 [facility] Erythrocyte distribution wid th ratioOrdered By: [facility] on 03-16-2025 Erythrocyte distribution width (RBC) [Ratio] 15.2 % High 11.6-14.6 [facility] Erythrocyte distribution wid th standard deviationOrdered By: [facility] on 03-16-2025 Erythrocyte distribution width (RBC) [Ratio] 44.9 fl High 35.1-43.9 [facility] Glomerular filtration rate ( GFR) estimation/1.73 sq m using serum, plasma, or whole bOrdered By: [facility] on 03-16-2025 GFR/1.73 sq M.predicted among non-blacks MDRD (S/P/Bld) [Vol rate/Area] 108 mL/min/{1.73_m2} >60 [facility] Comment on above: mL/min/1.73m2 CKD-EP I Creatinine Equation (2020) Hematocrit Auto (Bld) [Volum e fraction]Ordered By: [facility] on 03-16-2025 Hematocrit (Bld) [Volume fraction] 35.1 % Low 37-47 [facility] Hemoglobin measurementOrdere d By: Francine Michael on 03-16-2025 Hemoglobin (Bld) [Mass/Vol] 11.1 g/dL Low 12.0-15.0 [facility] Immature granulocytes/100 WB C Auto (Bld)Ordered By: Francine Rodriguez on 03-16-2025 Immature granulocytes/100 WBC (Bld) 0.300 % 0.0-0.9 [facility] Comment on above: IG% - Immature Granu locytes (promyelocytes, myelocytes and metamyelocytes) > 1% indicates that a LEFT SHIFT is Present. LDL calc ser/plasOrdered By: Francine Michael on 03-16-2025 Cholesterol in LDL [Mass/Vol] 76 mg/dL [facility] Comment on above: Cexsesggrf=065-574 m g/dL & Higher Hjtt=781 mg/dL or greaterFriedwald Equation for LDL-C Laboratory - Chemistry and C hemistry - challengeOrdered By: Francine Hollandke on 03-16-2025 AST [Catalytic activity/Vol] 19 U/L <32 [facility] Lipid Profileon 03-16-2025 CHOL:HDL 2.96 Normal [facility] Comment on above: Order Comment: Order Date: 11/22/24 Order Info: [id number] - CMP Order Info: [id number] - LIPID Order Info: [id number] - TSH Performed By: #### L 509.1000, L501.9520, L100.0100, L500.4050, L500.4100 #### [facility] [address] [place], [address] Cholesterol [Mass/Vol] 136 mg/dL Normal <=200 [facility] Comment on above: Order Comment: Order Date: 11/22/24 Order Info: [id number] - CMP Order Info: [id number] - LIPID Order Info: [id number] - TSH Result Comment: Chol esterol level, Desirable <200 mg/dL Borderline high cholesterol 200-239 mg/dL High cholesterol >=240 mg/dL Recommendations of the NCEP Adult Treatment Panel for the following risk-cutoff thresholds for the [place] population. Performed By: #### L 509.1000, L501.9520, L100.0100, L500.4050, L500.4100 #### [facility] [address] [place], [address] Cholesterol in HDL [Mass/Vol] 46 mg/dL Normal [facility] Comment on above: Order Comment: Order Date: 11/22/24 Order Info: [id number] - CMP Order Info: [id number] - LIPID Order Info: [id number] - TSH Result Comment: Shellie onal Cholesterol Education Program (NCEP) guidelines: <40 mg/dL: Low HDL-cholesterol (major risk factor for CHD) >= 60 mg/dL: High HDL-cholesterol (negative risk factor for CHD) HDL-cholesterol is affected by a number of factors, e.g. smoking, exercise, hormones, sex and age. Performed By: #### L 509.1000, L501.9520, L100.0100, L500.4050, L500.4100 #### [facility] [address] [place], [address] Cholesterol in LDL [Mass/Vol] 76 mg/dL Normal [facility] Comment on above: Order Comment: Order Date: 11/22/24 Order Info: 0786 - CMP Order Info: - LIPID Order Info: 3 - TSH Result Comment: Bord quikuh=476-401 mg/dL Higher Cvql=897 mg/dL or greater Friedwald Equation for LDL-C Performed By: #### L 509.1000, L501.9520, L100.0100, L500.4050, L500.4100 #### [facility] [address] [place], [address] Cholesterol in VLDL [Mass/Vol] 14 mg/dL Normal 5-40 [facility] Comment on above: Order Comment: Order Date: 11/22/24 Order Info: 0786- - CMP Order Info: [id number] - LIPID Order Info: 3 - TSH Performed By: #### L 509.1000, L501.9520, L100.0100, L500.4050, L500.4100 #### [facility] [address] [place], [address] Triglyceride [Mass/Vol] 71 mg/dL Normal [facility] Comment on above: Order Comment: Order Date: 11/22/24 Order Info: 0786- - CMP Order Info: [id number] - LIPID Order Info: [id number] - TSH Result Comment: The drugs N-Acetylcysteine and Metamizole may falsely depress this assay. Normal range: <150 mg/dL Borderline High: 150-199 mg/dL High: 200-499 mg/dL Very High: >500 mg/dL Performed By: #### L 509.1000, L501.9520, L100.0100, L500.4050, L500.4100 #### [facility] [address] [place], [address] MCV (mean corpuscular volume ) determinationOrdered By: Francine Rodriguez on 03-16-2025 MCV (RBC) [Entitic vol] 81.4 fL 81-99 [facility] Mean corpuscular hemoglobin (MCH) determinationOrdered By: [facility] on 03-16-2025 MCH (RBC) [Entitic mass] 25.8 pg Low 27.0-32.0 [facility] Mean corpuscular hemoglobin concentration (MCHC) determinationOrdered By: [facility] on 03-16-2025 MCHC (RBC) [Mass/Vol] 31.6 g/dL Low 32-36 [facility] Mean platelet volume determi nationOrdered By: [facility] on 03-16-2025 Platelet mean volume (Bld) [Entitic vol] 9.4 fL 6.2-12.0 [facility] Monocyte percentageOrdered B y: Linosteve Michael on 03-16-2025 Monocytes/100 WBC (Bld) 8.7 % 0-10 [facility] Neutrophil percentageOrdered By: [facility] on 03-16-2025 Neutrophils/100 WBC (Bld) 45.9 % Low 47-70 [facility] Nucleated red blood cell per centageOrdered By: [facility] on 03-16-2025 Nucleated RBC/100 WBC (Bld) [Ratio] 0 % 0-5 [facility] PTHINon 03-16-2025 PTH 31 pg/mL Normal 11-61 [facility] Comment on above: Order Comment: Order Date: 11/22/24 Order Info: [id number] - PTHIN Performed By: #### L 509.1000, L501.9520, L100.0100, L500.4050, L500.4100 #### [facility] [address] [place], [address] Platelet countOrdered By: Brant Rodriguez on 03-16-2025 Platelets (Bld) [#/Vol] 449 10*3/uL 150-450 [facility] Potassium measurement (mass/ volume)Ordered By: Francine Rodriguez on 03-16-2025 Potassium (Unsp spec) [Mass/Vol] 4.1 mmol/L 3.3-5.1 [facility] RBC Auto (Bld) [#/Vol]Ordere d By: Francine Rodriguez on 03-16-2025 RBC (Bld) [#/Vol] 4.31 10*6/uL 4.2-5.4 [facility] Screening total cholesterol/ high density lipoprotein (HDL) cholesterol ratioOrdered By: Francine Rodriguez on 03-16-2025 Cholesterol.total/Choles terol in HDL [Mass ratio] 2.96 {ratio} [facility] Serum creatinine measurement (mass/volume)Ordered By: Francine Rodriguez on 03-16-2025 Creatinine [Mass/Vol] 0.78 mg/dL 0.70-1.20 [facility] Serum globulin measurementOr dered By: Francine Rodriguez on 03-16-2025 Globulin (S) [Mass/Vol] 2.8 g/dL 2.2-4.2 [facility] Serum glucose measurement (m ass/volume)Ordered By: Francine Rodriguez on 03-16-2025 Glucose [Mass/Vol] 97 mg/dL 70-99 [facility] Serum or plasma alanine mathew otransferase (ALT) measurementOrdered By: Francine Rodriguez on 03-16-2025 ALT [Catalytic activity/Vol] 19 U/L <35 [facility] Serum or plasma albumin julio césar urement (mass/volume)Ordered By: Francine Rodriguez on 03-16-2025 Albumin [Mass/Vol] 4.1 g/dL 3.5-5.0 [facility] Serum or plasma albumin/glob ulin mass ratioOrdered By: Francine Rodriguez on 03-16-2025 Albumin/Globulin [Mass ratio] 1.5 {ratio} 0.9-2.4 [facility] Serum or plasma alkaline malcolm sphatase measurementOrdered By: Francine Rodriguez on 03-16-2025 ALP [Catalytic activity/Vol] 71 U/L 35-104 [facility] Serum or plasma calcium julio césar urement (mass/volume)Ordered By: Francine Rodriguez on 03-16-2025 Calcium [Mass/Vol] 9.1 mg/dL 7.6-11.0 [facility] Serum or plasma cholesterol in HDL measurement (mass/volume)Ordered By: Francine Rodriguez on 03-16-2025 Cholesterol in HDL [Mass/Vol] 46 mg/dL >40 [facility] Comment on above: National Cholesterol Education Program (NCEP) guidelines:<40 mg/dL: Low HDL-cholesterol (major risk factor for CHD)>= 60 mg/dL: High HDL-cholesterol (negative risk factor for CHD)HDL-cholesterol is affected by a number of factors, e.g. smoking, exercise, hormones, sex and age. Serum or plasma cholesterol measurement (mass/volume)Ordered By: Francine Rodriguez on 03-16-2025 Cholesterol [Mass/Vol] 136 mg/dL <201 [facility] Comment on above: Cholesterol level, D esirable <200 mg/dLBorderline high cholesterol 200-239 mg/dLHigh cholesterol >=240 mg/dLRecommendations of the NCEP Adult Treatment Panel for the following risk-cutoff thresholds for the [place] population. Serum or plasma urea nitroge n measurement (mass/volume)Ordered By: Francine Rodriguez on 03-16-2025 Urea nitrogen [Mass/Vol] 14 mg/dL 4-19 [facility] Sodium levelOrdered By: Lino Rodriguez on 03-16-2025 Sodium [Moles/Vol] 138 mmol/L 133-145 [facility] TSH DL <= 0.005 mIU/L QnOrde red By: Francine Rodriguez on 03-16-2025 TSH Qn 3.970 uIU/mL 0.300-4.20 0 [facility] Thyroid Stim Hormone (TSH)on 03-16-2025 TSH 3.970 uIU/mL Normal 0.300-4.20 0 [facility] Comment on above: Order Comment: Order Date: 11/22/24 Order Info: [id number] - CMP Order Info: [id number] - LIPID Order Info: [id number] - TSH Performed By: #### L 509.1000, L501.9520, L100.0100, L500.4050, L500.4100 #### [facility] [address] [place], [place], [id number] Total proteinOrdered By: Nancy Rodriguez on 03-16-2025 Protein [Mass/Vol] 6.9 g/dL 5.9-8.4 [facility] Triglycerides measurementOrd ered By: Francine Rodriguez on 03-16-2025 Triglyceride [Mass/Vol] 71 mg/dL <199 [facility] Comment on above: The drugs N-Acetylcy steine and Metamizole may falsely depress this assay. Normal range: <150 mg/dLBorderline High: 150-199 mg/dLHigh: 200-499 mg/dLVery High: >500 mg/dL Vitamin D,25 Hydroxyon 03-16 Vitamin D 25-OH 27.7 ng/mL Low 30-100 [facility] Comment on above: Order Comment: Order Date: 11/22/24 Order Info: [id number] - CMP Order Info: [id number] - LIPID Order Info: [id number] - TSH Result Comment: Maria C min D Status Deficiency: <20 ng/mL (50nmol/L) Insufficiency: 20-30 ng/mL (50-75 nmol/L) Sufficiency: 30-100 ng/mL (75-250 nmol/L) Toxicity: >100 ng/mL (>250 nmol/L) Performed By: #### L 506.1001 #### [facility] [address] [place], [place], [address] White blood cell (WBC) count Ordered By: Francine Rodriguez on 03-16-2025 WBC (Bld) [#/Vol] 8.7 10*3/uL 4.4-11.0 [facility] Urgent Care Visit Reporton 0 02-01-2025 Urgent Care Visit Report [facility] [address], [address] [place], [place] [address] OFFICE VISIT Date of Service: 02/01/25 MR#: [id number] Acct: [id number] Name: TORRES MILLARD Rep #: [id number] : 2000 Provider: ROBERT Hooper Age/Sex: 24/F Location: [facility] Status: Signed Intake Vital Signs 10/05/24 14:01 [...] excedrin. Patient has been under some stress. [facility] Medical History (Updated 02/01/25 @ 15:41 by Sae JONES, PA) Migraine Surgical History [place] teeth extracted H/O removal of cyst H/O [...] sooner s (more content not included)... Normal [facility] Urgent Care Visit Reporton 0 10-05-2024 Urgent Care Visit Report [facility] [address], [address] [place] [address] OFFICE VISIT Date of Service: 10/05/24 MR#: [id number] Acct: [id number] Name: TORRES MILLARD Rep #: [id number] : 2000 Provider: ROBERT Hooper Age/Sex: 24/F Location: [facility] Status: Signed Intake Vital Signs 08/14/21 11:06 [...] tubes in her ears as a child. [facility] Surgical History H/O removal of cyst H/O wrist surgery [place] teeth extracted Social History household members: family [...] habitus Orientation: alert, awake and oriented x3 HENMT Head: normal to inspection Ears: hearing [...] today. Fo (more content not included)... Normal [facility] Thyroid Stim Hormone (TSH)on 08-04-2024 TSH 2.590 uIU/mL Normal 0.358-3.74 0 [facility] Comment on above: Order Comment: Order Date: 05/09/24 Order Info: [id number] - TSH Performed By: #### L 501.9520 #### [facility] [place], [address] Serum or plasma thyroid stim ulating hormone (TSH) measurement (units/volume)Ordered By: Rosa García on 11-03-2023 TSH Qn 2.15 uIU/mL 0.358-3.74 [facility] Thin prep Papanicolaou smear with manual screeningOrdered By: Rosa García on 11-03-2023 Thin prep Papanicolaou smear with manual screening 1.35 ng/dL 0.76-1.46 [facility] Absolute lymphocyte countOrd ered By: Rosa García on 08-26-2023 Lymphocytes Auto (Unsp spec) [#/Vol] 2.96 10*3/uL 0.83-4.51 [facility] Automated lymphocyte count a s percentage of total leukocytesOrdered By: Rosa García on 08-26-2023 Lymphocytes/100 WBC Auto (Unsp spec) 30.7 % 19-41 [facility] Basophil percentageOrdered B y: Rosa García on 08-26-2023 Basophils/100 WBC (Bld) 0.6 % 0-1 [facility] Bilirubin [Mass/Vol] 0.30 mg/dL 0.20-1.00 [facility] Comment on above: For patients on eltr ombopag therapy, use of [facility] [place] [facility] TBIL is not recommended. Chloride [Moles/Vol] 110 mmol/L 98-107 [facility] Eosinophils/100 WBC (Bld) 0.4 % 0-5 [facility] Glucose [Mass/Vol] 103 mg/dL 74-106 [facility] Comment on above: Fasting Glucose resu lt from 100 to 125 mg/dL suggests IMPAIRED HOMEOSTASIS per A.D.A. criteria. Hemoglobin (Bld) [Mass/Vol] 12.2 g/dL 12.0-15.0 [facility] Monocytes/100 WBC (Bld) 5.6 % 0-10 [facility] Neutrophils (Bld) [#/Vol] 6.0 10*3/uL 2.0-7.7 [facility] Neutrophils/100 WBC (Bld) 62.4 % 47-70 [facility] Potassium [Moles/Vol] 3.8 mmol/L 3.5-5.1 [facility] Protein [Mass/Vol] 7.8 g/dL 6.4-8.2 [facility] Sodium [Moles/Vol] 138 mmol/L 136-145 [facility] WBC (Bld) [#/Vol] 9.6 10*3/uL 4.4-11.0 [facility] Determination of erythrocyte mean corpuscular volume (MCV)Ordered By: Rosa García on 08-26-2023 MCV (RBC) [Entitic vol] 86.8 fL 81-99 [facility] Erythrocyte distribution wid th ratioOrdered By: Rosa García on 08-26-2023 Erythrocyte distribution width (RBC) [Ratio] 13.6 % 11.6-14.6 [facility] Erythrocyte distribution wid th standard deviationOrdered By: Rosa García on 08-26-2023 Erythrocyte distribution width (RBC) [Entitic vol] 42.6 fL 35.1-43.9 [facility] Hematocrit Auto (Bld) [Volum e fraction]Ordered By: Rosa García on 08-26-2023 Hematocrit (Bld) [Volume fraction] 39.6 % 37-47 [facility] Immature granulocytes/100 WB C Auto (Bld)Ordered By: Rosa García on 08-26-2023 Immature granulocytes/100 WBC (Bld) 0.300 % 0.0-0.9 [facility] Comment on above: IG% - Immature Granu locytes (promyelocytes, myelocytes and metamyelocytes) > 1% indicates that a LEFT SHIFT is Present. Laboratory - Chemistry and C hemistry - challengeOrdered By: Rosa García on 08-26-2023 Albumin/Globulin [Mass ratio] 1.1 {ratio} 0.9-2.4 [facility] ALP [Catalytic activity/Vol] 74 U/L 45-117 [facility] ALT [Catalytic activity/Vol] 26 U/L 13-56 [facility] CO2 [Moles/Vol] 23.0 mmol/L 21.0-32.0 [facility] Ferritin [Mass/Vol] 8 ng/mL 8-252 [facility] Globulin (S) [Mass/Vol] 3.7 g/dL 2.2-4.2 [facility] Urea nitrogen/Creatinine [Mass ratio] 16.0 mg/mg 10-20 [facility] Laboratory - Hematology and Cell countsOrdered By: Rosa García on 08-26-2023 MCH (RBC) [Entitic mass] 26.8 pg 27.0-32.0 [facility] MCHC (RBC) [Mass/Vol] 30.8 g/dL 32-36 [facility] Nucleated RBC/100 WBC (Bld) [Ratio] 0 % 0-5 [facility] Platelets (Bld) [#/Vol] 451 10*3/uL 150-450 [facility] No Panel InformationOrdered By: Rosa García on 08-26-2023 Estimated GFR (MDRD) Amer 102 mL/min >60 [facility] Comment on above: GFR Calc Estimated GFR (MDRD) Non-Af Amer 85 mL/min >60 [facility] Comment on above: Non- GFR Calc Platelet mean volume Marcelo-Ec ker (Bld) [Entitic vol]Ordered By: Rosa García on 08-26-2023 Platelet mean volume (Bld) [Entitic vol] 9.7 fL 6.2-12.0 [facility] RBC Auto (Bld) [#/Vol]Ordere d By: Rosa García on 08-26-2023 RBC (Bld) [#/Vol] 4.56 10*6/uL 4.2-5.4 [facility] Serum or plasma calcium julio césar urement (mass/volume)Ordered By: Rosa García on 08-26-2023 Calcium [Mass/Vol] 9.5 mg/dL 8.5-10.1 [facility] Serum or plasma creatinine m easurement (mass/volume)Ordered By: Rosa García on 08-26-2023 Creatinine [Mass/Vol] 0.87 mg/dL 0.55-1.02 [facility] Comment on above: The validity of the calculated GFR & GFRAA in patients over 70 years has not been determined. Clinical correlation is essential. Serum or plasma thyroid stim ulating hormone (TSH) measurement (units/volume)Ordered By: Rosa García on 08-26-2023 TSH Qn 3.11 uIU/mL 0.358-3.74 [facility] Serum or plasma urea nitroge n measurement (mass/volume)Ordered By: Rosa García on 08-26-2023 Urea nitrogen [Mass/Vol] 14 mg/dL 7-18 [facility] Thin prep Papanicolaou smear with manual screeningOrdered By: Rosa García on 08-26-2023 Thin prep Papanicolaou smear with manual screening 4.1 g/dL 3.2-5.0 [facility] Thin prep Papanicolaou smear with manual screening 15 U/L 15-37 [facility] Thin prep Papanicolaou smear with manual screening 5 5-15 [facility] Thin prep Papanicolaou smear with manual screening 1.28 ng/dL 0.76-1.46 [facility] Laboratory - Chemistry and C hemistry - challengeOrdered By: Rosa García on 07-14-2023 Free T4 [Mass/Vol] 1.19 ng/dL 0.76-1.46 [facility] No Panel InformationOrdered By: Rosa García on 07-14-2023 Thyroid Stimulating Hormone (TSH) 3.59 uIU/mL 0.358-3.74 [facility] Laboratory - Chemistry and C hemistry - challengeOrdered By: Rosa García on 05-21-2023 Free T4 [Mass/Vol] 0.91 ng/dL 0.76-1.46 [facility] No Panel InformationOrdered By: Rosa García on 05-21-2023 Thyroid Stimulating Hormone (TSH) 4.54 uIU/mL 0.358-3.74 [facility] Laboratory - Chemistry and C hemistry - challengeOrdered By: Rosa García on 04-28-2023 Free T4 [Mass/Vol] 0.83 ng/dL 0.76-1.46 [facility] No Panel InformationOrdered By: Rosa García on 04-28-2023 Thyroid Stimulating Hormone (TSH) 15.20 uIU/mL 0.358-3.74 [facility] XR FOOT GENERAL 3V AP/LAT/OB L RIGHTon 04-25-2023 [facility] XR Foot - right AP and Later al and obliqueon 04-25-2023 IMPRESSION: Fracture base of fifth metatarsal. Java Application Engineer: [email or web address] Transcribe Date/Time: Apr 25 2023 10:37A Dictated by : MIREYA DAVIES MD This examination was interpreted and the report reviewed and electronically signed by: MIREYA DAVIES MD on Apr 25 2023 10:41AM [facility] DIVISION OF RADIOLOGY * * *Final [...] foot. No subluxation. DIVISION OF RADIOLOGY Provider, [facility] Kike james [place] - 04/25/2023 * * *Final Report* * [...] IMPRESSION IMPRESSION: Fracture base of fifth metatarsal. Java Application Engineer: VICKY Transcribe Date/Time: Apr 25 2023 10:37A Dictated by : MIREYA DAVIES MD This examination was interpreted and the report reviewed and electronically signed by: MIREYA DAVIES MD on Apr 25 2023 10:41AM EST [facility] Radiology Study observation (narrative) [facility] XR Foot - right AP and Later al and obliqueOrdered By: [facility] Provider on 04-25-2023 [facility] STREP A MOLECULAR (POC)on Procedural Control Valid [facility] Strep A (POCT) Negative Negative [facility] Absolute lymphocyte countOrd ered By: Rosa García on 03-09-2023 Lymphocytes Auto (Unsp spec) [#/Vol] 2.47 10*3/uL 0.83-4.51 [facility] Basophil percentageOrdered B y: Rosa García on 03-09-2023 Basophils/100 WBC (Bld) 0.8 % 0-1 [facility] Bilirubin [Mass/Vol] 0.30 mg/dL 0.20-1.00 [facility] Comment on above: For patients on eltr ombopag therapy, use of [facility] [place] TBIL is not recommended. Chloride [Moles/Vol] 111 mmol/L 98-107 [facility] Eosinophils/100 WBC (Bld) 2.5 % 0-5 [facility] Glucose [Mass/Vol] 98 mg/dL 74-106 [facility] Neutrophils (Bld) [#/Vol] 2.9 10*3/uL 2.0-7.7 [facility] Neutrophils/100 WBC (Bld) 47.2 % 47-70 [facility] Potassium [Moles/Vol] 3.9 mmol/L 3.5-5.1 [facility] Protein [Mass/Vol] 7.1 g/dL 6.4-8.2 [facility] Sodium [Moles/Vol] 140 mmol/L 136-145 [facility] WBC (Bld) [#/Vol] 6.0 10*3/uL 4.4-11.0 [facility] Blood erythrocytes count (nu mber/volume)Ordered By: Rosa García on 03-09-2023 RBC (Bld) [#/Vol] 4.48 10*6/uL 4.2-5.4 [facility] Blood hemoglobin measurement (mass/volume)Ordered By: Rosa García on 03-09-2023 Hemoglobin (Bld) [Mass/Vol] 11.9 g/dL 12.0-15.0 [facility] Blood lymphocytes/100 leukoc ytesOrdered By: Rosa García on 03-09-2023 Lymphocytes/100 WBC (Bld) 41.0 % 19-41 [facility] Blood monocytes/100 leukocyt esOrdered By: Rosa García on 03-09-2023 Monocytes/100 WBC (Bld) 8.5 % 0-10 [facility] Blood platelet mean volumeOr dered By: Rosa García on 03-09-2023 Platelet mean volume (Bld) [Entitic vol] 9.6 fL 6.2-12.0 [facility] Determination of erythrocyte mean corpuscular volume (MCV)Ordered By: Rosa García on 03-09-2023 MCV (RBC) [Entitic vol] 82.8 fL 81-99 [facility] Hematocrit Auto (Bld) [Volum e fraction]Ordered By: Rosa García on 03-09-2023 Hematocrit (Bld) [Volume fraction] 37.1 % 37-47 [facility] Laboratory - Chemistry and C hemistry - challengeOrdered By: Rosa García on 03-09-2023 ALP [Catalytic activity/Vol] 63 U/L 45-117 [facility] ALT [Catalytic activity/Vol] 19 U/L 13-56 [facility] CO2 [Moles/Vol] 25.0 mmol/L 21.0-32.0 [facility] Cobalamin (Vitamin B12) [Mass/Vol] 1868 pg/mL 211-911 [facility] Free T4 [Mass/Vol] 1.16 ng/dL 0.76-1.46 [facility] Globulin (S) [Mass/Vol] 3.4 g/dL 2.2-4.2 [facility] Urea nitrogen/Creatinine [Mass ratio] 16.5 mg/mg 10-20 [facility] Laboratory - Hematology and Cell countsOrdered By: Rosa García on 03-09-2023 Erythrocyte distribution width (RBC) [Entitic vol] 47.4 fL 35.1-43.9 [facility] Erythrocyte distribution width (RBC) [Ratio] 15.8 % 11.6-14.6 [facility] Immature granulocytes/100 WBC (Bld) 0.000 % 0.0-0.9 [facility] Comment on above: IG% - Immature Granu locytes (promyelocytes, myelocytes and metamyelocytes) > 1% indicates that a LEFT SHIFT is Present. MCH (RBC) [Entitic mass] 26.6 pg 27.0-32.0 [facility] Nucleated RBC/100 WBC (Bld) [Ratio] 0 % 0-5 [facility] MCHC Auto (RBC) [Mass/Vol]Or dered By: Rosa García on 03-09-2023 MCHC (RBC) [Mass/Vol] 32.1 g/dL 32-36 [facility] No Panel InformationOrdered By: Rosa García on 03-09-2023 Estimated GFR (MDRD) Amer 127 mL/min >60 [facility] Comment on above: GFR Calc Estimated GFR (MDRD) Non-Af Amer 105 mL/min >60 [facility] Comment on above: Non- GFR Calc Thyroid Stimulating Hormone (TSH) 0.30 uIU/mL 0.358-3.74 [facility] Vitamin D 25-Hydroxy 60.2 ng/mL [facility] Comment on above: Vitamin D 25(OH) Sta tus Range Deficiency <20 ng/mL (50nmol/L) Insufficiency 20 - 30 ng/mL (50 - 75 nmol/L) Sufficiency 30 - 100 ng/mL (75 - 250 nmol/L) Toxicity >100 ng/mL (>250 nmol/L) Platelets bldOrdered By: Nuria García on 03-09-2023 Platelets (Bld) [#/Vol] 377 10*3/uL 150-450 [facility] Serum or plasma albumin julio césar urement (mass/volume)Ordered By: Rosa García on 03-09-2023 Albumin [Mass/Vol] 3.7 g/dL 3.2-5.0 [facility] Serum or plasma albumin/glob ulin mass ratioOrdered By: Rosa García on 03-09-2023 Albumin/Globulin [Mass ratio] 1.1 {ratio} 0.9-2.4 [facility] Serum or plasma calcium julio césar urement (mass/volume)Ordered By: Rosa García on 03-09-2023 Calcium [Mass/Vol] 8.8 mg/dL 8.5-10.1 [facility] Serum or plasma creatinine m easurement (mass/volume)Ordered By: Rosa García on 03-09-2023 Creatinine [Mass/Vol] 0.73 mg/dL 0.55-1.02 [facility] Comment on above: The validity of the calculated GFR & GFRAA in patients over 70 years has not been determined. Clinical correlation is essential. Serum or plasma ferritin samaria surement (mass/volume)Ordered By: Rosa García on 03-09-2023 Ferritin [Mass/Vol] 8 ng/mL 8-252 [facility] Serum or plasma urea nitroge n measurement (mass/volume)Ordered By: Rosa García on 03-09-2023 Urea nitrogen [Mass/Vol] 12 mg/dL 7-18 [facility] Thin prep Papanicolaou smear with manual screeningOrdered By: Rosa García on 03-09-2023 Thin prep Papanicolaou smear with manual screening 15 U/L 15-37 [facility] Thin prep Papanicolaou smear with manual screening 4 5-15 [facility] Absolute lymphocyte countOrd ered By: Rosa García on 02-03-2023 Lymphocytes Auto (Unsp spec) [#/Vol] 2.07 10*3/uL 0.83-4.51 [facility] Basophil percentageOrdered B y: Rosa García on 02-03-2023 Basophils/100 WBC (Bld) 0.9 % 0-1 [facility] Eosinophils/100 WBC (Bld) 1.2 % 0-5 [facility] Neutrophils (Bld) [#/Vol] 5.1 10*3/uL 2.0-7.7 [facility] Neutrophils/100 WBC (Bld) 65.6 % 47-70 [facility] WBC (Bld) [#/Vol] 7.8 10*3/uL 4.4-11.0 [facility] Blood erythrocytes count (nu mber/volume)Ordered By: Rosa García on 02-03-2023 RBC (Bld) [#/Vol] 4.68 10*6/uL 4.2-5.4 [facility] Blood hemoglobin measurement (mass/volume)Ordered By: Rosa García on 02-03-2023 Hemoglobin (Bld) [Mass/Vol] 11.8 g/dL 12.0-15.0 [facility] Blood lymphocytes/100 leukoc ytesOrdered By: Rosa García on 02-03-2023 Lymphocytes/100 WBC (Bld) 26.6 % 19-41 [facility] Blood monocytes/100 leukocyt esOrdered By: Rosa García on 02-03-2023 Monocytes/100 WBC (Bld) 5.3 % 0-10 [facility] Blood platelet mean volumeOr dered By: Rosa García on 02-03-2023 Platelet mean volume (Bld) [Entitic vol] 10.1 fL 6.2-12.0 [facility] Determination of erythrocyte mean corpuscular volume (MCV)Ordered By: Rosa García on 02-03-2023 MCV (RBC) [Entitic vol] 82.3 fL 81-99 [facility] Hematocrit Auto (Bld) [Volum e fraction]Ordered By: Rosa García on 02-03-2023 Hematocrit (Bld) [Volume fraction] 38.5 % 37-47 [facility] Laboratory - Hematology and Cell countsOrdered By: Rosa García on 02-03-2023 Erythrocyte distribution width (RBC) [Entitic vol] 42.3 fL 35.1-43.9 [facility] Erythrocyte distribution width (RBC) [Ratio] 14.4 % 11.6-14.6 [facility] Immature granulocytes/100 WBC (Bld) 0.400 % 0.0-0.9 [facility] Comment on above: IG% - Immature Granu locytes (promyelocytes, myelocytes and metamyelocytes) > 1% indicates that a LEFT SHIFT is Present. MCH (RBC) [Entitic mass] 25.2 pg 27.0-32.0 [facility] Nucleated RBC/100 WBC (Bld) [Ratio] 0 % 0-5 [facility] MCHC Auto (RBC) [Mass/Vol]Or dered By: Rosa García on 02-03-2023 MCHC (RBC) [Mass/Vol] 30.6 g/dL 32-36 [facility] Platelets bldOrdered By: Nuria García on 02-03-2023 Platelets (Bld) [#/Vol] 436 10*3/uL 150-450 [facility] Basophil percentageOrdered B y: Rosa García on 02-02-2023 Bilirubin [Mass/Vol] 0.30 mg/dL 0.20-1.00 [facility] Comment on above: For patients on eltr ombopag therapy, use of [facility] [place] [facility] TBIL is not recommended. Chloride [Moles/Vol] 111 mmol/L 98-107 [facility] Glucose [Mass/Vol] 93 mg/dL 74-106 [facility] Potassium [Moles/Vol] 3.9 mmol/L 3.5-5.1 [facility] Protein [Mass/Vol] 7.8 g/dL 6.4-8.2 [facility] Sodium [Moles/Vol] 139 mmol/L 136-145 [facility] Laboratory - Chemistry and C hemistry - challengeOrdered By: Rosa García on 02-02-2023 ALP [Catalytic activity/Vol] 72 U/L 45-117 [facility] ALT [Catalytic activity/Vol] 22 U/L 13-56 [facility] CO2 [Moles/Vol] 22.0 mmol/L 21.0-32.0 [facility] Cobalamin (Vitamin B12) [Mass/Vol] 488 pg/mL 211-911 [facility] Globulin (S) [Mass/Vol] 3.8 g/dL 2.2-4.2 [facility] Urea nitrogen/Creatinine [Mass ratio] 16.2 mg/mg 10-20 [facility] No Panel InformationOrdered By: Rosa García on 02-02-2023 Estimated GFR (MDRD) Amer 113 mL/min >60 [facility] Comment on above: GFR Calc Estimated GFR (MDRD) Non-Af Amer 94 mL/min >60 [facility] Comment on above: Non- GFR Calc No Panel InformationOrdered By: Tonia Farooq on 02-02-2023 Thyroid Stimulating Hormone (TSH) 1.89 uIU/mL 0.358-3.74 [facility] Serum or plasma albumin julio césar urement (mass/volume)Ordered By: Rosa García on 02-02-2023 Albumin [Mass/Vol] 4.0 g/dL 3.2-5.0 [facility] Serum or plasma albumin/glob ulin mass ratioOrdered By: Rosa García on 02-02-2023 Albumin/Globulin [Mass ratio] 1.1 {ratio} 0.9-2.4 [facility] Serum or plasma calcium julio césar urement (mass/volume)Ordered By: Rosa García on 02-02-2023 Calcium [Mass/Vol] 9.5 mg/dL 8.5-10.1 [facility] Serum or plasma creatinine m easurement (mass/volume)Ordered By: Rosa García on 02-02-2023 Creatinine [Mass/Vol] 0.80 mg/dL 0.55-1.02 [facility] Comment on above: The validity of the calculated GFR & GFRAA in patients over 70 years has not been determined. Clinical correlation is essential. Serum or plasma ferritin samaria surement (mass/volume)Ordered By: Rosa García on 02-02-2023 Ferritin [Mass/Vol] 7 ng/mL 8-252 [facility] Serum or plasma urea nitroge n measurement (mass/volume)Ordered By: Rosa García on 02-02-2023 Urea nitrogen [Mass/Vol] 13 mg/dL 7-18 [facility] Thin prep Papanicolaou smear with manual screeningOrdered By: Rosa García on 02-02-2023 Thin prep Papanicolaou smear with manual screening 17 U/L 15-37 [facility] Thin prep Papanicolaou smear with manual screening 6 5-15 [facility] Laboratory - Chemistry and C hemistry - challengeOrdered By: Rosa García on 12-24-2022 Cobalamin (Vitamin B12) [Mass/Vol] 392 pg/mL 211-911 [facility] Laboratory - Chemistry and C hemistry - challengeOrdered By: Rosa García on 12-17-2022 Free T4 [Mass/Vol] 1.20 ng/dL 0.76-1.46 [facility] No Panel InformationOrdered By: Rosa García on 12-17-2022 Ionized Calcium 5.0 mg/dL 4.5-5.6 [facility] Comment on above: Performed at: [address] [id number] Director: Eder Lamar PhD, Phone: [phone] Parathyroid Hormone (Intact) 30.1 pg/mL 18.4-80.1 [facility] Thyroid Stimulating Hormone (TSH) 2.79 uIU/mL 0.358-3.74 [facility] Vitamin D 25-Hydroxy 14.4 ng/mL [facility] Comment on above: Vitamin D 25(OH) Sta tus Range Deficiency <20 ng/mL (50nmol/L) Insufficiency 20 - 30 ng/mL (50 - 75 nmol/L) Sufficiency 30 - 100 ng/mL (75 - 250 nmol/L) Toxicity >100 ng/mL (>250 nmol/L) No Panel InformationOrdered By: Rosa García on 12-03-2022 Thyroid Stimulating Hormone (TSH) 1.93 uIU/mL 0.358-3.74 [facility] Laboratory - Chemistry and C hemistry - challengeOrdered By: Rosa García on 11-10-2022 Free T4 [Mass/Vol] 0.96 ng/dL 0.76-1.46 [facility] No Panel InformationOrdered By: Rosa García on 11-10-2022 Free Triiodothyronine (T3) pg/dL 2.4 pg/mL 2.18-3.98 [facility] Thyroglobulin Antibody < 1.0 IU/mL 0.0-0.9 [facility] Comment on above: Thyroglobulin Antibo dy measured by [employer] VaccinesMethodologyPerformed at: - [facility] [address] [id number] Director: Eder Lamar PhD, Phone: [phone] Thyroid Stimulating Hormone (TSH) 4.17 uIU/mL 0.358-3.74 [facility] Serum or plasma thyroperoxid ase antibody assay (units/volume)Ordered By: Rosa García on 11-10-2022 TPO Ab Qn 105 [IU]/mL 0-34 [facility] Absolute lymphocyte countOrd ered By: Rosa García on 11-06-2022 Lymphocytes Auto (Unsp spec) [#/Vol] 2.76 10*3/uL 0.83-4.51 [facility] Basophil percentageOrdered B y: Rosa García on 11-06-2022 Basophils/100 WBC (Bld) 0.6 % 0-1 [facility] Bilirubin [Mass/Vol] 0.50 mg/dL 0.20-1.00 [facility] Comment on above: For patients on eltr ombopag therapy, use of [facility] [place] TBIL is not recommended. Chloride [Moles/Vol] 105 mmol/L 98-107 [facility] Eosinophils/100 WBC (Bld) 1.8 % 0-5 [facility] Glucose [Mass/Vol] 96 mg/dL 74-106 [facility] Neutrophils (Bld) [#/Vol] 5.0 10*3/uL 2.0-7.7 [facility] Neutrophils/100 WBC (Bld) 58.5 % 47-70 [facility] Potassium [Moles/Vol] 4.0 mmol/L 3.5-5.1 [facility] Protein [Mass/Vol] 7.5 g/dL 6.4-8.2 [facility] Sodium [Moles/Vol] 135 mmol/L 136-145 [facility] WBC (Bld) [#/Vol] 8.6 10*3/uL 4.4-11.0 [facility] Blood erythrocytes count (nu mber/volume)Ordered By: Rosa García on 11-06-2022 RBC (Bld) [#/Vol] 4.72 10*6/uL 4.2-5.4 [facility] Blood hemoglobin measurement (mass/volume)Ordered By: Rosa García on 11-06-2022 Hemoglobin (Bld) [Mass/Vol] 12.0 g/dL 12.0-15.0 [facility] Blood lymphocytes/100 leukoc ytesOrdered By: Rosa García on 11-06-2022 Lymphocytes/100 WBC (Bld) 32.2 % 19-41 [facility] Blood monocytes/100 leukocyt esOrdered By: Roas García on 11-06-2022 Monocytes/100 WBC (Bld) 6.5 % 0-10 [facility] Blood platelet mean volumeOr dered By: Rosa García on 11-06-2022 Platelet mean volume (Bld) [Entitic vol] 9.3 fL 6.2-12.0 [facility] Determination of erythrocyte mean corpuscular volume (MCV)Ordered By: Rosa García on 11-06-2022 MCV (RBC) [Entitic vol] 82.4 fL 81-99 [facility] Erythrocyte sedimentation ra teOrdered By: Rosa García on 11-06-2022 ESR (Bld) [Velocity] 13 mm/h 0-30 [facility] Hematocrit Auto (Bld) [Volum e fraction]Ordered By: Rosa García on 11-06-2022 Hematocrit (Bld) [Volume fraction] 38.9 % 37-47 [facility] Laboratory - Chemistry and C hemistry - challengeOrdered By: Rosa García on 11-06-2022 ALP [Catalytic activity/Vol] 79 U/L 45-117 [facility] ALT [Catalytic activity/Vol] 23 U/L 13-56 [facility] CO2 [Moles/Vol] 25.0 mmol/L 21.0-32.0 [facility] Globulin (S) [Mass/Vol] 3.7 g/dL 2.2-4.2 [facility] Urea nitrogen/Creatinine [Mass ratio] 26.5 mg/mg 10-20 [facility] Laboratory - Hematology and Cell countsOrdered By: Rosa García on 11-06-2022 Erythrocyte distribution width (RBC) [Entitic vol] 43.5 fL 35.1-43.9 [facility] Erythrocyte distribution width (RBC) [Ratio] 14.6 % 11.6-14.6 [facility] Immature granulocytes/100 WBC (Bld) 0.400 % 0.0-0.9 [facility] Comment on above: IG% - Immature Granu locytes (promyelocytes, myelocytes and metamyelocytes) > 1% indicates that a LEFT SHIFT is Present. MCH (RBC) [Entitic mass] 25.4 pg 27.0-32.0 [facility] Nucleated RBC/100 WBC (Bld) [Ratio] 0 % 0-5 [facility] MCHC Auto (RBC) [Mass/Vol]Or dered By: Rosa García on 11-06-2022 MCHC (RBC) [Mass/Vol] 30.8 g/dL 32-36 [facility] No Panel InformationOrdered By: Rosa García on 11-06-2022 Anti-Nuclear Antibody Screen Negative Negative [facility] Comment on above: Performed at: [facility] [employer] [address] [id number] Director: Eder Lamar PhD, Phone: [phone] Estimated GFR (MDRD) Amer 129 mL/min >60 [facility] Comment on above: GFR Calc Estimated GFR (MDRD) Non-Af Amer 107 mL/min >60 [facility] Comment on above: Non- GFR Calc Thyroid Stimulating Hormone (TSH) 5.09 uIU/mL 0.358-3.74 [facility] Platelets bldOrdered By: Nuria García on 11-06-2022 Platelets (Bld) [#/Vol] 469 10*3/uL 150-450 [facility] Serum cyclic citrullinated p eptide IgG antibody assay (units/volume)Ordered By: Rosa García on 11-06-2022 Cyclic citrullinated peptide IgG Qn 6 units 0-19 [facility] Comment on above: Negative <20 Weak po sitive 20 - 39 Moderate positive 40 - 59 Strong positive >59Performed at: [facility] [id number] Director: Eder Lamar PhD, Phone: [phone] Serum or plasma C reactive p rotein measurement (mass/volume)Ordered By: Rosa García on 11-06-2022 CRP [Mass/Vol] 11.20 mg/L 0.0-3.0 [facility] Comment on above: C-Reactive Protein ( CRP) provides useful information for thediagnosis, therapy and monitoring of inflammatory processesand associated diseases. For the evaluation of Relative Riskfor Cardiovascular Disease, a High Sensitivity CRP (HSCRP)should be ordered. Serum or plasma albumin julio césar urement (mass/volume)Ordered By: Rosa García on 11-06-2022 Albumin [Mass/Vol] 3.8 g/dL 3.2-5.0 [facility] Serum or plasma albumin/glob ulin mass ratioOrdered By: Rosa García on 11-06-2022 Albumin/Globulin [Mass ratio] 1.0 {ratio} 0.9-2.4 [facility] Serum or plasma calcium julio césar urement (mass/volume)Ordered By: Rosa García on 11-06-2022 Calcium [Mass/Vol] 9.2 mg/dL 8.5-10.1 [facility] Serum or plasma creatinine m easurement (mass/volume)Ordered By: Rosa García on 11-06-2022 Creatinine [Mass/Vol] 0.72 mg/dL 0.55-1.02 [facility] Comment on above: The validity of the calculated GFR & GFRAA in patients over 70 years has not been determined. Clinical correlation is essential. Serum or plasma urea nitroge n measurement (mass/volume)Ordered By: Rosa García on 11-06-2022 Urea nitrogen [Mass/Vol] 19 mg/dL 7-18 [facility] Serum rheumatoid factor dete ctionOrdered By: Rosa García on 11-06-2022 Rheumatoid factor Ql (S) < 10.0 IU/mL <15 [facility] Thin prep Papanicolaou smear with manual screeningOrdered By: Rosa García on 11-06-2022 Thin prep Papanicolaou smear with manual screening 15 U/L 15-37 [facility] Thin prep Papanicolaou smear with manual screening 5 5-15 [facility] IO Rapid Strepon 05-28-2022 S. pyogenes Ag Ql (Throat) Negative [facility] Work Phone: Pediatric Medicine 18+on Pediatric [...] (ADHD); YARELI = N; Verified Transmission to [facility]; Last Updated By: Luis Eduardo Harkins; 05/28/2022 [...] vyvanse before she switches providers in Dec Active Problems Problems Allergic contact dermatitis due [...] History of Dental Surgery May 2017 - [place] teeth History of Ear Pressure Equalization Tube, [...] MORNING. Vitals Vital Signs Recorded: 28May2022 02:24PM Ungjmcoavgm41.4 F Heart Wtvn838 Tgtucikxivn00 Gvivgp550 lb O2 Fhqcfxpkxk88 Physical Exam Constitutional General appearance: Alert and in no acute distress. Well developed; well nourished. Ears, Nose, Mouth, and Throat External inspe (more content not included)... [facility] Pediatric Medicine 18+on 05- 25-2022 Pediatric Medicine 18+ Diagnoses/Problem s Assessed Attention [...] immunization; YARELI = N; Verified Transmission to [facility]; Last Updated By: [employer]; 12/18/2021 10:09:23 AM Attention deficit hyperactivity disorder (ADHD) Start: Vyvanse 50 MG Oral Capsule; TAKE 1 CAPSULE DAILY IN THE MORNING Rx By: Kenia Noble; Dispense: 30 Days ; #:30 Capsule; Refill: 0;For: Attention deficit hyperactivity disorder (ADHD); YARELI = N; Verified Transmission to [facility]; Last Updated By: [employer]; 12/18/2021 10:12:52 AM Start: Vyvanse 50 MG Oral Capsule; TAKE 1 CAPSULE DAILY IN THE MORNING Rx By: Kenia Noble; Dispense: 30 Days ; #:30 Capsule; Refill: 0;For: Attention deficit hyperactivity disorder (ADHD); YARELI = N; Verified Transmission to [facility]; Last Updated By: [employer]; 12/18/2021 10:12:52 AM Start: Vyvanse 50 MG Oral Capsule; TAKE 1 CAPSULE DAILY IN THE MORNING Rx By: Kenia Noble; Dispense: 30 Days ; #:30 Capsule; Refill: 0;For: Attention deficit hyperactivity disorder (ADHD); YARELI = N; Verified Transmission to [facility]; Last Updated By: [employer]; 12/18/2021 10:12:53 AM Dog bite of finger, initial encounter Start: Cephalexin 500 MG Oral Tablet (Cephalexin Monohydrate); Take one tablet twice daily till gone Rx By: Kenia Noble; Dispense: 10 Days ; #:20 Tablet; Refill: 0;For: Dog bite of finger, initial encounter; YARELI = N; Verified Transmission to [facility]; Last Updated By: Chantelle HarkinsJamglue; 12/18/2021 10:14:45 AM Patient Discussion/Summary Refills will [...] 2020 His (more content not included)... Normal [employer] Laboratory - Chemistry and C hemistry - challengeon 12-25-2020 Creatinine (Body fld) [Mass/Vol] 136.5 mg/dL [facility] Work Phone: Comment on above: A urine creatinine r esult >= 20 mg/dL is considered valid without suspicion of dilution. Samples with results below this range will automatically reflex to specific gravity testing to verify specimen integrity. Laboratory - Drug toxicology on 12-25-2020 1-Hydroxymidazolam Confirm (U) [Mass/Vol] <25 Cutoff <25 [facility] Work Phone: 2-Fkjvwklcfl-7,5-Dimethy l-3,3-Diphenylpyrrolidin e (EDDP) Confirm (U) [Mass/Vol] <25 Cutoff <25 [facility] Work Phone: Comment on above: The [...] (6-DIANNA) Confirm (U) [Mass/Vol] <25 Cutoff <25 [facility] Work Phone: 7-Aminoclonazepam Confirm (U) [Mass/Vol] <25 Cutoff <25 [facility] Work Phone: Alpha hydroxyalprazolam Confirm (U) [Mass/Vol] <25 Cutoff <25 [facility] Work Phone: ALPRAZolam Confirm (U) [Mass/Vol] <25 Cutoff <25 [facility] Work Phone: Amphetamine (U) [Mass/Vol] 4326 ng/mL [facility] Work Phone: Comment on above: Consistent [...] developed and its performance characteristics determined by [employer]. It has not been cleared or approved [...] Phone: Comment on above: Performed By: [facility] [address] [place] [address] [id number] Director: Amelie Armando MD Temazepam Confirm (U) [...] Zolpidem (U) [Mass/Vol] <25 Cutoff <25 [facility] Work Phone: No Panel Informationon 12-25 <25 Cutoff <25 [facility] Work Phone: Comment on above: The [...] high complexity clinical laboratory testing. SEE BELOW [facility] Work Phone: Comment on above: Drug [...] EVALon 020 ANES POSTPROC EVAL HNO ID: [id number] Author: Nilay Medina Service: ? Author Type: Anesthesiologist Type: Anesthesia Postprocedure Evaluation Filed: 06/06/2020 2:46 PM Note Text: POST ANESTHESIA EVALUATION NOTE : 2000 Procedure Summary Date: 06/06/20 Room / Location: [facility] OR02 / [facility] OR Anesthesia Start: 1229 Anesthesia Stop: 131 Procedure: EXCISION GANGLION WRIST (Left Wrist) Diagnosis: [...] June 06, 2020 TIME: 2:46 PM CSN: [id number] [facility] ANES PRE-OPon 06-06-2020 ANES PRE-OP HNO ID: [id number] Author: Nilay Medina Service: ? Author Type: Anesthesiologist Type: Anesthesia Preprocedure Evaluation Filed: 06/06/2020 12:02 PM Note Text: ANESTHESIOLOGY DAY OF SURGERY NOTE : 2000 Procedure(s) (LRB): EXCISION GANGLION WRIST (Left) Surgeon(s): Candelario Diggs Estimated body mass index is 42.07 kg/m? as calculated from the following: Height as of 05/23/20: 157.5 cm (5' 2"). Weight as of 05/23/20: 104.3 kg (230 [...] June 06, 2020 TIME: 12:01 PM CSN: [id number] [facility] NURSING PROGon 06-06-2020 NURSING PROG HNO ID: [id number] Author: Autumn WhittenRn) RAMONA Newman Service: ? Author Type: Registered Nurse Type: Nursing Progress Note Filed: 06/06/2020 12:28 PM Note Text: Dr. Diggs at bedside. Surgery to proceed. [facility] NURSING PROG HNO ID: [id number] Author: Autumn WhittenRn) RAMONA Newman Service: ? Author Type: Registered Nurse Type: Nursing Progress Note Filed: 06/06/2020 11:47 AM Note Text: Patient with small open abrasion to left inner thumb. Call to Dr. Diggs to notify. Patient ready for OR at this time. Father at bedside. [facility] OPERATIVE NOon 06-06-2020 OPERATIVE NO HNO ID: [id number] Author: Candelario Diggs Service: Orthopaedic Surgery Author Type: Physician Type: Operative Report Filed: 06/11/2020 7:48 AM Note Text: OPERATIVE/PROCEDURE REPORT LOG ID: [id number] SURGERY/PROCEDURE DATE: 06/06/2020 INCISION/PROCEDURE START TIME: 12:40 PM INCISION CLOSE/PROCEDURE END TIME: 1:04 PM SURGEON(S)/PROCEDURALIST( S) AND MANAGER COMMUNITY(S): Surgeon(s) and Role: * Candelario Diggs - Primary Physician Casing Puller: Loev Soto SURGERY/PROCEDURE(S): Left, dorsal wrist, ganglion excision [...] 11, 2020 TIME: 7:43 AM PAGER/CONTACT #: [facility] 05-15-2020 [facility] Patient:Reed Millard MRN: Height:5' 2"[patient reported[(1.575 m) Weight:230 lb (104.327 kg) Outpatient [...] for the following basenames: K,[facility]CT [facility] Dori Roa RN 05/14/2020 4:22 PM Signed Please schedule left wrist, excision of dorsal ganglion cyst 06-06-20 under [facility]. Pt. would like COVID testing on 06-04-2020 in afternoon in [place] and post-ops in [place]. Lida Walker [facility] 05/15/2020 11:49 AM Signed Surgical request, post ops and covid test scheduled. Please place order. Emilie Frazier PA-C 05/15/2020 12:22 PM Signed COVID test ordered. Tonia Whyte Ma 05/16/2020 10:11 AM Signed Surgery has been scheduled as requested. Progress Notes ([facility]): Candelario Diggs MD 06/05/2020 4:54 PM Signed Candelario Diggs MD Department of Orthopaedics Orthopa[facility] [address] [facility] [address] Dept: [phone] Dept May 14, 2020 CHIEF COMPLAINT: New and Ganglion Cyst of the Left Wrist HPI Patient here today with complaints of ganglion cyst on the left wrist since August 2019. 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 ASSESSMENT: M25.532 Left wrist pain (primary encounter [...] Date - PAST SURGICAL HISTORY OF 05/2017 [place] teeth extraction - REMOVAL OF TONSILS,<11 Y/O [...] or electronic medical record. Ana Colin MD (DrC) [address] [facility] [address] Ana Colin MD [address] [facility] [address] This note was partially generated using [employer] voice recognition system, and there may be some incorrect words, spellings, and punctuation that were not noted in checking the note before saving. Candelario Diggs MD Previous Version [facility] Vital Signs Date Time Vital Sign Value Performing Clinician Facility 05-09-2025 09:43-0400 Body height 157.48 cm Francine Rodriguez MD Work Phone: [facility] 05-09-2025 09:43-0400 Body mass index (BMI) [Ratio] 45.3 kg/m2 Francine Rodriguez MD Work Phone: [facility] 05-09-2025 09:43-0400 Body weight 112.49 kg Francine Rodriguez MD Work Phone: [facility] 05-03-2025 12:57-0400 Body height 157.48 cm Francine Rodriguez MD Work Phone: 2(037)[phone] [address] 05-03-2025 12:57-0400 Body mass index (BMI) [Ratio] 45.3 kg/m2 Francine Rodriguez MD Work Phone: [facility] 05-03-2025 12:57-0400 Body weight 112.49 kg Francine Rodriguez MD Work Phone: 0(440)[phone] [address] 04-15-2025 17:26-0400 Body temperature 97.4 [degF] Francine Rodriguez MD Work Phone: 4(162)450-610028 [place] [address] 04-15-2025 17:26-0400 Diastolic blood pressure 78 mm[Hg] Francine Rodriguez MD Work Phone: 7(164)062-359154 [address] 04-15-2025 17:26-0400 Heart rate 66 /min Francine Rodriguez MD Work Phone: 7(068)068-671254 [address] 04-15-2025 17:26-0400 Respiratory rate 16 /min Francine Rodriguez MD Work Phone: 6(688)022-349854 [address] 04-15-2025 17:26-0400 SaO2% (BldA) [Mass fraction] 99 % Francine Rodriguez MD Work Phone: [facility] 04-15-2025 17:26-0400 Systolic blood pressure 118 mm[Hg] Francine Rodriguez MD Work Phone: [facility] 04-15-2025 16:16-0400 Body height 157.48 cm Francine Rodriguez MD Work Phone: [facility] 04-11-2025 08:41-0400 Body height 157.48 cm Francine Rodriguez MD Work Phone: [facility] 04-11-2025 08:41-0400 Body mass index (BMI) [Ratio] 45.3 kg/m2 Francine Rodriguez MD Work Phone: [facility] 04-11-2025 08:41-0400 Body weight 112.49 kg Francine Rodriguez MD Work Phone: [facility] 04-03-2025 10:31-0400 Body mass index (BMI) [Ratio] 46.25 kg/m2 Emmett Garnerdereck DIRECTOR STAFFING.BODY DESIGNER Work Phone: [facility] 04-03-2025 10:31-0400 Body temperature 98.8 [degF] Emm[facility]lenny [facility] DIRECTOR STAFFING.BODY DESIGNER Work Phone: [facility] 04-03-2025 10:31-0400 Body weight 114.7 kg Emmett [facility] DIRECTOR STAFFING.BODY DESIGNER Work Phone: [facility] 04-03-2025 10:31-0400 Diastolic blood pressure 80 mm[Hg] Emmett [facility] DIRECTOR STAFFING.BODY DESIGNER Work Phone: [facility] 04-03-2025 10:31-0400 Heart rate 100 /min Emmettlenny Garnerdereck DIRECTOR STAFFING.BODY DESIGNER Work Phone: [facility] 04-03-2025 10:31-0400 Respiratory rate 18 /min Emmett [facility] DIRECTOR STAFFING.BODY DESIGNER Work Phone: [facility] 04-03-2025 10:31-0400 SaO2% (BldA) [Mass fraction] 98 % Emmett [facility] DIRECTOR STAFFING.BODY DESIGNER Work Phone: [facility] 04-03-2025 10:31-0400 Systolic blood pressure 126 mm[Hg] Emmett Garnerdereck DIRECTOR STAFFING.BODY DESIGNER Work Phone: [facility] 02-01-2025 15:27-0400 Body temperature 98.3 [degF] Francine Rodriguez MD Work Phone: [facility] 02-01-2025 15:27-0400 Diastolic blood pressure 80 mm[Hg] Francine Rodriguez MD Work Phone: [facility] 02-01-2025 15:27-0400 Heart rate 101 /min Francine Rodriguez MD Work Phone: [facility] 02-01-2025 15:27-0400 Respiratory rate 18 /min Francine Rodriguez MD Work Phone: [facility] 02-01-2025 15:27-0400 SaO2% (BldA) [Mass fraction] 98 % Francine Rodriguez MD Work Phone: [facility] 02-01-2025 15:27-0400 Systolic blood pressure 120 mm[Hg] Francine Rodriguez MD Work Phone: [facility] 10-05-2024 14:01-0400 Body height 157.48 cm Francine Rodriguez MD Work Phone: [facility] 10-05-2024 14:01-0400 Body mass index (BMI) [Ratio] 45.6 kg/m2 Francine Rodriguez MD Work Phone: [facility] 10-05-2024 14:01-0400 Body temperature 97.8 [degF] Francine Rodriguez MD Work Phone: [facility] 10-05-2024 14:01-0400 Body weight 113 kg Francine Rodriguez MD Work Phone: [facility] 10-05-2024 14:01-0400 Diastolic blood pressure 80 mm[Hg] Francine Rodriguez MD Work Phone: [facility] 10-05-2024 14:01-0400 Heart rate 98 /min Francine Rodriguez MD Work Phone: [facility] 10-05-2024 14:01-0400 Inhaled oxygen flow rate 0 L/min Francine Rodriguez MD Work Phone: [facility] 10-05-2024 14:01-0400 SaO2% (BldA) [Mass fraction] 98 % Francine Rodriguez MD Work Phone: [facility] 10-05-2024 14:01-0400 Systolic blood pressure 120 mm[Hg] Francine Rodriguez MD Work Phone: [facility] 11-21-2023 09:25-0400 Body mass index (BMI) [Ratio] 45.69 kg/m2 Angelica Voss APRN.BODY DESIGNER Work Phone: [facility] 11-21-2023 09:25-0400 Body temperature 98.71 [degF] Angelica Voss APRN.BODY DESIGNER Work Phone: [facility] 11-21-2023 09:25-0400 Body weight 113.3 kg Angelica Voss APRN.BODY DESIGNER Work Phone: [facility] 11-21-2023 09:25-0400 Diastolic blood pressure 74 mm[Hg] Angelica Voss APRN.BODY DESIGNER Work Phone: [facility] 11-21-2023 09:25-0400 Heart rate 66 /min Angelica Voss APRN.BODY DESIGNER Work Phone: [facility] 11-21-2023 09:25-0400 Respiratory rate 16 /min Angelica Voss APRN.BODY DESIGNER Work Phone: [facility] 11-21-2023 09:25-0400 SaO2% (BldA) [Mass fraction] 98 % Angelica Voss APRN.BODY DESIGNER Work Phone: [facility] 11-21-2023 09:25-0400 Systolic blood pressure 114 mm[Hg] Angelica Voss APRN.BODY DESIGNER Work Phone: [facility] 04-25-2023 09:00-0400 Body temperature 98.29 [degF] Alexander Olea MD Work Phone: [facility] 04-25-2023 09:00-0400 Body weight 113.67 kg Alexander Olea MD Work Phone: [facility] 04-25-2023 09:00-0400 Diastolic blood pressure 86 mm[Hg] Alexander Olea MD Work Phone: [facility] 04-25-2023 09:00-0400 Heart rate 85 /min Alexander Olea MD Work Phone: [facility] 04-25-2023 09:00-0400 Respiratory rate 16 /min Alexander Olea MD Work Phone: [facility] 04-25-2023 09:00-0400 SaO2% (BldA) [Mass fraction] 98 % Alexander Olea MD Work Phone: [facility] 04-25-2023 09:00-0400 Systolic blood pressure 124 mm[Hg] Alexander Olea MD Work Phone: [facility] 04-11-2023 13:25-0400 Body temperature 98.71 [degF] Nancy Praisler-Wood DIRECTOR STAFFING.BODY DESIGNER Work Phone: [facility] 04-11-2023 13:25-0400 Body weight 112.49 kg Nancy Praisler-Wood DIRECTOR STAFFING.BODY DESIGNER Work Phone: [facility] 04-11-2023 13:25-0400 Diastolic blood pressure 80 mm[Hg] Nancy Praisler-Wood DIRECTOR STAFFING.BODY DESIGNER Work Phone: [facility] 04-11-2023 13:25-0400 Heart rate 100 /min Nancy Praisler-Wood DIRECTOR STAFFING.BODY DESIGNER Work Phone: [facility] 04-11-2023 13:25-0400 Respiratory rate 18 /min Nancy Praisler-Wood DIRECTOR STAFFING.BODY DESIGNER Work Phone: [facility] 04-11-2023 13:25-0400 SaO2% (BldA) [Mass fraction] 99 % Nancy Praisler-Wood DIRECTOR STAFFING.BODY DESIGNER Work Phone: [facility] 04-11-2023 13:25-0400 Systolic blood pressure 118 mm[Hg] Nancy Praisler-Wood DIRECTOR STAFFING.BODY DESIGNER Work Phone: [facility] 05-28-2022 14:24-0400 Body temperature 98.4 [degF] Ana E Mroales-Armao Work Phone: [facility] Work Phone: 05-28-2022 14:24-0400 Body weight 109.32 kg Ana Polanco Morales-Armao Work Phone: [facility] Work Phone: 05-28-2022 14:24-0400 Heart rate 104 /min Ana Polanco Morales-Armao Work Phone: [facility] [...] mass index (BMI) [Ratio] 42.16 kg/m2 Ana Jamesach-Armao Work Phone: [facility] Work Phone: 12-18-2021 09:01-0400 Body surface area Derived from formula 2.06 m2 Ana Polanco Morales-Armao Work Phone: [facility] Work Phone: 12-18-2021 09:01-0400 Body weight 106.26 kg Ana Polanco Morales-Armao Work Phone: [facility] Work Phone: 12-18-2021 09:01-0400 Diastolic blood pressure 70 mm[Hg] Ana Morales-Armao Work Phone: [facility] Work Phone: 12-18-2021 09:01-0400 Heart rate 80 /min Ana Polanco Morales-Armao Work Phone: [facility] Work Phone: 12-18-2021 09:01-0400 Systolic blood pressure 118 mm[Hg] Ana Jamesach-Armao Work Phone: [facility] Work Phone: 05-30-2021 13:04-0400 Body height 158.75 cm Ana Morales-Armao Work Phone: [facility] Work Phone: 05-30-2021 13:04-0400 Body mass index (BMI) [Ratio] 42.12 kg/m2 Ana Morales-Armao Work Phone: [facility] Work Phone: 05-30-2021 13:04-0400 Body surface area Derived from formula 2.06 m2 Ana Jamesach-Armao Work Phone: [facility] Work Phone: 05-30-2021 13:04-0400 Body weight 106.14 kg Ana Jamesach-Armao Work Phone: [facility] Work Phone: 05-30-2021 13:04-0400 Diastolic blood pressure 70 mm[Hg] Ana Jamesach-Armao Work Phone: [facility] Work Phone: 05-30-2021 13:04-0400 Heart rate 82 /min Ana Polanco Morales-Armao Work Phone: [facility] Work Phone: 05-30-2021 13:04-0400 Systolic blood pressure 108 mm[Hg] Ana Polanco Morales-Armao Work Phone: [facility] Work Phone: 12-25-2020 13:06-0400 Body height 157.48 cm Ana Polanco Morales-Armao Work Phone: [facility] Work Phone: 12-25-2020 13:06-0400 Body mass index (BMI) [Ratio] 42.26 kg/m2 Ana Polanco Morales-Armao Work Phone: [facility] Work Phone: 12-25-2020 13:06-0400 Body surface area Derived from formula 2.03 m2 Ana Polanco Morales-Armao Work Phone: [facility] Work Phone: 12-25-2020 13:06-0400 Body temperature 98.1 [degF] Ana Polanco Morales-Armao Work Phone: [facility] Work Phone: 12-25-2020 13:06-0400 Body weight 104.81 kg Ana Polanco Morales-Armao Work Phone: [facility] Work Phone: 12-25-2020 13:06-0400 Diastolic blood pressure 70 mm[Hg] Ana Polanco Morales-Armao Work Phone: [facility] Work Phone: 12-25-2020 13:06-0400 Heart rate 82 /min Ana Polanco Morales-Armao Work Phone: [facility] Work Phone: 12-25-2020 13:06-0400 Systolic blood pressure 110 mm[Hg] Ana Polanco Morales-Armao Work Phone: [facility] Work Phone: 05-18-2019 17:52-0400 BMI (Body Mass Index) 36.39 kg/m2 Kenia Cottonuja-Geauga Work Phone: 05-18-2019 17:52-0400 Body weight 91.71 kg Kenia Cottonuja-Geauga Work Phone: 05-18-2019 17:52-0400 BP Diastolic 70 mm[Hg] Kenia Fernandes-Ahuja-Geauga Work Phone: 05-18-2019 17:52-0400 BP Systolic 118 mm[Hg] Kenia Fernandes-Ahuja-Geauga Work Phone: 05-18-2019 17:52-0400 BSA (Body Surface Area) 1.93 m2 Kenia Cottonuja-Geauga Work Phone: 05-18-2019 17:52-0400 Height 158.75 cm Kenia Cottonuja-Geauga Work Phone: 05-18-2019 17:52-0400 Pulse (Heart Rate) 82 /min Kenia Cottonuja-Gea uga Work Phone: 05-18-2019 17:52-0400 24 1 Kenia Fernandes-Ahuja-Geauga Work Phone: Comment on above: 2-20 Stature Percentile 05-18-2019 17:52-0400 98 1 Kenia Cottonuja-Geauga Work Phone: Comment on above: 2-20 Weight Percentile 05-18-2019 17:52-0400 97 1 Kenia Fernandes-Ahuja-Geauga Work Phone: Comment on above: BMI Percentile Encounters Encounter Date Encounter Type Care Provider Facility Start: 06-05-2025 ambulatory Chalon Michael Facility:[facility] Start: 05-31-2025 ambulatory Chalon Michael Facility:[facility] Start: 05-22-2025 End: 05-22-2025 ambulatory Francine Rodriguez Facility:[facility] Start: 05-09-2025 End: 05-09-2025 ambulatory Francine Rodriguez MD Work Phone: [facility] Start: 05-09-2025 End: 05-09-[address] Hussain Duval MD -[facility] Work Phone: Start: 05-03-2025 End: 05-03-2025 Patient encounter procedure Krystyna Vanessa NP-C -[facility] Work Phone: Start: 05-03-2025 End: 05-03-2025 ambulatory Francine Rodriguez MD Work Phone: [facility] Start: 04-18-2025 End: 04-18-2025 Patient encounter procedure Krystyna Vanessa INCUBATOR OPERATOR- -[facility] Work Phone: Start: 04-18-2025 End: 04-18-2025 ambulatory Francine Rodriguez MD Work Phone: [facility] Start: 04-15-2025 End: 04-15-2025 Emergency department patient visit Dr. Ismael Ruano MD -Emergency Department Work Phone: Start: 04-11-2025 End: 04-11-[address] Shemar Mcconnell MD -[facility] Start: 04-11-2025 End: 04-11-2025 ambulatory Francine Rodriguez MD Work Phone: [facility] Start: 04-03-2025 End: 04-03-2025 Subsequent hospital visit by physician Mike [facility] [place] Work Phone: Radiology Comment on above: Pain in joint involv ing right ankle and foot [M25.571] Start: 04-03-2025 End: 04-03-2025 Office outpatient visit 15 minutes Emmett Luciano APRN.CNP Work Phone: [facility] [place] Comment on above: Pain in joint involv ing right ankle and foot (Primary Dx) Start: 04-03-2025 End: 04-03-2025 ambulatory EMMETT LUCIANO Facility:[facility] Start: 03-16-2025 End: 03-16-2025 ambulatory Francine Rodriguez MD Work Phone: -Laboratory [facility] Start: 03-16-2025 End: 03-16-[address] Francine Rodriguez MD -Labor[facility] Start: 03-16-2025 End: 03-16-2025 ambulatory Francine Rodriguez Facility:[facility] Start: 02-01-2025 End: 02-01-2025 Patient encounter procedure Sae JONES [facility] Work Phone: Start: 02-01-2025 End: 02-01-2025 ambulatory Francine Rodriguez MD Work Phone: [facility] Start: 10-05-2024 End: 10-05-2024 Patient encounter procedure Sae JONES [facility] Work Phone: Start: 10-05-2024 End: 10-05-2024 ambulatory Sae JONES Facility:[facility] Start: 08-04-2024 End: 08-04-2024 [facility] Start: 11-21-2023 End: 11-21-2023 Patient encounter procedure Angelica Voss APRN.[facility] Work Phone: [facility] Comment on above: [place] eye disease of both eyes (Primary Dx) Start: 11-03-2023 End: 11-03-2023 ambulatory [facility] Work Phone: Start: 11-03-2023 End: 11-03-2023 Patient encounter procedure [facility] Start: 08-26-2023 End: 08-26-2023 ambulatory [facility] Work Phone: Start: 08-26-2023 End: 08-26-2023 Patient encounter procedure [facility] Start: 07-14-2023 End: 07-14-2023 ambulatory [facility] Work Phone: Start: 07-14-2023 End: 07-14-2023 Patient encounter procedure [facility] Start: 05-21-2023 End: 05-21-2023 ambulatory [facility] Work Phone: Start: 05-21-2023 End: 05-21-2023 Patient encounter procedure [facility] Start: 04-28-2023 End: 04-28-2023 Patient encounter procedure [facility] Start: 04-25-2023 End: 04-25-2023 Subsequent hospital visit by physician [facility] Work Phone: Radiology Comment on above: Foot pain, right [M7 9.671] Start: 04-25-2023 End: 04-25-2023 Patient encounter procedure Alexander Olea MD Work Phone: [facility] Comment on above: Closed displaced fra cture of fifth metatarsal bone of right foot, initial encounter (Primary Dx); Foot pain, right Start: 04-11-2023 End: 04-11-2023 Patient encounter procedure Nancy Jules APRN.CNP Work Phone: [facility] Comment on above: Sore throat (Primary Dx); Viral bronchitis Start: 04-02-2023 End: 04-02-2023 Patient encounter procedure DO Rosa García Work Phone: [facility]-Ultrasound, [facility] Work Phone: Start: 04-02-2023 End: 04-02-2023 ambulatory DO Rosa García Work Phone: [facility] Work Phone: Start: 04-02-2023 End: 04-02-2023 Discharged Recurring DO Rosa García Work Phone: [facility]-Physical Therapy Work Phone: Start: 03-09-2023 End: 03-09-2023 ambulatory DO Rosa García Work Phone: [facility] Work Phone: Start: 03-09-2023 End: 03-09-2023 Patient encounter procedure DO Rosa García [facility] Start: 03-05-2023 Registered Recurring DO Lorna García Work Phone: [facility]-Physical Therapy Work Phone: Start: 02-02-2023 End: 02-02-2023 ambulatory DO Rosa García Work Phone: [facility] Work Phone: Start: 02-02-2023 End: 02-02-2023 Patient encounter procedure DO Rosa García Work Phone: [facility]-Laboratory, [place] Start: 01-10-2023 End: 01-10-2023 Patient encounter procedure DO Rosa aGrcía Work Phone: [facility] Work Phone: Start: 12-24-2022 End: 12-24-2022 ambulatory DO Rosa García Work Phone: [facility] Work Phone: Start: 12-24-2022 End: 12-24-2022 Patient encounter procedure [facility]-Laboratory, [place] Start: 12-17-2022 End: 12-17-2022 ambulatory [facility] Work Phone: Start: 12-17-2022 End: 12-17-2022 Patient encounter procedure [facility] Start: 12-06-2022 End: 12-06-2022 Patient encounter procedure [facility], [facility] Start: 12-03-2022 End: 12-03-2022 ambulatory [facility] Work Phone: Start: 12-03-2022 End: 12-03-2022 Patient encounter procedure [facility] Start: 11-10-2022 End: 11-10-2022 ambulatory [facility] Work Phone: Start: 11-10-2022 End: 11-10-2022 Patient encounter procedure [facility] Start: 11-06-2022 End: 11-06-2022 Patient encounter procedure [facility] Start: 05-28-2022 Office outpatient visit 15 minutes Ana Rosa Work Phone: [facility] Work Phone: Start: 05-28-2022 ambulatory Kenia Noble Fa cility:[id number] Start: 04-21-2022 AUDIT Ana Arreola Work Phone: [facility] Work Phone: Start: 04-07-2022 AUDIT Ana Arreola Work Phone: [facility] Work Phone: Start: 03-17-2022 End: 03-17-[address] Ana Rosa Work Phone: [facility] Start: 03-13-2022 End: 03-13-[address] Ana Rosa Work Phone: [facility] Work Phone: Start: 03-13-2022 End: 03-13-[address] Ana Rosa Work Phone: [facility] Start: 03-03-2022 End: 03-03-[address] Ana Rosa Work Phone: [facility] Start: 01-01-2022 End: 01-01-[address] Ana Rosa Work Phone: [facility] Start: 12-26-2021 End: 12-26-[address] Ana Rosa Work Phone: [facility] Start: 12-18-2021 Office outpatient visit 15 minutes Ana Rosa Work Phone: [facility] Work Phone: Start: 12-18-[address] Ana Rosa Facility:[id number] Start: 12-06-2021 AUDIT Ana Arreola Work Phone: [facility] Work Phone: Start: 10-02-2021 AUDIT Ana PortilloArmhammad Work Phone: [facility] Work Phone: Start: 09-16-2021 AUDIT Ana Arreola Work Phone: [facility] Work Phone: Start: 07-30-2021 AUDIT Ana Morales -Armhammad Work Phone: [facility] Work Phone: Start: 05-30-2021 Patient encounter procedure Ana Rosa Work Phone: [facility] Work Phone: Start: 05-30-2021 Periodic preventive med est patient 18-39 yrs Ana Rosa Work Phone: [facility] Work Phone: Start: 05-30-[address] Ana Rosa Facility:[id number] Start: 05-14-2021 AUDIT Ana Arreola Work Phone: [facility] Work Phone: Start: 04-15-2021 AUDIT nAa Polanco Morales -Armao Work Phone: [facility] Work Phone: Start: 01-01-2021 AUDIT Ana Polanco Morales -Armao Work Phone: [facility] Work Phone: Start: 12-31-2020 AUDIT Ana Polanco Morales -Armao Work Phone: [facility] Work Phone: Start: 12-25-2020 Office outpatient visit 15 minutes Ana Polanco Morales-Armao Work Phone: [facility] Work Phone: Start: 05-18-2019 Patient encounter procedure Kenia Noble qTN-Mcway-Lsxdpt Work Phone: Start: 08-30-2018 Patient encounter procedure Kenia Noble hDC-Ogaqa-Pdavdu Work Phone: Start: 04-27-2018 Patient encounter procedure Kenia Noble eGC-Unbsy-Npdazg Work Phone: Start: 12-29-2017 Patient encounter procedure Kenia Noble wFW-Gjdip-Acgoml Work Phone: Start: 11-03-2017 Patient encounter procedure Kenia Noble yGO-Uwxxl-Dtcpba Work Phone: Patient encounter status Ana Morales-Armao Work Phone: [facility] Work Phone: Procedures Date Procedure Procedure Detail Performing Clinician Start: 04-15-2025 Radiologic examinati on knee 3 views Francine Rodriguez MD Work Phone: Start: 04-11-2025 Radex ankle complete minimum 3 views Francine Rodriguez MD Work Phone: Start: 04-03-2025 Radex foot complete minimum 3 views Emmett Luciano APRN.CNP Work Phone: Start: 03-16-2025 Parathyroid hormone measurement [...] Noble Comment on above: May 2017 - [place] [facility] [place]; History of Ear Press ure [...] DTaP,Tdap,Td Vaccine (8 - Td or Tdap) [facility] Start: 05-22-2025 End: 05-22-2025 Patient encounter procedure Instability of left knee joint -[facility] Work Phone: Start: 05-22-2025 Registered Recurring Registered Recurring -Physical Therapy Work Phone: Start: 04-18-2025 End: 04-18-2025 Patient encounter procedure Left knee sprain -[facility] Work Phone: Start: 04-15-2025 [facility] Start: 04-11-2025 X-ray of ankle, three or more views Ankle min 3 Views [facility] Start: 04-11-2025 X-ray of foot, three or more views Foot min 3 Views [facility] Start: 04-11-2025 XR Ankle GE 3 Views [facility] Start: 04-11-2025 XR Foot GE 3 Views [facility] Start: 03-27-2025 Influenza vaccination Influenza Vaccine (#1) [facility] Start: 03-27-2024 Covid-19 Vaccine ( season) Covid-19 Vaccine ( season) [facility] Start: 03-27-2024 Influenza vaccination Influenza Vaccine (#1) [facility] Start: 07-27-2023 Behavioral Health Screening Behavioral Health Screening [facility] Start: 03-27-2023 Covid-19 Vaccine ( season) Covid-19 Vaccine ( season) [facility] Start: 03-27-2023 Influenza vaccination Influenza Vaccine (#1) [facility] Start: 07-27-2022 Depression Assessment Depression Assessment [facility] Start: 12-18-2021 FUV, Provider: Kenia Noble, Status: Pen, Time: 9:00 AM FUV, Provider: Kenia Noble, Status: Pen, Time: 9:00 AM [facility] Work Phone: Start: 08-22-2021 Covid-19 Vaccine (4 - Moderna series) Covid-19 Vaccine (4 - Moderna series) [facility] Start: 05-30-2021 EPVWELLCLD, Provider: Kenia Noble, Status: Pen, Time: 1:00 PM EPVWELLCLD, Provider: Kenia Noble, Status: Pen, Time: 1:00 PM [facility] Work Phone: Start: 05-28-2021 EPVWELLCLD, Provider: Kenia Noble, Status: Pen, Time: 1:00 PM EPVWELLCLD, Provider: Kenia Noble, Status: Pen, Time: 1:00 PM [facility] Work Phone: Start: 2020 Pap Testing Pap Testing [facility] Start: 2020 Screening for malignant neoplasm of cervix [facility] Start: 2018 Urine microalbumin profile DTaP,Tdap,Td Vaccine (1 - Tdap) [facility] Start: 2017 Anxiety Screening Anxiety Screening [facility] Start: 2017 Chlamydia Screening (18-24) Chlamydia Screening (18-24) [facility] Start: 2017 Depression Screening Depression Screening [facility] Start: 2017 GC (Gonorrhea) Screening (18-24) GC (Gonorrhea) Screening (18-24) [facility] Start: 2017 Hepatitis C Screening Hepatitis C Screening [facility] Start: 2017 Hepatitis C screening Hepatitis C Screening [facility] Start: 2017 HIV Screening HIV Screening [facility] Start: 2017 HIV screening HIV Screening [facility] Start: 2015 Meningococcal B Vaccine: Consider Based On Risk (1 of 2 - Patient Seeks Protection) Meningococcal B Vaccine: Consider Based On Risk (1 of 2 - Patient Seeks Protection) [facility] Start: 2013 Peds To Adult Transition Annual Assessment Peds To Adult Transition Annual Assessment [facility] Start: 2011 Peds To Adult Transition Initial Discussion Peds To Adult Transition Initial Discussion [facility] Start: 2008 HPV Vaccine (1 - 2-dose series) HPV Vaccine (1 - 2-dose series) [facility] Start: 1999 Hepatitis B Vaccine (1 of 3 - 3-dose series) Hepatitis B Vaccine (1 of 3 - 3-dose series) [facility] MR [facility] Extremity [facility] Work Phone: [facility] Immunizations Immunization Date Immunization Notes Care Provider Mahin lopez 04-24-2023 influenza virus vacc ine, unspecified formulation [facility] [place] Work Phone: [facility] 06-27-2021 Moderna COVID-19 Vac cine 100 MCG/0.5ML Intramuscular Suspension Ana OsullivanArmao Work Phone: [facility] 05-30-2021 influenza, injectabl e, quadrivalent, preservative free; Translations: [Flulaval Quadrivalent 0.5 ML Intramuscular Suspension Prefilled Syringe] Ana OsullivanArmhammad Work Phone: [facility] Work Phone: Comment on above: Series: 05-30-2021 tetanus toxoid, redu yanci diphtheria toxoid, and acellular pertussis vaccine, adsorbed; Translations: [Tdap] Ana Morales-Armao Work Phone: [facility] Work Phone: Comment on above: Series: 05-30-2021 influenza virus vacc ine, unspecified formulation Nancy Jules APRN.BODY DESIGNER Work Phone: [facility] 11-22-2020 Moderna COVID-19 Vac cine 100 MCG/0.5ML Intramuscular Suspension Ana OsullivanArmao Work Phone: [facility] Comment on above: Series: 10-25-2020 Moderna COVID-19 Vac cine 100 MCG/0.5ML Intramuscular Suspension Ana OsullivanArmao Work Phone: [facility] Comment on above: Series: 05-23-2020 influenza, injectabl e, quadrivalent, contains preservative; Translations: [Flulaval Quadrivalent Intramuscular Suspension] Ana Morales-Armhammad Work Phone: [facility] Work Phone: Comment on above: Series: 04-08-2019 influenza virus vacc ine, unspecified formulation; Translations: [Influenza] Ana Polanco Morales-ArmRocketmiles Work Phone: [facility] Work Phone: Comment on above: Series: 04-08-2019 influenza, seasonal, injectable; Translations: [Influenza] Kenia Noble sNF-Wafsa-Xkqajg Work Phone: 04-27-2018 influenza, injectabl e, quadrivalent, preservative free; Translations: [Flulaval Quadrivalent 0.5 ML Intramuscular Suspension Prefilled Syringe] Kenia Noble zFF-Alkau-Kxzaon Work Phone: Comment on above: Series: 04-14-2017 influenza, injectabl e, quadrivalent, preservative free Ana Polanco Morales-Alminder Work Phone: -[facility] Work Phone: 03-06-2017 meningococcal polysaccharide (groups A, C, Y and W-135) diphtheria toxoid conjugate vaccine (MCV4P) Kenia Noble iUE-Rblaj-Mvksyf Work Phone: Comment on above: Series: 04-15-2016 influenza virus vacc ine, unspecified formulation Ana Morales-Alminder Work Phone: -[facility] Work Phone: Comment on above: Series: 04-15-2016 influenza, seasonal, injectable Kenia Noble bCF-Mhkye-Rxwgmk Work Phone: 05-11-2015 influenza virus vacc ine, live, attenuated, for intranasal use Ana Polanco Morales-Alminder Work Phone: [facility] Work Phone: 04-18-2014 influenza virus vacc ine, live, attenuated, for intranasal use Ana E Morales-ArmRocketmiles Work Phone: [facility] Work Phone: 04-19-2013 influenza virus vacc ine, live, attenuated, for intranasal use Ana E Morales-ArmRocketmiles Work Phone: -[facility] Work Phone: 05-28-2012 influenza virus vacc ine, live, attenuated, for intranasal use Ana Poalnco Morales-Armao Work Phone: -[facility] Work Phone: 07-23-2011 hepatitis A vaccine, pediatric/adolescent dosage, 2 dose schedule Kenia Fernandes-Ahuja-Geauga Work Phone: Comment on above: Series: 07-23-2011 human papilloma viru s vaccine, quadrivalent Kenia CancholaP-Ahuja-Geauga Work Phone: Comment on above: Series: 04-04-2011 human papilloma viru s vaccine, quadrivalent Ana E Morales-Armao Work Phone: [facility] Work Phone: Comment on above: Series: 04-04-2011 influenza, seasonal, injectable, preservative free Ana Polanco Morales-Armao Work Phone: [facility] Work Phone: 03-27-2011 human papilloma viru s vaccine, quadrivalent Kenia CancholaP-Ahuja-Geauga Work Phone: 01-21-2011 hepatitis A vaccine, unspecified formulation Kenia Fernandes-Ahuja-Geauga Work Phone: Comment on above: Series: 01-21-2011 human papilloma viru s vaccine, quadrivalent Kenia CancholaP-Ahuja-Geauga Work Phone: Comment on above: Series: 01-21-2011 meningococcal polysaccharide (groups A, C, Y and W-135) diphtheria toxoid conjugate vaccine (MCV4P) Kenia Aide oNH-Qcarg-Wjtwxb Work Phone: Comment on above: Series: 01-21-2011 tetanus toxoid, redu yanci diphtheria toxoid, and acellular pertussis vaccine, adsorbed Kenia Noble xBW-Iakqa-Wjoglr Work Phone: Comment on above: Series: 05-27-2010 influenza, seasonal, injectable, preservative free Ana Collin Morales-Armao Work Phone: [facility] Work Phone: 05-09-2009 influenza, seasonal, injectable Ana Collin Morales-Armao Work Phone: [facility] Work Phone: 05-20-2008 influenza virus vacc ine, whole virus Ana E Morales-Armao Work Phone: [facility] Work Phone: 06-14-2007 influenza virus vacc ine, whole virus Ana E Morales-Armao Work Phone: [facility] Work Phone: 08-19-2004 diphtheria, tetanus toxoids and acellular pertussis vaccine, unspecified formulation Ana E Morales-Armao Work Phone: [facility] Work Phone: 08-19-2004 diphtheria, tetanus toxoids and pertussis vaccine Kenia Noble kCB-Zuxyu-Wiaosk Work Phone: Comment on above: Series: 08-19-2004 measles, mumps and rubella virus vaccine Kenia Noble gEE-Woamy-Mfkkmg Work Phone: Comment on above: Series: 08-19-2004 poliovirus vaccine, inactivated Kenia Noble lDB-Opcjb-Axctuk Work Phone: Comment on above: Series: 05-14-2004 influenza virus vacc ine, unspecified formulation Ana Collin Morales-Armao Work Phone: [facility] Work Phone: Comment on above: Series: 05-14-2004 influenza, seasonal, injectable Kenia Noble xDK-Smrjc-Nqznnv Work Phone: 01-25-2001 diphtheria, tetanus toxoids and acellular pertussis vaccine, unspecified formulation Ana Collin MoralesHealthcareMagic Work Phone: [facility] Work Phone: 01-25-2001 diphtheria, tetanus toxoids and pertussis vaccine Kenia Noble iRH-Jndaa-Ealxkd Work Phone: Comment on above: Series: 10-19-2000 haemophilus influenz ae type b vaccine, PRP-OMP conjugate Kenia Noble [facility] Work Phone: Comment on above: Series: 10-19-2000 measles, mumps and rubella virus vaccine Kenia Noble vNF-Traab-Xpgady Work Phone: Comment on above: Series: 10-19-2000 pneumococcal conjuga te vaccine, 7 valent Kenia Noble nZA-Mtzav-Kofnzi Work Phone: Comment on above: Series: 07-23-2000 varicella virus vaccine Kenia Brooks greg xHI-Epbaa-Ojiean Work Phone: Comment on above: Series: 04-16-2000 hepatitis B vaccine, pediatric or pediatric/adolescent dosage Kenia Noble rOK-Rdnkc-Ljpwhr Work Phone: Comment on above: Series: 04-16-2000 pneumococcal conjuga te vaccine, 7 valent Kenia Noble hRA-Xfxbu-Zrobra Work Phone: Comment on above: Series: 01-13-2000 diphtheria, tetanus toxoids and acellular pertussis vaccine, unspecified formulation [facility] Work Phone: [facility] Work Phone: 01-13-2000 diphtheria, tetanus toxoids and pertussis vaccine Kenia Noble tPT-Wihwk-Gijfxk Work Phone: Comment on above: Series: 01-13-2000 haemophilus influenz ae type b vaccine, PRP-OMP conjugate Kenia CancholaP-Ahuja-Geauga Work Phone: Comment on above: Series: 01-13-2000 pneumococcal conjuga te vaccine, 7 valent Kenia Noble aYL-Hlesy-Zparvz Work Phone: Comment on above: Series: 01-13-2000 poliovirus vaccine, inactivated Kenia Noble lBV-Jihcq-Ezevbg Work Phone: Comment on above: Series: 1999 diphtheria, tetanus toxoids and acellular pertussis vaccine, unspecified formulation Ana Polanco MoralesAlminder Work Phone: [facility] Work Phone: 1999 diphtheria, tetanus toxoids and pertussis vaccine Kenia Noble rUX-Fwden-Nalzxf Work Phone: Comment on above: Series: 1999 haemophilus influenz ae type b vaccine, PRP-OMP conjugate Kenia Noble fNY-Lictz-Ljnwhi Work Phone: Comment on above: Series: 1999 pneumococcal conjuga te vaccine, 7 valent Kenia Noble uUB-Adtsu-Togzbz Work Phone: Comment on above: Series: 1999 poliovirus vaccine, inactivated Kenia CancholaP-Ahuja-Geauga Work Phone: Comment on above: Series: 1999 diphtheria, tetanus toxoids and acellular pertussis vaccine, unspecified formulation Ana Polanco Morales-[employer] Work Phone: [facility] Work Phone: 1999 diphtheria, tetanus toxoids and pertussis vaccine Kenia Noble zTY-Slsvj-Xathru Work Phone: Comment on above: Series: 1999 haemophilus influenz ae type b vaccine, PRP-OMP conjugate Kenia Noble rVO-Pzrgj-Gsvtud Work Phone: Comment on above: Series: 1999 poliovirus vaccine, inactivated Kenia CancholaP-Ahuja-Geauga Work Phone: Comment on above: Series: 1999 hepatitis B vaccine, pediatric or pediatric/adolescent dosage Kenia Noble tVZ-Wjmdi-Aedajh Work Phone: Comment on above: Series: 1999 hepatitis B vaccine, pediatric or pediatric/adolescent dosage Kenia CancholaP-Ahuja-Geauga Work Phone: Comment on above: Series: varicella virus vaccine Kenia garza yUC-Ztaij-Qauezy Work Phone: Comment on above: had disease 2003 had disease 2003 Ser ies: Payers Date Payer Category Payer Self-pay [id number] 2024 Unknown [id number] 2012 Private Health Insurance [id number] 2012 Unknown [id number] 1999 Unknown [id number] [id number]. 2.356 1999 Unknown [id number] [id number]. 2.356 1999 Unknown [id number] [id number]. 2.356 Unknown [facility] Unknown [id number] Unknown [id number] [id number]. 2.462 Unknown [id number] 2.840.1.654562.3.579. 2.462 Unknown [id number] 2.16.840.1.408095.3.579. 2.462 Unknown [id number] 2.16.840.1.524692.3.579. 2.462 Unknown [id number] 2.16.840.1.808234.3.579. 2.462 Unknown [id number] 2.16.840.1.108008.3.579. 2.462 Unknown [id number] 2.16.840.1.369386.3.579. 2.462 Unknown [id number] 2.16.840.1.884476.3.579. 2.462 Unknown [id number] 2.16.840.1.248490.3.579. 2.462 Unknown [id number] 2.16.840.1.346254.3.579. 2.462 Unknown [id number] 2.16.840.1.660478.3.579. 2.462 Unknown [id number] 2.16.840.1.546428.3.579. 2.462 Unknown [id number] [id number]. 2.462 Social History Date Type Detail Facility Start: 05-23-2020 End: 07-01-2020 Never Drank Alcohol Never Drank Alcohol [facility] Work Phone: Comment on above: 2 brothers3 dogs, 1 cat, 1 guinea pig; Start: 03-17-2022 End: 01-10-2023 Tobacco smoking status TNIS Unknown if ever smoked [facility] Start: 2000 Sex Assigned At Female W [facility] Start: 04-11-2023 End: 04-15-2025 Tobacco smoking status NHIS Never smoked tobacco [facility] Start: 04-11-2023 Tobacco use and exposure Smoke less tobacco non-user [facility] Start: 04-11-2023 End: 11-21-2023 Alcohol intake Lifetime non-drinker (finding) [facility] Start: 05-23-2020 End: 07-01-2020 Alcohol Use Disorder Identification Test - Consumption [AUDIT-C] [facility] Work Phone: How often to you hav e a drink containing alcohol? Never [facility] Work Phone: Start: 06-27-2012 Average Number of Drinks Not on file [facility] Start: 05-31-2020 Gender identity Identifies as female gender (finding) [facility] NEGATED: Highlighted row - - eAE-Ujnor-Bscfcn Work Phone: Functional Status Date Assessment Result Facility 2014 Are you deaf, or do you have serious difficulty hearing No 2014 2:30 PM Meghana Smith RN No [facility] 2014 Are you blind, or do you have serious difficulty seeing, even when wearing glasses No 2014 2:30 PM Meghana Smith RN No [facility] 2014 Do you have serious difficulty walking or climbing stairs No 2014 2:30 PM Meghana Smith RN No [facility] 2014 Do you have difficul ty dressing or bathing No 2014 2:30 PM Meghana Smith RN No [facility] 2014 Because of a physica l, mental, or emotional condition, do you have difficulty doing errands alone such as visiting a physician's office or shopping No 2014 2:30 PM Meghana Smith RN No [facility] NEGATED: Highlighted row Functional performance Functional status health issues are not documented Disease bTC-Qcbph-Tmxqif Work Phone: Mental Status Date Assessment Result Facility 2014 Because of a physical, mental, or emotional condition, do you have serious difficulty concentrating, remembering, or making decisions No 2014 2:30 PM Meghaan Smith RN No [facility] NEGATED: Highlighted row Cognitive function [Interpretation] Cognitive status health issues are not documented Disease uCR-Ttluc-Iurktr Work Phone: Clinical Notes 12-25-2020 to 05-09-2025 Note Date & Type Note Facility 05-09-2025 Progress note [facility] 04-18-2025 Progress note [facility] 04-15-2025 Discharge summary [facility] 04-15-2025 Radiology Diagnostic study note [facility] Imaging Services [address] [place] [address] Knee 3 Views MR#: [id number] Acct: [id number] Name: TORRES MILLARD Rep #: [id number] : 2000 F 24 From: Angely Wesley MD PCP: Dr. Francine Rodriguez MD Status: PRE ER Study:Knee 3 Views Date of Exam: 5 Exam# [id number] Ordering Dr: Abdiaziz Ruano MD PROCEDURE: KNEE 3 VIEWS 04/15/2025 REASON FOR EXAM: PAIN TECHNIQUE: Procedure Code: RADPAT Modality: DX Procedure: KNEE 3 VIEWS Laterality: Left COMPARISON: None FINDINGS: Osseous: Femorotibial spacing and alignment is maintained. Proximal tibiofibular congruency is preserved. Patellar height is within normal range. Patellofemoral joint spacing and alignment can not be assessed on the views obtained. If there are symptoms consider sunrise view. No acute displaced fracture is seen. Trace amount of fluid noted within the suprapatellar bursa. Soft tissue: Soft tissue injury can not be assessed by this technique. RAD/Knee 3 Views IMPRESSION: No radiographic evidence of an acute osseous abnormality at the left knee. - Other findings discussed above. Reading Location: [id number] CC: Dr. Francine Rodriguez MD; Dr. Ismael Ruano MD ~ Java Application Engineer: Signed [facility] 04-15-2025 Discharge summary Note Date/Time April 15, 2025 5:22pm [facility] Medical Records Department [address] [place] [address] Emergency Department Summary 04/15/25 MR#: [id number] Acct: [id number] Name: TORRES MILLARD Rep #:[id number] : 2000 24 From: Ismael Ruano MD PCP: Dr. Francine Rodriguez MD Status:REG ER Location: ED HPI History of Present Illness Chief Complaint: Lower Extremity Injury Detail of Chief Complaint: Left knee injury due to blunt trauma secondary to fall Informant: patient Onset/Context/Timing Onset: Hours Mechanism/Context: Blunt Injury and Fall Location of pain/injuries: Left knee Location: Left knee Current Severity: Mild Maximum Severity: Severe Worsened by: Weightbearing and movement Relieved by: Nothing Associated Symptoms Associated Symptoms: Positive for Inability to ambulate and Amnesia; Negative for Parasthesias, Weakness, Loss of function or Loss of consciousness Narrative Narrative: Patient was using her knee scooter. The front wheels of the scooter fell off. She fell onto her left knee. Minor knee pain. When she attempted to stand up to bear weight she states her knee crumbled and had a valgus deformity. She denied head trauma. She denies neck pain. She denies paresthesia, anesthesia motors. She is presently in a walking boot for a stress fracture of metatarsal right foot. She is seen at [place]. Prior similar symptoms: No Recent Illness/Hospitalization: [facility] Medical History Stress reaction of bone Right foot pain Migraine Home Medications ?Medication ?Instructions ?Recorded ?Last Taken ?Type bupropion HCl 300 mg 24 hr tablet, 300 mg PO DAILY Dep ression 10/05/24 Unknown History extended release (Wellbutrin XL) ipratropium bromide 42 mcg (0.06 2 spray intranasal TI D PRN 10/05/24 Unknown History %) nasal spray levothyroxine 88 mcg tablet 88 mcg PO DAILY Hypothyroi dism 10/05/24 Unknown History (Synthroid) liothyronine 5 mcg tablet 5 mcg PO DAILY Hypothyroidis m 10/05/24 Unknown History ropinirole 1 mg tablet 1 mg PO DAILY Restless leg s yndrome 10/05/24 Unknown History dextroamphetamine-amphetamine ER 1 cap PO QAM 02/01/25 Unknown History 10 mg 24hr capsule,extend release rizatriptan 5 mg tablet 5 mg PO BID PRN migraine hea dache 02/01/25 Unknown Rx #4 tabs naproxen 500 mg tablet 500 mg PO BID #14 tabs 04/15 Unknown Rx Allergy/AdvReac Type Severity Reaction Status Date / Time amoxicillin Allergy hives Verified 04/15/25 16:17 Penicillins Allergy Rash Verified 04/15/25 16:17 Surgical History [place] teeth extracted H/O removal of cyst H/O wrist surgery Social History household members: family Smoking Status: Never smoker alcohol intake: never ROS ROS ED Constitutional Constitutional ED: Denies chills or fever(s) Cardiovascular Cardiovascular: Denies chest pain or palpitations Respiratory/Chest Respiratory/Chest: Denies dyspnea Gastrointestinal Gastrointestinal: Denies nausea or vomiting Musculoskeletal Musculoskeletal: Reports other Details: Left knee pain otherwise negative Neurologic Neurologic: Denies paresthesias or weakness Hematologic/Lymphatic Hematologic/Lymphatic: Denies easy bleeding or easy bruising EXAM Physical Exam Const Vital Signs: 04/15/25 16:16 Temperature 98.4 F Temperature Source Oral Pulse Rate 113 H Respiratory Rate 20 H Blood Pressure 166/112 H Blood Pressure Mean 130 Pulse Ox 99 Oxygen Delivery Method Room Air Positive well nourished and well developed General Appearance ED: well developed HEENT atraumatic Eyes PERRL and EOMs intact bilaterally Resp normal respiratory effort Cardio regular rhythm Rate: regular rate Extremity Negative for normal to inspection or full ROM Extremity Narrative: Patient has swelling to left knee. There is bogginess over the patella bursa. There are some slight redness. The patella is not ballotable. There is no obvious effusion. She has minimal joint line tenderness medially. Dara's test was negative. Difficult to perform modified Dejah's test because she complained of pain. With varus and valgus stress testing she is noted to have laxity MCL on the left and this is not noted on the right. DP PT pulse are palpable. Patient able to extend 280 degrees. She is able to flex to about 110degrees. There is no fullness or mass noted in the popliteal fossa. Neuro CN's II-XII intact bilaterally and moves all extremities Sensorium / Orientation: alert Psych mental status grossly normal and thought process normal Skin no rashes or lesions noted, no wounds, skin turgor normal and no jaundice MDM MDM MDM Narrative Medical decision making narrative: X-ray was obtained. On x-ray there is no Insa fracture, subluxation dislocation. There is soft tissue swelling noted. There is no effusion noted. Radiography Diagnostic Testing: Clinical Impression(s) from Imaging Studies Knee X-Ray 04/15/25 16:25 IMPRESSION: No radiographic evidence of an acute osseous abnormality at the left knee. - Other findings discussed above. Reading Location: [facility] Suspect patient may have a traumatic bursitis based on the description of the x-ray by radiologist. Will treat with NSAIDs and knee immobilizer. Discharge Plan Triage Chief Complaint: Lower Extremity Injury ED Provider: Ismael Ruano Dx/Rx/DC Orders Clinical Impression: Grade 2 sprain of medial collateral ligament of left knee, Suprapatellar bursitis of left knee, Injury due to fall Instructions: ED Bursitis, ED Knee Sprain Ligaments Prescriptions: New naproxen 500 mg tablet 500 mg PO BID Qty: 14 0RF No Action levothyroxine [Synthroid] 88 mcg tablet 88 mcg PO DAILY bupropion HCl [Wellbutrin XL] 300 mg tablet extended release 24 hr 300 mg PO DAILY liothyronine 5 mcg tablet 5 mcg PO DAILY ropinirole 1 mg tablet 1 mg PO DAILY ipratropium bromide 42 mcg (0.06 %) spray,non-aerosol 2 spray intranasal TID PRN dextroamphetamine-amphetamine 10 mg capsule,extended release 24hr 1 cap PO QAM rizatriptan 5 mg tablet 5 mg PO BID PRN (Reason: migraine headache) Qty: 4 0RF Primary Care Provider: Francine Rodriguez Referrals: Francine Rodriguez MD [Primary Care Provider, Family Practice] David Holt DO [Med Staff - Active Staff, Orthopedics] - 5-7 Days Activity Restrictions/Additional Instructions: 1. Apply ice to your left knee 6-8 times a day. 2. Take medication as prescribed 3. Weight-bear as tolerated Print Language: Georgian Disposition Disposition: Home, Self Care What to do if you have Problems For any increased pain, shortness of breath, bleeding, nausea or vomiting, chestpain, or any unexpected problems, contact your Primary Care Provider. Call [facility] ([phone]) or report to the closest Emergency Room. Call 911 if necessary. 04/15/25 1722 <Electronically signed by Ismael Ruano MD> Ana Signature (if applicable): CC: Dr. Francine Rodriguez MD ~ Signed [facility] Work Phone: 1(167) 590-809109-16-2025 Progress [facility] [address] [place] [address] OFFICE VISIT Date of Service: 04/11/25 MR#: [id number] Acct: [id number] Name: TORRES MILLARD Rep #: [id number] : 2000 Provider: Dr. Johnson Duval MD Age/Sex: 24/F Location: [facility] Status: Signed Intake Vital Signs 10/05/24 14:01 [...] bone Right foot pain Migraine Surgical History [place] teeth extracted H/O removal of cyst H/O wrist surgery Social History household members: family Smoking Status: Never smoker alcohol intake: never HPI RIGHT FOOT Details: This documentation accurately reflects the service provided and the decisions made by me, Dr. Lilibeth MD 04/11/25 0841. Part of today?s visit was documented by [...] problems until this most recent time. The originalinjury was just going down 1 step. It [...] response and pain levels. I would like thepatient to follow-up in 4 weeks time to reassess if this is no better at that time the next I wouldbe ordering an MRI to confirm the diagnosis [...] in the past year?: No 04/11/25 0908 n > Date _ Hussain Duval MD Cosigner Signature: Date (if applicable) CC: ~ [facility]09-16-2025 Progress note Author Hussain Duval [facility] Note Date/Time April 11, 2025 9:08am [facility] [address] [place] [address] [place] [address] OFFICE VISIT Date of Service: 04/11/25 MR#: [id number] Acct: [id number] Name: TORRES MILLARD Rep #: [id number] : 2000 Provider: Dr. Johnson Duval MD Age/Sex: 24/F Location: [facility] Status: Signed Intake Vital Signs 10/05/24 14:01 [...] you fallen in the past year?: No [facility] Medical History (Updated 04/11/25 @ 09:07 by Hussain Duval MD) Stress reaction of bone Right foot pain Migraine Surgical History [place] teeth extracted H/O removal of cyst H/O wrist surgery Social History household members: family Smoking Status: Never smoker alcohol intake: never HPI RIGHT FOOT Details: This documentation accurately reflects the service provided and the decisions made by me, Dr. Hussain Duval MD 04/11/25 0841. Part of today?s visit was documented by [...] jackson MD> Date _ Hussain [facility]val [facility] Signature: Date (if applicable) CC: ~ [place] [employer] Work Phone: 1(887) 433-251909-08-2025 NoteHNO ID: [id number] Author: EMMETT LUCIANO APRN.BODY DESIGNER Service: ? Author Type: Nurse Practitioner Type: Progress Notes Filed: 04/03/2025 11:21 Note Text: [facility] Megan Curranmichael Millard is a 24 year old female. [...] of care. This note was generated using Beacon [employer] software. It may contain errors in wording, punctuation, or spelling. Emmett Luciano APRN.MIRANDA History and Record Review Clinical information obtained from an independent historian. History obtained from or confirmed by: parent. External record(s) reviewed: prior outpatient record. Disposition The patient was discharged. OTC Medications were [facility]: [facility] History of Present illness Narrative* Emmett Luciano APRN.MIRANDA - 04/03/2025 11:16 AM EDT Images from the original note were not included. [facility] Macdonald Yuli Millard is a 24 year old female. [...] of care. This note was generated using Beacon [employer] software. It may contain errors in wording, punctuation, or spelling. Emmett Luciano APRN.MIRANDA History and Record Review Clinical information obtained from an independent historian. History obtained from or confirmed by:parent. External record(s) reviewed: prior outpatient record. Disposition The patient was discharged. OTC Medications were advised: [facility] History of Present illness Narrative* Deborah [...] PATIENT PRESENTS WITH AN IMPLANTABLE OR ATTACHED OIL BURNER: No RADIOLOGY DEPARTMENT: General X-ray: Exam(s) Completed: Lower Extremity X- Ray(s): Foot, Right PERIPHERAL IV DATA: Not applicable SIGNED BY: LETY Nelson) April 03, 2025 10:41 AM documented in [facility]2025 NoteHNO ID: [id number] Author: DEBORAH REDDY RT(R) Service: ? Author [...] PATIENT PRESENTS WITH AN IMPLANTABLE OR ATTACHED OIL BURNER: No RADIOLOGY DEPARTMENT: General X-ray: Exam(s) Completed: Lower Extremity X-Ray(s): Foot, Right PERIPHERAL IV DATA: Not applicable SIGNED BY: LETY Nelson) April 03, 2025 10:41 [facility]07-09-2025 Evaluation note* Diagnosis Onset Date Resolution Status Admit Date Migraine acute February 01, 2025 3:21pm [facility] Work Phone: 1(474) 170-419807-09-2025 Evaluation note* Diagnosis Onset Date Resolution Status Admit Date Migraine acute February 01, 2025 3:21pm Right foot pain acute April 11, 2025 8:36am [facility] Work Phone: 1(724) 150-172307-09-2025 Evaluation note* Diagnosis Onset Date Resolution Status Admit Date Migraine acute February 01, 2025 3:21pm Right foot pain acute April 11, 2025 8:36am Stress reaction of bone [facility] 2024 8:36am [facility] Work Phone: 1(708) 713-378907-09-2025 Evaluation note* Diagnosis Onset Date Resolution Status Admit Date Migraine acute February 01, 2025 3:21pm Right foot pain acute April 11, 2025 8:36am [facility] 8:36am Left knee sprain acute Septembe r 2024 12:59pm [facility] Work Phone: 1(490) 320-562107-09-2025 Evaluation note* Diagnosis Onset Date Resolution Status Admit Date Migraine acute February 01, 2025 3:21pm Right foot pain acute April 11, 2025 8:36am Stress reaction of bone acute S [facility] 2024 8:36am Left knee sprain acute Septembe r 2024 12:59pm Left knee sprain acute May 03, 2025 12:52pm Right foot pain acute April 262024 9:37am Stress reaction of bone acute O ctober 2024 9:37am Instability of left knee joint acute May 22 2:54pm Left knee sprain acute May 22, 2025 2:54pm [facility] Work Phone: 1(981) 699-665307-09-2025 [facility] [address], [address] [place] [address] OFFICE VISIT Date of Service: 02/01/25 MR#: [id number] Acct: [id number] Name: TORRES MILLARD Rep #: [id number] : 2000 Provider: ROBERT Hooper Age/Sex: 24/F Location: [facility] Status: Signed Intake Vital Signs 10/05/24 14:01 [...] excedrin. Patient has been under some stress. [facility] Medical History (Updated 02/01/25 @ 15:41 by Sae JONES, ROBERT) Migraine Surgical History [place] teeth extracted H/O removal of cyst H/O [...] to contact her PCPs office several time thoughDrCyn Rodriguez is not available and therefore is [...] the above. This note was generated with Primo1Dation software. It may contain incorrectwords, spelling, and punctuation that were not noted in checking the note beforesigning. Medications: New rizatriptan 5 mg PO BID PRN 4 tabs 0RF migraine headache 02/01/25 1542 s ROBERT JONES> Date _ Sae JONES Cosigner Signature: Date (if applicable) CC: ~ [facility]07-09-2025 Progress note Author Sae Suarez [facility] Note Date/Time February 01, 2025 3:42p [facility] [address], [address] [place] [address] OFFICE VISIT Date of Service: 02/01/25 MR#: [id number] Acct: [id number] Name: TORRES MILLARD Rep #: [id number] : 2000 Provider: ROBERT Hooper Age/Sex: 24/F Location: [facility] Status: Signed Intake Vital Signs 10/05/24 14:01 [...] excedrin. Patient has been under some stress. [facility] Medical History (Updated 02/01/25 @ 15:41 by ROBERT Dobson) Migraine Surgical History [place] teeth extracted H/O removal of cyst H/O [...] her PCPs office several time though Dr. Michael is not available and therefore is here for evaluation hoping to get her rizatriptan refilled today. She otherwise notes no other complaints at this time. ROS Const Constitutional: No other (As above) Exam Const General: cooperative, healthy appearing and no acute distress Orientation: alert and awake [facility] Head: normal to inspection Ears: hearing grossly [...] the above. This note was generated with Primo1Dation software. It may contain incorrectwords, spelling, and punctuation that were not noted in checking the note beforesigning. Medications: New rizatriptan 5 mg PO BID PRN 4 tabs 0RF migraine headache 02/01/25 1542 <Electronically signed by Sae JONES> Date _ Sae JONES Cosigner Signature: Date (if applicable) CC: ~ [place] [employer] Work Phone: 1(365) 223-544704-27-2024 History of Present illness Narrative* Angelica Voss APRN.BODY DESIGNER - 11/21/2023 9:35 AM EDT CC: Patient [...] left wrist PAST SURGICAL HISTORY OF 05/2017 [place] teeth extraction PAST SURGICAL HISTORY OF prior to age 9 eye muscle surgeries TONSILLECTOMY PRIMARY/SECONDARY <AGE 11 2010 Tonsillectomy ALLERGIES Amoxicillin MEDICATIONS escitalopram oxalate (LEXAPRO) [...] use: Never Drug use: Never ASSESSMENT/PLAN: 1. [place] eye disease of both eyes - ICD9: 372.03, ICD10: H10.023 - POLYMYXIN B SULFATE 10,000 UNIT-TRIMETHOPRIM 1 MG/ML EYE DROPS Prescription instructions reviewed with patient as applicable. Potential red flag symptoms discussed with the patient. Reviewed appropriate action plan to take if red flag symptoms occur. Patient agreeable to treatment plan. Angelica Voss APRN.MIRANDA documented [facility] History of Present illness Narrative* Everett [...] 25, 2023 9:35 AM documented in this encounterD[facility]09-30-[facility] History of Present illness Narrative* Alexander [...] the foot, eversion - non- painful, anterior dewajx-psi-cmbfqkb. painful to bear weight. antalgic gait. Palpation: [...] bearing. Alexander Olea MD documented in this encounterDiley [facility]09-16-2023 History of Present illness Narrative* Nancy Jules, TAWANNA.BODY DESIGNER - 04/11/2023 1:34 PM EDT Subjective Sore [...] left wrist PAST SURGICAL HISTORY OF 05/2017 [place] teeth extraction PAST SURGICAL HISTORY OF prior to age 9 eye muscle surgeries TONSILLECTOMY PRIMARY/SECONDARY <AGE 11 2009 Tonsillectomy ALLERGIES Amoxicillin MEDICATIONS SYNTHROID 50 mcg [...] expected course of illness Nancy Jules APRN.CNP documented in this encounterDiley [facility] Center09-16-2023 Instructions* Patient Instructions* Nancy Jules APRN.CNP - 04/11/2023 1:34 PM EDT ASSESSMENT/PLAN: 1. [...] days of proper treatment. documented in this encounterDiley [facility]09-07-2023 Discharge summary Author Lily Santana [facility] April 02, 2023 11:48am Note Date/Time April 02, 2023 11:48am [facility] Physical Therapy [facility] [address] [place] [address] [address] [place] [address] / REHABILITATION SERVICES DISCHARGE SUMMARY MR#: [id number] Acct: [id number] Name: TORRES MILLARD Rep #: [id number] : 2000 22 From: Lily Jain Referring : Status: REG RCR Insurance: [employer] [id number] SELF PAY INSURANCE Discharge Summary D/C summary: [...] Progress: Progressing Plan Plan: 04/02/23: Discharge to I HEP Hold 4 weeks- will do below HEP and get good shoes- encouraged to call if issuesarise prior to the 4 week follow up HEP Given IE: Stretching, Shoes, Arch Supports, HR/TR, SLS D/C Information d/c sentence: If there are questions or concerns regarding this patient's physical therapy, please feel free to call me at [phone]. Thank you for the referral of thispatient. Sincerely, Lily Santana DPT Balance/Gait/Functional tests Balance/Special Test Scores Lower Extremity Functional Score: 69 Improvement % Improvement: 60 <Electronically signed by Lily Santana DPAlice> 04/02/23 1140 CC: LIANNA García, DO ~ ELR Signed [facility] Work Phone: 1(430) 553-598610-31-2022 History of Present illness Narrative* TORRES is [...] of vyvanse before she switches providers in Jun [facility] Work Phone: 1(513) 309-279206-01-2021 History of Present illness Narrative* TORRES is [...] med that day. * No concerns today. [facility] Work Phone: Evaluation note* Diagnosis Onset Date Resolution Status Dog bite of finger acute Injury of left index finger acute Dog bite of finger acute Injury of left index finger acute Ganglion cyst of volar aspect of right wrist acute Ganglion cyst of volar aspect of right wrist acute [facility] Work Phone: Evaluation noteNo assessment information available [facility] Work Phone: Evaluation note* Diagnosis Onset Date Resolution Status H/O wrist surgery acute Poison joan dermatitis acute [facility] Work Phone: Evaluation note* Diagnosis Sore throat- Primary Acute pharyngitis Viral bronchitis Acute bronchitis [facility] Diagnosis Closed displaced fracture of fifth metatarsal bone of right foot, initial encounter- Primary Foot pain, right Pain in limb [facility]* Diagnosis [place] eye disease of both eyes- Primary [facility] Diagnosis Preop examination- Primary Preoperative examination, unspecified Ganglion of left wrist Ganglion of joint BMI 40.0-44.9, adult (HCC) Body Mass Index 40.0-44.9, adult Foot pain, right Pain in limb [facility]* Diagnosis Onset Date Resolution Status Admit Date Migraine acute February 01, 2025 3:21pm [facility] Work Phone: Evaluation note* Diagnosis Preop examination- Primary Preoperative examination, unspecified Ganglion of left wrist Ganglion of joint BMI 40.0-44.9, adult (HCC) Body Mass Index 40.0-44.9, adult Pain in joint involving right ankle and foot- Primary Pain in joint involving right ankle and foot [facility] Diagnosis Preop examination- Primary Preoperative examination, unspecified Ganglion of left wrist Ganglion of joint BMI 40.0-44.9, adult (HCC) Body Mass Index 40.0-44.9, adult Pain in joint involving right ankle and foot documented in this encounter [facility] Narrative* The patient [...] relationships are appropriate. Eats meals with family. Dwsidk-ptdrw-jdlxsdi interactions are normal. Has a supportive adult relationship. Is permitted to make independentdecisions. Child has responsibilities and/or chores. Lives with parents. 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 * Activities: TORRES engages in regular physical [...] twin brother. She is also considering counselling [facility] Work Phone: History of Present [...] relationships are appropriate. Eats meals with family. Qeyeyi-dhxma-rlxcrtu interactions are normal. Has a supportive adult relationship. Is permitted to make independentdecisions. Child has responsibilities and/or chores. Lives with parents. 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 * Activities: TORRES engages in regular physical [...] twin brother. She is also considering counselling [facility] Work Phone: History of Present [...] it is hard to move her finger -[facility] Work Phone: Hospital Discharge instructionsAdditional Instructions 1. Apply ice to your left knee 6-8 times a day. 2. Take medication as prescribed 3. Weight-bear [facility] Work Phone: Progress note Author Krystyna Vanessa [facility] Note Date/Time April 18, 2025 1:43pm [facility] [address] [place] [address] OFFICE VISIT Date of Service: 04/18/25 MR#: [id number] Acct: [id number] Name: TORRES MILLARD Rep #: [id number] : 2000 Provider: SHREE Vanessa Age/Sex: 24/F Location: [facility] Status: Signed Intake Vital Signs 04/15/25 16:16 Height 5 ft 2 in Intake Visit Reasons: LEFT KNEE Allergies amoxicillin Allergy (Verified 04/18/25 13:06) hives Penicillins Allergy (Verified 04/18/25 13:06) Rash Medications ?Medication ?Instructions ?Recorded ?Confirmed ?Type bupropion HCl 300 mg 24 hr tablet, 300 mg PO DAILY Dep ression 10/05/24 04/18/25 History extended release (Wellbutrin XL) ipratropium bromide 42 mcg (0.06 2 spray intranasal TI D PRN 10/05/24 04/18/25 History %) nasal spray levothyroxine 88 mcg tablet 88 mcg PO DAILY Hypothyroi dism 10/05/24 04/18/25 History (Synthroid) liothyronine 5 mcg tablet 5 mcg PO DAILY Hypothyroidis m 10/05/24 04/18/25 History ropinirole 1 mg tablet 1 mg PO DAILY Restless leg s yndrome 10/05/24 04/18/25 History dextroamphetamine-amphetamine ER 1 cap PO QAM 02/01/25 04/18/25 History 10 mg 24hr capsule,extend release rizatriptan 5 mg tablet 5 mg PO BID PRN migraine hea dache 02/01/25 04/18/25 Rx #4 tabs naproxen 500 mg tablet 500 mg PO BID #14 tabs 04/1504/18/25 Rx PFSH Medical History Stress reaction of bone Right foot pain Migraine Surgical History [place] teeth extracted H/O removal of cyst H/O wrist surgery Social History household members: family Smoking Status: Never smoker alcohol intake: never HPI LEFT KNEE Details: This documentation accurately reflects the service provided and the decisions made by me, Krystyna Vanessa NP-C 04/18/25 7493. Part of today?s visit was documented by Becky MATOS, acting as scribe. TORRES MILLARD is a 24 year old F here today for ER follow-up on the left knee.She states that she was on a knee scooter for her left foot injury and the knee scooter was not put together correctly and the front wheels fell off and she fell with it. She did feel something in the knee and started having pain. She then went to the ED over the weekend because the pain wasn't getting better and their is a concern for a grade 2 MCL tear. She does present with a knee immobilizer and crutches. She can toe touch weight bear. She feels that her kneekeeps buckling and has instability in the knee. Her pain is underneath her knee cap and over the anterior medial compartment. She denies mechanical symptoms. She does have some bruising over the medial side of the knee. She states that her knee did hyperextend last night while wearing the brace. She is taking Naproxen 500mg that was prescribed to her by the ed and Tylenol arthritis. Agree with above. Stress fx R foot and being followed by Dr. Duval. Fell off knee scooter 04/15/2025 and injured L knee. Ice, Naproxen and Tylenol help with sx control. Sx mildly improved since date of injury. No prior injuries or surgeries to the L knee. 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 Reports currently unable to drive and challenging with ambulatory activity. ROS Const All systems reviewed & are unremarkable except as noted in H and other (A&O x 3,no apparent distress. No recent illness.) ENT Denies dizziness Card Denies chest pain, Denies dyspnea and Denies edema Resp Denies cough, Denies dyspnea and Reports other (No recent URI) GI Reports system reviewed and no additional complaints, except as documented, Denies nausea and Denies vomiting Musc Reports as per HPI, Reports abnormal gait, Reports arthralgias, Reports joint swelling and Reports limited range of motion Neuro Yes abnormal gait, No dizziness and Yes other Psych Reports system reviewed and no additional complaints, except as documented Gutirerez/Lymph Denies easy bleeding and Denies easy bruising Ortho Exam General General: Yes no acute distress and Yes well groomed Neurologic: Yes alert and Yes oriented x3 Psychologic: Yes reasonable and appropriate Left Knee Date of injury: 04/15/25 KNEE: Skin is pink, warm, dry and intact. There is positive visible swelling and ecchymosis to the medial aspect of the knee, mild to the posterior and mild to posterior lateral regions. Range of motion: Guarded and limited 0 to 80 degrees Palpation: Tender with palpation especially over the medial joint line and bruised area, mild to lateral joint line and patellar tendon Special tests: Dejah modified positive; anterior drawer negative; posterior drawer negative; medial joint opening less than 5 degrees; lateral joint openingnegative Patient hesitant to attempt more than 50% weightbearing on left leg secondary toaggravation of generalized knee pain, symptom aggravation with slight attempt atThessaly's Lower leg is soft, nontender, easily compressible, Homans negative Gait: Minimal weightbearing on left leg, using crutches Full range of distal joints with no symptom aggravation Distal motor or sensory intact with brisk cap refill at 2 seconds Supplemental Info Review of ED note from 04/15/2025 and independent review of knee x-rays obtained from that visit completed on date of visit. There is no acute fracture, malalignment or degenerative changes noted. Mild infrapatellar bursitis. Coding Level of Care Code Off vis,est,level 3 Diagnoses Sprain of medial collateral ligament of left knee, initial encounter S83.412A Encounter type: initial encounter Involved ligament of knee: medial collateral ligament Assessment and Plan Assessment and Plan (1) Left knee sprain: Status: Acute Qualifiers: Encounter type: initial encounter Involved ligament of knee: medial collateral ligament Qualified Code(s): S83.412A - Sprain of medial collateral ligament of left knee, initial encounter Plan: We discussed continuing prescription naproxen twice daily with food until gone. Once complete, may use OTC naproxen/Aleve per package directions and Tylenol on as needed basis. Recommend frequent elevation and ice Recommend hinged knee brace with weightbearing activity, remove with rest and sleep Encouraged gentle range of motion and increase as tolerated. May wean off crutches as needed Reviewed prior office visit note with Dr. Duval, reinforced using the walkingboot with strict nonweightbearing as able and follow-up as recommended for the right foot stress fracture. Patient works in retail, currently is off work. At this time, is unlikely patient can tolerate regular duty work. Recommend return next week if symptoms are improving, recommended mostly seated work and frequent breaks. We discusseddriving and that the walking boot is considered impairment as well as knee bracing and/or use of crutches. Advise caution with any driving activity until follow-up here for recheck of the knee in 2 weeks. We reviewed concerning symptoms for VTE with limited activity. Patient is encouraged to be as mobile as possible approximately every hour while awake. Wereviewed concerning signs such as calf pain, redness, heat, limited ability to flex foot to either contact the office or seek ER evaluation. In agreement with plan of care This document has been transcribed using [employer] dictation software. There may beincorrect words, spelling, and punctuation. 04/18/25 6611 <Electronically signed by Krystyna SWANN> Date _ Krystyna Maxer Signature: Date (if applicable) CC: ~ [facility] Work Phone: Progrlwb note Author Hussain Duval [facility] Note Date/Time May 09, 2025 1 0:13am [facility] [address] [place] [address] [address] [place] [address] OFFICE VISIT Date of Service: 05/09/25 MR#: [id number] Acct: [id number] Name: TORRES MILLARD Rep #: [id number] : 2000 Provider: Dr. Johnson Duval MD Age/Sex: 24/F Location: [facility] Status: Signed Intake Vital Signs 04/11/25 08:41 05/03/25 12:57 05/09/25 09:43 Height 5 ft 2 in 5 ft 2 in 5 ft 2 in Weight: 248 lb BMI 45.3 Intake Visit Reasons: RIGHT FOOT Chief Complaint: Right foot 1 month follow up Accompanied by: Self Is patient in pain?: No Allergies amoxicillin Allergy (Verified 05/09/25 09:46) hives Penicillins Allergy (Verified 05/09/25 09:46) Rash Medications ?Medication ?Instructions ?Recorded ?Confirmed ?Type bupropion HCl 300 mg 24 hr tablet, 300 mg PO DAILY Dep ression 10/05/24 05/09/25 History extended release (Wellbutrin XL) ipratropium bromide 42 mcg (0.06 2 spray intranasal TI D PRN 10/05/24 05/09/25 History %) nasal spray levothyroxine 88 mcg tablet 88 mcg PO DAILY Hypothyroi dism 10/05/24 05/09/25 History (Synthroid) liothyronine 5 mcg tablet 5 mcg PO DAILY Hypothyroidis m 10/05/24 05/09/25 History ropinirole 1 mg tablet 1 mg PO DAILY Restless leg s yndrome 10/05/24 05/09/25 History dextroamphetamine-amphetamine ER 1 cap PO QAM 02/01/25 05/09/25 History 10 mg 24hr capsule,extend release rizatriptan 5 mg tablet 5 mg PO BID PRN migraine hea dache 02/01/25 05/09/25 Rx #4 tabs naproxen 500 mg tablet 500 mg PO BID #14 tabs 04/1505/09/25 Rx Have you fallen in the past year?: Yes PFSH Medical History Stress reaction of bone Right foot pain Migraine Surgical History [place] teeth extracted H/O removal of cyst H/O wrist surgery Social History household members: family Smoking Status: Never smoker alcohol intake: never HPI RIGHT FOOT Details: This documentation accurately reflects the service provided and the decisions made by me, Dr. Hussain Duval MD 05/09/25 0905. Part of today?s visit was documented by [ ], acting as scribe. TORRES MILLARD is a 24 year old F here today for 6 weeks FU Right foot stress reaction second metatarsal or even a developing stress fracture there. Patient stayed off the foot for few weeks was using a knee scooter then twisted the leftknee actually is in therapy wearing a brace for that now. Regardless of that injury the patient has no pain now on the foot and they have been having to use that over the last 2 weeks no pain or other difficulties with regards to the right foot. Coding Level of Care Code Off vis,est,level 3 Diagnoses Stress reaction of bone M84.30XA Right foot pain M79.671 Assessment and Plan Assessment and Plan (1) Stress reaction of bone: Status: Acute Plan: TORRES MILLARD is a 24 year old F here today for 6 weeks FU Right foot stress reaction second metatarsal or even a developing stress fracture there. Overall the patient is doing well with no pain therefore we will continue to treat this nonoperatively and declined the MRI for now but if the pain returns then I have asked the patient to let me know otherwise weightbearing as tolerated and activities as tolerated follow-up as needed. (2) Right foot pain: Status: Acute Clinical Quality Measures Falls Risk Screening/Assistive Devices Have you fallen in the past year?: Yes Ortho Exam General General: Yes no acute [...] Pedis: 2 and Posterior Tibial: 2 ANKLE: no pain to midfoot upon strong palpation. 05/09/25 1014 <Electronically signed by Hussain jackson MD> Date _ Hussain Duval MD Cosigner Signature: Date (if applicable) CC: ~ [facility] Work Phone: Reason for referral (narrative)* Diagnostic Procedure Only (Urgent) - Closed Specialty Diagnoses / Procedures Referred By Adolfo jain Referred To Contact XR IMAGING Diagnoses Foot pain, right Procedures XR FOOT GENERAL 3V AP/LAT/OBL RIGHT RADEX FOOT COMPLETE MINIMUM 3 VIEWS Alexander Olea MD [address] [place] [address] [place] [address] Referral ID Status Reason Start Date Expiration Date V isits Requested Visits Authorized [id number] Closed Auto-Generate d Referral 04/25/2023 05/24/2024 1 1 [facility] for referral (narrative)No reason for referral information availableCommunity [facility] Work Phone: Reason for visit Narrative* Diagnostic Procedure Only (Urgent) - Closed Specialty Diagnoses / Procedures Referred By Contac t Referred To Contact XR IMAGING Diagnoses Foot pain, right Procedures XR FOOT GENERAL 3V AP/LAT/OBL RIGHT RADEX FOOT COMPLETE MINIMUM 3 VIEWS Alexander Olea MD [address] [place] [address] [place] [address] Referral ID Status Reason Start Date Expiration Date V isits Requested Visits Authorized [id number] Closed Auto-Generate d Referral 04/25/2023 05/24/2024 1 1 [facility] for visit Narrative* Diagnostic Procedure Only (Urgent) - Closed Specialty Diagnoses / Procedures Referred By Contac t Referred To Contact XR IMAGING Diagnoses Pain in joint involving right ankle and foot Procedures XR FOOT GENERAL 3V AP/LAT/OBL RIGHT RADEX FOOT COMPLETE MINIMUM 3 VIEWS Emmett Luciano, TAWANNA.BODY DESIGNER [address] [place] [address] Phone: tel: fax: [place] [address] Referral ID Status Reason Start Date Expiration Date V isits Requested Visits Authorized [id number] Closed Auto-Generate d Referral 04/03/2025 05/03/2026 1 1 [facility] Summary Purpose Family History No Family [...] Status:Active Advance Directives No Advanced Directives Records Found Advance Directive Response Recorded Date/ Time Do you have a Healthcare Power of Quality Lead? No April 15, 2025 4:54pm Chief Complaint medication F/U20 yr well medication [...] Reason for Visit H/O wrist surgery Poison joan dermatitis Chief Complaint HYPOTHYROIDISM ALLERGIC REACTION R ACHILLES TENDONITIS PT HAS RX Reason for Visit H/O wrist surgery Poison joan dermatitis Chief Complaint HYPOTHYROIDISM ALLERGIC REACTION R ACHILLES TENDONITIS PT HAS RX NODULES Reason for Visit H/O wrist surgery Poison joan dermatitis Chief Complaint R ACHILLES TENDONITI S [...] reaction of bone April 11, 2025 8:36am Chief Complaint Admit Date migraine x 1 wk February 01, 2025 3:21p m RIGHT FOOT April 11, 2025 8:36am Room 1 April 11, 2025 8:49am fall April 15, 2025 4:15pm LEFT KNEE April 18, 2025 12:59pm Reason for Visit Admit Date Migraine February 01, 2025 3:21p m Right foot pain April 11, 2025 8:36am Stress reaction of bone April 11, 2025 8:36am Left knee sprain April 18, 2025 12:59pm Chief Complaint Admit Date migraine x 1 wk February 01, 2025 3:21p m RIGHT FOOT April 11, 2025 8:36am Room 1 April 11, 2025 8:49am fall April 15, 2025 4:15pm LEFT KNEE April 18, 2025 12:59pm LEFT KNEE May 03, 2025 12 :52pm Chief Complaint Admit Date migraine x 1 wk February 01, 2025 3:21p m RIGHT FOOT April 11, 2025 8:36am Room 1 April 11, 2025 8:49am fall April 15, 2025 4:15pm LEFT KNEE April 18, 2025 12:59pm LEFT KNEE May 03, 2025 12 :52pm RIGHT FOOT May 09, 2025 9 :37am LEFT KNEE. RX TO BE FAXED May 22, 2025 10:30am LEFT KNEE May 22, 2025 2 :54pm Reason for Visit Admit Date Migraine February 01, 2025 3:21p m Right foot pain April 11, 2025 8:36am Stress reaction of bone April 11, 2025 8:36am Left knee sprain April 18, 2025 12:59pm Left knee sprain May 03, 2025 12 :52pm Right foot pain May 09, 2025 9 :37am Stress reaction of bone May 09 9:37am Instability of left knee joint April 272024 2:54pm Left knee sprain May 22, 2025 2 :54pm Reason for Referral Specialty Diagnoses / Procedures Referred By Contac t Referred To Contact Podiatry Diagnoses Closed displaced fracture of fifth metatarsal bone of right foot, initial encounter Procedures CONSULT TO PODIATRY OFFICE/OUTPATIENT [facility] 60-74 MINUTES Alexander Olea MD [address] [place] [address] Referral ID Status Reason Start Date Expiration Date Visits Requested Visits Authorized [id number] Authorized PCP Requested Referral 04/25/2023 04/24/2024 1 1 Specialty Diagnoses / Procedures Referred By Contac t Referred To Contact XR IMAGING Diagnoses Foot pain, right Procedures XR FOOT GENERAL 3V AP/LAT/OBL RIGHT RADEX FOOT COMPLETE MINIMUM 3 VIEWS Alexander Olea MD [address] [place] [address] [place] [address] Referral ID Status Reason Start Date Expiration Date V isits Requested Visits Authorized [id number] Closed Auto-Generate d Referral 04/25/2023 05/24/2024 1 1 Additional Source Comments INFORMATION SOURCE (unrecogn ized section and content) DATE CREATED AUTHOR 06/11/2020 [facility] DATE CREATED AUTHOR AUTHOR'S ORGANIZ ATION 05/29/2022 [facility] DATE CREATED AUTHOR AUTHOR'S ORGANIZ ATION 05/29/2022 [employer] DATE CREATED AUTHOR AUTHOR'S ORGANIZ ATION 04/09/2025 [facility] DATE CREATED AUTHOR AUTHOR'S ORGANIZ ATION 06/02/2025 [facility] Goals (unrecognized section and content) Goals may [...] Inactive Member Role Status Dates Rosa García , DO Primary Care Provi mayo, Attending Provider, Referring Provider Active Team Status: Inactive Member Role Status Dates Rosa García , DO Primary Care Provider, Attending Provider Active Team Status: Active Member Role Status Dates Rosa García DO Primary Care Provi mayo, Attending Provider, Referring Provider Active Team Status: Active Member Role Status Dates Rosa García DO Primary Care Provider, Attending Provider Active Team Status: Inactive Member Role Status Dates Rosa García , DO Primary Care Provider, Referring Provider Active Lisbeth JONES, [place] Attending Provider Active Team Status: Active Member Role Status Dates Rosa García DO Primary Care Provider Active YAMILA DSOUZA Attending Provider, Referring Provider Ac tive Team Status: Inactive Member Role Status Dates Rosa García DO Primary Care Provider Active YAMILA DSOUZA Attending Provider, Referring Provider Ac tive Retoucher Photoengraving Relationship Specialty Start Date End Date Ana Chavez [address] [place] [address] PCP - General Pediatrics 08/07/16 Retoucher Photoengraving Relationship Specialty Start Date End Date Ana Chavez [address] [place] [address] PCP - General Pediatrics 08/07/16 Retoucher Photoengraving Relationship Specialty Start Date End Date Ana Chavez [address] [place] [address] PCP - General Pediatrics 08/07/16 Team Status: Active Member Role/Relationship Status Dates Dr. Ana Rosa MD Family Provider Active Francine Rodriguez MD Primary Care Provider Active Team Status: Inactive Member Role/Relationship Status Micaela Rodriguez MD Primary Care Provider Active St art: October 05, 2024 End: October 05, 2024 Francine Rodriguez MD Referring Provider Active Start : October 05, 2024 End: October 05, 2024 Sae JONES PA Attending Provider Active Start: October 05, 2024 End: October 05, 2024 Team Status: Inactive Member Role/Relationship Status Micaela [...] 01, 2025 End: February 01, 2025 Sae Suarez PA, PA Attending Provider Active Start: February 01, [...] March 16, 2025 End: March 16, 2025 Retoucher Photoengraving Relationship Specialty Start Date End Date Ana Chavez [address] [place], [place] [id number] PCP - General Pediatrics 08/07/16 Retoucher Photoengraving Relationship Specialty Start Date End Date Ana Chavez [address] [place] [address] PCP - General Pediatrics 08/07/16 Team Status: [...] 2025 End: April 11, 2025 Team Status: Active Member Role/Relationship Status Micaela Rodriguez MD Primary care physician Active Team Status: Inactive Member Role/Relationship Status Micaela Rodriguez MD Primary care physician Active S tart: February 01, 2025 End: February 01, 2025 Francine Rodriguez MD Referring Provider Active Start : February 01, 2025 End: February 01, 2025 Sae Suarez PA, PA Attending physician Active Start: February 01, 2025 End: February 01, 2025 Team Status: Inactive Member Role/Relationship Status Micaela Rodriguez MD Primary care physician Active S tart: March 16, 2025 End: March 16, 2025 Francine Rodriguez MD Attending physician Active Star t: March 16, 2025 End: March 16, 2025 Francine Rodriguez MD Referring Provider Active Start : March 16, 2025 End: March 16, 2025 Team Status: Inactive Member Role/Relationship Status Micaela Rodriguez MD Primary care physician Active S tart: April 11, 2025 End: April 11, 2025 Francine Rodriguez MD Referring Provider Active Start : April 11, 2025 End: April 11, 2025 Hussain Duval MD Attending physician Active S tart: April 11, 2025 End: April 11, 2025 Team Status: Inactive Member Role/Relationship Status Micaela Rodriguez MD Primary care physician Active S tart: April 11, 2025 End: April 11, 2025 Dr. Shemar Mcconnell MD Attending physician Active Start: April 11, 2025 End: April 11, 2025 Team Status: Inactive Member Role/Relationship Status Micaela Rodriguez MD Primary care physician Active S tart: April 15, 2025 End: April 15, 2025 Dr. Ismael Ruano MD Attending physician Active St art: April 15, 2025 End: April 15, 2025 Dr. Ismael Ruano MD Emergency Department Physician Active Start: April 15, 2025 End: April 15, 2025 Team Status: Inactive Member Role/Relationship Status Micaela Rodriguez MD Primary care physician Active S tart: April 18, 2025 End: April 18, 2025 Francine Rodriguez MD Referring Provider Active Start : April 18, 2025 End: April 18, 2025 SHREE Dia Attending physician Active Start: April 18, 2025 End: April 18, 2025 Team Status: Inactive Member Role/Relationship Status Micaela Rodriguez MD Primary care physician Active S tart: May 03, 2025 End: May 03, 2025 Francine Rodriguez MD Referring Provider Active Start : May 03, 2025 End: May 03, 2025 SHREE Dia Attending physician Active Start: May 03, 2025 End: May 03, 2025 Team Status: Inactive Member Role/Relationship Status Micaela Rodriguez MD Primary care physician Active S tart: May 09, 2025 End: May 09, 2025 Francine Rodriguez MD Referring Provider Active Start : May 09, 2025 End: May 09, 2025 Hussain Duval MD Attending physician Active S tart: May 09, 2025 End: May 09, 2025 Team Status: Active Member Role/Relationship Status Micaela Rodriguez MD Primary care physician Active S tart: May 22, 2025 SHREE Dia Attending physician Active Start: May 22, 2025 SHREE Dia Referring Provider Active Start: May 22, 2025 Team Status: Inactive Member Role/Relationship Status Micaela Rodriguez MD Primary care physician Active S tart: May 22, 2025 End: May 22, 2025 Francine Rodriguez MD Referring Provider Active Start : May 22, 2025 End: May 22, 2025 SHREE Dia Attending physician Active Start: May 22, 2025 End: May 22, 2025 Source Comments (unrecognize d section and content) In the event this informatio n is protected by the Federal Confidentiality of Alcohol and Drug Abuse Patient Records regulations: The Federal rules restrict any use of the information to criminally investigate or prosecute any alcohol or drug abuse patient.[facility] the event this information is protected by the Federal Confidentiality of Alcohol and Drug Abuse Patient Records regulations: The Federal rules restrict any use of the information to criminally investigate or prosecute any alcohol or drug abuse patient.[facility] the event this information is protected by the Federal Confidentiality of Alcohol and Drug Abuse Patient Records regulations: The Federal rules restrict any use of the information to criminally investigate or prosecute any alcohol or drug abuse patient.[facility] the event this information is protected by the Federal Confidentiality of Alcohol and Drug Abuse Patient Records regulations: The Federal rules restrict any use of the information to criminally investigate or prosecute any alcohol or drug abuse patient.[facility] the event this information is protected by the Federal Confidentiality of Alcohol and Drug Abuse Patient Records regulations: The Federal rules restrict any use of the information to criminally investigate or prosecute any alcohol or drug abuse patient.[facility] the event this information is protected by the Federal Confidentiality of Alcohol and Drug Abuse Patient Records regulations: The Federal rules restrict any use of the information to criminally investigate or prosecute any alcohol or drug abuse patient.[facility] Reason for Visit (unrecogniz ed section [...] BE BASED ON THE PRIMARY CLINICAL RECORDS. [employer] [facility]. provides no warranty or guarantee of the accuracy or completeness of information in this document.
== END | disposition home or self-care (01) ==
LOC: OPMRI 07:05
PROVIDERS: PCP Family Medicine; Referring Provider Nurse Practitioner Family; Visit Provider Nurse Practitioner Family
DX: M25.362 Other instability, left knee (principal)
CPT/HCPCS: 73721

== ENCOUNTER 2025-06-21 09:45 | Day surgery (SDC) | payer OTHER, SELFPAY ==
[2025-06-21] VITALS (16 sets, daily range): BP systolic 122–150; BP diastolic 69–99; PULSE 85–101; RESP 16–18; TEMP 36.3–36.7; O2SAT 92–99; BMI 47.2
[2025-06-21 10:00] LABS: Internal QC Validated? YES +Cl - CLEAR BKGD; Pregnancy, Urine Negative Negative; Record Kit Lot#,Urine Preg 0000980607
--- NOTE | 2025-06-21 10:00 | PCM.HP.STD ---
HPI - General HPI Narrative ROHAN MILLARD, is a 24 F who presents for left knee anterior cruciate ligament reconstruction quadriceps tendon autograft and repair medial and lateral meniscus. Risks alternatives benefits discussed as well as postoperative instructions and narcotic counseling. Left knee marked. No changes in history and physical exam. Patient understands wished to proceed no further questions or concerns. MR#: [id number] Acct: [id number] Name: ROHAN MILLARD Rep #: [id number] : 2000 Provider: Dr. Hussain Duval MD Age/Sex: 24/F Location: [facility] [place] Status: Signed Intake Vital Signs 05/09/2509:43 06/06/2510:45 Height 5 ft 2 in 5 ft 2 in Intake Visit Reasons: LEFT KNEE Chief Complaint: MRI review Accompanied by: Self Allergies amoxicillin Allergy (Verified 06/12/25 08:50) hives Penicillins Allergy (Verified 06/12/25 08:50) Rash Medications ?Medication ?Instructions ?Recorded ?Confirmed ?Type bupropion HCl 300 mg 24 hr tablet, 300 mg PO DAILY Depression 10/05/24 06/12/25 History extended release (Wellbutrin XL) ipratropium bromide 42 mcg (0.06 2 spray intranasal TID PRN 10/05/24 06/12/25 History %) nasal spray levothyroxine 88 mcg tablet 88 mcg PO DAILY Hypothyroidism 10/05/24 06/12/25 History (Synthroid) liothyronine 5 mcg tablet 5 mcg PO DAILY Hypothyroidism 10/05/24 06/12/25 History ropinirole 1 mg tablet 1 mg PO DAILY Restless leg syndrome 10/05/24 06/12/25 History dextroamphetamine-amphetamine ER 1 cap PO QAM 02/01/25 06/12/25 History 10 mg 24hr capsule,extend release rizatriptan 5 mg tablet 5 mg PO BID PRN migraine headache 02/01/25 06/12/25 Rx #4 tabs naproxen 500 mg tablet 500 mg PO BID #14 tabs 04/15/25 06/12/25 Rx gabapentin 100 mg capsule 100 mg PO QHS 06/12/25 06/12/25 History PFSH Medical History Tear of lateral meniscus of left knee Tear of medial meniscus of left knee Stress reaction of bone Right foot pain Migraine Surgical History [place] teeth extracted H/O removal of cyst H/O wrist surgery Social History household members: family Smoking Status: Never smoker alcohol intake: never HPI LEFT KNEE Details: This documentation accurately reflects the service provided and the decisions made by me, Dr. Hussain Duval MD 06/12/25 0824. Part of today?s visit was documented by [ ], acting as scribe. ROHAN MILLARD is a 24 year old F here today for FU L knee pain and injury, fell off a scooter. per referral notes ER follow-up on the left knee. She states that she was on a knee scooter for her left foot injury and the knee scooter was not put together correctly and the front wheels fell off and she fell with it. Patient having ongoing instability this happened now about 2 months ago. Trying knee brace but that does not seem to be working very well. Supplemental Info [facility] [address] [place] [address] Lower Ext Joint Only (Routine) MR#: [id number] Acct: [id number] Name: ROHAN MILLARD Rep #: [id number] : 2000 F 24 From: Jose Ring MD PCP: Dr. Francine Rodriguez MD Status: REG CLI Study: Lower Ext Joint Only (Routine) Date of Exam: 06/05/25 Exam# [id number] Ordering Dr: Krystyna Vanessa BUGGYMAN-Yaquelin PROCEDURE: LOWER EXT JOINT ONLY (ROUTINE) 06/05/2025 REASON FOR EXAM: KNEE INSTABILITY TECHNIQUE: Procedure Code: MRILEJ Modality: MR Procedure: LOWER EXT JOINT ONLY (ROUTINE) Multiplanar and multisequence images were obtained without IV contrast administration. COMPARISON: 15-Apr-2025 CR FINDINGS: The anterior cruciate ligament shows interstitial edema signal with ill definition of its femoral attachment and sagging of its fibers. The medial collateral ligament shows increased signal with surrounding edema and fluid signal. The posterior cruciate ligament appears intact. The lateral collateral ligament is intact. The medial and lateral patellar retinacula are intact. The patellar ligament tendon is unremarkable. The body, anterior and posterior horns of the lateral meniscus show loss of its normal bowtie appearance with complex increased signal intensity interrupting its articular surfaces associated with medially displaced meniscal fragment The posterior horn of the lateral meniscus shows high signal not interrupting its articular surfaces. Moderate knee joint effusion with mild synovial thickening. Subcortical marrow edema of the posterior aspect of the medial tibial condyle with pseudocystic changes. Focal marrow edema of the posterior aspect of the lateral tibial condyle with related low signal line. Medila femoral condyle faint marrow edema noted. Subtle intrasubstance high signal of the patellar cartilage with no related subcortical marrow edema. No marrow infiltrative lesions. Normal appearance of the examined muscles. Subcutaneous soft tissue edema of the anteromedial aspect of the knee. MRI/Lower Ext Joint Only (Routine) IMPRESSION: Torn anterior cruciate ligament. Grade II injury of the medial collateral ligament. Bucket handle tear of the lateral meniscus. Grade I signal of the posterior horn of the medial meniscus. Tibial and medial femoral condyles trabecular injuries with tibial microtrabecular fracture. Grade I patellar chondromalacia. Moderate knee joint effusion. Reading [facility] Coding Level of Care Code Off vis,est,level 4 Diagnoses Rupture of anterior cruciate ligament of left knee, initial encounter S83.512A Encounter type: initial encounter Laterality: left Tear of medial meniscus of left knee S83.242A Tear of lateral meniscus of left knee S83.282A Assessment and Plan Assessment and Plan (1) ACL injury tear: Status: Acute Qualifiers: Encounter type: initial encounter Laterality: left Qualified Code(s): S83.512A - Sprain of anterior cruciate ligament of left knee, initial encounter Plan: 24-year-old female with left knee ACL tear plus bucket-handle tear lateral meniscus and a tear in the medial meniscus posterior horn and a grade 2 MCL sprain. Overall the recommendation would be surgical management of this given the bucket-handle tear and ACL tear and a active individual to restore stability of the knee decrease long-term risk of osteoarthritis which by the nature of the injury has increased at this point. I explained this to the patient. Surgery be in the form of a left knee anterior cruciate ligament reconstruction quadriceps tendon autograft and repair medial and lateral meniscus. Most likely nonoperative treatment of the MCL given that the grade 2 tears tend to heal with conservative management. Patient understands wants to go ahead with surgery. Increased risks of Re tear and other complications given the patient's increased BMI Pros and cons risks and benefits were discussed with the patient including but not limited to infection, pain, stiffness, bleeding, damage to surrounding structures, neurovascular injury, recurrence or retear, failure or wear of hardware or fixation, instability, fracture, deep vein thrombosis and pulmonary embolism, anesthetic risks, , patient dissatisfaction, need for further surgery and other risks. Patient understood and wished to proceed with surgery, and signed the informed consent documentation. (2) Tear of medial meniscus of left knee: Status: Acute (3) Tear of lateral meniscus of left knee: Status: Acute Ortho Exam General General: Yes no acute distress Neurologic: Yes alert and Yes oriented x3 Psychologic: Yes reasonable and appropriate Left Knee Skin/Wound: Yes CDI, No erythema and No swelling Examination: Yes med jt line tenderness, No Lat jt line tenderness, No Crepitus and Yes Pain with flexion Stability: NML: Posterior Drawer, NML: Valgus 0, NML: Valgus 30, NML: Varus 0 and NML: Varus 30 and 1+: Anterior Drawer and 1+: Dara Apprehension with Lateral Translation: No Patellar Tilt Normal: Yes KNEE: rom 0-125. incr [facility] (Updated 06/15/25 @ 15:16 by Amanda Chen) Depression Anxiety Marijuana use Thyroid disease Restless legs Non-smoker Asthma Tear of lateral meniscus of left knee Tear of medial meniscus of left knee Stress reaction of bone Right foot pain Migraine Home Medications ?Medication ?Instructions ?Recorded ?Last Taken ?Type bupropion HCl 300 mg 24 hr tablet, 300 mg PO DAILY Depression 10/05/24 Unknown History extended release (Wellbutrin XL) levothyroxine 88 mcg tablet 88 mcg PO DAILY Hypothyroidism 10/05/24 Unknown History (Synthroid) liothyronine 5 mcg tablet 5 mcg PO DAILY Hypothyroidism 10/05/24 Unknown History ropinirole 1 mg tablet 1 mg PO DAILY Restless leg syndrome 10/05/24 Unknown History dextroamphetamine-amphetamine ER 1 cap PO QAM 02/01/25 Unknown History 10 mg 24hr capsule,extend release rizatriptan 5 mg tablet 5 mg PO BID PRN migraine headache 02/01/25 Unknown Rx #4 tabs gabapentin 100 mg capsule 100 mg PO QHS 06/12/25 Unknown History magnesium 200 mg tablet 400 mg PO QHS 06/15/25 Unknown History naproxen 500 mg tablet 500 mg PO BID PRN pain 06/15/25 Unknown History sertraline 50 mg tablet 50 mg PO DAILY 06/15/25 Unknown History Allergy/AdvReac Type Severity Reaction Status Date / Time amoxicillin Allergy hives Verified 06/21/25 10:01 Penicillins Allergy Rash Verified 06/21/25 10:01 Surgical History (Updated 06/15/25 @ 15:16 by Amanda Chen) Hx of tonsillectomy [place] teeth extracted H/O removal of cyst H/O wrist surgery Social History household members: family Smoking Status: Never smoker alcohol intake: never
[2025-06-21] MEDS: Lactated Ringers 1,000 ML 15 ML IV (10:08)
--- NOTE | 2025-06-21 10:21 | PCM.PRE.AN2 ---
ASA Classification* ASA Classification ASA Classification: 3 (BMI > 40, hypothyroid, migraines, RLS) Assessment & Plan Anesthesia* Anesthesia Assessment Anesthesia Assessment: Discussed sedation and/or anesthesia options, risks, benefits, and alternatives with patient/parents/legal guardian/POA. Questions invited. The patient/parents/legal guardian/POA seems to understand and agrees to proceed with anesthesia plan. Reviewed the physical assessment, medical history, allergy history and patient home medications list prior to surgery/procedure/anesthetic and documented any changes. Performed airway and anesthesia risk assessments. Anesthesia Type Anesthesia Type: General and Block (ACB post-op. Informed consent obtained; benefits/risks/alternatives explained. Opportunity for questions invited. ) History Source History Obtained from:: Patient and Chart Anesthesia Focused Assessment* Temperature: 97.5 F Pulse Rate: 94 Blood Pressure: 132/89 Respiratory Rate: 18 Pulse Ox: 99 Oxygen Delivery Method: Room Air Airway Assessment Mouth opens: >3 cm Mallampati Score: III Teeth Condition: Intact Neck Range of motion (ROM): Full ROM Labs Anesthesia Preop lab: CBC WBC, (4.4-11.0) 8.7 K/mm3 03/16/25, 08:13 RBC, (4.2-5.4) 4.31 M/mm3 03/16/25, 08:13 Hgb, (12.0-15.0) 11.1 g/dL L 03/16/25, 08:13 Hct, (37-47) 35.1 % L 03/16/25, 08:13 Plt Count, (150-450) 449 K/mm3 03/16/25, 08:13 CHEMISTRY Potassium, (3.3-5.1) 4.1 mmol/L 03/16/25, 08:13 Sodium, (133-145) 138 mmol/L 03/16/25, 08:13 BUN, (4-19) 14 mg/dL 03/16/25, 08:13 Creatinine, (0.70-1.20) 0.78 mg/dL 03/16/25, 08:13 Glucose, (70-99) 97 mg/dL 03/16/25, 08:13 TSH, (0.300-4.200) 3.970 uIU/mL 03/16/25, 08:13 COAG Urine Test Negative Negative Today, 09:53 Pre-Assessment Diagnosis/Proposed Procedure Planned Operative Procedure(s): (L) Left knee Arthroscopy, anterior cruciate ligatment reconstruction quadriceps tendon autograft, medial and lateral meniscus repa Anesthesia History Anesthesia History - president and chief operating officer: Anesthesia History - president and chief operating officer Hx Hospitalization No 06/15/25 15:16 Any Problems With Anesthesia Yes: PONV 06/15/25 15:16 Cholinesterase deficiency No 06/15/25 15:16 You/Your Family Experience No 06/15/25 15:16 fever (hyperthermia) with Relationship Recent Exposure to Contagious No 06/21/25 10:03 Disease Does patient have nerve No 06/15/25 15:16 stimulator Patient instructed to have device shut off --Does patient have Pacemaker No 06/21/25 10:03 or ICD? When Was Last Pacemaker Check QUESTION #4 FULL TEXT: You/Your Family Experience fever (hyperthermia) with Anesthesia Last Oral Intake Last Oral intake: Last Oral Intake NPO since 05:00 06/21/25 10:03 Meds taken in AM with sips of Yes 06/21/25 10:03 water? Meds patient instructed to take am of surgery PONV PONV - president and chief operating officer: PONV - president and chief operating officer Female Yes 06/15/25 15:16 HX of Motion Sickness Yes 06/15/25 15:16 HX of N/V After Surgery Yes 06/15/25 15:16 Non-Smoker Yes 06/15/25 15:16 Duration of Surgery greater Yes 06/15/25 15:16 than 60 minutes Number of Risk Factors 5 06/15/25 15:16 PONV Score Severe Risk 06/15/25 15:16 Height & Weight Height & Weight: Anesthesia: Height & Weight Height 5 ft 2 in 06/21/25 10:03 Weight: 117 kg 06/21/25 10:03 Body Mass Index (BMI) 47.2 06/21/25 10:03 Respiratory Assessment Respiratory Assessment - president and chief operating officer: Respiratory Tract Infection Hx - president and chief operating officer Hx Respiratory Tract Infection No 06/15/25 15:16 STOP Sleep Apnea STOP Sleep Apnea - president and chief operating officer: STOP Sleep Apnea - president and chief operating officer Hx Hypertension No 06/15/25 15:16 Hx Sleep Apnea No 06/15/25 15:16 CPAP BIPAP Do you snore loudly (louder No 06/15/25 15:16 than talking or can be heard Do you often feel tired/ No 06/15/25 15:16 fatigued/ sleepy during daytime? Has anyone observed you stop No 06/15/25 15:16 breathing during sleep? STOP Results Negative 06/15/25 15:16 QUESTION #5 FULL TEXT : Do you snore loudly (louder than talking or can be heard through closed doors)? Tobacco Use History Tobacco Use History - president and chief operating officer: Tobacco Use History - president and chief operating officer Tobacco Use Smoking Status Never smoker 06/15/25 15:16 Hx Tobacco Use No 06/15/25 15:16 Years Smoking Packs Smoked per Day Smoking Cessation Date was within the last 15 years Hx Smoking Cessation Date Hx Smoking Cessation Counseling Hematologic Medial History Hematologic Hx - president and chief operating officer: Hematologic Medical Hx - account advisor Hx of Blood Transfusion No 06/15/25 15:16 Hx of Transfusion in last 3 No 06/15/25 15:16 Months Date of Last Transfusion (if within last 3 months) Ever experience any problems No 06/15/25 15:16 with transfusion(s)? Specify any problems Hx of Preganancy in last 3 No 06/15/25 15:16 Months Nurse Filling Out Transfusion JZOLLINGE 06/15/25 15:16 & Questions: Date: 06/15/25 06/15/25 15:16 Time: 15:18 06/15/25 15:16 Patient unable to answer at this time (ie. confused, unrespo /Reproduction History /Reproductive History - president and chief operating officer: /Reproductive Hx- president and chief operating officer Hx Now No 06/15/25 15:16 Gestational Age (in weeks): EDC: Hx Hx Para Hx Section SAB No 06/15/25 15:16 Does the father of the baby or his family experience fever w Father of the baby Malignant Hypertension history comment Active Medications Active Medications: Current Medications Generic Name Dose Route Start Last Admin Trade Name Freq PRN Reason Stop Dose Admin Lactated Ringer's 1,000 mls @ 15 mls/hr 06/21/25 10:00 06/21/25 10:08 IV 15 mls/hr .Q48H MAURISIO Administration PFSH Medical History (Updated 06/15/25 @ 15:16 by Amanda Chen) Depression Anxiety Marijuana use Thyroid disease Restless legs Non-smoker Asthma Tear of lateral meniscus of left knee Tear of medial meniscus of left knee Stress reaction of bone Right foot pain Migraine Home Medications ?Medication ?Instructions ?Recorded ?Last Taken ?Type bupropion HCl 300 mg 24 hr tablet, 300 mg PO DAILY Depression 10/05/24 06/20/25 History extended release (Wellbutrin XL) levothyroxine 88 mcg tablet 88 mcg PO DAILY Hypothyroidism 10/05/24 06/21/25 History (Synthroid) liothyronine 5 mcg tablet 5 mcg PO DAILY Hypothyroidism 10/05/24 06/21/25 History ropinirole 1 mg tablet 1 mg PO DAILY Restless leg syndrome 10/05/24 06/20/25 History dextroamphetamine-amphetamine ER 1 cap PO QAM 02/01/25 06/20/25 History 10 mg 24hr capsule,extend release rizatriptan 5 mg tablet 5 mg PO BID PRN migraine headache 02/01/25 Unknown Rx #4 tabs gabapentin 100 mg capsule 100 mg PO QHS 06/12/25 06/20/25 History magnesium 200 mg tablet 400 mg PO QHS 06/15/25 06/20/25 History naproxen 500 mg tablet 500 mg PO BID PRN pain 06/15/25 Unknown History sertraline 50 mg tablet 50 mg PO DAILY 06/15/25 06/20/25 History Allergy/AdvReac Type Severity Reaction Status Date / Time amoxicillin Allergy hives Verified 06/21/25 10:01 Penicillins Allergy Rash Verified 06/21/25 10:01 Surgical History (Updated 06/15/25 @ 15:16 by Amanda Chen) Hx of tonsillectomy [place] teeth extracted H/O removal of cyst H/O wrist surgery Social History household members: family Smoking Status: Never smoker alcohol intake: never Review of Systems (Anesthesia) ROS Narrative System reviewed and no additional complaints, except as documented. Physical Exam Const alert and oriented x3 Nutritional Appearance: morbidly obese Resp normal respiratory effort, normal air movement and clear to auscultation bilaterally Cardio regular rate, regular rhythm and no murmurs; Negative for diaphoretic
[2025-06-21] MEDS: Midazolam 2 MG/2 ML Syringe IV (10:29)
[2025-06-21] MEDS: Lidocaine 1% (5 ml sdv) 5 ML Vial IV (10:35)
[2025-06-21] MEDS: Cefazolin 1 GM/5 ML Vial 3 GM IV (10:41)
[2025-06-21] MEDS: Epinephrine (1 mg/ml) 1 MG/ML VIAL (10:49)
[2025-06-21] MEDS: fentaNYL 100 MCG/2 ML Ampul 200 MCG IV (10:51)
--- NOTE | 2025-06-21 12:40 | EX.PCM.DISCH ---
Discharge Instructions Diet Discharge Diet: No restrictions Activity Discharge Activity: Return to Normal Activity and Use Crutches Ice area for (Minutes): 10 Lifting Restrictions: WBAT in full extension (with brace locked straight). ok to remove brace Keep extremity elevated above heart level: Operative Extremity Additional Activity Instructions:: ok to bend leg from 0-90. Dressing / Incision Call your doctor if your incision/area has: Continuous Slow Oozing, Increased Pain/ Swelling, Increased Redness, Foul Smelling Discharge and Swelling at the incision site Call your doctor if you observe: Fever of 101 or Higher, Coldness, Increased Pain and Numbness or Tingling Remove Dressing in: leave in place till F/U Cleanse incision/area with: Do not get Incision Wet Follow Up Care Please Follow Up With: Hussain Duval MD When: within 2 weeks Test Results: Test results from this visit will be discussed in further detail at your follow-up appointment, if applicable. Discharge Plan Admission Attending Provider: Hussain Duval Primary Care Provider: Francine Rodriguez Instructions Patient Instructions: ACL Injury Surg Print Language: [place]ijani Discharge Orders/Prescriptions Prescriptions: New oxycodone-acetaminophen [Endocet] 5-325 mg tablet 1 tab PO Q4H MDD 6 PRN (Reason: pain) 5 Days Qty: 30 0RF aspirin 81 mg capsule 81 mg PO BID MDD 2 30 Days Qty: 60 0RF No Action levothyroxine [Synthroid] 88 mcg tablet 88 mcg PO DAILY bupropion HCl [Wellbutrin XL] 300 mg tablet extended release 24 hr 300 mg PO DAILY liothyronine 5 mcg tablet 5 mcg PO DAILY ropinirole 1 mg tablet 1 mg PO DAILY dextroamphetamine-amphetamine 10 mg capsule,extended release 24hr 1 cap PO QAM rizatriptan 5 mg tablet 5 mg PO BID PRN (Reason: migraine headache) Qty: 4 0RF gabapentin 100 mg capsule 100 mg PO QHS sertraline 50 mg tablet 50 mg PO DAILY magnesium 200 mg tablet 400 mg PO QHS naproxen 500 mg tablet 500 mg PO BID PRN (Reason: pain) Referrals / Follow Up: Francine Rodriguez MD [Primary Care Provider, Family Practice] Hussain Duval MD [Med Staff - Active Staff, Orthopedics] Disposition Disposition (needs filled in before D/C Order can be placed): Home, Self Care
--- NOTE | 2025-06-21 12:46 | OP.PCM_ITS ---
Procedures Musculoskeletal [id number]: Other Procedure See Report Operative Report (Standard) Operative Information Date of Procedure: 06/21/25 Pre-Operative Diagnosis: Left knee ACL tear medial meniscus tear lateral meniscus tear Post-Operative Diagnosis: Same Surgery/Procedure Performed: Left knee quadriceps tendon autograft ACL reconstruction repair lateral meniscus bucket-handle tear and repair medial meniscus automotive general manager: Yes Software Client Architect: lauren Tasks completed by department assistant: Retracting Type of Anesthesia: General RN Documented Start/Stop Times: Operation Date: 06/21/25 11:30 Case Time Into Pre-Op 06/21/25 09:50 Anesthesia Start 06/21/25 10:29 Into Room 06/21/25 10:29 Out of Pre-Op 06/21/25 10:30 Procedure Start 06/21/25 10:48 Procedure End 06/21/25 12:37 Anesthesia End 06/21/25 12:43 Out of Room 06/21/25 12:43 Procedure Start Time: 10:48 Procedure Stop Time: 12:43 Select all DRAINS/GRAFTS/IMPLANTS that apply: Implanted device Implanted device details: as below Estimated Blood Loss: 25 Specimen collected: No Description of surgery: Patient brought to the operating room theater. Placed supine on the table. General anesthesia induced. 3 g IV Ancef administered prior to the procedure. SCD on the nonoperative leg. All bony prominences padded. Tourniquet applied to left thigh appropriately padded. Lower extremity prepped and draped in the usual sterile fashion allowing over 3 minutes drying time prior to draping. Stress positioner to the patient's side. Preoperative timeout performed to confirm the site patient and the surgery. 1+ pivot shift and 2B kaylin, MCL stable in extension. Began by elevating the limb inflating the tourniquet to 250 mmHg. Use standard anterolateral and anteromedial arthroscopy portals. Did a full diagnostic arthroscopy. Cartilage in all 3 compartments was normal. No loose bodies. Lateral and medial compartment was normal normal cartilage. ACL had a full- thickness tear, ACL gone. I debrided the remnant identified the empty lateral back wall identified the capsular reflection. Lateral meniscus had a bucket-handle tear. I reduced this used a rasp on the outer edge of the meniscus. This was from about the mid aspect of the body to extending posteriorly to the posterior horn near the root the root was still intact. I used Arthrex all inside fiber stitch implants and combination of horizontal and vertical mattress sutures to reduce this and fixated. Stable and solid to probing. Took arthroscopy pictures throughout. Medial meniscus also had a vertically orientated tear at the posterior horn and this is a lot smaller than the lateral meniscus tear. This is reduced days a rasp again to stimulate healing. I used 3 vertical mattress all inside sutures Arthrex fiber stitch sutures to repair the meniscus which was stable and solid to probing after that. I then turned my attention to obtaining the quadriceps tendon autograft. I made a transverse incision centered at the quadriceps tendon insertion at the patella. Carried the dissection down through skin and subcutaneous tissue achieved meticulous hemostasis. Identified the distal quadriceps took a one third central strip of this for about 6.8 cm long and a 9 mm size graft with the quadriceps pro Arthrex harvester. Truncated the graft to get to the back table. I used the standard technique with the fiber stitch and whip stitching fiber tags on each hand with the button on the femoral side on the ABS loop on the tibial side. This measured 9mm tibia, and 10mm femur. Graft placed on tension. I turned my attention back to the knee. I used the all inside retrograde drilling technique using a third-generation flip cutter drills. Placed the femoral tunnel low and posterior at the origin for the prior ACL retrograde drilled for 3 cm for a 4 cm long total tunnel 10mm diameter, cleared away any bone dust and passed the sutures out the anterior medial portal which I had also placed a passport cannula. I then drilled for the tibial side in line with the anterior horn lateral meniscus. Again the tunnel length was 4 cm in a retrograde drilled 9 mm for 3 cm total tunnel length cleared away any bone dust and then passed the suture through the anterior medial portal. I then passed the ACL up into the femoral tunnel and then back down into the tibial tunnel flipping the button on the lateral aspect of the femur. I had marked the graft at 2 cm and then pulled on the free ends of the femoral side to deliver the graft into the tunnel. I then cycled the knee 15 times and then attach the tibial button to the ABS button loop and pulled on the free ends of the suture to tighten the graft up in place. This achieved excellent fixation limited the pivot shift and the Kaylin. Suture was cut short. Also had brought the internal brace out through the ABS button on the tibial side and then attach this without tension in full extension to a Arthrex 4.75 mm bio composite swivel lock anchor for the internal brace construct. The tourniquet let down meticulous hemostasis achieved wounds irrigated. Sub cutaneous tissue closed with 2-0 Vicryl suture skin with 3-0 Monocryl. Skin cleaned with wet dry dressing followed by application of Steri-Strips Adaptic 4 x 4 gauze ABD dressing and loose wrapped SANCHEZ bandage. Hinged knee brace locked in full extension. Patient woken up from the GA, transfer off the operating table taken to postanesthetic care unit in stable condition. All sponge needle instrument counts were correct no complications plan to the patient discharged home according to day surgery criteria follow-up in the office this week. WBAT, hinged knee brace 0-90, 0 for ambulating, and crutches 2 weeks. ASA 81 BID for vte propylaxis. cpt 42595, [id number]? Surgical Findings: As above Complications Complications: No Admit VTE Documentation VTE Present on Admission: No VTE Mechan Device Prophylaxis: SCD's VTE Pharm Prophylaxis ordered?: Yes
--- NOTE | 2025-06-21 16:57 | PCM.POST.ANE ---
Anesthesia: Postop Eval I Current Vital Signs Temperature: 97.4 F Pulse Rate: 100 Blood Pressure: 126/78 Respiratory Rate: 16 Pulse Ox: 96 Oxygen Delivery Method: Room Air Assessment Airway patent: Yes Spontaneous unlabored respirations: Yes Mental status: Awake nausea: No Vomiting: No Anesthesia Complication: No Fluid Hydration Crystalloid volume administer (ml): 1,000 Total IV fluid infused: 1,000 Progress Note Anesthesia document: Postop Eval 1 completed: Yes
--- NOTE | 2025-06-21 16:58 | PCM.POSTANE2 ---
Anesthesia Postop Eval I Sum Postop Eval Completion status Anesthesia document: Postop Eval 1 completed: Yes Anesthesia Postop Eval I Summary Anesthesia Postop Eval I Summary: Anesthesia Postop Eval I: Assessment Summary Airway patent Yes 06/21/25 16:58 Spontaneous unlabored Yes 06/21/25 16:58 respirations Mental status Awake 06/21/25 16:58 nausea No 06/21/25 16:58 Vomiting No 06/21/25 16:58 Anesthesia Postop Eval I: Fluid Summary Crystalloid volume administer 1,000 06/21/25 16:58 (ml) Colloids volume administered ( ml) Blood Product volume administered (ml) Total IV fluid infused 1,000 06/21/25 16:58 Anesthesia Postop Eval I: Summary Notes Anesthesia Complication No 06/21/25 16:58 Anesthesia Complication Comment: Post-operative progress note Anesthesia: Postop Eval II Evaluation Mental status: Awake Pain Level: 0 nausea: No Vomiting: No Progress Note Post-operative progress note: Upon arrival to PACU, patient was actively snoring loudly, however saturating 68%. 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 Patient saturation improved to 94% with chin lift support and nasal trumpet very quickly. I had a thorough discussion with the patient regarding her undiagnosed JC, including that she is at risk for apneic episodes while sleeping at home which could put her at significant health risk. The patient verbalized understanding and wished to be discharged. I recommended follow-up with PCP and Digital Marketing Executive for further diagnosis and treatment. Opportunity for questions invited. Complications Anesthesia Complication: No
== END 2025-06-21 16:32 | disposition home or self-care (01) ==
LOC: SDC 09:46 → AC 09:48
PROVIDERS: Anesthesiology; PCP Family Medicine; Referring Provider Orthopaedic Surgery Sports Medicine; Visit Provider Orthopaedic Surgery Sports Medicine
PROC: (CPT 29888; principal; 2025-06-21 11:10)
DX: S83.512A Sprain of anterior cruciate ligament of left knee, initial encounter (principal); S83.242A Other tear of medial meniscus, current injury, left knee, initial encounter; G43.909 Migraine, unspecified, not intractable, without status migrainosus; S83.252A Bucket-handle tear of lateral meniscus, current injury, left knee, initial encounter; S83.282A Other tear of lateral meniscus, current injury, left knee, initial encounter; F41.9 Anxiety disorder, unspecified; F32.A Depression, unspecified; Z79.899 Other long term (current) drug therapy; V00.141A Fall from scooter (nonmotorized), initial encounter
CPT/HCPCS: 29888; 29883; 64450; 01400; 81025; J2405

== ENCOUNTER → 2025-07-12 | Outpatient (CLI) | payer OTHER, MEDICAID, SELFPAY | END | disposition home or self-care (01) | LOC: MTLAB 14:27 | PROVIDERS: PCP Family Medicine; Referring Provider Family Medicine; Visit Provider Family Medicine | DX: E03.9 Hypothyroidism, unspecified (principal) | CPT/HCPCS: 36415; 84443 ==